=== PATIENT | female | born 2000 | race Caucasian/White ===

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

== ENCOUNTER → 2019-12-27 07:51 | Outpatient (CLI) | payer OTHER, SELFPAY ==
[2019-12-19 13:14] VITALS: BMI 19.9
[2019-12-27 09:07] LABS: Color, Urine Yellow (Yellow); Glucose, Dipstick Normal (Normal); Ketone-Dipstick Negative (Negative); Leukocyte Esterase-Dipstick 500 /ul (Negative); Nitrite-Dipstick Negative (Negative); Occult Blood-Urine 10 /ul (Negative); Protein-Dipstick Negative (Negative); Urine Bilirubin Dipstick Negative (Negative); Urine Clarity Sl. Cloudy (Clear); Urine Urobilinogen Normal (Normal)
== END ==
PROVIDERS: PCP Internal Medicine; Referring Provider Internal Medicine; Visit Provider Internal Medicine
DX: R30.0 Dysuria (principal)
CPT/HCPCS: 81002; 87086; 87088

== ENCOUNTER → 2021-06-23 | Outpatient (CLI) | payer OTHER, SELFPAY ==
[2021-03-27 10:58] VITALS: BMI 19.9
[2021-06-23 15:02] LABS: Bacteria 0 SEEN /hpf (None Seen); Mucous, Urine 0 SEEN /hpf (<or=2+)
[2021-06-23 15:07] LABS: Color, Urine Yellow (Yellow); Glucose, Dipstick Normal (Normal); Ketone-Dipstick Negative (Negative); Leukocyte Esterase-Dipstick 100 /ul (Negative); Nitrite-Dipstick Negative (Negative); Occult Blood-Urine 25 /ul (Negative); Protein-Dipstick Negative (Negative); Specific Gravity, Urine 1.025 (1.002-1.030); Urine Bilirubin Dipstick Negative (Negative); Urine Urobilinogen Normal (Normal)
[2021-06-23 15:20] LABS: Red Blood Cells-Urine 0-5 SEEN /hpf (0-5); Squamous Epithelial Cells - UA 10-25 SEEN /hpf (5-10); White Blood Cells 5-10 SEEN /hpf (0-5)
[2021-06-23 15:21] LABS: Amorphous Sediment 1+ URATE; Urine Clarity Sl Cldy (Clear)
== END | disposition home or self-care (01) ==
PROVIDERS: PCP Internal Medicine; Visit Provider Nurse Practitioner Family
DX: N39.0 Urinary tract infection, site not specified (principal)
CPT/HCPCS: 81001; 87086; 87088

== ENCOUNTER → 2022-08-14 | Outpatient (CLI) | payer OTHER, SELFPAY ==
[2022-08-14 15:31] LABS: Bacteria 0 SEEN /hpf (None Seen); Mucous, Urine 0 SEEN /hpf (<or=2+); Red Blood Cells-Urine 0 SEEN /hpf (0-5); White Blood Cells 0 SEEN /hpf (0-5)
[2022-08-14 15:42] LABS: Color, Urine Yellow (Yellow); Glucose, Dipstick Normal (Normal); Ketone-Dipstick Negative (Negative); Leukocyte Esterase-Dipstick Negative /ul (Negative); Nitrite-Dipstick Negative (Negative); Occult Blood-Urine Negative /ul (Negative); Protein-Dipstick Negative (Negative); Specific Gravity, Urine 1.015 (1.002-1.030); Urine Bilirubin Dipstick Negative (Negative); Urine Clarity Clear (Clear); Urine Urobilinogen Normal (Normal)
[2022-08-14 15:51] LABS: Squamous Epithelial Cells - UA 0-5 SEEN /hpf (5-10)
== END | disposition home or self-care (01) ==
LOC: LABSPEC 15:18
PROVIDERS: PCP Internal Medicine; Visit Provider Physician Assistant
DX: R10.9 Unspecified abdominal pain (principal)
CPT/HCPCS: 81001; 87077; 87086; 87088

== ENCOUNTER → 2023-02-13 | Outpatient (CLI) | payer OTHER, SELFPAY ==
--- NOTE | 2023-02-13 12:59 | CT_ITS ---
STUDY: CT MAXILLOFACIAL SINUSES REASON FOR EXAM: Female, 22 years old. SINUSITIS RADIATION DOSAGE (If Supplied By Facility): CTDIvol = ( 28.14 ) mGy, DLP = ( 816.54 ) mGycm TECHNIQUE: The patient was scanned in a multi detector CT scanner. High resolution axial imaging was performed without the administration of intravenous contrast material. Sagittal and coronal images were reconstructed. Individualized dose optimization techniques were used for this CT. COMPARISON: None. FINDINGS: FRONTAL SINUSES: Normal aeration, without mucosal inflammatory disease. ETHMOIDAL SINUSES: Mild mucosal thickening of the ethmoid sinuses. MAXILLARY SINUSES: There is a minimal degree of mucosal thickening along the medial wall of the maxillary sinus bilaterally. SPHENOIDAL SINUSES: Normal aeration, without mucosal inflammatory disease. There is patency of the bilateral maxillary infundibuli with normal uncinate processes, ethmoid bullae, and hiatus semilunaris. Normal bilateral middle turbinates. Normal bilateral inferior turbinates. Normal midline nasal septum. There is patency of the bilateral nasal airways. The visualized osseous structures are normal. The visualized bilateral orbital contents are normal. CT/Sinus/Facial Bone IMPRESSION: Mild degree of mucosal thickening of the ethmoid sinuses and the medial donohue of both maxillary sinuses. Electronically Signed: Fili Rodriguez MD at 13:30 EDT ,
== END | disposition home or self-care (01) ==
PROVIDERS: PCP Internal Medicine; Referring Provider Otolaryngology; Visit Provider Otolaryngology
DX: J32.8 Other chronic sinusitis (principal)
CPT/HCPCS: 70486

== ENCOUNTER 2023-05-15 17:02 | Emergency (ER) | payer OTHER, SELFPAY ==
[2023-05-15 17:03] VITALS: BP 146/93; PULSE 100; RESP 16; TEMP 36.6; O2SAT 98; BMI 22.3
[2023-05-15] MEDS: Lidocaine 1% (20 ml mdv) 20 ML Vial INFILT (17:29)
--- NOTE | 2023-05-15 17:38 | EDS_ITS ---
HPI <Dr. Maxwell Trinh MD - Last Filed: 05/15/23 17:39> History of Present Illness Chief Complaint: Laceration <LJ Roberto - Last Filed: 05/15/23 17:43> Narrative Narrative: Patient is a 22-year-old female with no significant medical history presents to the emergency department with a laceration to the right thumb. Patient states that she cut her thumb with a piece of equipment at the grocery store. Patient has full range of motion. Patient tetanus vaccination is up-to-date and last 5 years. She denies any other injury. [facility] <Dr. Maxwell Trinh MD - Last Filed: 05/15/23 17:39> [facility] Medical History (Updated 05/15/23 @ 17:42 by LJ Roberto) Acute otitis externa of left ear Constipation Impetigo Paronychia of toe of right foot Rhinitis, allergic Right lower quadrant abdominal pain URI (upper respiratory infection) Allergy/AdvReac Type Severity Reaction Status Date / Time No Known Allergies Allergy Verified 05/15/23 17:08 Social History Smoking Status: Never smoker alcohol intake: never ROS <LJ Roberto - Last Filed: 05/15/23 17:43> ROS ED ROS Narrative Constitutional: Negative for fever, chills, weight loss, weakness Eyes: Negative for vision loss, vision change, double vision ENT: Negative for any sore throat, ear pain, congestion Cardiovascular: Negative for any chest pain, tightness, palpitations Respiratory: Negative for any cough, sputum production, hemoptysis, dyspnea, dyspnea on exertion, orthopnea Gastrointestinal: Negative for any abdominal pain, nausea, vomiting, diarrhea, constipation, blood in stool, blood in vomit : Negative for any urinary frequency, dysuria, retention, blood in urine Muscle skeletal: Negative for any muscle joint pain, stiffness, myalgias, arthralgias, neck pain, back pain. Positive right thumb pain Neurological: Negative for any headache, syncope, numbness or tingling, dizziness. Positive laceration of the right thumb Skin: Negative for any rashes, lumps, itching, abrasions, lacerations Psychiatric: Negative for any depression, anxiety, stress, suicidal ideation, homicidal ideation Hematologic: Negative for any easy bruising, excessive bruising, easy bleeding Allergies: Negative for any eczema, hives, rash EXAM <Dr. Maxwell Trinh MD - Last Filed: 05/15/23 17:39> Physical Exam Const Vital Signs: 05/15/23 17:03 Temperature 97.9 F Temperature Source Temporal Pulse Rate 100 Respiratory Rate 16 Blood Pressure 146/93 H Blood Pressure Mean 110 Pulse Ox 98 Oxygen Delivery Method Room Air <LJ Roberto - Last Filed: 05/15/23 17:43> Physical Exam Narrative Exam Narrative: Vital signs reviewed. Extremities: No peripheral edema, no signs of gross trauma or deformity. Active full range of motion of all extremities. Patient has a small 1.5 cm laceration to the palmar aspect of the distal right thumb. No tendon involvement. Full range of motion, two-point sensation. +2 radial pulse. Equal lease administrator strength. Neuro: Cranial nerves II through XII intact, no focal neurological deficits. Skin: Clean dry and intact with no rash, purpura, petechiae, vesicles or pustules. Backs/flank: No CVA tenderness, no midline spinal tenderness, no deformity. Psych: Normal mood and affect. No SI, HI or acute psychosis. Const Vital Signs: 05/15/23 17:03 Temperature 97.9 F Temperature Source Temporal Pulse Rate 100 Respiratory Rate 16 Blood Pressure 146/93 H Blood Pressure Mean 110 Pulse Ox 98 Oxygen Delivery Method Room Air Positive well nourished and well developed General Appearance ED: well developed MDM <Dr. Maxwell Trinh MD - Last Filed: 05/15/23 17:39> MDM MDM Narrative Medical decision making narrative: I have personally performed a face to face assessment of the patient and have reviewed the MIGNON Note. I performed a substantive portion of the visit including all aspects of the following. My alberto findings include: History is [22-year-old healthy female. Laceration left thumb palmar side. About 2 cm.] Exam is [left hand neurovascular intact. Full range of motion. 2 cm laceration left thumb patient. Distal phalanx. Palmar side. Minimal oozing. No foreign body infection. Full flexion extension. Normal touch sensation. 4] Medical Decision Making [locally anesthetized and sutured repaired by our PURCHASING ADMINISTRATOR.] Other additions or changes: [None] History & Record Review Discussion w/independent historian: Patient <Enrique LJ Pena - Last Filed: 05/15/23 17:43> [facility] Treatment and Re-Evaluation Narrative: Patient appears generally well, patient appears nontoxic, vital signs are stable. Patient presents to the emergency department from work with a laceration to the palmar aspect of the right thumb. This is 1.5 cm. Patient no other injury. This would be a Workmen's Comp. All paperwork is filled out. The area was anesthetized, irrigated, did place 3 simple erupted sutures of 5-0 Ethilon. Patient tolerated well. She will have these removed in 7 to 10 days. Patient stable for discharge Discharge Plan Triage Chief Complaint: Laceration ED Midlevel Provider: Enrique Pena ED Provider: Maxwell Trinh Dx/Rx/DC Orders Clinical Impression: Laceration of thumb Instructions: ED Laceration Hand with ... Primary Care Provider: Hannah Gay Referrals: Hannah Gay MD [Primary Care Provider] - Activity Restrictions/Additional Instructions: Please have the sutures moved in 7 to 10 days. Disposition Disposition: Home, Self Care
== END 2023-05-15 17:57 | disposition home or self-care (01) ==
PROVIDERS: Emergency Provider Emergency Medicine; PCP Internal Medicine; Visit Provider Emergency Medicine
DX: S61.011A Laceration without foreign body of right thumb without damage to nail, initial encounter (principal); W26.8XXA Contact with other sharp object(s), not elsewhere classified, initial encounter; Y99.0 Civilian activity done for income or pay; Y92.69 Other specified industrial and construction area as the place of occurrence of the external cause
CPT/HCPCS: 12001; 99283

== ENCOUNTER → 2023-06-16 | Outpatient (CLI) | payer OTHER, SELFPAY ==
--- NOTE | 2023-06-15 12:50 | NASAL_PTH ---
PATIENT: LAWRENCE [place] LOC: [facility] U#:[id number] AGE/SX: 23/F ROOM: RE06/16/[address]: Dr. Isac Puentes MD : 2000 BED: DIS: 06/16/2023 SPEC #: [id number] RECD: 06/16/23 15:06 STATUS: NAOMIE BETSEY #: [id number] BO: 06/15/23 12:[address]: Isac Puentes DEPT: SURGICAL PATHOLOGY RECD BY: Laverne Buchanan ENTERED: 06/17/23 09:37 SP TYPE: NASAL SPEC OTHR DR: Dr. Hannah Gay MD [facility] Tissues: A - Ethmoid sinus, NOS B - Ethmoid sinus, NOS Procedures: Decalcification bone/plaque Surgery Specimen Level IV HEADER OPERATION: Functional endoscopic sinus surgery, submucous resection inferior turbinates PRE-OP DIAGNOSIS: Nasal congestion, hypertrophy of nasal turbinates, chronic sinusitis TISSUE SUBMITTED: A - Right sinus contents, B - Left sinus contents MICROSCOPIC DIAGNOSIS A. Right sinus contents: Fragments of respiratory mucosa with chronic inflammation and bone. B. Left sinus contents: Fragments of respiratory mucosa with chronic inflammation and bone. KEON:amanda 06/22/2023 MICROSCOPIC DESCRIPTION Slides are reviewed. GROSS DESCRIPTION A - Received in fixative is one container labeled with the patient's name and designated right sinus contents. The specimen consists of multiple irregular and gritty fragments of mcwilliams tissue that in aggregate measure 3.0 x 0.5 x 0.2 cm. The specimen is totally submitted in one cassette after decalcification. B - Received in fixative is one container labeled with the patient's name and designated left sinus contents. The specimen consists of multiple irregular and gritty fragments of mcwilliams tissue that in aggregate measure 3.0 x 0.5 x 0.2 cm. The specimen is totally submitted in one cassette after decalcification. / AM:amanda 06/17/2023 TC:3 CPT: 30674 x2, 85883 x2
== END | disposition home or self-care (01) ==
LOC: LABSPEC 15:26
PROVIDERS: PCP Internal Medicine; Referring Provider Otolaryngology; Visit Provider Otolaryngology
DX: R09.81 Nasal congestion (principal); J34.3 Hypertrophy of nasal turbinates; J32.9 Chronic sinusitis, unspecified
CPT/HCPCS: 88305; 88311

== ENCOUNTER → 2023-08-20 | Outpatient (CLI) | payer OTHER, SELFPAY | END | disposition home or self-care (01) | LOC: LABSPEC 12:10 | PROVIDERS: PCP Internal Medicine; Referring Provider Physician Assistant Surgical; Visit Provider Physician Assistant Surgical | DX: N39.0 Urinary tract infection, site not specified (principal) | CPT/HCPCS: 87086 ==

== ENCOUNTER → 2023-09-09 | Outpatient (CLI) | payer OTHER, SELFPAY ==
[2023-09-09 17:47] LABS: Mucous, Urine 0 SEEN /hpf (<or=2+); Red Blood Cells-Urine 0 SEEN /hpf (0-5); White Blood Cells 0 SEEN /hpf (0-5)
[2023-09-09 18:03] LABS: Color, Urine Yellow (Yellow); Glucose, Dipstick Normal (Normal); Ketone-Dipstick Negative (Negative); Leukocyte Esterase-Dipstick 25 /ul (Negative); Nitrite-Dipstick Negative (Negative); Occult Blood-Urine 10 /ul (Negative); Protein-Dipstick 15 mg/dl (Negative); Urine Bilirubin Dipstick Negative (Negative); Urine Clarity Sl. Cloudy (Clear); Urine Urobilinogen Normal (Normal)
[2023-09-09 18:27] LABS: Amorphous Sediment 1+; Bacteria RARE /hpf (None Seen); Squamous Epithelial Cells - UA 0-5 SEEN /hpf (5-10)
== END | disposition home or self-care (01) ==
PROVIDERS: PCP Internal Medicine; Referring Provider Physician Assistant Surgical; Visit Provider Physician Assistant Surgical
DX: R30.0 Dysuria (principal)
CPT/HCPCS: 81001; 87086

== ENCOUNTER → 2024-04-19 | Outpatient (CLI) | payer OTHER, SELFPAY ==
[2024-04-19 17:11] LABS: Bacteria 0 SEEN /hpf (None Seen); Red Blood Cells-Urine 0 SEEN /hpf (0-5); White Blood Cells 0 SEEN /hpf (0-5)
[2024-04-19 18:16] LABS: Color, Urine Yellow (Yellow); Glucose, Dipstick Normal (Normal); Ketone-Dipstick Negative (Negative); Leukocyte Esterase-Dipstick Negative /ul (Negative); Nitrite-Dipstick Negative (Negative); Occult Blood-Urine 10 /ul (Negative); Protein-Dipstick 15 mg/dl (Negative); Specific Gravity, Urine 1.025 (1.002-1.030); Urine Bilirubin Dipstick Negative (Negative); Urine Clarity Clear (Clear); Urine Urobilinogen Normal (Normal)
[2024-04-19 19:05] LABS: Mucous, Urine 1+ /hpf (<or=2+); Squamous Epithelial Cells - UA 5-10 SEEN /hpf (5-10)
== END | disposition home or self-care (01) ==
LOC: LABSPEC 16:39
PROVIDERS: PCP Internal Medicine; Referring Provider Physician Assistant; Visit Provider Physician Assistant
DX: R35.0 Frequency of micturition (principal)
CPT/HCPCS: 81001; 87086

== ENCOUNTER → 2024-05-03 | Outpatient (CLI) | payer OTHER, SELFPAY ==
--- NOTE | 2024-05-03 15:20 | RAD_ITS ---
STUDY: X-RAY - RIGHT HAND REASON FOR EXAM: Female, 23 years old. Injury. Pain. TECHNIQUE: 3 view(s) of the hand. COMPARISON: None. FINDINGS: Normal radiocarpal articulation. Normal distal radioulnar joint. Normal visualized carpal bones. Normal carpal articulations Normal carpometacarpal articulation of the thumb. Normal second through fifth carpometacarpal joints. Normal metacarpi. Normal metacarpophalangeal joint of the thumb. Normal interphalangeal joint of the thumb. Normal proximal and distal phalanges of the thumb. Normal metacarpophalangeal joints of the second through fifth fingers. Normal proximal and distal interphalangeal joints of the second through fifth fingers. Normal phalanges of the second through fifth fingers. The soft tissue structures are normal. RAD/Hand Min 3 Views IMPRESSION: Normal x-ray examination of the hand. Electronically Signed: Chcukie Roberts MD at 15:39 EDT ,
--- NOTE | 2024-05-03 15:24 | RAD_ITS ---
STUDY: X-RAY - RIGHT WRIST REASON FOR EXAM: Female, 23 years old. Injury. Pain. TECHNIQUE: 3 view(s) of the wrist were obtained. COMPARISON: None. FINDINGS: Normal visualized distal radius and ulna. Normal radiocarpal articulation. Normal distal radioulnar articulation. Normal carpal bones. Normal carpal articulations. Normal carpometacarpal articulation of the thumb. Normal second through fifth carpometacarpal articulations. Normal visualized metacarpal bones. The soft tissue structures are normal. RAD/Wrist min 3 Views IMPRESSION: Normal x-ray examination of the wrist. Electronically Signed: Chuckie Roberts MD at 15:39 EDT ,
== END | disposition home or self-care (01) ==
PROVIDERS: PCP Internal Medicine; Referring Provider Physician Assistant; Visit Provider Physician Assistant
DX: T14.90XA Injury, unspecified, initial encounter (principal)
CPT/HCPCS: 73110; 73130

== ENCOUNTER → 2025-04-15 | Outpatient (CLI) | payer OTHER, SELFPAY | END | disposition home or self-care (01) | PROVIDERS: PCP Internal Medicine; Referring Provider Physician Assistant Surgical; Visit Provider Physician Assistant Surgical | DX: R82.90 Unspecified abnormal findings in urine (principal) | CPT/HCPCS: 87086; 87088 ==

== ENCOUNTER → 2025-05-10 | Outpatient (CLI) | payer OTHER, SELFPAY ==
--- OUTSIDE RECORDS SUMMARY | 2025-05-10 07:31 | XMS RPT_ITS | CCD ---
Author Organization [facility] Care Team Providers Care Implementation Advisor Name Role Phone STRONG, CELESTE H Unavailable Unavailable STRONG, CELESTE H Unavailable Unavailable STRONG, CELESTE H Unavailable Unavailable STRONG, CELESTE H Unavailable Unavailable STRONG, CELESTE H Unavailable Unavailable Dulce Maria Lynch Unavailable Unavailable Unavailable Unavailable Unavailable Meena Chavez Unavailable [phone] SRIRAM Nichole Unavailable Unavailable Isac Puentes Unavailable SRIRAM Nichole Unavailable Unavailable Camille Hernandez Unavailable Unavailable Dulce Maria Lynch MD Unavailable Dominique Dean MD Unavailable Meena Chavez Unavailable SRIRAM Nichole LPN Unavailable Unavailable Unavailable Unavailable Lexi Perez Unavailable Carolina Frank Unavailable Dulce Maria Lynch MD Unavailable Aura Boo MA Unavailable Unavailable Lynndyl CANNERY WORKER, Kayela Unavailable Unavailable Gravius CANNERY WORKER, Eugenia Unavailable Unavailable REFERRED, SELF Referring Unavailable DOMINIQUE DEAN Attending Unavailable DULCE MARIA LYNCH Primary Care Unavailable Meena Dubon LPN Unavailable Unavailable Slarb TOBY, Lisy Unavailable Unavailable Isac Puentes MD Unavailable Dr. Dulce Maria Lynch Primary Care Provider Dr. Dulce Maria Lynch Referring Provider NATANAEL Marin Attending Provider NATANAEL Rushing Attending Provider Dulce Maria Lynch MD Attending Unavailable Bonebecki Dulce Maria VICTOR Consulting Unavailable Dr. Dulce Maria Lynch Primary Care Provider Dr. Dulce Maria Lynch Referring Provider NATANAEL Rushing Attending Provider Dr. Dulce Maria Lynch Primary Care Provider Dr. Dulce Maria Lynch Referring Provider NATANAEL Marin Attending Provider Bonezzi, Dulce Maria Primary Care Unavailable Jesús Rushing Attending Unavailable Bonezzi, Dulce Maria Referring Unavailable Bonezzi, Dulce Maria Primary Care Unavailable Celeste Mosley NP Attending Unavailable Bonezzi, Dulce Maria Referring Unavailable Bonezzi, Dulce Maria Primary Care Unavailable Jesús Rushing Attending Unavailable Bonezzi, Dulce Maria Referring Unavailable Bonezzi, Dulce Maria Primary Care Unavailable Jesús Rushing Attending Unavailable Bonezzi, Dulce Maria Referring Unavailable Bonezzi, Dulce Maria Primary Care Unavailable Tracy Gaona Attending Unavailable Bonezzi, Dulce Maria Referring Unavailable Bonezzi, Dulce Maria Primary Care Unavailable Jesús Rushing Attending Unavailable Bonezzi, Dulce Maria Referring Unavailable Bonezzi, Dulce Maria Primary Care Unavailable Jesús Combs Attending Unavailable Bonezzi, Dulce Maria Referring Unavailable Jesús Rushing Referring Unavailable Bonezzi, Dulce Maria Primary Care Unavailable Jesús Rushing Attending Unavailable Jaleel Marin Attending Unavailable Jaleel Marin Referring Unavailable Bonezzi, Dulce Maria Primary Care Unavailable Jesús Combs Attending Unavailable Bonezzi, Dulce Maria Primary Care Unavailable Bonezzi, Dulce Maria Referring Unavailable Jaleel Marin Attending Unavailable Bonezzi, Dulce Maria Primary Care Unavailable Jesús Combs Attending Unavailable Bonezzi, Dulce Maria Primary Care Unavailable Allergies Allergy Classification Reported Allergen(s) Allergy Type Date of Onset Reaction(s) Facility (20 sources) Animal Dander; Translations: [Animal Dander] allergy to substance 5 [facility] Work Phone: Comment on above: cats Medications Current Medications Medication Drug Class(es) Dates Sig (Normalized) Sig (Original) triamcinolone acetonide 0.055 mg/actuat metered dose nasal spray (1 source) Corticosteroid Start: 09-09-2023 take 1 spray(s) nasal route once daily Triamcinolone Acetonide (Nasacort) 55 mcg aerosol,spray Active 2 SPRAY INTRANASAL DAILY 16.9 September 09, 2023 12:00am administer into each nostril Completed/Discontinued Medications Medication Drug Class(es) Dates Sig (Normalized) Sig (Original) amoxicillin 500 mg oral capsule (6 sources) Penicillin-class Antibacterial Start: 12-25-2022 End: 01-04-2023 take 500 mg by mouth three times daily Amoxicillin Discontinued 500 MG PO THREE TIMES A DAY 30 December 25, 2022 1:00am January 04, 2023 1:05am Start: 09-08-2019 End: 11-22-2019 take 1000 mg by mouth twice daily Amoxicillin Discontinued 1000 MG PO TWICE A DAY 40 September 08, 2019 12:00am November 22, 2019 2:46pm amoxicillin 875 mg / clavulanate 125 mg oral tablet (20 sources) Penicillin-class Antibacterial Start: 04-15-2022 End: 05-29-2022 take 1 tablet by mouth twice daily Amoxicillin-Pot Clavulanate 875-125 MG Oral Tablet 1 (one) Tablet bid for 0 days Quantity: 28 {Tablet} Refills: 0 Ordered: 29-May-2022 Eugenia Marx CMA Start : 15-Apr-2022 End : 29-May-2022 Inactive Start: 03-15-2022 End: 03-25-2022 take 1 tablet by mouth twice daily at mealtime Amoxicillin-Pot Clavulanate Discontinued 1 TABLET PO TWICE A DAY 20 March 15, 2022 12:00am March 25, 2022 12:04am take with food Start: 11-14-2021 take 1 tablet by paulo th twice daily Amoxicillin-Pot Clavulanate 875-125 MG Oral Tablet 1 (one) Tablet bid for 0 days Quantity: 20 {Tablet} Refills: 0 Ordered: 14-Nov-2021 Victor Hugo VICTOR, Dulce Maria Lynch MD, Dulce Maria Jacobs Start : 14-Nov-2021 Active Start: 10-23-2021 End: 08-14-2022 take 1 tablet by mouth three times daily Amoxicillin-Pot Clavulanate Discontinued 1 TABLET PO THREE TIMES A DAY December 30, 2021 1:55pm August 14, 2022 11:36am Start: 02-14-2020 End: 02-24-2020 take 1 tablet by mouth every twelve hours Amoxicillin-Pot Clavulanate (Augmentin) 875-125 mg tablet Discontinued 1 TABLET PO Q12H 20 February 14, 2020 12:00am February 24, 2020 12:02am Start: 08-09-2019 End: 10-06-2019 take 1 tablet by mouth twice daily Augmentin 875-125 MG Oral Tablet 1 (one) Tablet bid for 0 days Quantity: 10 {Tablet} Refills: 0 Ordered: 06-Oct-2019 SRIRAM Nichole LPN Start : 09-Aug-2019 End : 06-Oct-2019 Inactive azithromycin 250 mg oral tablet (3 sources) Macrolide Antimicrobial Start: 12-04-2017 End: 12-09-2017 Azithromycin Discontinued 250 MG PO daily 6 December 04, 2017 1:00am December 09, 2017 1:08am Take 2 tabs once on day one. Take one tablet next 4 days busPIRone hydrochloride 15 mg oral tablet (20 sources) Start: 01-05-2020 End: 03-29-2021 take 1 tablet by mouth twice daily busPIRone HCl 15 MG Oral Tablet 1 (one) Tablet bid for 0 days Quantity: 180 {Tablet} Refills: 3 Ordered: 29-Mar-2021 SRIRAM Nichole LPN Start : 05-Jan-2020 End : 29-Mar-2021 Inactive Comments: Mail order. Start: 08-02-2019 busPIRone HCl 10 MG Oral Tablet 1 (one) Tablet 1/2 at night for 3 days then 1/2 bid for 3 days then 1/2 in am and 1 at pm for 3 days then 1 bid for 0 days Quantity: 60 {Tablet} Refills: 2 Ordered: 02-Aug-2019 Victor Hugo VICTOR, Dulce Maria Lynch MD, Dulce Maria Jacobs Start : 02-Aug-2019 Active Start: 08-03-2018 End: 12-17-2018 take 1 tablet by mouth twice daily BusPIRone HCl 5 MG Oral Tablet 1 (one) Tablet Tablet bid for 0 days Quantity: 60 {Tablet} Refills: 2 Ordered: 03-Aug-2018 Victor Hugo VICTOR, Dulce Maria Lynch MD, Dulce Maria Jacobs Start : 03-Aug-2018 End : 17-Dec-2018 Discontinued Comment on above: Mail order. chlorhexidine gluconate 40 mg/ml medicated liquid soap (20 sources) Start: 0 End: 0 Hibiclens 4 % External Liquid 1 (one) Milliliter wash body when shower for 0 days Quantity: 100 {Milliliter} Refills: 0 Ordered: 23-Mar-2020 SRIRAM Nichole LPN Start : 05-Jan-2020 End : 23-Mar-2020 Inactive ciprofloxacin 500 mg oral tablet (20 sources) Quinolone Antimicrobial Start: 0 End: 0 take 1 tablet by mouth twice daily Cipro 500 MG Oral Tablet 1 (one) Tablet bid for 3 days Quantity: 6 {Tablet} Refills: 0 Ordered: 27-Dec-2019 SRIRAM Nichole LPN Start : 27-Dec-2019 End : 30-Dec-2019 Inactive Start: 08-03-2018 End: 08-12-2018 take 1 tablet by mouth twice daily Cipro 500 MG Oral Tablet 1 (one) Tablet bid for 0 days Quantity: 14 {Tablet} Refills: 0 Ordered: 12-Aug-2018 SRIRAM Nichole Start : 03-Aug-2018 End : 12-Aug-2018 Inactive dexamethasone 6 mg oral tablet (3 sources) Corticosteroid Start: 11-13-2022 End: 12-25-2022 take 6 mg by mouth once daily Dexamethasone Discontinued 6 MG PO DAILY November 13, 2022 1:00am December 25, 2022 3:11pm diphenhydrAMINE hydrochloride 25 mg oral capsule (20 sources) Histamine-1 Receptor Antagonist Start: 01-05-2020 End: 01-08-2021 ZzzQuil 25 MG Oral Capsule 1 (one) Capsule at night for 0 days Quantity: 30 {Capsule} Refills: 0 Ordered: 08-Jan-2021 SRIRAM Nichole LPN Start : 05-Jan-2020 End : 08-Jan-2021 Inactive doxycycline hyclate 100 mg oral tablet (20 sources) Tetracycline-class Drug Start: 01-05-2020 End: 03-23-2020 take 1 tablet by mouth twice daily Doxycycline Hyclate 100 MG Oral Tablet 1 (one) Tablet bid for 0 days Quantity: 20 {Tablet} Refills: 0 Ordered: 23-Mar-2020 SRIRAM Nichole LPN Start : 05-Jan-2020 End : 23-Mar-2020 Inactive Start: 11-24-2018 End: 12-25-2018 take 100 mg by mouth twice daily Doxycycline Monohydrate Discontinued 100 MG PO TWICE A DAY November 24, 2018 1:00am December 25, 2018 12:15pm Start: 05-27-2018 End: 07-14-2018 take 1 capsule by mouth once daily Doxycycline Monohydrate 100 MG Oral Capsule 1 qd for 0 days Refills: 0 Ordered: 14-Jul-2018 SRIRAM Nichole LPN Start : 27-May-2018 End : 14-Jul-2018 Inactive ergocalciferol 1.25 mg oral capsule (2 sources) Provitamin D2 Compound Start: 03-24-2023 take 1 capsule by mouth three times weekly ergocalciferol (vitamin D2) 1,250 mcg (50,000 unit) oral capsule 1 (one) capsule three time a wk for 30 days Quantity: 12 {Capsule} Refills: 3 Ordered: 24-Mar-2023 Meena Dubon LPN Start : 24-Mar-2023 Active escitalopram 5 mg oral tablet (19 sources) Serotonin Reuptake Inhibitor Start: 10-31-2021 End: 04-15-2022 take 1 tablet by mouth in the morning Lexapro 5 MG Oral Tablet 1 (one) Tablet in am for 0 days Quantity: 30 {Tablet} Refills: 1 Ordered: 15-Apr-2022 Aura Boo MA Start : 31-Oct-2021 End : 15-Apr-2022 Inactive Loestrin 1/20 (21) 1-20 MG-MCG Oral Tablet (20 sources) Estrogen Start: 09-06-2018 End: 05-10-2019 take 1 tablet by mouth in the morning Loestrin 1/20 (21) 1-20 MG-MCG Oral Tablet 1 (one) Tablet Tablet uad in am for 0 days Quantity: 1 {Package} Refills: 6 Ordered: 10-May-2019 SRIRAM Nichole LPN Start : 06-Sep-2018 End : 10-May-2019 Inactive Start: 09-06-2018 End: 05-10-2019 take 1 tablet by mouth in the morning Loestrin 1/20 (21) 1-20 MG-MCG Oral Tablet 1 (one) Tablet Tablet uad in am for 0 days Quantity: 1 {Package} Refills: 6 Ordered: 10-May-2019 SRIRAM Nichole Start : 06-Sep-2018 End : 10-May-2019 Inactive Start: 09-06-2018 take 1 tablet by paulo th in the morning Loestrin 1/20 (21) 1-20 MG-MCG Oral Tablet 1 (one) Tablet Tablet uad in am for 0 days Quantity: 1 {Package} Refills: 6 Ordered: 06-Sep-2018 Victor Hugo VICTOR, Dulce Maria Lynch MD, Dulce Maria Jacobs Start : 06-Sep-2018 Active Start: 09-06-2018 take 1 tablet by paulo th in the morning Loestrin 1/20 (21) 1-20 MG-MCG Oral Tablet 1 (one) Tablet uad in am for 0 days Quantity: 1 {Package} Refills: 6 Ordered: 06-Sep-2018 Victor Hugo VICTOR, Dulce Maria Lynch MD, Dulce Maria Jacobs Start : 06-Sep-2018 Active fexofenadine hydrochloride 180 mg oral tablet (16 sources) Histamine-1 Receptor Antagonist Start: 04-15-2022 End: 11-20-2022 take 1 tablet by mouth twice daily Crista Allergy 180 mg oral tablet 1 (one) Tablet bid for 0 days Quantity: 60 {Tablet} Refills: 2 Ordered: 20-Nov-2022 Ling TOBYMeena Start : 15-Apr-2022 End : 20-Nov-2022 Inactive fluconazole 150 mg oral tablet (3 sources) Azole Antifungal Start: 06-23-2021 End: 12-25-2022 Fluconazole Discontinued 150 MG PO Q3D 2 June 23, 2021 12:00am December 25, 2022 3:11pm repeat second dose 72 hrs after first dose FLUoxetine 20 mg oral capsule (3 sources) Serotonin Reuptake Inhibitor Start: 12-31-2017 End: 11-24-2018 Fluoxetine Discontinued PO 30 December 31, 2017 1:00am November 24, 2018 5:38pm fluticasone propionate 0.05 mg/actuat metered dose nasal spray (20 sources) Corticosteroid Start: 05-27-2018 End: 08-03-2018 Flonase 50 MCG/ACT Nasal Suspension 1 (one) [place] 2 spray each nostirl daily. for 0 days Quantity: 1 {[place]} Refills: 0 Ordered: 03-Aug-2018 SRIRAM Nichole LPN Start : 27-May-2018 End : 03-Aug-2018 Inactive 12 hr guaiFENesin 600 mg extended release oral tablet (20 sources) Start: 08-09-2019 End: 01-08-2021 take 1 tablet by mouth twice daily Mucinex 600 MG Oral Tablet Extended Release 12 Hour 1 (one) Tablet bid for 0 days Quantity: 30 {Tablet} Refills: 0 Ordered: 08-Jan-2021 SRIRAM Nichole LPN Start : 09-Aug-2019 End : 08-Jan-2021 Inactive hydrocortisone 10 mg/ml / neomycin 3.5 mg/ml / polymyxin b 23889 unt/ml otic suspension (6 sources) Aminoglycoside Antibacterial, Polymyxin-class Antibacterial, Corticosteroid Start: 01-17-2023 End: 01-27-2023 Neomycin-Polymyxi n-Hc Discontinued 4 DRP OTIC THREE TIMES A DAY 08 25January 17, 2023 1:00am January 27, 2023 12:04am to affected ear(s) while awake Start: 11-15-2020 End: 11-25-2020 Fgahqebt-Yntddawhh-Qw Discon tinued 3 DRP OTIC Q4H 08 25November 15, 2020 1:00am November 25, 2020 1:03am apply to (cotton) wick; replace wick every 24 hours levoFLOXacin 500 mg oral tablet (4 sources) Quinolone Antimicrobial Start: 01-14-2023 End: 01-24-2023 take 1 tablet by mouth once daily levoFLOXacin 500 mg oral tablet 1 (one) tablet daily for 10 days Quantity: 10 {Tablet} Refills: 0 Ordered: 14-Jan-2023 Meena Dubon LPN Start : 14-Jan-2023 End : 24-Jan-2023 Inactive loratadine 10 mg oral tablet (20 sources) Start: 05-27-2018 End: 06-26-2018 take 1 tablet by mouth once daily Claritin 10 MG Oral Tablet 1 (one) Tablet daily for 30 days Quantity: 30 {Tablet} Refills: 0 Ordered: 14-Jul-2018 Victor Hugo VICTOR, Dulce Maria Lynch MD, Dulce Maria Jacobs Start : 27-May-2018 End : 26-Jun-2018 Inactive methylPREDNISolone 4 mg oral tablet (6 sources) Corticosteroid Start: 03-27-2021 End: 06-23-2021 take 1 tablet by mouth once Methylprednisolone (Medrol (James)) 4 mg tablets,dose pack Discontinued 0 PO per package directions March 27, 2021 12:00am June 23, 2021 8:53am PO PER PKG DIR Start: 01-23-2020 End: 02-14-2020 Methylprednisolone Discontin ued 0 PO per package directions January 23, 2020 12:00am February 14, 2020 4:34pm PO PER PKG DIR mupirocin 0.02 mg/mg topical ointment (20 sources) RNA Synthetase Inhibitor Antibacterial Start: 01-05-2020 End: 03-23-2020 Mupirocin 2 % External Ointment 1 (one) Application apply in nostril and belly button daily 1-2 weeks for 0 days Quantity: 1 {Tube} Refills: 0 Ordered: 23-Mar-2020 SRIRAM Nichole LPN Start : 05-Jan-2020 End : 23-Mar-2020 Inactive nitrofurantoin, macrocrystals 25 mg / nitrofurantoin, monohydrate 75 mg oral capsule (4 sources) Nitrofuran Antibacterial Start: 08-20-2023 End: 08-27-2023 take 1 capsule by mouth every twelve hours at mealtime Nitrofurantoin Monohyd/M-Cryst Discontinued 1 CAP PO Q12H 14 August 20, 2023 12:00am August 27, 2023 12:04am administer with a meal/food; swallow whole; do not open, crush, dissolve , or chew Start: 12-19-2019 End: 12-26-2019 take 1 capsule by mouth every twelve hours at mealtime Nitrofurantoin Monohyd/M-Cryst (Macrobid) 100 mg capsule Discontinued 100 MG PO Q12H 14 December 19, 2019 1:00am December 26, 2019 1:08am must administer with a meal/food ofloxacin 3 mg/ml otic solution (3 sources) Quinolone Antimicrobial Start: 03-15-2022 End: 03-22-2022 Ofloxacin Discontinued 5 DRP OTIC TWICE A DAY 10 March 15, 2022 12:00am March 22, 2022 12:06am oxymetazoline hydrochloride 0.5 mg/ml nasal spray (3 sources) Start: 11-15-2020 End: 11-18-2020 Oxymetazoline (Afrin (Oxymetazoline)) 0.05 % mist Discontinued 2 SPRAY INTRANASAL Q12H 15 3 November 15, 2020 1:00am November 18, 2020 1:02am PARoxetine hydrochloride 10 mg oral tablet (20 sources) Serotonin Reuptake Inhibitor Start: 05-10-2019 End: 08-02-2019 take 1 tablet by mouth once daily PARoxetine HCl 10 MG Oral Tablet 1 Tablet qd for 0 days Quantity: 30 {Tablet} Refills: 6 Ordered: 02-Aug-2019 Josuelatanyaakanksha FRIEDA Camille Start : 10-May-2019 End : 02-Aug-2019 Inactive Start: 05-27-2018 End: 08-03-2018 take 1 tablet by mouth once daily PARoxetine HCl 20 MG Oral Tablet 1 Tablet qd for 0 days Quantity: 30 {Tablet} Refills: 6 Ordered: 03-Aug-2018 SRIRAM Nichole Start : 27-May-2018 End : 03-Aug-2018 Inactive sulfacetamide sodium 100 mg/ml ophthalmic solution (20 sources) Sulfonamide Antibacterial Start: 03-25-2019 End: 05-10-2019 Bleph-10 10 % Ophthalmic Solution 1-2 Metric Drop every 4 hours x7 days to affected eye(s) for 0 days Quantity: 15 {Milliliter} Refills: 0 Ordered: 10-May-2019 SRIRAM Nichole LPN Start : 25-Mar-2019 End : 10-May-2019 Inactive sulfamethoxazole 800 mg / trimethoprim 160 mg oral tablet (19 sources) Dihydrofolate Reductase Inhibitor Antibacterial, Sulfonamide Antimicrobial Start: 10-29-2021 End: 04-15-2022 take 1 tablet by mouth twice daily Bactrim DS 800-160 MG Oral Tablet 1 (one) Tablet bid for 0 days Quantity: 14 {Tablet} Refills: 0 Ordered: 15-Apr-2022 Aura Boo MA Start : 29-Oct-2021 End : 15-Apr-2022 Inactive NEGATED: Highlighted row has not occurred!drug or medication (3 sources) No Known Historical Medications NEGATED: Highlighted row has not occurred!No Known Historical Medications (14 sources) No Known Historical Medications Problems Active Problems Problem Classification Problem Date Documented Da te Episodic/Chronic Abdominal pain (20 sources) Suprapubic pain; Translations: [Abdominal pain] Resolved: 08-03-2018 08-03-2018 Episodic Administrative/social admission (20 sources) Medical examinations/report s status; Translations: [Follow-up status] Resolved: 05-10-2019 12-17-2018 Episodic Comment on above: talk about how felt and if want relationship and proper control. aware that if use OCP adn use condom risk of low but not zero. canuse OCP told if take atb must use condom. Anxiety disorders (20 sources) Anxiety; Translations: [Mixed anxiety and depressive disorder] 12-17-2018 Chronic Comment on above: right now off meds a nd doing better saving working alot keeping busy and staying away from mother which helps. she not want somethi ng as strong as paxil she end up taqking buspar it help some but stilliritable. try using 1/2 paxil was on because worked but she thought too strong she not want somethi ng as strong as paxil she end up taqking buspar it help some but stilliritable. she is doing better less irritability anger and aggitate. dizzy and vivid dreams will try taking in am. 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 still need an appt with meena. buspar and paxil maricruz am alot. doing better in past aristeo perez. not having outburst at work. buspar and paxil maricruz am alot. doing better in past aristeo perez. she is so busy and that helps. she sstill dislike went over diet Attention-deficit conduct and disruptive behavior disorders (5 sources) Attention deficit hyperactivity disorder, predominantly inattentive type; Translations: [ADD (attention deficit disorder) without hyperactivity] 04-02-2019 Chronic Attention-deficit, conduct, and disruptive behavior disorders (1 source) Attention-deficit hyperactivity disorder, unspecified type; Translations: [Attention-deficit hyperactivity disorder, unspecified type] Onset: 04-25-2025 Chronic Chronic obstructive pulmonary disease and bronchiectasis (3 sources) Bronchitis; Translations: [Bronchitis, not specified as acute or chronic] 01-23-2020 Episodic Developmental disorders (7 sources) Borderline intellectual disability; Translations: [Borderline mental handicap] 04-02-2019 Chronic Comment on above: IQ 87 live with moth eer and pays for everything Developmental disorders (20 sources) Borderline intellectual functioning; 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 on energy drinks Genitourinary symptoms and ill-defined conditions (20 sources) Abnormal urine; Translations: [Dysuria] Onset: 04-14-2025 Resolved: 05-13-2021 03-23-2020 Episodic Immunizations and screening for infectious disease (17 sources) Requires diphtheria, tetanus and pertussis vaccination; Translations: [Need for Tdap vaccination] Resolved: 04-09-2023 11-26-2022 Episodic Inflammation; infection of eye (except that caused by tuberculosis or sexually transmitteddisease) (20 sources) Marianne eye disease; Translations: [Conjunctivitis] Resolved: 05-10-2019 04-02-2019 Episodic Malaise and fatigue (20 sources) Fatigue; Translations: [Fatigue] 04-15-2022 Episodic Mood disorders (1 source) Major depressive disorder, single episode, unspecified; Translations: [Major depressive disorder, single episode, unspecified] Onset: 04-25-2025 Chronic Mood disorders (20 sources) Mood disorders Mycoses (3 sources) Candidiasis of vagina; Translations: [Candidiasis of vagina] 06-23-2021 Episodic Neoplasms of unspecified nature or uncertain behavior (20 sources) Neoplasm of uncertain behavior of skin; Translations: [Neoplasm of uncertain behavior of skin] 05-29-2022 Episodic Nonspecific chest pain (20 sources) Chest pain; Translations: [Chest pain] Resolved: 05-13-2021 03-23-2020 Episodic Comment on above: think anxiety could be GI check EKG not think cardiac. breaths and calming help. refuse meds. Nutritional deficiencies (5 sources) Vitamin D deficiency; Translations: [Vitamin D deficiency] 03-24-2023 Chronic Comment on above: really low went over what causes and [place] [address] [place] to get up quicker. recheck in 6 weeks Open wounds of extremities (2 sources) Laceration of thumb; Translations: [Laceration without foreign body of unspecified thumb without damage to nail, initial encounter] 05-15-2023 Episodic Other ear and sense organ disorders (3 sources) Otitis externa; Translations: [Unspecified otitis externa, unspecified ear] 03-15-2022 Chronic Other ear and sense organ disorders (3 sources) Diffuse otitis externa, left ear; Translations: [Diffuse otitis externa of left ear] 11-15-2020 Episodic Other ear and sense organ disorders (3 sources) Acute otitis externa; Translations: [Unspecified acute noninfective otitis externa, left ear] 01-17-2023 Episodic Other ear and sense organ disorders (2 sources) Unspecified acute noninfective otitis externa, left ear; Translations: [Infective otitis externa, unspecified] 01-17-2023 Episodic Other gastrointestinal disorders (3 sources) Constipation; Translations: [Constipation, unspecified] 08-14-2022 Episodic Other inflammatory condition of skin (20 sources) Perioral dermatitis; Translations: [Perioral dermatitis] 03-23-2020 Chronic Comment on above: went to see now clin ic. given cream is helping told if owrsen then would use doxy. Other nutritional; endocrine; and metabolic disorders (20 sources) Body mass index less than 20; Translations: [BMI less than 19,adult] Resolved: 03-23-2020 03-23-2020 Episodic Other screening for suspected conditions (not mental disorders or infectious disease) (20 sources) Patient encounter status; Translations: [Encounter for screening for cervical cancer (Renamed from Encounter for screening for malignant neoplasm of cervix)] 10-29-2021 Episodic Other skin disorders (20 sources) Acne; Translations: [Acne] 12-17-2018 Episodic Comment on above: doxy help alot. off now and no ocp now better. Other skin disorders (7 sources) Ingrowing great toenail; Translations: [Ingrown left big toenail] 01-08-2021 Episodic Comment on above: went over risks and benefits and used lidocaine 1% without epi to block the area around the medial right toenail edge where inflamed. then used scissor to cut down the medial edge and remove the nail that was imbedded in the nail bed. used cautery to burn the nail matrix to prevent regrowth pt tolerate well and actually watched it all Other skin disorders (20 sources) Skin lesion; Translations: [Skin lesion, infected] 03-23-2020 Episodic Comment on above: ? MRSA because had i n past. will assure doxy does cover lymes and tick bite if happento be that but doubt and where has flu vaccine. she has picture and willshow [facility] nurse where got shot for documentation of reaction. Other skin disorders (20 sources) Ingrowing nail; Translations: [Ingrown nail] 11-14-2021 Episodic Comment on above: better Other upper respiratory disease (20 sources) Allergic rhinitis; Translations: [Allergic rhinitis] Resolved: 09-06-2018 12-17-2018 Chronic Comment on above: she has cats and all ergickeep cat out of bedroom. tell how to clean. claritin in am and flonase in pm. she has cats and all ergic keep cat out of bedroom. tell how to clean. crista in am and flonase in pm. she has cats and all ergic keep cat out of bedroom. tell how to clean. crista in am and flonase in pm. she saw Dr. dean and allergies good. Other upper respiratory disease (20 sources) Allergic rhinitis due to other allergen Chronic Other upper respiratory disease (9 sources) Bleeding from nose; Translations: [Epistaxis] Resolved: 04-09-2023 01-14-2023 Episodic Other upper respiratory infections (20 sources) Sinusitis; Translations: [Sinusitis] 03-29-2021 Chronic Comment on above: having surgery 06-07 for chornic sinus issues Otitis media and related conditions (6 sources) Acute suppurative otitis media; Translations: [Acute suppurative otitis media without spontaneous rupture of ear drum, unspecified ear] 03-15-2022 Episodic Residual codes; unclassified (20 sources) Body mass index (BMI) 20.0-20.9, adult; Translations: [Body mass index (BMI) 21.0-21.9, adult] Resolved: 05-29-2022 08-03-2018 Episodic Residual codes; unclassified (20 sources) Disturbance in sleep behavior; Translations: [Sleep disturbance] 03-23-2020 Episodic Comment on above: ? buspar and paxil b ecause not deream as much. Residual codes; unclassified (20 sources) Non-smoker; Translations: [Non-smoker] 03-29-2021 Episodic Sexually transmitted infections (not HIV or hepatitis) (20 sources) Cervical smear result; Translations: [Papanicolaou smear of cervix with positive high risk human papilloma virus (HPV) test] Resolved: 04-09-2023 10-29-2021 Episodic Comment on above: repeat negativ 12-08 Spondylosis; intervertebral disc disorders; other back problems (20 sources) Low back pain; Translations: [Low back pain] Resolved: 11-20-2022 04-02-2019 Episodic Comment on above: mid lower back lift alot at work. gave exercises for boack aleve 2 bid if flared ice after work or heat if feels tight. mid back lifting vincent t work changing job. handout back exercises. do not livt more 20 pounds wrote note for work. paxil for anxiety nay helpuse aleve as needed consider PT Superficial injury; contusion (20 sources) Abrasion of toe, infected; Translations: [Infected abrasion of toe of right foot] 11-14-2021 Episodic Unclassified (20 sources) ADD (attention deficit disorder) without hyperactivity Unclassified (20 sources) Urinary tract infections (20 sources) Urinary tract infectious disease; Translations: [UTI (urinary tract infection)] Resolved: 09-06-2018 09-06-2018 Episodic Comment on above: better from signs an d symptoms but stillsome there yesterfay stillsome leuk. Viral infection (4 sources) Disease caused by 2019-nCoV; Translations: [COVID-19] 11-13-2022 Episodic Viral infection (1 source) COVID-19; Translations: [COVID-19] Onset: 11-26-2024 Past or Other Problems Problem Classification Problem Date Documented Da te Episodic/Chronic E Codes: Natural/environment (1 source) Bitten or stung by nonvenomous insect and other nonvenomous arthropods, initial encounter; Translations: [Bitten or stung by nonvenomous insect and other nonvenomous arthropods, initial encounter] Onset: 10-05-2024 Episodic Other aftercare (8 sources) Follow-up status; Translations: [Sex counseling] Resolved: 05-10-2019 04-02-2019 Episodic Comment on above: talk about how felt and if want relationship and proper control. aware that if use OCP adn use condom risk of low but not zero. canuse OCP told if take atb must use condom. Other injuries and conditions due to external causes (1 source) Injury, unspecified, initial encounter; Translations: [Injury, unspecified, initial encounter] Onset: 05-09-2024 Episodic Other upper respiratory infections (20 sources) Acute pharyngitis; Translations: [Acute sinusitis, unspecified] Onset: 05-30-2024 Resolved: 05-13-2021 04-02-2019 Episodic Skin and subcutaneous tissue infections (20 sources) Impetigo; Translations: [Impetigo] Onset: 10-05-2024 Resolved: 04-09-2023 01-14-2023 Episodic Unclassified (20 sources) BMI 20.0-20.9, adult; Translations: [Body mass index 20-24 - normal] Resolved: 08-02-2019 05-10-2019 Unclassified (20 sources) Borderline mental handicap Unclassified (20 sources) Well woman exam (Renamed from Encounter for well woman exam); Translations: [Patient encounter status] 04-02-2019 Unclassified (20 sources) Non-smoker; Translations: [Non-smoker] 12-17-2018 Unclassified (20 sources) Patient encounter status; Translations: [Sex counseling] 12-17-2018 Comment on above: talk about how felt and if want relationship and proper control. aware that if use OCP adn use condom risk of low but not zero. canuse OCP told if take atb must use condom. Unclassified (20 sources) BMI 21.0-21.9, adult; Translations: [Body mass index 20-24 - normal] Resolved: 05-10-2019 05-10-2019 Unclassified (20 sources) Marianne eye Unclassified (16 sources) Ingrown left big toenail Unclassified (20 sources) BMI less than 19,adult Unclassified (20 sources) Sleep disturbance Unclassified (16 sources) Skin lesion, infected Unclassified (20 sources) Ingrown nail Unclassified (9 sources) Infected abrasion of toe of right foot Unclassified (9 sources) Papanicolaou smear of cervix with positive high risk human papilloma virus (HPV) test Unclassified (9 sources) Encounter for screening for cervical cancer (Renamed from Encounter for screening for malignant neoplasm of cervix) Unclassified (2 sources) BMI 22.0-22.9, adult Results Test Name Value Interpretation Reference Range Facility MR/on 04-25-2025 MR/ [facility] [address] [place] [address], [address] [place] [address] OFFICE VISIT Date of Service: 04/25/25 MR#: [id number] Acct: [id number] Name: LAWRENCE PATTON Rep #: [id number] : 2000 Provider: Dr. Jesús Villarreal se, DO Age/Sex: 24/F [place] [facility] Status: Signed Intake Vital Signs 02/02/25 11:19 04/25/25 08:01 Height 5 ft 1 in 5 ft 1 in Weight: 121 lb BMI 22.8 BP 108/68 Blood Pressure Location Lt brachial Position Sitting Respiration 16 Pulse 60 Pulse Source Monitor BP Intake Visit Reasons: 2 M FU Accompanied by: Self Allergies animal dander Allergy (Verified 04/25/25 08:03) NEEDS FOLLOW-UP Medications ???Medication ???Instructions ???Recorded ???Confirmed ???Type cholecalciferol (vitamin D3) 125 125 mcg PO QDAY 09/23/24 04/25/25 History mcg (5,000 unit) capsule bupropion HCl 150 mg 24 hr tablet, 150 mg PO QAM 90 days #90 tabs 0 04/25/25 04/25/25 Rx extended release PFSH Medical History (Updated 12/19/24 @ 13:[address] Jesús Combs DO) ADHD Major depression Insect bite Cellulitis of right middle finger Borderline learning disability Vitamin D deficiency Anxiety and depression ADD (attention deficit disorder) without hyperactivity IBS (irritable bowel syndrome) Ganglion cyst of dorsum of right wrist Acute otitis externa of both ears Acute otitis externa of left ear URI (upper respiratory infection) Impetigo Right lower quadrant abdominal pain Constipation Paronychia of toe of right foot Rhinitis, allergic Surgical History (Updated 09/23/24 @ 15:11 by Tabatha Cortez) History of tonsillectomy History of nasal surgery Family History (Updated 09/23/24 @ 15:15 by Tabatha Cortez) Mother Anxiety and depression Father Heart disease Grandfather Diabetes Aunt Diabetes Social History (Updated 09/23/24 @ 15:13 by Tabatha Cortez) household members: other details: Parents current occupational status: employed current occupation: Part-time [employer], Full-time [employer] Smoking Status: Never smoker alcohol intake: never substance use type: does not use caffeine: Yes (Occ) Type: carbonated beverages frequency: 3-4 times per week HPI History of Present Illness History provided by: patient HPI: Lawrence Patton is a 24 year old female who presents today for follow up evaluation. Patient reports that she is doing really good. Did try to increase to 300 mg of wellbutrin but felt that it was too much. Was feeling dizzy and confused with increased dose and then felt better when returning to 150 mg every day. Does feel like she is functioning fairly well. 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 Also works once a month at the [employer]. Has been trying to pay off debts as she has been helping her mom pay for food. Feels like her mom uses her to help buy things for the house using guilt. Since working nights has seen her less and feels like this is actually better for her. Is able to sleep largely well even with working nights. Appetite has been fair. Goes some days where she will eat good and others where she is not hungry. Doesn't spend much time doing things for fun, but is ok with this. Does get some occasional depressive type symptoms, but is manageable overall. Review of Systems Constitutional Denies: fever(s), chills, change in weight or fatigue Eyes Denies: change in vision or blurry vision Ears, Nose, Mouth, Throat Denies: throat pain, neck pain or change in hearing Cardiovascular Denies: chest pain, palpitations or dyspnea Respiratory Denies: dyspnea, cough or wheezing Gastrointestinal Denies: abdominal pain, nausea, vomiting, diarrhea or constipation Genitourinary Denies: dysuria or urinary frequency Musculoskeletal Denies: back pain, neck pain, joint pain or muscle weakness Integumentary/Breast Denies: rash or new lesions Neurological Denies: headache(s), dizziness or confusion Endocrine Denies: fatigue or excessive sweating Hematologic/Lymphatic Denies: easy bruising or easy bleeding Allergic/Immunologic Denies: wheezing Exam Mental Status Exam - Psych Appearance casually dressed and no apparent distress Attitude cooperative and friendly Activity/Motor Behavior MSE activity/motor behavior finding no adventitious movements Speech regular rate, regular volume and regular prosody Mood euythmic (pretty good) Affect constricted Thought Process linear, logical and coherent Thought Content no delusions and no hallucinations Suicidal Ideation none Homicidal Ideation none Attention intact Concentration intact Sensorium/Orientation awake, alert and oriented x3 Memory/Cognition other (appropriate for stated age) Insight fair Judgement fair (more content not included)... Normal [facility] Urine Cultureon 04-17-2025 URC Mixed Gram Positive Organisms [place] Count 80,000-100,000 MIXC Mixed contaminants. Submit a new specimen if indicated. Normal [facility] Comment on above: Performed By: #### M [id number] #### [facility] [address] [place], [place], [address] Urgent Care Visit Reporton 0 04-14-2025 Urgent Care Visit Report [facility] [address], [address] [place], [place] [address] OFFICE VISIT Date of Service: 04/14/25 MR#: [id number] Acct: [id number] Name: LAWRENCE PATTON Rep #: [id number] : 2000 Provider: NATANAEL Garcia Age/Sex: 24/F Location: [facility] Status: Signed Intake Vital Signs 02/02/25 11:19 04/14/25 16:41 Height 5 ft 1 in Weight: 118 lb BMI 22.3 BP 114/77 114/60 Blood Pressure Location Lt brachial Lt brachial Position Sitting Sitting Respiration 16 14 Pulse 73 73 Pulse Source Monitor NIBP Temp 98.3 F Temp Source Oral Pulse Oximetry (%) 98 Oxygen Delivery Method room air Intake Visit Reasons: concern for uti Chief Complaint: dysuria Classroom Assistant Required: No Is patient in pain?: No Allergies animal dander Allergy (Verified 04/14/25 16:47) NEEDS FOLLOW-UP Is last menstrual period known: No Post menopausal: No Patient : No Have you fallen in the past year?: No Nurse's Note: dysuria x days. denies abd pain, back pain, fever. concern for UTI PFSH Medical History (Updated 12/19/24 @ 13:[address] Jesús Combs, DO) ADHD Major depression Insect bite Cellulitis of right middle finger Borderline learning disability Vitamin D deficiency Anxiety and depression ADD (attention deficit disorder) without hyperactivity IBS (irritable bowel syndrome) Ganglion cyst of dorsum of right wrist Acute otitis externa of both ears Acute otitis externa of left ear URI (upper respiratory infection) Impetigo Right lower quadrant abdominal pain Constipation Paronychia of toe of right foot Rhinitis, allergic Surgical History (Updated 09/23/24 @ 15:11 by Tabatha Cortez) History of tonsillectomy History of nasal surgery Family History (Updated 09/23/24 @ 15:15 by Tabatha Cortez) Mother Anxiety and depression Father Heart disease Grandfather Diabetes Aunt Diabetes Social History (Updated 09/23/24 @ 15:13 by Tabatha Cortez) household members: other details: Parents current occupational status: employed current occupation: Part-time [employer], Full-time [employer] Smoking Status: Never smoker alcohol intake: never substance use type: does not use caffeine: Yes (Occ) Type: carbonated beverages frequency: 3-4 times per week HPI HPI Chief Complaint: dysuria Details: LAWRENCE PATTON, is a 24 F who presents to the office today for complaint of dysuria and increased urinary urgency/frequency. No nausea, vomiting or diarrhea. No pelvic or abdominal pain. No fever, chills or sweats. No other associated symptoms or alleviating/aggravating factors. ROS Const Constitutional: No other (As above) Exam Const General: cooperative and healthy appearing Resp Effort Inspection: normal respiratory effort Auscultation: Bilateral: Clear to Auscultation Cardio Rate: regular rate Rhythm: regular rhythm GI Auscultation: normal bowel sounds General: No CVA tenderness Psych Appearance: grossly normal Mental Status: mental status grossly normal Results POC Urine Office , Urine Negative Last Edit by Gemma Webster on 04/14/25 16:51 POC Urinalysis Dip (Clinic) Office Urine Color Yellow Last Edit by Gemma Webster on 04/14/25 16:52 Office Urine Clarity Clear Last Edit by Gemma Webster on 04/14/25 16:52 Office Urine Glucose Negative Last Edit by Gemma Webster on 04/14/25 16:52 Office Urine Ketones Negative Last Edit by Gemma Webster on 04/14/25 16:52 Off Ur Spec [place] 1.010 Last Edit by Gemma Webster on 04/14/25 16:52 Office Urine pH 6.0 Last Edit by Gemma Webster on 04/14/25 16:52 Office Urine Bilirubin Negative Last Edit by Gemma Webster on 04/14/25 16:52 Office Urine Urobilinogen Negative Last Edit by Gemma Webster on 04/14/25 16:52 Office Urine Blood Trace Last Edit by Gemma Webster on 04/14/25 16:52 Office Urine Blood Hemolyzed Negative Last Edit by Gemma Webster on 04/14/25 16:52 Office Urine Protein Trace Last Edit by Gemma Webster on 04/14/25 16:52 Office Urine Nitrate Negative Last Edit by Gemma Webster on 04/14/25 16:52 Off Ur Leukocytes Positive Last Edit by Gemma Webster on 04/14/25 16:52 Coding Level of Care Code Off vis,est,level 3 Diagnoses Dysuria R30.0 Assessment and Plan Assessment and Plan (1) Dysuria: Status: Acute Plan: Macrobid as prescribed today. Encouraged to get plenty of rest, drink lots of clear liquids, and use Tylenol or Ibuprofen (unless contraindicated) for fever and comfort. Patient also educated on other symptomatic management techniques. To be seen in 7-10 days if no improvement; sooner if worsening of symptoms. Patient advised of potential red flags and when appropriate to report to the ED. Patient verbalized understa (more content not included)... Normal [facility] MR/Reji 02-02-2025 MR/[facility]. [address], [address] [place] [id number] OFFICE VISIT Date of Service: 02/02/25 MR#: [id number] Acct: [id number] Name: LAWRENCE PATTON MADDY Rep #: [id number] : 2000 Provider: Dr. Jesús Villarreal se, DO Age/Sex: 24/F Location: [facility] Status: Signed Intake Vital Signs 12/19/24 12:51 02/02/25 11:19 Height 5 ft 1 in 5 ft 1 in Weight: 118 lb BMI 22.3 BP 114/77 Blood Pressure Location Lt brachial Position Sitting Respiration 16 Pulse 73 Pulse Source Monitor BP Intake Visit Reasons: 6 wk FU Accompanied by: Self Allergies animal dander Allergy (Verified 02/02/25 11:21) NEEDS FOLLOW-UP Medications ???Medication ???Instructions ???Recorded ???Confirmed ???Type cholecalciferol (vitamin D3) 125 125 mcg PO QDAY 09/23/24 02/02/25 History mcg (5,000 unit) capsule bupropion HCl 300 mg 24 hr tablet, 300 mg PO QAM 30 days #30 tabs 0 02/02/25 02/02/25 Rx extended release PFSH Medical History (Updated 12/19/24 @ 13:[address] Jesús Combs DO) ADHD Major depression Insect bite Cellulitis of right middle finger Borderline learning disability Vitamin D deficiency Anxiety and depression ADD (attention deficit disorder) without hyperactivity IBS (irritable bowel syndrome) Ganglion cyst of dorsum of right wrist Acute otitis externa of both ears Acute otitis externa of left ear URI (upper respiratory infection) Impetigo Right lower quadrant abdominal pain Constipation Paronychia of toe of right foot Rhinitis, allergic Surgical History (Updated 09/23/24 @ 15:11 by Tabatha Cortez) History of tonsillectomy History of nasal surgery Family History (Updated 09/23/24 @ 15:15 by Tabatha Cortez) Mother Anxiety and depression Father Heart disease Grandfather Diabetes Aunt Diabetes Social History (Updated 09/23/24 @ 15:13 by Tabatha Cortez) household members: other details: Parents current occupational status: employed current occupation: Part-time [employer], Full-time [employer] Smoking Status: Never smoker alcohol intake: never substance use type: does not use caffeine: Yes (Occ) Type: carbonated beverages frequency: 3-4 times per week HPI History of Present Illness History provided by: patient HPI: Lawrence Patton is a 24 year old female who presents today for follow up evaluation. Patient reports that she likes the Wellbutrin but doesn't feel like it is enough. Has continued to have some arguments with her sister and her mother. Does feel like Wellbutrin has helped with some of her stress eating and this is a positive. Does feel somewhat brighter on medication overall. Has been sleeping somewhat poorly, but this is not abnormal for her. Energy remains somewhat low. Denies dizziness, headaches or other adverse side effects. Is currently working at [employer], but will be giving up [employer] to work at [employer] in February. Will be making more money without having to work so much overtime. Will be working second shift and hopes that this means she has less interaction with her mom leading to less stressors. Review of Systems Constitutional Denies: fever(s), chills, change in weight or fatigue Eyes Denies: change in vision or blurry vision Ears, Nose, Mouth, Throat Denies: throat pain, neck pain or change in hearing Cardiovascular Denies: chest pain, palpitations or dyspnea Respiratory Denies: dyspnea, cough or wheezing Gastrointestinal Denies: abdominal pain, nausea, vomiting, diarrhea or constipation Genitourinary Denies: dysuria or urinary frequency Musculoskeletal Denies: back pain, neck pain, joint pain or muscle weakness Integumentary/Breast Denies: rash or new lesions Neurological Denies: headache(s), dizziness or confusion Endocrine Denies: fatigue or excessive sweating Hematologic/Lymphatic Denies: easy bruising or easy bleeding Allergic/Immunologic Denies: wheezing Exam Mental Status Exam - Psych Appearance casually dressed and no apparent distress Attitude cooperative and friendly Activity/Motor Behavior MSE activity/motor behavior finding no adventitious movements Speech regular rate, regular volume and regular prosody Mood anxious (somewhat better) Affect congruent Thought Process linear, logical and coherent Thought Content no delusions and no hallucinations Suicidal Ideation none Homicidal Ideation none Attention intact Concentration intact Sensorium/Orientation awake, alert and oriented x3 Memory/Cognition other (appropriate for stated age) Insight fair Judgement fair Exam Constitutional Documenting provider has reviewed patient's vital signs: yes Common normals: no acute distress, patient oriented x3 and alert General appearance: well developed Neuro (more content not included)... Normal [facility] MR/BPon 12-19-2024 MR/BMS.BP [facility] [address], [address] [place] [address] OFFICE VISIT Date of Service: 12/19/24 MR#: [id number] Acct: [id number] Name: LAWRENCE PATTON Rep #: [id number] : 2000 Provider: Dr. Jesús Villarreal se, DO Age/Sex: 24/F Location: [facility] Status: Signed Intake Vital Signs 07/26/24 16:55 12/12/24 15:34 12/19/24 12:51 Height 5 ft 1 in 5 ft 1 in 5 ft 1 in BP Intake Visit Reasons: Anxiety and Depression Allergies animal dander Allergy (Verified 11/26/24 08:30) NEEDS FOLLOW-UP Medications ???Medication ???Instructions ???Recorded ???Confirmed ???Type cholecalciferol (vitamin D3) 125 125 mcg PO QDAY 09/23/24 11/26/24 History mcg (5,000 unit) capsule fluconazole 200 mg tablet 200 mg PO DAILY #1 TAB 12/12/24 Rx bupropion HCl 150 mg 24 hr tablet, 150 mg PO QAM #30 tabs 12/19/24 12/19/24 Rx extended release (Wellbutrin XL) PFSH Medical History (Updated 12/19/24 @ 13:[address] Jesús Combs DO) ADHD Major depression Insect bite Cellulitis of right middle finger Borderline learning disability Vitamin D deficiency Anxiety and depression ADD (attention deficit disorder) without hyperactivity IBS (irritable bowel syndrome) Ganglion cyst of dorsum of right wrist Acute otitis externa of both ears Acute otitis externa of left ear URI (upper respiratory infection) Impetigo Right lower quadrant abdominal pain Constipation Paronychia of toe of right foot Rhinitis, allergic Surgical History (Updated 09/23/24 @ 15:11 by Tabatha Cortez) History of tonsillectomy History of nasal surgery Family History (Updated 09/23/24 @ 15:15 by Tabatha Cortez) Mother Anxiety and depression Father Heart disease Grandfather Diabetes Aunt Diabetes Social History (Updated 09/23/24 @ 15:13 by Tabatha Cortez) household members: other details: Parents current occupational status: employed current occupation: Part-time [employer], Full-time [employer] Smoking Status: Never smoker alcohol intake: never substance use type: does not use caffeine: Yes (Occ) Type: carbonated beverages frequency: 3-4 times per week HPI History of Present Illness History provided by: patient Chief complaint: depression/anxiety HPI: Lawrence Patton is a 24 year old female who presents today for new patient evaluation. Patient presents as a referral from Dr. Akbar. Patient reports to having symptoms of both depression and anxiety. Reports that her mother is also a narcissist. Admits to not liking crowds. Admits that her parents were from a young age which she feels plays a role in her mood. Does live at home with younger sister, age 21. Was diagnosed with ADHD in first grade and took medication through high school. Also was taking medication for depression/anxiety until about 2 years ago. As of two years ago felt that things started worsening after having stopping medications. Reports to feeling drained and tired nearly all the time. Describes significant problems with focus. Surprised with how far she made it in life. Works about 60 hours a week to stay busy. Reports that her mother is very controlling. Very frequently is threatened that she is going to be kicked out. Gives example that she went on vacation for two weeks in 2022 and mom threatened to move all her stuff out when she was gone. States that she made her essentially quit her job last year so she would go on vacation. Does eventually wish to move out. Did used to take Daytrana patch. Admits to having a panic attack about once per month where she will be extremely anxious, vomit, get diarrhea, shortness of breath, usually set off by people. [place] that fluoxetine made her tired and made her feel like a zombie. [place] that she has a short fuse, but again struggled to tolerate stimulants when she was taking. Endorses getting very poor grades in school. Was on an IEP from about first grade on. Did significantly better at the career center in [employer]. Sleep: admits to having trouble getting to sleep, feels nervous Interest: fair Guilt: admits to feeling both guilt and worthlessness Energy: very bad Concentration: poor per self report Appetite: poor diet; weighed 80 lbs in high school, now weights 120 lbs but stopped stimulants Psychomotor: WNL Suicide: admits to fleeting thoughts, denies any attempts or plan Memory: horrible; bad short term memory Anxiety: admits to being very high; admits to frequent panic symptoms as above Natalie: denies symptoms of natalie PTSD:admits to having been raised with narcissitc mother Psychosis: denies history of auditory or visual hallucinations, denies disorganized thoughts, denies disorganized speech Developmental History Developmental History: Siblings - 1 twin brother, 1 sister Born/Raised - [place] Ed (more content not included)... Normal [facility] Urgent Care Visit Reporton 0 12-12-2024 Urgent Care Visit Report [facility] [address], [address] [place] [address] OFFICE VISIT Date of Service: 12/12/24 MR#: [id number] Acct: [id number] Name: LAWRENCE PATTON Rep #: [id number] : 2000 Provider: NATANAEL Martinez Age/Sex: 24/F Location: [facility] Status: Signed Intake Vital Signs 07/26/24 16:55 12/12/24 15:34 Height 5 ft 1 in 5 ft 1 in Weight: 124 lb 2 oz BMI 23.4 BP 122/80 H Position Sitting Pulse 73 Temp 98.1 F Temp Source Oral Pulse Oximetry (%) 98 Oxygen Delivery Method room air Intake Visit Reasons: VAGINAL ITCHING Allergies animal dander Allergy (Verified 11/26/24 08:30) NEEDS FOLLOW-UP Nurse's Note: Patient has Vaginal itching that started yesterday. [facility] Medical History (Updated 11/26/24 @ 08:34 by Tracy Gaona NP-C) Insect bite Cellulitis of right middle finger Borderline learning disability Vitamin D deficiency Anxiety and depression ADD (attention deficit disorder) without hyperactivity IBS (irritable bowel syndrome) Ganglion cyst of dorsum of right wrist Acute otitis externa of both ears Acute otitis externa of left ear URI (upper respiratory infection) Impetigo Right lower quadrant abdominal pain Constipation Paronychia of toe of right foot Rhinitis, allergic Surgical History (Updated 09/23/24 @ 15:11 by Tabatha Cortez) History of tonsillectomy History of nasal surgery Family History (Updated 09/23/24 @ 15:15 by Tabatha Cortez) Mother Anxiety and depression Father Heart disease Grandfather Diabetes Aunt Diabetes Social History (Updated 09/23/24 @ 15:13 by Tabatha Cortez) household members: other details: Parents current occupational status: employed current occupation: Part-time [employer], Full-time [employer] Smoking Status: Never smoker alcohol intake: never substance use type: does not use caffeine: Yes (Occ) Type: carbonated beverages frequency: 3-4 times per week HPI HPI Details: LAWRENCE PATTON, is a 24 F who presents to the office today for initial evaluation approximately 24- hour history of prescriptions of vaginal Erin with scant amount of thick curdish white discharge as well as exterior labia erythematous and pruritic. No complaints of fever, chills, sweats. No new soaps, lotions, detergents, or recent antibiotic/corticosteroid use. No other associated symptoms and no other alleviating/aggravating factors. ROS Const Constitutional: No other (As above) Exam Const General: cooperative, healthy appearing and no acute distress Nutritional Appearance: average body habitus Orientation: alert and awake Resp Effort Inspection: normal respiratory effort and able to speak in complete sentences Cardio Rate: regular rate Pulses: radial pulses present GI Inspection: normal to inspection Skin General: no rashes or lesions noted (Patient declined visual inspection to area of concern) Neuro General: patient alert and patient awake Cognition: normal cognition Speech: speech normal Extrem General: normal to inspection Psych Appearance: grossly normal Mental Status: mental status grossly normal Mood: congruent mood Affect: normal affect Speech and Movement: speech and movement normal Attitude: cooperative Coding Level of Care Code Off vis,est,level 3 Diagnoses Vaginal yeast infection B37.3 Assessment and Plan Assessment and Plan (1) Vaginal yeast infection: Status: Acute Plan: - as described by patient Fluconazole 200 mg p.o. x 1 as prescribed today. Supportive measures as instructed today including [id number] topical clotrimazole cream. Follow-up with PCP or [facility] ATTENDANT in 5 to 7 days should symptoms not improve/resolve, sooner should symptoms only worsen or any other concerns develop. Patient states acknowledging understanding all the above. This note was generated with Anesivaation software. It may contain incorrect words, spelling, and punctuation that were not noted in checking the note before signing. Medications: New fluconazole 200 mg PO DAILY 1 TAB 0RF 12/12/24 1544 Date Jesús Antunez Signature: Date (if applicable) CC: Normal [facility] Urgent Care Visit Reporton 0 11-26-2024 Urgent Care Visit Report [facility] [address] , [address] [place] [address] OFFICE VISIT Date of Service: 11/26/24 MR#: [id number] Acct: [id number] Name: LAWRENCE PATTON Rep #: [id number] : 2000 Provider: LJ Gaona Age/Sex: 24/F Location: [facility] Status: Signed Intake Vital Signs 07/26/24 16:55 11/26/24 08:10 Height 5 ft 1 in Weight: 121 lb 6 oz BMI 22.9 BP 110/66 122/60 H Blood Pressure Location Lt brachial Position Sitting Respiration 14 Pulse 85 87 Pulse Source NIBP Temp 99.3 F H 98.7 F Temp Source Temporal Oral Pulse Oximetry (%) 98 96 Oxygen Delivery Method room air room air Intake Visit Reasons: BODY ACHES, CONGESTION Chief Complaint: PAGAN, BA, dizzy, congestion Classroom Assistant Required: No Is patient in pain?: Yes Allergies animal dander Allergy (Verified 11/26/24 08:30) NEEDS FOLLOW-UP Medications ???Medication ???Instructions ???Recorded ???Confirmed ???Type buspirone 15 mg tablet 7.5 mg PO BID 09/23/24 11/26/24 History cholecalciferol (vitamin D3) 125 125 mcg PO QDAY 09/23/24 11/26/24 History mcg (5,000 unit) capsule Is last menstrual period known: No Post menopausal: No Patient : No Have you fallen in the past year?: No Nurse's Note: PAGAN, BA, dizzy, congestion x [address], fever, cough. [facility] Medical History (Updated 11/26/24 @ 08:34 by LJ Henley) Insect bite Cellulitis of right middle finger Borderline learning disability Vitamin D deficiency Anxiety and depression ADD (attention deficit disorder) without hyperactivity IBS (irritable bowel syndrome) Ganglion cyst of dorsum of right wrist Acute otitis externa of both ears Acute otitis externa of left ear URI (upper respiratory infection) Impetigo Right lower quadrant abdominal pain Constipation Paronychia of toe of right foot Rhinitis, allergic Surgical History (Updated 09/23/24 @ 15:11 by Tabatha Cortez) History of tonsillectomy History of nasal surgery Family History (Updated 09/23/24 @ 15:15 by Tabatha Cortez) Mother Anxiety and depression Father Heart disease Grandfather Diabetes Aunt Diabetes Social History (Updated 09/23/24 @ 15:13 by Tabatha Cortez) household members: other details: Parents current occupational status: employed current occupation: Part-time [employer], Full-time [employer] Smoking Status: Never smoker alcohol intake: never substance use type: does not use caffeine: Yes (Occ) Type: carbonated beverages frequency: 3-4 times per week HPI HPI Chief Complaint: PAGAN, BA, dizzy, congestion Details: LAWRENCE PATTON, is a 24 F who presents to the office today for viral illness -sx for 3 days -sx myalgias, headache, dizzy, congestion, sore throat, runny nose, cough- yellow -no fever + chills -tried so far nothing ROS Const Constitutional: Positive for other (ROS negative x6 except what was placed in HPI) Exam Const General: cooperative, comfortable and no acute distress Orientation: alert, awake and oriented x3 HENMT Head: normal to inspection and normocephalic Ears: hearing grossly normal bilaterally, external ears normal and TM's normal bilaterally Nose: external nose normal and other (+ congestion and rhinorrhea) Face and sinus: normal facial exam, sinuses nontender and face symmetric Mouth: oral mucosae normal, lip normal, tongue normal, oropharynx normal and moist mucous membranes Throat: posterior oropharynx normal, tonsils normal, uvula midline and postnasal drainage Neck Neck: normal visual inspection, full ROM and no lymphadenopathy Resp Effort Inspection: normal respiratory effort, able to speak in complete sentences and symmetric chest movement Auscultation: Bilateral: Clear to Auscultation, Left: Clear to Auscultation and Right: Clear to Auscultation Cardio Rate: regular rate Rhythm: regular rhythm Heart Sounds: S1 normal and S2 normal GI Auscultation: normal bowel sounds Palpation: soft Skin General: no rashes or lesions noted and turgor normal Neuro General: patient alert, patient awake and patient oriented x3 Cognition: normal cognition Speech: speech normal Psych Appearance: grossly normal Mental Status: mental status grossly normal Attitude: cooperative Thought Process: normal Thought Content: normal Results POC JOSELO Covid FluAB PCR POC Joselo Covid PCR Detected Last Edit by Gemma Webster on 11/26/24 08:33 POC JOSELO FLU NOT DETECTED FLU A B Last Edit by Gemma Webster on 11/26/24 08:33 Coding Level of Care Code Off vis,est,level 3 Diagnoses COVID U07.1 Assessment and Plan Assessment and Plan (1) COVID: Status: Acute Plan: -Warm salt water gargles, warm tea with honey, increase fluids, saline nasal spray 2 squirts eac (more content not included)... Normal [facility] Urgent Care Visit Reporton 1 12-05-2023 Urgent Care Visit Report [facility] [address], [address] [place] [address] OFFICE VISIT Date of Service: 10/05/24 MR#: [id number] Acct: [id number] Name: LAWRENCE PATTON Rep #: [id number] : 2000 Provider: NATANAEL Martinez Age/Sex: 24/F Location: [facility] Status: Signed Intake Vital Signs 07/26/24 16:55 10/05/24 14:30 Height 5 ft 1 in Weight: 121 lb 6 oz BMI 22.9 BP 110/66 116/62 Blood Pressure Location Lt brachial Position Sitting Respiration 14 Pulse 85 65 Pulse Source NIBP Temp 99.3 F H 97.9 F Temp Source Temporal Oral Pulse Oximetry (%) 98 97 Oxygen Delivery Method room air room air Intake Visit Reasons: CONCERN FOR SPIDER BITE ON L KNEE Chief Complaint: left knee wound Classroom Assistant Required: No Is patient in pain?: Yes Allergies animal dander Allergy (Verified 10/05/24 14:31) NEEDS FOLLOW-UP Is last menstrual period known: No Post menopausal: No Patient : No Have you fallen in the past year?: No Nurse's Note: left knee wound x 24 hours, concern for spider bite. red raised spot in area of concern. pt c/o pain and itching. denies fever/BA/fatigue. [facility] Medical History (Updated 10/05/24 @ 14:42 by Jesús SANTOYO, PA) Insect bite Cellulitis of right middle finger Borderline learning disability Vitamin D deficiency Anxiety and depression ADD (attention deficit disorder) without hyperactivity IBS (irritable bowel syndrome) Ganglion cyst of dorsum of right wrist Acute otitis externa of both ears Acute otitis externa of left ear URI (upper respiratory infection) Impetigo Right lower quadrant abdominal pain Constipation Paronychia of toe of right foot Rhinitis, allergic Surgical History (Updated 09/23/24 @ 15:11 by Tabatha Cortez) History of tonsillectomy History of nasal surgery Family History (Updated 09/23/24 @ 15:15 by Tabatha Cortez) Mother Anxiety and depression Father Heart disease Grandfather Diabetes Aunt Diabetes Social History (Updated 09/23/24 @ 15:13 by Tabatha Cortez) household members: other details: Parents current occupational status: employed current occupation: Part-time [employer], Full-time [employer] Smoking Status: Never smoker alcohol intake: never substance use type: does not use caffeine: Yes (Occ) Type: carbonated beverages frequency: 3-4 times per week HPI HPI Chief Complaint: left knee wound Details: LAWRENCE PATTON, is a 24 F who presents to the office today for initial evaluation approximately 1 and half centimeter diameter erythema mild to left anterior knee with pinpoint opening to center noticed this morning upon awakening. History of trauma to the same, stating she is wonder if it might have been a spider bite. Additionally, patient noted having suffered an abrasion to the right middle finger DP just distal to the nail plate with increased erythema, swelling, trace discharge of the same. No complaints of fever, chills, sweats. Td up-to-date. No [id number] products taken to assist. No other associated symptoms and no other alleviating/aggravating factors. ROS Const Constitutional: No other (As above) Exam Const General: cooperative, healthy appearing and no acute distress Nutritional Appearance: average body habitus Orientation: alert and awake Chest Chest palpation inspection: normal inspection of the chest Resp Effort Inspection: normal respiratory effort and able to speak in complete sentences Cardio Rate: regular rate Pulses: radial pulses present Skin Other: Left knee: Approximate 1.5 cm erythematous close central lesion. Site was cleansed with Hibiclens and saline then 18-gauge needle lifting center pinpoint closed lesion without foreign body retention appreciated upon inspection site was recleansed and bacitracin ointment and Band-Aid applied thereafter which patient tolerated well. Right middle finger DP laceration of approximately 1 cm in length with circumferential erythema, swelling, tender to palpation site was cleansed with Hibiclens and saline then bacitracin ointment and Band-Aid applied thereafter which patient tolerated well. Neuro General: patient alert and patient awake Cognition: normal cognition Speech: speech normal Extrem General: normal to inspection, full ROM, capillary refill normal and normal exam except as noted (see skin exam) Psych Appearance: grossly normal Mental Status: mental status grossly normal Mood: congruent mood Affect: normal affect Speech and Movement: speech and movement normal Attitude: cooperative Coding Level of Care Code Off vis,est,level 3 Diagnoses Cellulitis of right middle finger L03.011 Insect bite W57.XXXA Assessment and Plan Assessment and Plan (1) Cellulitis of right middle finger: St (more content not included)... Normal [facility] Urgent Care Visit Reporton 0 07-26-2024 Urgent Care Visit Report [facility] [address], [address] [place] [address] OFFICE VISIT Date of Service: 07/26/24 MR#: [id number] Acct: [id number] Name: LAWRENCE PATTON Rep #: [id number] : 2000 Provider: NATANAEL Martinez Age/Sex: 24/F Location: [facility] Status: Signed Intake Vital Signs 05/30/24 09:25 07/26/24 16:55 Height 5 ft 11 in 5 ft 1 in Weight: 120 lb 121 lb 6 oz BMI 16.7 22.9 BP 110/74 110/66 Blood Pressure Location Lt brachial Position Sitting Respiration 16 Pulse 96 85 Pulse Source Monitor Temp 98.2 F 99.3 F H Temp Source Temporal Temporal Pulse Oximetry (%) 98 98 Oxygen Delivery Method room air room air Intake Visit Reasons: ST/COUGH/SINUS PRESSURE/CONGESTION/COUGH Chief Complaint: SINUS COMPLAINTS Accompanied by: Self Allergies No Known Allergies Allergy (Verified 07/26/24 16:56) Medications ???Medication ???Instructions ???Recorded ???Confirmed ???Type amoxicillin 500 mg tablet 500 mg PO TID #30 tabs 07/26/24 07/26/24 Rx PFSH Medical History Ganglion cyst of dorsum of right wrist Acute otitis externa of both ears Acute otitis externa of left ear URI (upper respiratory infection) Impetigo Right lower quadrant abdominal pain Constipation Paronychia of toe of right foot Rhinitis, allergic Social History Smoking Status: Never smoker alcohol intake: never HPI HPI Chief Complaint: SINUS COMPLAINTS Details: LAWRENCE PATTON, is a 24 F who presents to the office today for [facility] evaluation at [facility] for approximately 1-week history of progressively worsening forehead and facial pressure/congestion with purulent postnasal drip and sore/irritated throat and new chills over last 24-48 hours. No complaints of myalgias, fatigue, runny nose, or nausea/vomiting/diarrhea. No complaints of chest pain/shortness of breath/dyspnea on exertion. Unsure if close contacts with similar complaints. No other associated symptoms and no other alleviating/aggravating factors. ROS Const Constitutional: No other (as above) Exam Const General: cooperative, healthy appearing and no acute distress Nutritional Appearance: average body habitus Orientation: alert, awake and oriented x3 HENMT Head: normal to inspection Ears: hearing grossly normal bilaterally, external ears normal, TM's normal bilaterally and EAC's normal Nose: external nose normal, nares normal, septum normal and no nasal discharge Face and sinus: normal facial exam, bilateral frontal and maxillary sinuses tender to touch, and face symmetric Mouth: oral mucosae normal, lip normal, tongue normal and oropharynx normal Throat: posterior oropharynx normal, tonsils normal, uvula midline and postnasal drainage (Purulent) Eyes General: appearance normal, both eyes and all related structures Neck Neck: normal visual inspection, full ROM, no meningeal signs, supple and lymphadenopathy (Bilateral anterior cervical lymph node trace swelling/tender to palpation) Neck mass: No Thyroid: thyroid normal Chest Chest palpation inspection: normal inspection of the chest Resp Effort Inspection: normal respiratory effort and able to speak in complete sentences Auscultation: Bilateral: Clear to Auscultation Cardio Palpation: normal PMI Rate: regular rate Rhythm: regular rhythm Heart Sounds: S1 normal, S2 normal, no gallops, no murmurs and no rubs Pulses: radial pulses present GI Inspection: normal to inspection Skin General: no rashes or lesions noted Neuro General: patient alert, patient awake and patient oriented x3 Cognition: normal cognition Speech: speech normal Psych Appearance: grossly normal Mental Status: mental status grossly normal Mood: congruent mood Affect: normal affect Speech and Movement: speech and movement normal Attitude: cooperative Diagnoses Acute sinusitis, unspecified J01.90 Assessment and Plan Assessment and Plan (1) Acute sinusitis, unspecified: Status: Acute Plan: Amoxicillin as prescribed today. Supportive measures as instructed today, with work/school excuse offered. Follow-up with PCP in 3 to 5 days should symptoms not improve, sooner should symptoms worsen or any other concerns develop. Patient states acknowledging understanding all the above Coding Level of Care Code Off vis,est,level 3 Assessment and Plan Assessment and Plan Medications: New amoxicillin 500 mg PO TID 30 tabs 0RF 07/26/24 1722 Date Jesús Antunez Signature: Date (if applicable) CC: Normal [facility] Urgent Care Visit Reporton 0 05-30-2024 Urgent Care Visit Report [facility] [address], [address] [place] [address] OFFICE VISIT Date of Service: 05/30/24 MR#: [id number] Acct: [id number] Name: LAWRENCE PATTON Rep #: [id number] : 2000 Provider: LJ vance Age/Sex: 24/F Location: [facility] Status: Signed Intake Vital Signs 12/22/23 15:07 05/30/24 09:25 Height 5 ft 1 in 5 ft 11 in Weight: 120 lb BMI 16.7 BP 110/74 Blood Pressure Location Lt brachial Position Sitting Respiration 16 Pulse 96 Pulse Source Monitor Temp 98.2 F Temp Source Temporal Pulse Oximetry (%) 98 Oxygen Delivery Method room air Intake Visit Reasons: SINUS COMPLAINTS/BACK PAIN Chief Complaint: SINUS COMPLAINTS Classroom Assistant Required: No Accompanied by: Self Is patient in pain?: Yes Allergies No Known Allergies Allergy (Verified 05/30/24 09:26) Medications ???Medication ???Instructions ???Recorded ???Confirmed ???Type amoxicillin 875 mg-potassium 1 tab PO BID 7 days #14 tabs 05/30/24 05/30/24 Rx clavulanate 125 mg tablet Nurse's Note: pt states that she has sinus complaints for 3 days pt requested a cepheid test. I explained because of her insurance type that she may recieve a bill for this and patient said that was okay. [facility] Medical History Ganglion cyst of dorsum of right wrist Acute otitis externa of both ears Acute otitis externa of left ear URI (upper respiratory infection) Impetigo Right lower quadrant abdominal pain Constipation Paronychia of toe of right foot Rhinitis, allergic Social History Smoking Status: Never smoker alcohol intake: never HPI HPI Chief Complaint: SINUS COMPLAINTS Details: LAWRENCE PATTON, is a 24 F who presents to the office today for sinus complaints. She underwent COVID-19, RSV, and flu A and B. This has been ongoing for 3 days and worsening. She has tried OTC medications, with no improvement. ROS Const Constitutional: Positive for body ache, chills, fatigue and abnormal sleep pattern; No fever(s), headache(s) or change in appetite Eyes Eyes: No blurry vision, change in vision, double vision, irritation, discharge, vision loss, dry eyes, bulging eyes, floaters, visual disturbances, eye pain, Light sensitivity, spots in vision, tunnel vision or other ENT ENT: Positive for ear pressure, nasal congestion, sinus pressure, sinus pain and nasal discharge (Yellow, clear); No abnormal hearing, ear or mastoid pain, ear discharge, hearing loss, tinnitus, dizziness/vertigo, balance problems, nosebleed/epistaxis, nose pain, post nasal drip, headache(s), facial pain, dental pain, difficulty swallowing, bad breath, hoarseness, lip swelling, mouth lesions, mouth pain, neck pain, sore throat, tongue swelling or throat swelling Resp Respiratory: No cough, change in phlegm color, chest congestion, hemoptysis, pain on inspiration, shortness of breath, pain with cough, stridor or wheezing Cardio Cardiology: No chest pain at rest, chest pain with exertion, shortness of breath, dyspnea on exertion or lightheadedness Gastro GI: No abdominal pain, change in bowel habits, constipation, diarrhea or difficulty swallowing Genitourinary-Female: No difficulty urinating, burning urination or urinary urgency Musc Musculoskeletal: No joint pain or neck pain Skin Skin: No rash Neuro Neurology: No abnormal hearing, headache(s) or visual disturbances Psych Psychiatric: Positive for abnormal sleep pattern and No change in appetite Endo Endocrine: Positive for fatigue Aller/Imm Allergy/Immunologic: No lip swelling, throat swelling, tongue swelling or wheezing Exam Const General: cooperative, healthy appearing, comfortable and no acute distress Orientation: alert, awake and oriented x3 [facility] Head: normal to inspection and normocephalic Ears: hearing grossly normal bilaterally, external ears normal and TM's normal bilaterally Nose: external nose normal, nares normal and no nasal discharge Face and sinus: normal facial exam and sinus tenderness frontal, ethmoid and maxillary Mouth: oral mucosae normal, lip normal, tongue normal, oropharynx normal and moist mucous membranes Throat: posterior oropharynx normal, tonsils normal, uvula midline and no postnasal drainage Eyes General: appearance normal, both eyes and all related structures Neck Neck: normal visual inspection and no lymphadenopathy Carotids: normal carotid upstroke Lymphatic: no lymphadenopathy noted Chest Chest palpation inspection: normal inspection of the chest Resp Effort Inspection: normal respiratory effort, able to speak in complete sentences, symmetric chest movement, no cough and no stridor Auscultation: Bilateral: Clear to Auscultat (more content not included)... Normal [facility] Hand Min 3 Viewson 4 Hand Min 3 Views [facility] Imaging Services [address] [place], [place] [address] Hand Min 3 Views MR#: [id number] Acct: [id number] Name: LAWRENCE PATTON Rep #: [id number] : 2000 F 23 From: Chuckie Roberts MD PCP: Dr. Dulce Maria Lynch MD Status: REG CLI Study: Hand Min 3 Views Date of Exam: 05/03/24 Exam# [id number] Ordering Dr: Jesús Greenwood [id number] STUDY: X-RAY - RIGHT HAND REASON FOR EXAM: Female, 23 years old. Injury. Pain. TECHNIQUE: 3 view(s) of the hand. COMPARISON: None. FINDINGS: Normal radiocarpal articulation. Normal distal radioulnar joint. Normal visualized carpal bones. Normal carpal articulations Normal carpometacarpal articulation of the thumb. Normal second through fifth carpometacarpal joints. Normal metacarpi. Normal metacarpophalangeal joint of the thumb. Normal interphalangeal joint of the thumb. Normal proximal and distal phalanges of the thumb. Normal metacarpophalangeal joints of the second through fifth fingers. Normal proximal and distal interphalangeal joints of the second through fifth fingers. Normal phalanges of the second through fifth fingers. The soft tissue structures are normal. RAD/Hand Min 3 Views IMPRESSION: Normal x-ray examination of the hand. Electronically Signed: Chuckie Roberts MD at 15:39 EDT , CC: Dr. Dulce Maria Lynch MD; NATANAEL Martinez Underwear Cutter: Signed Normal [facility] Urgent Care Visit Reporton 0 05-03-2024 Urgent Care Visit Report [facility] [address] , [address] [place] [address] OFFICE VISIT Date of Service: 05/03/24 MR#: [id number] Acct: [id number] Name: LAWRENCE PATTON Rep #: [id number] : 2000 Provider: NATANAEL Martinez Age/Sex: 23/F Location: [facility] Status: Signed Intake Vital Signs 12/22/23 15:07 05/03/24 15:40 Height 5 ft 1 in BP 115/68 Blood Pressure Location Rt brachial Position Sitting Respiration 15 Pulse 67 Pulse Source Monitor Temp 98.2 F Temp Source Temporal Pulse Oximetry (%) 99 Oxygen Delivery Method room air Intake Visit Reasons: R HAND/WRIST/UNK INJURY Chief Complaint: Intermittent right hand wrist pain Classroom Assistant Required: No Accompanied by: Self Is patient in pain?: No Allergies No Known Allergies Allergy (Verified 05/03/24 15:40) Medications ???Medication ???Instructions ???Recorded ???Confirmed ???Type NK 05/03/24 05/03/24 History PFSH Medical History (Updated 05/03/24 @ 15:43 by Jesús SANTOYO, PA) Ganglion cyst of dorsum of right wrist Acute otitis externa of both ears Acute otitis externa of left ear URI (upper respiratory infection) Impetigo Right lower quadrant abdominal pain Constipation Paronychia of toe of right foot Rhinitis, allergic Social History Smoking Status: Never smoker alcohol intake: never HPI HPI Chief Complaint: Intermittent right hand wrist pain Details: LAWRENCE PATTON, is a 23 F who presents to the office today for initial evaluation chronic waxing and waning right dorsal wrist/hand pain for several months of unknown etiology without history of trauma to the same. Trlrl-beoi-eumlcgoj. No yihu-tog-mvozwfx products taken to assist. No right elbow or fingers discomfort. No other associated symptoms and no other alleviating/aggravating factors. ROS Const Constitutional: No other (As above) Exam Const General: cooperative, healthy appearing and no acute distress Orientation: alert and awake Resp Effort Inspection: normal respiratory effort and able to speak in complete sentences Cardio Rate: regular rate Pulses: radial pulses present Skin General: no rashes or lesions noted Neuro General: patient alert and patient awake Cognition: normal cognition Speech: speech normal Extrem General: full ROM, capillary refill normal and normal exam except as noted (Approximately 1 cm diameter fluctuant mass right dorsal wrist) Psych Appearance: grossly normal Mental Status: mental status grossly normal Mood: congruent mood Affect: normal affect Speech and Movement: speech and movement normal Attitude: cooperative Coding Level of Care Code Off vis,est,level 4 Diagnoses Ganglion cyst of dorsum of right wrist M67.431 Assessment and Plan Assessment and Plan (1) Ganglion cyst of dorsum of right wrist: Status: Acute Plan: Right wrist/hand radiographs taken today reveal no acute osseous pathology per my review, with radiologist interpretation concurring. Supportive measures as instructed today. Orthopedic referral placed at patient request. Work excuse provided at patient request. Follow-up with the [facility] on an as-needed basis only. Patient states acknowledging understanding all the above. This note was generated with [employer] dictation software. It may contain incorrect words, spelling, and punctuation that were not noted in checking the note before signing. Orders: Orders Wrist min 3 Views Today T14.90XA - Injury, unspecified, initial encounter Hand Min 3 Views Today T14.90XA - Injury, unspecified, initial encounter Referrals Orthopedics M67.431 - Ganglion, right wrist 05/03/24 1637 Date Jesús Antunez Signature: Date (if applicable) CC: Normal [facility] Wrist min 3 Viewson 05-03-20 Wrist min 3 Views [facility] Imaging Services [address] [place] [address] Wrist min 3 Views MR#: [id number] Acct: [id number] Name: LAWRENCE PATTON Rep #: [id number] : 2000 F 23 From: Chuckie Roberts MD PCP: Dr. Dulce Maria Lynch MD Status: REG CLI Study: Wrist min 3 Views Date of Exam: 05/03/24 Exam# [id number] Ordering Dr: Jesús Greenwood PA [id number] STUDY: X-RAY - RIGHT WRIST REASON FOR EXAM: Female, 23 years old. Injury. Pain. TECHNIQUE: 3 view(s) of the wrist were obtained. COMPARISON: None. FINDINGS: Normal visualized distal radius and ulna. Normal radiocarpal articulation. Normal distal radioulnar articulation. Normal carpal bones. Normal carpal articulations. Normal carpometacarpal articulation of the thumb. Normal second through fifth carpometacarpal articulations. Normal visualized metacarpal bones. The soft tissue structures are normal. RAD/Wrist min 3 Views IMPRESSION: Normal x-ray examination of the wrist. Electronically Signed: Chuckie Roberts MD at 15:39 EDT Reading Location ID and State: [facility] / [place] , Service support , CC: Dr. Dulce Maria Lynch MD; NATANAEL Martinez Underwear Cutter: Signed Normal [facility] Amorphous sediment detection in urine sediment by light microscopyOrdered By: Jaleel Tsai on 09-09-2023 Amorphous sediment LM Ql (Urine sed) 1+ [facility] Basophil percentageOrdered B y: Jaleel Tsai on 09-09-2023 Basophil percentage 0 SEEN /hpf 0-5 [facility] Bilirubin Test strip Ql (U)O rdered By: Jaleel Tsai on 09-09-2023 Bilirubin Ql (U) Negative Negative [facility] Culture, urineOrdered By: Denise Tsai on 09-09-2023 Bacteria identified Cx Nom (U) Culture exhibits no growth. [facility] Ketones Test strip Ql (U)Ord ered By: Jaleel Tsai on 09-09-2023 Ketones Ql (U) Negative Negative [facility] Laboratory - Chemistry and C hemistry - challengeon 09-09-2023 Bilirubin Ql (U) Negative [facility] Glucose Ql (U) Negative [facility] Ketones Ql (U) Negative [facility] pH (U) 6.0 [pH] [facility] Specific gravity (U) [Rel density] 1.[address] [facility] Urobilinogen (U) [Mass/Vol] 0.5476288 mg/dL [facility] Laboratory - Hematology and Cell countson 09-09-2023 Hemoglobin Ql (U) Negative [facility] Laboratory - Specimen inform ationon 09-09-2023 Clarity (U) Cloudy [facility] Color (U) BRUCE [facility] Laboratory - Urinalysison Nitrite Ql (U) Negative [facility] Protein Ql (U) Trace [facility] Mucus LM Ql (Urine sed)Order ed By: Jaleel Tsai on 09-09-2023 Mucus Ql (Urine sed) 0 SEEN /hpf [facility] Nitrite Test strip Ql (U)Ord ered By: Jaleel Tsai on 09-09-2023 Nitrite Ql (U) Negative Negative [facility] No Panel Informationon 09-09 Urine Leukocytes Positive [facility] Urine Non-Hemolyzed Blood Negative [facility] Protein Test strip Ql (U)Ord ered By: Jaleel Tsai on 09-09-2023 Protein Ql (U) 15 mg/dl Negative [facility] Squamous epithelial cells de tection in urine sediment by light microscopyOrdered By: Jaleel Tsai on 09-09-2023 Epithelial cells.squamous LM Ql (Urine sed) 0-5 SEEN /hpf 5-[address] [facility] Urine blood detectionOrdered By: Jaleel Tsai on 09-09-2023 RBC Ql (U) 10 /ul Negative [facility] RBC Ql (U) 0 SEEN /hpf 0-[address] [facility] Urine clarityOrdered By: Kye Tsai on 09-09-2023 Clarity (U) Sl. Cloudy Clear [facility] Urine color determinationOrd ered By: Jaleel Tsai on 09-09-2023 Color (U) Yellow Yellow [facility] Urine glucose detectionOrder ed By: Jaleel Tsai on 09-09-2023 Glucose Ql (U) Normal mg/dl Normal [facility] Urine leukocyte esterase det ection by dipstickOrdered By: Jaleel Tsai on 09-09-2023 Leukocyte esterase Test strip Ql (U) 25 /ul Negative [facility] Urine pHOrdered By: Jaleel elizabeth on 09-09-2023 pH (U) 7.0 [pH] 5.0 - 8.[address] [facility] Urine sediment bacteria coun t by microscopy (number/high power field)Ordered By: Jaleel Tsai on 09-09-2023 Bacteria LM.HPF (Urine sed) [#/Area] RARE /hpf None Seen [facility] Urine specific gravity measu rementOrdered By: Jaleel Tsai on 09-09-2023 Specific gravity (U) [Rel density] 1.010 1.002-1.[address] [facility] Urobilinogen Auto test strip Ql (U)Ordered By: Jaleel Tsai on 09-09-2023 Urobilinogen Ql (U) Normal mg/dl Normal [facility] Culture, urineOrdered By: Denise Tsai on 08-20-2023 Bacteria identified Cx Nom (U) Culture exhibits no growth. [facility] Laboratory - Chemistry and C hemistry - challengeon 08-20-2023 HCG ( test) Ql (U) Negative [facility] Bilirubin Ql (U) Negative [facility] Glucose Ql (U) Negative [facility] Ketones Ql (U) Negative [facility] pH (U) 6.5 [pH] [facility] Specific gravity (U) [Rel density] 1.[address] [facility] Urobilinogen (U) [Mass/Vol] Negative [facility] Laboratory - Hematology and Cell countson 08-20-2023 Hemoglobin Ql (U) Small [facility] Laboratory - Specimen inform ationon 08-20-2023 Clarity (U) Clear [facility] Color (U) Yellow [facility] Laboratory - Urinalysison Nitrite Ql (U) Positive [facility] Protein Ql (U) Trace [facility] No Panel Informationon 08-20 Urine Leukocytes Positive [facility] Urine Non-Hemolyzed Blood [facility] CALCIFEDIOL (08066)Ordered B y: Disk Recoater on 06-02-2023 25-hydroxyvitamin D [Mass/Vol] 50.2 ng/mL Normal 30.0-100.0 [facility]; [facility] Work Phone: Comment on above: Vitamin D deficiency has been defined by the [place] ofMedicine and an Endocrine Society practice guideline as alevel of serum 25-OH vitamin D less than 20 ng/mL (1,2).The Endocrine Society went on to further define vitamin Dinsufficiency as a level between 21 and 29 ng/mL (2).1. IOM ([place] of Medicine). 2010. Dietary reference intakes for calcium and D. [place]: The National Academies Press.2. Ryan Villaseñor, Alpa PAGAN, et al. Evaluation, treatment, and prevention of vitamin D deficiency: an Endocrine Society clinical practice guideline. JCEM. 2010; 96(7):1911-30. PATIENT NOT FASTINGP ERFORMED BY: [facility] [facility] [id number] CALCIFEDIOL ([id number])Ordered B y: Disk Recoater on 03-23-2023 25-hydroxyvitamin D [Mass/Vol] 12.0 ng/mL Abnormal 30.0-100.0 [facility]; [facility] Work Phone: Comment on above: Vitamin D deficiency has been defined by the [place] of[place]icine and an Endocrine Society practice guideline as alevel of serum 25-OH vitamin D less than 20 ng/mL (1,2).The Endocrine Society went on to further define vitamin Dinsufficiency as a level between 21 and 29 ng/mL (2).1. IOM ([place] of [place]). 2010. Dietary reference intakes for calcium and D. [place]: The National Academies Press.2. Ryan Villaseñor, Alpa PAGAN, et al. Evaluation, treatment, and prevention of vitamin D deficiency: an Endocrine Society clinical practice guideline. JCEM. 2010; 96(7):1911-30. PATIENT NOT FASTINGP ERFORMED BY: [facility] [id number] Demetrius [facility] [id number] HPV automatic ([id number])Ordered By: Disk Recoater on 11-20-2022 HPV automatic ([id number]) [facility] Normal [facility]; [facility] Work Phone: Comment on above: NEGATIVE FOR INTRAEP ITHELIAL LESION OR MALIGNANCY.CELLULAR CHANGES ASSOCIATED WITH INFLAMMATION ARE PRESENT.THIS SPECIMEN WAS RESCREENED PART OF OUR BINDERY WORKER PROGRAM.Satisfactory for evaluation. Endocervical and/or squamous metaplasticcells (endocervical component) are present.R87.810Vitaliy Charles, Plywood And Veneer Repairer (ASCP)Niecy Elizabeth, Supervisory Plywood And Veneer Repairer (ASCP) No. of containers..0 1 ThinPrep VialPERFORMED BY: WB [facility] Xhvpxszubr612 [facility] [place] [id number] BY: =G [facility] Qbpcbzpffw794 [place] Plaza[place] [id number] Information: [id number] HPV automatic (53514) . Normal [facility]; [facility] Work Phone: Comment on above: No. of containers..0 1 ThinPrep VialPERFORMED BY: WB [facility] Zyadqrosxu056 [place] MDSmartSearch.comrlescapital health system [facility] [place] [id number] BY: =G [facility] Vkzvxyqbbn963 [place] Plaza[place] [id number] Information: [id number] HPV automatic (87802) PAPSMR Normal [facility]; [facility] Work Phone: Comment on above: The Pap smear is a s creening test designed to aid in the detection ofpremalignant and malignant conditions of the uterine cervix. It is not adiagnostic procedure and should not be used as the sole means of detectingcervical cancer. Both false-positive and false-negative reports do occur. .This liquid based ThinPrep(R) pap test was screened with theuse of an image guided system. No. of containers..0 1 ThinPrep VialPERFORMED BY: [email or web address] [place] [employer] 2 [facility] [id number] BY: =G [employer]ton120 [facility] CenterSurviosrCupomNowAcadia Healthcare [id number] Information: [id number] HPV automatic (27031) Negative Normal [facility]; [facility] Work Phone: Comment on above: This nucleic acid am plification test detects fourteen high-riskHPV types (16,18,31,33,35,39,45,51,52,56,58,59,66,68) withoutdifferentiation. No. of containers..0 1 ThinPrep VialPERFORMED BY: [email or web address] [place] [employer] 2 [facility] [id number] BY: =G [place] [employer] [place] [employer] GroupProPublicaAcadia Healthcare [id number] Information: [id number] Laboratory - Microbiology an d Antimicrobial susceptibilityon 11-13-2022 SARS-CoV-2 (COVID-19) RNA FABIANO+probe Ql (Unsp spec) Detected [facility] No Panel Informationon 11-13 Influenza Types A,B Rapid (Clinic) Not detected [facility] Progress Noteon 10-24-2022 [employer] Authentication Interface Message Text Lawrence is a 22 y.o. female who presents to our office today for a follow up visit. She was last seen on 10/18/21 and before this on 08/16/21 and she was initially seen on 06/11/21 for evaluation secondary to a history of rhinitis type symptoms and these were increased in the spring/in March. She reports having symptoms since outsole skiver. She used to see Dr. Puentes in and she did allergy shots for a year and a half and these were equivocal and the shots seemed to not help at all. Also, she had a history of otitis and sinusitis She took Claritin and she used Flonase and these also seemed equivocal. She had increased symptoms in March of 2021 and 2019. Her history is unremarkable for asthma, wheezing or lower respiratory symptoms or for inhaler use. She tolerates a regular diet and no history of eczema. At her initial visit, her testing was only mildly + to cat and I had her try OTC Xyzal and Olopatadine nasal spray 0.6% and she was still having some itchy eyes and nasal congestion and she presented for a follow up visit and she was seen by Dr. Lynch as well. Also, with further questioning, she reported runny nose with changes in head position at work and some sneezing in the AM. I then had her tryAllegra-D and Atrovent Nasal spray and she said she was still stuffy but the nasal spray helps with the runny nose and she presented at her last visit and I added in Montelukast and she was to have returned in 3-4 months but did not return until today. Montelukast was attempted and she is still stuffy in the AM and at night. She stopped the Crista-D and she felt this was still equivocal. -Atrovent Nasal spray has been helpful with runny nose but still has nasal congestion and sneezing and she is on vacation this week and staying at home and she is going to [place] in the summer with her dad. Environmental Survey/Social History: Lives with mother and sister. Special Needs: None, a little delay. Preferred Language: Stateless Pets: Yes: 2 cats and a dog. School/Daycare: [employer] in [place] at this time. 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 She is still congested at work and she still has rhinorrhea at work with change in head position. Smoking/Alcohol/Drug Use or Exposure: No Recreational Activities/Sports: No Review of Systems/Past Medical History: Constitutional: denies fever, chills, weight loss. Eyes: denies vision changes, color blindness. Ears, nose throat and mouth: see narrative above. Some nasal or sinus type symptoms. Respiratory: denies wheezing, cough or chest tightness/ see above narrative. Gastrointestinal: denies diarrhea, constipation, emesis. Genitourinary: denies dysuria or urine odor. Skin/integumentary: denies nail changes or other rash. Neurologic: denies seizures, weakness or speech problems. Hematologic/lymphatic: denies pallor. Allergic/Immunologic: see narrative above. No overt food issues. *Regarding bee stings, no issues (she has been stung). . History reviewed. No pertinent past medical history. Past Surgical History: Procedure Laterality Date TONSILLECTOMY 2006 -Mom not sure about adenoids. Current Outpatient Medications Medication Sig Dispense Refill azelastine (ASTELIN) 0.1 % nasal spray 2 Sprays by Each Nare route 2 times daily 30 mL 11 montelukast (SINGULAIR) 10 MG tablet Take 1 Tablet (10 mg) by mouth every evening (Patient not taking: Reported on 10/24/2022) 30 Tablet 5 fexofenadine-pseudoephedr ine (CRISTA D) 180-240 MG tablet 24 hour Take 1 Tablet (240 mg) by mouth daily (Patient not taking: Reported on 10/24/2022) 30 Tablet 11 ipratropium (ATROVENT) 0.03 % nasal spray 2 Sprays by Each Nare route 2 times daily (Patient not taking: Reported on 10/24/2022) 30 mL 11 levocetirizine (XYZAL ALLERGY 24HR) 5 MG tablet Take 1 Tablet (5 mg) by mouth nightly at bedtime (Patient not taking: No sig reported) 30 Tablet 11 Olopatadine HCl 0.6 % SOLN 2 Sprays by Intranasal route 2 times daily (Patient not taking: No sig reported) 30.5 g 11 No current facility-administered medications for this visit. *She is off all medications other than the Atrovent nasal spray History reviewed. No pertinent family history. Allergies: NKDA. PE: Nursing note and Vital signs reviewed. Resp 16 Ht 159.1 cm Wt 54.4 kg BMI 21.50 kg/m Constitutional: She was awake, alert and in no apparent distress. Conjunctivae: clear. Nasal mucosa: mildly pale and without edema and clear drainage bilaterally Nasal turbinates: normal No polyps visualized. Tympanic membranes: clear. Throat: clear. She did not have cervical adenopathy. Lungs: clear to auscultation bilaterally. Cardio: regular rate and rhythm. Musculoskeletal: good upper extremity strength bilaterally. Neuro: oriented to time and place, good interaction. Skin: upper extremities clear at this visit. *She reports nasal congestion but I do not see much congestion on exam but I see more drain (more content not included)... Normal [facility] CBC, Platelets & Auto Diff ( [id number])Ordered By: Disk Recoater on 04-15-2022 Basophils (Bld) [#/Vol] 0.1 10*3/uL Normal 0.0-0.2 [facility]; [facility] Work Phone: Comment on above: PATIENT NOT FASTINGP ERFORMED BY: CB [facility] [id number] [facility] [id number] BY: Lab[address] [id number] Basophils/100 WBC (Bld) 1 % Normal [facility]; [facility] Work Phone: Comment on above: PATIENT NOT FASTINGP ERFORMED BY: CB [facility] Ylpihq3751 [facility] [id number] BY: [address] [id number] Eosinophils (Bld) [#/Vol] 0.2 10*3/uL Normal 0.0-0.4 [facility]; [facility] Work Phone: Comment on above: PATIENT NOT FASTINGP ERFORMED BY: CB [facility] Necwcx8919 [facility] [id number] BY: [address] [id number] Eosinophils/100 WBC (Bld) 2 % Normal [facility]; [facility] Work Phone: Comment on above: PATIENT NOT FASTINGP ERFORMED BY: CB [facility] [id number] [facility] [id number] BY: [address] [id number] Erythrocyte distribution width (RBC) [Ratio] 11.6 % Abnormal 11.7-15.4 [facility]; [facility] Work Phone: Comment on above: PATIENT NOT FASTINGP ERFORMED BY: CB [facility] Gewgqg2799 [facility] [id number] BY: BN [facility] [id number] Hematocrit (Bld) [Volume fraction] 41.7 % Normal 34.0-46.6 [facility]; [facility] Work Phone: Comment on above: PATIENT NOT FASTINGP ERFORMED BY: AKILA [facility] [id number] [facility] [id number] BY: [address] [id number] Hemoglobin (Bld) [Mass/Vol] 13.8 g/dL Normal 11.1-15.9 [facility]; [facility] Work Phone: Comment on above: PATIENT NOT FASTINGP ERFORMED BY: AKILA [facility] [id number] [facility] [id number] BY: [address] [id number] Immature granulocytes (Bld) [#/Vol] 0.0 10*3/uL Normal 0.0-0.1 [facility]; [facility] Work Phone: Comment on above: PATIENT NOT FASTINGP ERFORMED BY: AKILA [facility] Pomtga4288 [facility] [id number] BY: Lab[address] [id number] Immature granulocytes/100 WBC (Bld) 0 % Normal [facility]; [facility] Work Phone: Comment on above: PATIENT NOT FASTINGP ERFORMED BY: [facility] Oqxhrr9822 [facility] [id number] BY: Lab[address] [id number] Lymphocytes (Bld) [#/Vol] 1.4 10*3/uL Normal 0.7-3.1 [facility]; [facility] Work Phone: Comment on above: PATIENT NOT FASTINGP ERFORMED BY: [facility] Zzhule9223 [facility] [id number] BY: [address] [id number] Lymphocytes/100 WBC (Bld) 14 % Normal [facility]; [facility] Work Phone: Comment on above: PATIENT NOT FASTINGP ERFORMED BY: AKILA [facility] Chuvuf7549 [facility] [id number] BY: [address] [id number] MCH (RBC) [Entitic mass] 29.2 pg Normal 26.6-33.0 [facility]; [facility] Work Phone: Comment on above: PATIENT NOT FASTINGP ERFORMED BY: LabcoDouglas [place] 2460470 [facility] [id number] BY: [address] [id number] MCHC (RBC) [Mass/Vol] 33.1 g/dL Normal 31.5-35.7 [facility]; [facility] Work Phone: Comment on above: PATIENT NOT FASTINGP ERFORMED BY: LabcoSaint Clare's Hospital at DoverGaness6069 [facility] [id number] BY: [address] [id number] MCV (RBC) [Entitic vol] 88 fL Normal 79-97 [facility]; [facility] Work Phone: Comment on above: PATIENT NOT FASTINGP ERFORMED BY: LabcoDoug[place] 2460470 [facility] [id number] BY: [address] [id number] Monocytes (Bld) [#/Vol] 0.7 10*3/uL Normal 0.1-0.9 [facility]; [facility] Work Phone: Comment on above: PATIENT NOT FASTINGP ERFORMED BY: LabcoDoug[place] 2460470 [facility] [id number] BY: [address] CourtBur[place] [id number] Monocytes/100 WBC (Bld) 7 % Normal [facility]; [facility] Work Phone: Comment on above: PATIENT NOT FASTINGP ERFORMED BY: CB [facility] Nswkin5638 Romo RoadDublin [place] [id number] BY: BN [facility] [address] [id number] Neutrophils (Bld) [#/Vol] 7.5 10*3/uL Abnormal 1.4-7.0 [facility]; [facility] Work Phone: Comment on above: PATIENT NOT FASTINGP ERFORMED BY: CB [facility] Nkpfhh6373 Romo RoadDublin [place] [id number] BY: BN [facility] [address] [id number] Neutrophils/100 WBC (Bld) 76 % Normal [facility]; [facility] Work Phone: Comment on above: PATIENT NOT FASTINGP ERFORMED BY: CB [facility] Awbwko2499 Romo RoadDuin [place] [id number] BY: BN [facility] [address] [id number] Platelets (Bld) [#/Vol] 262 10*3/uL Normal 150-450 [facility]; [facility] Work Phone: Comment on above: PATIENT NOT FASTINGP ERFORMED BY: CB [facility] Nkzcjc0341 Romo RoadDuCentral Carolina Hospital [id number] BY: BN [facility] Vpkrqqudxx4[address] [id number] RBC (Bld) [#/Vol] 4.73 10*6/uL Normal 3.77-5.28 [facility] Internal Medicine; [facility] Work Phone: Comment on above: PATIENT NOT FASTINGP ERFORMED BY: CB [facility] Trjbfr0803 Romo RoadDublin [place] [id number] BY: BN [facility] [address] [id number] WBC (Bld) [#/Vol] 9.9 10*3/uL Normal 3.4-10.8 [facility]; [facility] Work Phone: Comment on above: PATIENT NOT FASTINGP ERFORMED BY: AKILA [facility] Mlmgse7517 Romo RoadDublin [place] [id number] BY: [address] [id number] IGA/IGD/IGG/IGM-EACH (21539) Ordered By: Disk Recoater on 04-15-2022 IgA [Mass/Vol] 121 mg/dL Normal 87-352 [facility]; [facility] Work Phone: Comment on above: PATIENT NOT FASTINGP ERFORMED BY: AKILA [facility] Qrxzzh6952 Romo RoadDublin [place] [id number] BY: [employer] Thief[address] [id number] IgE Qn 25 {IU/mL} Normal 6-495 [facility]; [facility] Work Phone: Comment on above: PATIENT NOT FASTINGP ERFORMED BY: AKILA [facility] Xzvznc0176 [address] Zero ProjectDublin [place] [id number] BY: [employer] Thief[address] [id number] IgG [Mass/Vol] 964 mg/dL Normal 586-1602 [facility]; [facility] Work Phone: Comment on above: PATIENT NOT FASTINGP ERFORMED BY: AKILA [facility] Ohucag1190 Romo RoadDublin [place] [id number] BY: [employer] Thief[address] [id number] IgM [Mass/Vol] 184 mg/dL Normal 26-217 [facility]; [facility] Work Phone: Comment on above: PATIENT NOT FASTINGP ERFORMED BY: AKILA [facility] Pvcuor8449 Romo RoadDublin [place] [id number] BY: [facility] [address] [id number] Metabolic Panel, Luisi shaquille (27080)Ordered By: Disk Recoater on 04-15-2022 Albumin [Mass/Vol] 4.9 g/dL Normal 3.9-5.0 [facility] Internal Medicine; [facility] Work Phone: Comment on above: PATIENT NOT FASTINGP ERFORMED BY: CB [facility] Juponp1727 Romo RoadDublin [place] [id number] BY: BN [facility] [address] [id number] Albumin/Globulin [Mass ratio] 2.3 {ratio} Abnormal 1.2-2.2 [facility]; [facility] Work Phone: Comment on above: PATIENT NOT FASTINGP ERFORMED BY: CB [facility] Uekzyp9641 Romo RoadDublin [place] [id number] BY: [facility] [address] [id number] ALP [Catalytic activity/Vol] 48 U/L Normal 44-121 [facility]; [facility] Work Phone: Comment on above: PATIENT NOT FASTINGP ERFORMED BY: CB [facility] Dyujqh4835 Rom[address] RoadDublin [place] [id number] BY: [facility] [address] [id number] ALT [Catalytic activity/Vol] 20 U/L Normal 0-32 [facility]; [facility] Work Phone: Comment on above: PATIENT NOT FASTINGP ERFORMED BY: CB [facility] Cnpclm3811 Rom[address] RoadDublin [place] [id number] BY: [facility] [address] [id number] AST [Catalytic activity/Vol] 16 U/L Normal 0-40 [facility]; [facility] Work Phone: Comment on above: PATIENT NOT FASTINGP ERFORMED BY: CB [facility] Hcwmao7656 Romo RoadDublCardinal Hill Rehabilitation Center [id number] BY: Labco[address] [id number] Bilirubin [Mass/Vol] 1.2 mg/dL Normal 0.0-1.2 Comp rehensive [facility]; [facility] Work Phone: Comment on above: PATIENT NOT FASTINGP ERFORMED BY: CB [facility] Hnvcsu9561 Rom[address] RoadDublin [place] [id number] BY: Labco[address] [id number] Calcium [Mass/Vol] 9.7 mg/dL Normal 8.7-10.2 [facility] Internal [facility]; [facility] Work Phone: Comment on above: PATIENT NOT FASTINGP ERFORMED BY: CB [facility] Ehdyge8709 Rom[address] RoadDublin [place] [id number] BY: Labco[address] [id number] Chloride [Moles/Vol] 105 mmol/L Normal 96-106 [facility] rehensive Internal Medicine; [facility] Work Phone: Comment on above: PATIENT NOT FASTINGP ERFORMED BY: CB [facility] Vyclid4807 Rom[address] RoadDublin [place] [id number] BY: Labco[address] [id number] CO2 [Moles/Vol] 22 mmol/L Normal 20-29 [facility] Internal Medicine; [facility] Work Phone: Comment on above: PATIENT NOT FASTINGP ERFORMED BY: CB [facility] Katkoz4140 Rom[address] RoadDublin [place] [id number] BY: Labco[address] [id number] Creatinine [Mass/Vol] 0.65 mg/dL Normal 0.57-1.00 [facility]; [facility] Work Phone: Comment on above: PATIENT NOT FASTINGP ERFORMED BY: CB [facility] Ibsggx2110 Rom[address] RoadDublin [place] [id number] BY: [employer] Thief[address] [id number] GFR/1.73 sq M.predicted among non-blacks MDRD (S/P/Bld) [Vol rate/Area] 128 mL/min/{1.73_m2} Normal Comprehensi ve [facility] Medicine; [facility] Work Phone: Comment on above: PATIENT NOT FASTINGP ERFORMED BY: LabBloomThat Gxwucd8049 [facility] [id number] BY: [employer] Thief[address] [id number] Globulin (S) [Mass/Vol] 2.1 g/dL Normal 1.5-4.5 [facility]; [facility] Work Phone: Comment on above: PATIENT NOT FASTINGP ERFORMED BY: [employer] Armsuy3945 [facility] [id number] BY: [employer] [id number] Glucose [Mass/Vol] 79 mg/dL Normal 65-99 [facility] Internal Medicine; [facility] Work Phone: Comment on above: PATIENT NOT FASTINGP ERFORMED BY: GeoPalz LabBloomThat Pcybwu9320 [facility] [id number] BY: [employer] Thief[address] [id number] Potassium [Moles/Vol] 4.7 mmol/L Normal 3.5-5.2 [facility]; [facility] Work Phone: Comment on above: PATIENT NOT FASTINGP ERFORMED BY: LabBloomThat Fmtuzt3320 [facility] [id number] BY: [address] [id number] Protein [Mass/Vol] 7.0 g/dL Normal 6.0-8.5 [facility]; [facility] Work Phone: Comment on above: PATIENT NOT FASTINGP ERFORMED BY: CB [facility] Okyvrb1864 [address] [facility] HospitalDublin [place] [id number] BY: [facility] [address] [id number] Sodium [Moles/Vol] 141 mmol/L Normal 134-144 [facility] Internal [facility]; [facility] Work Phone: Comment on above: PATIENT NOT FASTINGP ERFORMED BY: CB [facility] Zlvssh5974 [address] [facility] [id number] BY: BN [facility] [address] [id number] Urea nitrogen [Mass/Vol] 9 mg/dL Normal 6-20 [facility]; [facility] Work Phone: Comment on above: PATIENT NOT FASTINGP ERFORMED BY: CB [facility] Yxpecu4660 Romo RoadUNC Health Nash [id number] BY: Labco[address] [id number] Urea nitrogen/Creatinine [Mass ratio] 14 mg/mg Normal 9-23 [facility]; [facility] Work Phone: Comment on above: PATIENT NOT FASTINGP ERFORMED BY: CB [facility] Ubxbnv0937 [address] [facility] [id number] BY: [facility] [address] [id number] T3, FREE (TRIDOTHYRONINE) (5 7744)Ordered By: Disk Recoater on 04-15-2022 Free T3 [Mass/Vol] 3.2 pg/mL Normal 2.0-4.4 [facility] Internal Medicine; [facility] Work Phone: Comment on above: PATIENT NOT FASTINGP ERFORMED BY: CB [facility] Mdcids4732 [address] [facility] [id number] BY: [facility] [address] [id number] TSH (45177)Ordered By: Johana jacobs Machine Cementer And Folder on 04-15-2022 TSH Qn 1.270 {uIU/mL} Normal 0.450-4.50 0 [facility]; [facility] Work Phone: Comment on above: PATIENT NOT FASTINGP ERFORMED BY: [employer] Vupsbt0525 Demetrius Márquez [place] [id number] BY: [facility] Ocvekoknua0698 [facility] [id number] NuSwab Vaginitis Plus (STD W /O Herpes) (01144)Ordered By: Disk Recoater on 06-27-2021 A. vaginae DNA FABIANO+probe Ql (Vag fld) Low - 0 Normal [facility]; [facility] Work Phone: Comment on above: Test(s) 296500-Dthmb da albicans, FABIANO; 173348-Gjgyvot glabrata, NAAwas developed and its performance characteristics determinedby [employer]. It has not been cleared or approved by the Foodand Drug Administration.PATIENT NOT FASTINGPERFORMED BY: =Catmoji[address] [id number] Information: SRC:VA Bacterial vaginosis associated bacterium 2 DNA FABIANO+probe Ql (Vag fld) Low - 0 Normal [facility]; [facility] Work Phone: Comment on above: Test(s) 032585-Rwdgb da albicans, FABIANO; 546837-Ofyjkcl glabrata, NAAwas developed and its performance characteristics determinedby [employer]. It has not been cleared or approved by the Foodand Drug Administration.PATIENT NOT FASTINGPERFORMED BY: =Catmoji[address] [id number] Information: SRC:VA C. albicans DNA FABIANO+probe Ql (Vag fld) Negative Normal [facility]; [facility] Work Phone: Comment on above: Test(s) 351877-Tlvnn da albicans, FABIANO; 640338-Iprggos glabrata, NAAwas developed and its performance characteristics determinedby [employer]. It has not been cleared or approved by the Foodand Drug Administration.PATIENT NOT FASTINGPERFORMED BY: =Catmoji[address] [id number] Information: SRC:VA C. glabrata DNA FABIANO+probe Ql (Vag fld) Negative Normal [facility]; [facility] Work Phone: Comment on above: Test(s) 174495-Nmqnb da albicans, FABIANO; 319964-Kgbqvgi glabrata, NAAwas developed and its performance characteristics determinedby LabMichigan Home [facility]kers. It has not been cleared or approved by the Foodand Drug Administration.PATIENT NOT FASTINGPERFORMED BY: =G i-nexus[address] [id number] Information: SRC:VA C. trachomatis rRNA FABIANO+probe Ql (Unsp spec) Negative Normal [facility]; [facility] Work Phone: Comment on above: Test(s) 783170-Kpidw da albicans, FABIANO; 560193-Ufwnwpt glabrata, NAAwas developed and its performance characteristics determinedby LabMichigan Home Brokers. It has not been cleared or approved by the Foodand Drug Administration.PATIENT NOT FASTINGPERFORMED BY: =G i-nexus[address] [id number] Information: SRC:VA Megasphaera sp type 1 DNA FABIANO+probe Ql (Vag fld) Low - 0 Normal [facility]; [facility] Work Phone: Comment on above: Calculate total scor e by adding the 3 individual bacterialvaginosis (BV) marker scores together. Total score isinterpreted as follows:Total score 0-1: Indicates the absence of BV.Total score 2: Indeterminate for BV. Additional clinical data should be evaluated to establish a diagnosis.Total score 3-6: Indicates the presence of BV. .This test was developed and its performance characteristicsdetermined by [employer]. It has not been cleared or approvedby the Food and Drug Administration. Test(s) 134502-Gtljm da albicans, FABIANO; 637976-Suxozbb glabrata, NAAwas developed and its performance characteristics determinedby LabMichigan Home [facility]. It has not been cleared or approved by the Foodand Drug Administration.PATIENT NOT FASTINGPERFORMED BY: =G [employer] [address] [id number] Information: SRC:VA N. gonorrhoeae rRNA FABIANO+probe Ql (Unsp spec) Negative Normal [facility]; [facility] Work Phone: Comment on above: Test(s) 120824-Dcmlz da albicans, FABIANO; 762306-Otxgwsk glabrata, NAAwas developed and its performance characteristics determinedby [employer]. It has not been cleared or approved by the Foodand Drug Administration.PATIENT NOT FASTINGPERFORMED BY: =G LabSaaSAssurancerp Cxwdivqpoc069 [place] MDSmartSearch.comrCupomNowcapital health system ([facility]) W [id number] Information: SRC:ME T. vaginalis rRNA FABIANO+probe Ql (Unsp spec) Negative Normal [facility]; [facility] Work Phone: Comment on above: Test(s) 924268-Dxujm da albicans, FABIANO; 468807-Ewujkzf glabrata, NAAwas developed and its performance characteristics determinedby [employer]. It has not been cleared or approved by the Foodand Drug Administration.PATIENT NOT FASTINGPERFORMED BY: =G [employer] [place] MDSmartSearch.comSaint John Vianney Hospital [id number] Information: SRC:ME Thin Prep Pap (72848)Ordered By: Disk Recoater on 06-27-2021 Thin Prep Pap (46916) [facility] Normal Com prehensive Internal Medicine; [facility] Work Phone: Comment on above: R87.932The Pap smear is a screening test designed to aid in the detection ofpremalignant and malignant conditions of the uterine cervix. It is not adiagnostic procedure and should not be used as the sole means of detectingcervical cancer. Both false-positive and false-negative reports do occur. .This liquid based ThinPrep(R) pap test was screened with theuse of an image guided system.See below for HPV testing results. . Source.............C ervix;EndocervixNo. of containers..01 ThinPrep VialPATIENT NOT FASTINGPERFORMED BY: WB [employer]120 HipFlatcapital health system ([facility] W [id number] BY: =G i-nexusrp Ouymrtwgxi283 [employer] BIrCupomNowcapital health system ([facility]) W [id number] Information: [id number] EPITHELIAL CELL ABNO RMALITY.LOW GRADE SQUAMOUS INTRAEPITHELIAL LESION (LSIL).Suggest follow up as clinically appropriate.Satisfactory for evaluation. Endocervical and/or squamous metaplasticcells (endocervical component) are present.Z12.4Tabatha Charles, Plywood And Veneer Repairer (ASCP)Deb Cronin MD, Pathologist Thin Prep Pap (54774) . Normal Com prehensive [facility]; [facility] Work Phone: Comment on above: Source.............C ervix;EndocervixNo. of containers..01 ThinPrep VialPATIENT NOT FASTINGPERFORMED BY: WB [employer]120 [place] [employer] 2 Hostcapital health system ([facility]) W [id number] BY: =G [facility] Wolmiurunn440 [place] [address] 2 Hostcapital health system ([facility] W [id number] Information: [id number] URINE SYLVAIN CULTURE-IDENTIFICA TN (76374)Ordered By: Disk Recoater on 06-27-2021 Bacteria identified Cx Nom (U) Final report Normal [facility]; [facility] Work Phone: Comment on above: PATIENT NOT FASTINGP ERFORMED BY: LabSaaSAssurance Wyvojt6476 [address] Day Zero ProjectUNC Health Nash [id number] Information: SRC: Bacteria identified Cx Nom (U) MUG Normal [facility]; [facility] Work Phone: Comment on above: Mixed urogenital karlo ra2,000 Colonies/mL PATIENT NOT FASTINGP ERFORMED BY: [facility] Mcunua4479 [facility]oHaw[facility] [id number] Information: SRC: Urinalysis, Office (99105)Or dered By: SRIRAM Nichole on 06-27-2021 Bilirubin Ql (U) Negative Normal Comprehe nsive Internal Medicine; [facility] Work Phone: Glucose Test strip (U) [Mass/Vol] Negative Normal [facility]; [facility] Work Phone: Hemoglobin Ql (U) + Abnormal Compreh ensive Internal Medicine; [facility] Work Phone: Ketones Ql (U) Moderate Normal Comprehens tegan [facility]; [facility] Work Phone: Leukocyte esterase Test strip Ql (U) Large Normal [facility]; [facility] Work Phone: Nitrite Ql (U) Negative Normal Comprehens tegan [facility]; [facility] Work Phone: pH (U) 5.0 [pH] Normal [facility]; [facility] Work Phone: Protein Ql (U) Negative Normal Comprehens tegan [facility]; [facility] Work Phone: Specific gravity (U) [Rel density] 1.025 1 Normal [facility]; [facility] Work Phone: Urobilinogen (24H U) [Mass/Time] 2 mg/dL Normal [facility]; [facility] Work Phone: URINE SYLVAIN CULTURE-RENU COL C OUNT (93359)Ordered By: Disk Recoater on 11-24-2019 Bacteria identified Cx Nom (U) MUG Normal [facility]; [facility] Work Phone: Comment on above: Mixed urogenital karlo ra7,000 Colonies/mL PERFORMED BY: SAGE TherapeuticsUNC Health Nash [id number] Information: SRC:UR Bacteria identified Cx Nom (U) Final report Normal [facility]; [facility] Work Phone: Comment on above: PERFORMED BY: DataRPMCentral Carolina Hospital [id number] Information: SRC:UR Urinalysis, Office (02068)Or dered By: Eugenia Marx on 11-24-2019 Bilirubin Ql (U) Negative Normal Comprehe nsive Internal Medicine; [facility] Work Phone: Bilirubin Ql (U) Negative Normal Comprehe nsive Internal Medicine; [facility] Work Phone: Glucose Test strip (U) [Mass/Vol] Negative Normal [facility]; [facility] Work Phone: Glucose Test strip (U) [Mass/Vol] Negative Normal [facility]; [facility] Work Phone: Hemoglobin Ql (U) Negative Normal Compreh ensive Internal Medicine; [facility] Work Phone: Hemoglobin Ql (U) Negative Normal Compreh ensive Internal Medicine; [facility] Work Phone: Ketones Ql (U) Negative Normal Comprehens tegan [facility]; [facility] Work Phone: Ketones Ql (U) Negative Normal Comprehens tegan [facility]; [facility] Work Phone: Leukocyte esterase Test strip Ql (U) Negative Normal [facility]; [facility] Work Phone: Leukocyte esterase Test strip Ql (U) Negative Normal [facility]; [facility] Work Phone: Nitrite Ql (U) Negative Normal Comprehens tegan [facility]; [facility] Work Phone: Nitrite Ql (U) Negative Normal Comprehens tegan [facility]; [facility] Work Phone: pH (U) 7.5 [pH] Normal [facility]; [facility] Work Phone: Protein Ql (U) Negative Normal Comprehens tegan [facility]; [facility] Work Phone: Protein Ql (U) Negative Normal Comprehens tegan [facility]; [facility] Work Phone: Specific gravity (U) [Rel density] 1.020 1 Normal [facility]; [facility] Work Phone: Urobilinogen (24H U) [Mass/Time] 2 mg/dL Normal [facility]; [facility] Work Phone: Pap IG, rfx HPV all pthon Microscopic observation Other stain Nom (Unsp spec) . Normal Comprehens tegan [facility] Work Phone: Comment on above: Source.............C ervix;EndocervixNo. of containers..01 ThinPrep VialPATIENT NOT FASTINGPERFORMED BY: LabCo[address] AnjanaBristol-My[facility] Squ[facility] KRISTEN [id number] Information: [id number] Pathology report final diagnosis Narrative SPRCS Normal [facility] Work Phone: Comment on above: NEGATIVE FOR INTRAEP ITHELIAL LESION AND MALIGNANCY.Satisfactory for evaluation. Endocervical and/or squamous metaplasticcells (endocervical component) are present.Z01.Gaudencio Glass Plywood And Veneer Repairer (ASCP) Source.............C ervix;EndocervixNo. of containers..01 ThinPrep VialPATIENT NOT FASTINGPERFORMED BY: [employer] [address] [id number] Information: [id number] Pap IG, rfx HPV all pth PAPSMR Normal [facility] Work Phone: Comment on above: The Pap smear is a s creening test designed to aid in the detection ofpremalignant and malignant conditions of the uterine cervix. It is not adiagnostic procedure and should not be used as the sole means of detectingcervical cancer. Both false-positive and false-negative reports do occur. .This liquid based ThinPrep(R) pap test was screened with theuse of an image guided system.The HPV DNA reflex criteria were not met with this specimen resulttherefore, no HPV testing was performed. . Source.............C ervix;EndocervixNo. of containers..01 ThinPrep VialPATIENT NOT FASTINGPERFORMED BY: Reading Room[address] [id number] Information: [id number] URINE SYLVAIN CULTURE-IDENTIFICA [place] ([id number])on 08-03-2018 Bacteria identified Cx Nom (U) Final report Abnormal [facility] Work Phone: Comment on above: PATIENT NOT FASTINGP ERFORMED BY: [facility] Boykxr8244 [facility] [id number] Information: SRC:UC Bacteria identified Cx Nom (U) CNSNSS Abnormal [facility] Work Phone: Comment on above: Coagulase negative S taphylococcus species, not Staphylococcussaprophyticus.25,000-50,000 colony forming units per mLBased on resistance to oxacillin this isolate would be resistant toall currently available beta-lactam antimicrobial agents, with theexception of the newer cephalosporins with anti-MRSA activity, such asCeftaroline S = Susceptible; I = Intermediate; R = Resistant P = Positive; N = Negative MICS are expressed in micrograms per mL Antibiotic RSLT#1 RSLT#2 RSLT#3 RSLT#4Ciprofloxacin RGentamicin SLevofloxacin RLinezolid SNitrofurantoin SOxacillin RPenicillin RQuinupristin/Dalfopristin SRifampin STetracycline RTrimethoprim/Sulfa SVancomycin S PATIENT NOT FASTINGP ERFORMED BY: AKILA [facility] Ewotvh2899 Romo RoadDublin [place] [id number] Information: SRC:ADDISON Urinalysis, Office ([id number])Or dered By: SRIRAM Nichole on 08-03-2018 Bilirubin Ql (U) Negative Normal Comprehe nsive Internal Medicine Work Phone: Bilirubin Ql (U) Negative Normal Comprehe nsive Internal Medicine; [facility] Work Phone: Glucose Test strip (U) [Mass/Vol] Negative Normal [facility] Work Phone: Glucose Test strip (U) [Mass/Vol] Negative Normal [facility]; [facility] Work Phone: Hemoglobin Ql (U) Hemolyzed Trace Normal Co mprehensive [facility] Work Phone: Ketones Ql (U) Negative Normal Comprehens te[facility] Work Phone: Ketones Ql (U) Negative Normal Com[facility]; [facility] Work Phone: Leukocyte esterase Test strip Ql (U) Negative Normal [facility] Work Phone: Leukocyte esterase Test strip Ql (U) Negative Normal [facility]; [facility] Work Phone: Nitrite Ql (U) Negative Normal [facility] Work Phone: Nitrite Ql (U) Negative Normal [facility]; [facility] Work Phone: pH (U) 6.5 [pH] Normal [facility] Work Phone: Protein Ql (U) Negative Normal [facility] Work Phone: Protein Ql (U) Negative Normal Comprehens [facility]; [facility] Work Phone: Specific gravity (U) [Rel density] 1.015 1 Normal [facility] Work Phone: Urobilinogen (24H U) [Mass/Time] 2 mg/dL Normal [facility] Work Phone: CBC W/AUTO DIFF WBC ([id number])o n 07-14-2018 Basophils (Bld) [#/Vol] 0.0 {x10E3/uL} Normal 0.0-0.2 [facility] Work Phone: Comment on above: PATIENT NOT FASTINGP ERFORMED BY: AKILA i-nexusok ReddingVywfuj6811 [address] Zero ProjectUNC Health Nash [id number] Basophils/100 WBC (Bld) 1 % Normal [facility] Work Phone: Comment on above: PATIENT NOT FASTINGP ERFORMED BY: AKILA i-nexusok ReddingLjtwtq3090 [address] Zero ProjectUNC Health Nash [id number] Eosinophils (Bld) [#/Vol] 0.2 {x10E3/uL} Normal 0.0-0.4 [facility] Work Phone: Comment on above: PATIENT NOT FASTINGP ERFORMED BY: AKILA i-nexusrp Svsybs5350 [address] [employer] Frontline TechnologyCentral Carolina Hospital [id number] Eosinophils/100 WBC (Bld) 2 % Normal [facility] Work Phone: Comment on above: PATIENT NOT FASTINGP ERFORMED BY: AKILA i-nexusok ReddingNtqmid9823 [address] Zero ProjectUNC Health Nash [id number] Erythrocyte distribution width (RBC) [Ratio] 12.7 % Normal 12.3-15.4 [facility] Work Phone: Comment on above: PATIENT NOT FASTINGP ERFORMED BY: AKILA Merino Zxkdrq2413 Rom[address] Roadblin [place] [id number] Hematocrit (Bld) [Volume fraction] 37.4 % Normal 34.0-46.6 [facility] Work Phone: Comment on above: PATIENT NOT FASTINGP ERFORMED BY: AKILA Merino Huemoa2731 Rom[address] RoadDublin [place] [id number] Hemoglobin (Bld) [Mass/Vol] 12.6 g/dL Normal 11.1-15.9 [facility] Work Phone: Comment on above: PATIENT NOT FASTINGP ERFORMED BY: [facility]Cr[facility] Kottbn5504 Romo RoadDublin [place] [id number] Immature granulocytes (Bld) [#/Vol] 0.0 {x10E3/uL} Normal 0.0-0.1 [facility] Work Phone: Comment on above: PATIENT NOT FASTINGP ERFORMED BY: Wilber Yzmbjl6020 Romo RoadAnson Community Hospitalin [place] [id number] Immature granulocytes/100 WBC (Bld) 0 % Normal [facility] Work Phone: Comment on above: PATIENT NOT FASTINGP ERFORMED BY: Wilber Bhddak7126 [address] Roadblin [place] [id number] Lymphocytes (Bld) [#/Vol] 1.9 {x10E3/uL} Normal 0.7-3.1 [facility] Work Phone: Comment on above: PATIENT NOT FASTINGP ERFORMED BY: [facility] Mdhrag2544 Rom[address] RoadDublin [place] [id number] Lymphocytes/100 WBC (Bld) 25 % Normal [facility] Work Phone: Comment on above: PATIENT NOT FASTINGP ERFORMED BY: AKILA Merino Tugziz8125 [address] RoadDublin [place] [id number] MCH (RBC) [Entitic mass] 29.5 pg Normal 26.6-33.0 [facility] Work Phone: Comment on above: PATIENT NOT FASTINGP ERFORMED BY: [facility] Dyrets9466 Rom[address] RoadDublin [place] [id number] MCHC (RBC) [Mass/Vol] 33.7 g/dL Normal 31.5-35.7 [facility] Work Phone: Comment on above: PATIENT NOT FASTINGP ERFORMED BY: CB [facility] Wtflaw3382 Romo RoadDublin [place] [id number] MCV (RBC) [Entitic vol] 88 fL Normal 79-97 [facility] Work Phone: Comment on above: PATIENT NOT FASTINGP ERFORMED BY: CB [facility] Puxjwm9699 Rom[address] RoadDublin [place] [id number] Monocytes (Bld) [#/Vol] 0.7 {x10E3/uL} Normal 0.1-0.9 [facility] Work Phone: Comment on above: PATIENT NOT FASTINGP ERFORMED BY: CB [facility] Myqvgv5011 Rom[address] RoadDublin [place] [id number] Monocytes/100 WBC (Bld) 9 % Normal [facility] Work Phone: Comment on above: PATIENT NOT FASTINGP ERFORMED BY: CB [facility] Plhutj4387 Rom[address] RoadDublin [place] [id number] Neutrophils (Bld) [#/Vol] 4.9 {x10E3/uL} Normal 1.4-7.0 [facility] Work Phone: Comment on above: PATIENT NOT FASTINGP ERFORMED BY: CB [facility] Efaliv9735 Rom[address] RoadDublin [place] [id number] Neutrophils/100 WBC (Bld) 63 % Normal [facility] Work Phone: Comment on above: PATIENT NOT FASTINGP ERFORMED BY: CB [facility] Sntbhw6671 [address] RoadDublin [place] [id number] Platelets (Bld) [#/Vol] 207 {x10E3/uL} Normal 150-379 [facility] Work Phone: Comment on above: PATIENT NOT FASTINGP ERFORMED BY: CB [facility] Dkmqsu8709 [address] RoadDublin [place] [id number] RBC (Bld) [#/Vol] 4.27 {x10E6/uL} Normal 3.77-5.28 [facility] Medicine Work Phone: Comment on above: PATIENT NOT FASTINGP ERFORMED BY: AKILA Lab[facility] RedmanZlgxne2321 [address] [facility] [id number] WBC (Bld) [#/Vol] 7.7 {x10E3/uL} Normal 3.4-10.8 [facility] Work Phone: Comment on above: PATIENT NOT FASTINGP ERFORMED BY: CB [facility] Ngolga4876 [address] [facility] [id number] CBC W/AUTO DIFF WBC ([id number])O rdered By: Disk Recoater on 07-14-2018 Basophils (Bld) [#/Vol] 0.0 10*3/uL Normal 0.0-0.2 [facility]; [facility] Work Phone: Comment on above: PATIENT NOT FASTINGP ERFORMED BY: AKILA [facility] Euicsw1440 [facility] [id number] Eosinophils (Bld) [#/Vol] 0.2 10*3/uL Normal 0.0-0.4 [facility]; [facility] Work Phone: Comment on above: PATIENT NOT FASTINGP ERFORMED BY: AKILA [facility] Eqczng4390 [facility] [id number] Immature granulocytes (Bld) [#/Vol] 0.0 10*3/uL Normal 0.0-0.1 [facility]; [facility] Work Phone: Comment on above: PATIENT NOT FASTINGP ERFORMED BY: CB [facility] Dezyex3958 [address] [facility] [id number] Lymphocytes (Bld) [#/Vol] 1.9 10*3/uL Normal 0.7-3.1 [facility]; [facility] Work Phone: Comment on above: PATIENT NOT FASTINGP ERFORMED BY: CB [facility] Gjishd8649 [address] [facility] [id number] Monocytes (Bld) [#/Vol] 0.7 10*3/uL Normal 0.1-0.9 [facility]; [facility] Work Phone: Comment on above: PATIENT NOT FASTINGP ERFORMED BY: AKILA [facility] Npqepb5592 Rom[address] RoadDublin [place] [id number] Neutrophils (Bld) [#/Vol] 4.9 10*3/uL Normal 1.4-7.0 [facility]; [facility] Work Phone: Comment on above: PATIENT NOT FASTINGP ERFORMED BY: CB [facility] Dwpjkx1059 Rom[address] Roadblin [place] [id number] Platelets (Bld) [#/Vol] 207 10*3/uL Normal 150-379 [facility]; [facility] Work Phone: Comment on above: PATIENT NOT FASTINGP ERFORMED BY: AKILA [facility] Hqbklk6169 [address] [facility]in [place] [id number] RBC (Bld) [#/Vol] 4.27 10*6/uL Normal 3.77-5.28 Compr ehensive Internal Medicine; [facility] Work Phone: Comment on above: PATIENT NOT FASTINGP ERFORMED BY: AKILA [facility] Mtpfmr6702 [address] [facility]in [place] [id number] WBC (Bld) [#/Vol] 7.7 10*3/uL Normal 3.4-10.8 Compre [facility]; [facility] Work Phone: Comment on above: PATIENT NOT FASTINGP ERFORMED BY: CB [facility] Dqoqpd0178 [address] [facility]in [place] [id number] URINE SYLVAIN CULTURE-IDENTIFICA [place] ([id number])on 07-14-2018 Bacteria identified Cx Nom (U) Final report Normal [facility] Work Phone: Comment on above: PATIENT NOT FASTINGP ERFORMED BY: CB [facility] Qkeedy8318 [address] [facility] Hospitalbl[facility] [place] [id number] Information: SRC:UC Bacteria identified Cx Nom (U) MUG Normal [facility] Work Phone: Comment on above: Mixed urogenital karlo ra3,000 Colonies/mL PATIENT NOT FASTINGP ERFORMED BY: AKILA [facility] Rgfqpt0163 [facility] [id number] Information: SRC:ADDISON Urinalysis, Office ([id number])Or dered By: SRIRAM Nichole on 07-14-2018 Bilirubin Ql (U) Negative Normal Comprehe nsive Internal Medicine Work Phone: Bilirubin Ql (U) Negative Normal Comprehe nsive Internal Medicine; [facility] Work Phone: Glucose Test strip (U) [Mass/Vol] Negative Normal [facility] Work Phone: Glucose Test strip (U) [Mass/Vol] Negative Normal [facility]; [facility] Work Phone: Hemoglobin Ql (U) Hemolyzed Large Normal Co mprehensive [facility] Work Phone: Ketones Ql (U) Negative Normal Comprehens [facility] Work Phone: Ketones Ql (U) Negative Normal Comprehens [facility]; [facility] Work Phone: Leukocyte esterase Test strip Ql (U) Small Normal [facility] Work Phone: Nitrite Ql (U) Negative Normal Com[facility] Work Phone: Nitrite Ql (U) Negative Normal Comprehens [facility]; [facility] Work Phone: pH (U) 7.5 [pH] Normal [facility] Work Phone: Protein Ql (U) 100 mg/dL Normal Comprehens [facility] Work Phone: Specific gravity (U) [Rel density] 1.020 1 Normal [facility] Work Phone: Urobilinogen (24H U) [Mass/Time] 2 mg/dL Normal [facility] Work Phone: CNCOon 03-24-2018 CNCO Letter TextWoosterDepartment of PediatricsDr. Celeste Larose M.D.[address] [place] [phone]: [phone] WHOM IT MAY CONCERN:This is to confirm that Lawrence Nicole Patton had an [facility] Dr[facility] Santi Doherty on 03/24/2018 Please Excuse.Sincerely yours, Normal [facility] CNOVon 03-24-2018 CNOV Office Visit (PEDSWS) NANCY PATTON ([id number]) 2000 FDate Time Provider Department03/24/18 10:45 AM CELESTE LAROSE PEDSWS During your visit today, we recorded the following information about you: Temperature Pulse Respiration Blood pressure 97.8 degrees 72/minute 16/minute 112/68 Weight Last Period 47.2 kg 03/11/18Celeste forrest 03/25/2018 5:02 PM Efojhr69-hczd-sqk female was placed on the schedule to discuss acneAdditionally the patient reports that she has stopped her fluoxetine foranxiety several months ago. She states she is having panic attacks and feelingincreasingly anxious. Would like to discuss further treatment. Not currentlyseeing a therapist.ANDRIY-7: 17ACTIVE PROBLEM LISTAdhd (Attention Deficit Hyperactivity Disorder)Generalized Anxiety DisorderPAST MEDICAL HISTORYDiagnosis Date- PMH - PAST MEDICAL HISTORY OF 09/2009 menarche- PMH - PAST MEDICAL HISTORY OF 05/23/2010 normal color visionPAST SURGICAL HISTORYProcedure Laterality Date- PAST SURGICAL HISTORY OF 09/2011 mole removed from left side of faceALLERGIESNo Known Allergies 043BP: 112/68Pulse: 72Resp: 16Temp: 36.6 ?C (97.8 ?F)TempSrc: Temporal ArteryWeight: 47.2 kg (104 lb)GENERAL: alert and active in no apparent distressSKIN : Acne is present on the face and back. Lesions are mostly closedcomedones. There are occasional papular pustular inflammatory lesions but nonodules/cysts, scarring are presentImpression:(L70.0) Acne vulgaris (primary encounter diagnosis)(F41.1) Generalized anxiety disorderPlan:Office Visit on 03/24/18-doxycycline monohydrate (MONODOX) 100 mg syboilq-tetcyffoa-fqaebdx peroxide (EPIDUO FORTE) 0.3-2.5 % glwp-PARoxetine (PAXIL) 10 mg tabletEducation given.Course of illness/condition and rationale for treatment discussed.Return to clinic in one month to reevaluate anxiety Celeste Larose MD [facility] Department of Pediatrics,[place] FHCReferring Provider: SELF [[id number]]Allergies As of Date: 03/24/2018(No Known Allergies)Date Reviewed: 03/24/2018Reviewed by: Alejandro Anthony, Rik M - Fully AssessedReason for Visit: Acne [922] Cmt: gets worse, has not tried anythingPrimary Visit Diagnosis:Acne vulgaris [L70.0] Other Visit Diagnosis:Generalized anxiety disorder [F41.1]Order(s):doxycycli ne monohydrate (MONODOX) 100 mg capsuleTake 1 capsule by mouth twice daily.Disp: 60 capsuleRfl: 2 adapalene-benzoyl peroxide (EPIDUO FORTE) 0.3-2.5 % glwpApply sparingly to the face at bedtime.Disp: 1 PumpRfl: 3 PARoxetine (PAXIL) 10 mg tabletTake 1 tablet by mouth once daily.Disp: 30 tabletRfl: 5Prescriptions as of 03/24/2018 Sig: FLUTICASONE FUROATE 27.5 MCG/* Use 2 Sprays in each nostril * DOXYCYCLINE MONOHYDRATE 100 M* Take 1 capsule by mouth twice* ADAPALENE 0.3 %-BENZOYL PEROX* Apply sparingly to the face a* PAROXETINE 10 MG TABLET Take 1 tablet by mouth once d*Problem List As Of Date 03/24/2018 Noted Resolved ADHD (Attention Deficit Hyperactivity Disorder)*INVALID FOR* Generalized anxiety disorder [F41.1] INVALID FOR*Prescriptions ordered this encounter Disp Refills Start End DOXYCYCLINE MONOHYDRATE 100 MG CAPSU* 60 c* 2 03/24/2018 06/22/2018 Route: ORAL Sig: Take 1 capsule by mouth twice daily. ADAPALENE 0.3 %-BENZOYL PEROXIDE 2.5* 1 Pu* 3 03/24/2018 Sig: Apply sparingly to the face at bedtime. PAROXETINE 10 MG TABLET 30 t* 5 03/24/2018 Route: ORAL Sig: Take 1 tablet by mouth once daily.Medications Discontinued During This Encounter FLUoxetine (PROZAC) 20 mg capsule 30 c* 5 07/16/2017 03/24/2018 Route: ORAL Sig: Take 1 capsule by mouth once daily. Disc: Clinical DecisionEncounter Number: [id number] Status:Closed by CELESTE LAROSE MD on 03/25/18 Normal [facility] PROGRESSon 03-24-2018 PROGRESS HNO ID: [id number] thor: Celeste Laroseice: (none)Author Type: PhysicianType: Progress NotesFiled: 03/25/2018 5:02 PMNote Text:17-year-old female was placed on the schedule to discuss acneAdditionally the patient reports that she has stopped her fluoxetine foranxiety several months ago. She states she is having panic attacks andfeeling increasingly anxious. Would like to discuss further treatment.Not currently seeing a therapist.ANDRIY-7: 17ACTIVE PROBLEM LISTAdhd (Attention Deficit Hyperactivity Disorder)Generalized Anxiety DisorderPAST MEDICAL HISTORYDiagnosis Date- PMH - PAST MEDICAL HISTORY OF 09/2009 menarche- PMH - PAST MEDICAL HISTORY OF 05/23/2010 normal color visionPAST SURGICAL HISTORYProcedure Laterality Date- PAST SURGICAL HISTORY OF 09/2011 mole removed from left side of faceALLERGIESNo Known Allergies 043BP: 112/68Pulse: 72Resp: 16Temp: 36.6 ?C (97.8 ?F)TempSrc: Temporal ArteryWeight: 47.2 kg (104 lb)GENERAL: alert and active in no apparent distressSKIN : Acne is present on the face and back. Lesions are mostly closedcomedones. There are occasional papular pustular inflammatory lesions butno nodules/cysts, scarring are presentImpression:(L70.0) Acne vulgaris (primary encounter diagnosis)(F41.1) Generalized anxiety disorderPlan:Office Visit on 03/24/18-doxycycline monohydrate (MONODOX) 100 mg akjekkf-ldtlqtgnw-jbfimdc peroxide (EPIDUO FORTE) 0.3-2.5 % glwp-PARoxetine (PAXIL) 10 mg tabletEducation given.Course of illness/condition and rationale for treatment discussed.Return to clinic in one month to reevaluate anxiety Celeste Larose MD [facility] Department ofPediatrics, [place] [facility] Normal [facility] CNCOon 07-16-2017 CNCO Letter TextWoosterDepartment of PediatricsDr. Celeste Larose M.D.[address] [place] [phone]: [phone] WHOM IT MAY CONCERN:This is to confirm that Lawrenceneil Patton had an appointment and [facility] by Dr[facility] Santi Doherty on 07/16/2017 and may return to school on 07/16/2017.Sincerely yours,Chrissy Zamorano Psr [facility] CNOVon 07-16-2017 CNOV Office Visit (PEDSWS) NANCY PATTON ([id number]) 2000 FDate Time Provider Department07/16/17 9:30 AM CELESTE LAROSE During your visit today, we recorded the following information about you: Temperature Pulse Respiration Blood pressure 98.6 degrees 78/minute 18/minute 102/60 Weight Height Last Period 47.4 kg 1.575 m 07/06/17Celeste Larose MD 07/16/2017 2:45 PM Iwxqls26 year old female presents for a routine 12+ year check-up. [] GENERAL QUESTIONS color enhancedsectionDiet: milk: 2%; balanced diet; specific issues: NONEStools: NORMAL (soft and appropriately sized)Urine: NO PROBLEMSFluorideWater: uses significant amount of well waterPrescription: age 17+ years - no fluoride supplement indicatedOngoing subspecialty care: NONEOngoing ancillary care: NONESchool/etc: 12th, doing well, grades A-B.Interests ANDamp; Activities: NONESignificant stresses: No [] SPORTS QUESTIONS color enhancedsectionHistory of seizures: NoHistory of concussion: NoHistory of syncope: NoHistory of heart problems: NoHistory of hypertension: NoHistory of asthma: NoHistory of single kidney: NoHistory of skeletal problems: NoHistory of any significant injury: NoFamily history of either heart problems or sudden ANDlt;age 40 years: No MEDICAL HISTORYPast medical history:IMPORTEDPAST MEDICAL HISTORYDiagnosis Date- PMH - PAST MEDICAL HISTORY OF 09/2009 menarche- PMH - PAST MEDICAL HISTORY OF 05/23/2010 normal color visionIMPORTEDPAST SURGICAL HISTORYProcedure Laterality Date- PAST SURGICAL HISTORY OF 09/2011 mole removed from left side of faceFamily history:IMPORTEDFAMILY HISTORYProblem Relation Age of Onset- None Mother- None Father- Diabetes Paternal Grandfather- hodgkins [OTHER] Paternal Uncle GYNECOL OGICAL HISTORY Menarche: 12 Periods are: regular q 28-30 days [] SOCIAL HISTORY colorenhanced sectionSexual activity: NoSubstance abuse and smoking: NoHigh risk behaviors: NONEMental health: POSITIVE OUTLOOKSocial history obtained when patient was alone [] MISCELLANEOUS colorenhanced sectionDifficulties with learning for patient: No VISION ANDamp; HEARING ASSESSMENTEye doctor visit within the past year: YesHearing concerns: No [] ADDITIONAL NURSING COMMENTS color enhanced sectionNoneHgokul Cisse MAImmunization HistoryAdministered Date(s) Administered DTaP (AgeANDlt;7) 1999 1999 1999 08/28/2000 05/09/2004 HUMAN PAPILLOMAVIRUS QUADRIVALENT - Male and Females 05/23/2010 07/16/2010 01/24/2011 Hepatitis B Peds/Adol [birth year] 05/28/2000 Hib - 4 Dose Schedule 2000 1999 1999 08/28/2000 IPV 1999 1999 05/28/2000 05/09/2004 Influenza Vaccine NASAL Tri (reflects Quad for 2012-) 08/05/2011 Influenza Vaccine, Split-Non Spec 08/06/2012 MMR 05/28/2000 05/09/2004 Meningococcal Conj IM Unspec 07/16/2010 Meningococcal Conjugate MCV4P Vaccine, IM 06/26/2015 Pneumococcal Vac Conjugate(#7 thru FEBRUARY 2010 then #13 thereafter) 06/29/2000 08/28/2000 Tdap (Age 7+) 05/23/2010 Varicella Vaccine 11/24/2000 08/06/2012 PH YSICAL EXAM (to re-import BP% use.BPFA)Blood pressure: Blood pressure percentiles are 23.3 % systolic and 32.8 %diastolic based on NHBPEP's 4th Report.General: alert and active in no apparent distressHead: Normocephalic, atraumaticEyes: PERRLA, EOM's intactEars: External ears normal. Canals clear. Tympanic membranes are intactbilaterally without evidence of fluid in the middle ear spaceNose/Sinuses: Nares normal. Septum midline. Mucosa normal. No drainage orsinus tenderness.Oropharynx: Tonsils are 1+. Uvula is midline and the oropharynx is symmetricalNeck: No masses and the suprasternal notch, no supraclavicular adenopathy,supple, no adenopathyThyroid: no masses or nodules presentHeart: Regular Rate and Rhythm without murmurs or clicks, femoral and radialpulses are normal.PMI normalLungs: clear to auscultation. No wheezes or rales.Chest AP diameter normal.Abdomen: Abdomen is soft, nontender, without organomegaly or masses.Musculoskeletal: Extremities with FROM and no problems identified. NegativeAdams forward bend test. Bilateral shoulder, elbow and wrist exams are withinnormal limits. Bilateral hip, knee and ankle examinations are within normallimits.Neurological : Muscle tone normal, Awake, alert and oriented x 3, Cranialnerves II-XII grossly intact, Reflexes symmetrical, Normal age appropriategait, muscle tone normal, muscle strength normal, rapid alternating movementsnormalSkin: Normal skin exam without concerning lesionsASSESSMENT: 17 year old Well examWell adolescent visit (primary encounter diagnosis)ACTIVE PROBLEM LISTAdhd (Attention Deficit Hyperactivity Disorder): Currently not onmedication/pharmacologi c intervention.Generalized Anxiety Disorder: andriy-7 score 14. Fluoxetine 20 mg by mouth dailyat bedtime. Return to clinic in approximately 8 weeksPLAN:Plan per orders.Office Visit on 07/16/17-FLUoxetine (PROZAC) 20 mg capsuleCounseling: See patient instruction sectionFollow up yearly.Growth curves reviewed with the patient including BMI.I have reviewed the above nursing obtained HPI and I concur.Divina Colon MD 07/16/2017 2:43 PM SignedPHYSICAL GROWTH AND DEVELOPMENTYour Daily Life? Visit the dentist at least twice a year.? Protect your hearing at work, home, and concerts.? Eat a variety of healthy foods.? Eat breakfast every morning.? Drink plenty of water.? Make sure to get enough calcium.? Have 3 or more servings of low-fat (1%) or fat-free milk or other low-fatdairy products each day.? Aim for 1 hour of vigorous physical activity.? Be proud of yourself when you do something well.RISK REDUCTIONHealthy Behavior Choices? Support friends who choose not to use drugs, alcohol, tobacco, steroids, ordiet pills.? If you use drugs or alcohol, you can talk to us about it. We can help youwith quitting or cutting down on your use.? Make healthy decisions about your sexual behavior.? If you are sexually active, always practice safe sex. Always use a condom toprevent STIs.? All sexual activity should be something you want. No one should ever force ortry to convince you.? Find safe activities at school and in the community.VIOLENCE AND INJURY PREVENTIONViolence and Injuries? Do not drink and drive or ride in a vehicle with someone who has been usingdrugs or alcohol.? If you feel unsafe driving or riding with someone, call someone you trust todrive you.? Always wear a seat belt in a car.? Know the rules for safe driving.? Never allow physical harm of yourself or others at home or school.? Always deal with conflict using nonviolence.? Remember that healthy dating relationships are built on respect and thatsaying ?no? is OK.? Fighting and carrying weapons can be dangerous.EMOTIONAL WELL-BEINGYour Feelings? Figure out healthy ways to deal with stress.? Try your best to solve problems and make decisions on your own.? Most people have daily ups and downs. But if you are feeling sad, depressed,nervous, irritable, hopeless, or angry, talk with me or another healthprofessional.? We understand sexuality is an important part of your development. If you haveany questions or concerns, we are here for you.SOCIAL AND ACADEMIC COMPETENCESchool and Friends? Take responsibility for being organized enough to succeed in work or school.? Find new activities you enjoy.? Consider volunteering and helping others in the community on an issue thatinterests or concerns you.? Form healthy friendships and find fun, safe things to do with friends.? As you get older, making and keeping friends is important. You may find thatyou drift away from some of your old friends---that?s normal.? Evaluate your friendships and keep those that are healthy.? It is still important to stay connected with your family.14-18 yearsFueling Your Thoughts? Are you concerned with your child's eating habits or level of activity?? Do you and your child eat vegetables every day?? How many meals do you eat as a family each week? How many are from fastfood, take out, etc?? What beverages do you buy?? How much time does your child watch TV, play on the computer, play videogames, or text daily?? What do you and your child do to stay active?Nutrition TipsBy providing nutritious foods to your child, you help him or her improvestrength, energy, attention span and the ability to keep up with friends.? Breakfast - Eating a healthy breakfast every day is recommended.? Lunch - Review school menus with your child and plan ahead; or pack a lunchwith at least 4 out of the 5 food groups (calcium foods, fruits, vegetables,whole grains and lean protein).? Snacks - Eat only when hungry. Stock up on ersve-gz-whr vegetables, fruit,cheese, yogurt, milk, lean meats, whole grains, low sugar cereal or nuts.? Dinner - Eat as many meals as possible as a family at the dinner table. Besure to slow down, enjoy, and turn off screens.? Eating Out - Keep portion sizes small or share meals (don't ANDquot;supersizeANDquot; ).Choose fruit or salad instead of fries, milk instead of soft drinks, baked orbroiled instead of fried.? Beverages - Think Your Drink!? The best choices are water or milk.? Limit sweetened beverages such as soft drinks, iced teas, energy drinks andcaffeine-containing beverages.? Regular intake of too much caffeine can lead to trouble sleeping, rapid heartrate, anxiety, poor attention span, headaches or shakiness.Your main job is to offer a variety of healthy foods (fruits, vegetables, milk,yogurt, cheese, whole grains, mere, poultry, fish and eggs).Parents? Make sure you and your kids are active 60 minutes every day. Focus on FUN,including both organized and free play.? Count time spent doing chores: car washing, walking the dog, dusting,sweeping, pulling weeds, raking leaves or shoveling snow.? Involve the whole family in physical activity because you are role models!? Be a good role model for your kids - be active and eat healthy foods.? ANDquot;Screen timeANDquot; (computers, TV, phones, stefanie systems, texting,etc.) should be limited to 2 hours or less daily (pre-plan how ANDquot;screentimeANDquot ; will be used).? Screens may be monitored easily if moved to a common area; keep them out [facility]'s bedroom.? Make sure your child is sleeping at least 10-11 hours per night. Keepingregular bed time is critical to good health and weight management.? Caffeine can interfere with a healthy sleep routine.? If you have concerns about your child's weight, physical activity or eatingbehaviors, ask your healthcare provider.Tips Regarding Teens? Do not criticize your teenager about their size and shape. Focus onstrengths rather than appearance.? Remember that parents can still influence choices...as a parent you are stillthe role model! 5 to Go!TM Healthy Kids InsideANDamp; Out 5 Eat FIVE fruits and veggies a day4 Give and get FOUR compliments a day3 Consume THREE calcium products a day2 Limit media time to TWO hours a day1 Get at least ONE hour of exercise a day0 Consume ZERO sugar-sweetened drinksGo! Be healthy, inside and out!www.[facility].o rg/5toGo Get tips for raising a healthier family. Sign up for Parents Be Welle-newsletter at the [facility]. org/parentsbewell Explore our services, locations and more at the [facility]. org Find a wealth of family health ANDamp; wellness tips [facility] s.org/healthhub Like us on Facebook at UrGift.[employer]/bayfieldLookout nicchildrensReferring Provider: CELESTE LAROSE [[id number]]Allergies As of Date: 07/16/2017(No Known Allergies)Date Reviewed: 07/16/2017Reviewed by: Celeste Larose - Fully AssessedReason for Visit: Physical [83] Cmt: 17 YEAR OLDPrimary Visit Diagnosis:Encounter for general adult medical examination without abnormal findings [Z00.00] Other Visit Diagnosis:Generalized anxiety disorder [F41.1]Order(s):FLUoxetin e (PROZAC) 20 mg capsuleTake 1 capsule by mouth once daily.Disp: 30 capsuleRfl: 5Prescriptions as of 07/16/2017 Sig: FLUTICASONE FUROATE 27.5 MCG/* Use 2 Sprays in each nostril * FLUOXETINE 20 MG CAPSULE Take 1 capsule by mouth once *Medication notes this encounter FLUOXETINE 10 MG CAPSULE >> Juwan Cisse MA 07/16/2017 9:20 AM >> JUWAN CISSE MA Jul 16, 2017 9:20 AM CURRENTLY TAKINGProblem List As Of Date 07/16/2017 Noted Resolved ADHD (Attention Deficit Hyperactivity Disorder)*INVALID FOR* Generalized anxiety disorder [F41.1] INVALID FOR* Other instructions from your clinician: PHYSICAL GROWTH AND DEVELOPMENT Your Daily Life ? Visit the dentist at least twice a year. ? Protect your hearing at work, home, and concerts. ? Eat a variety of healthy foods. ? Eat breakfast every morning. ? Drink plenty of water. ? Make sure to get enough calcium. ? Have 3 or more servings of low-fat (1%) or fat-free milk or other low-fat dairy products each day. ? Aim for 1 hour of vigorous physical activity. ? Be proud of yourself when you do something well. RISK REDUCTION Healthy Behavior Choices ? Support friends who choose not to use drugs, alcohol, tobacco, steroids, or diet pills. ? If you use drugs or alcohol, you can talk to us about it. We can help you with quitting or cutting down on your use. ? Make healthy decisions about your sexual behavior. ? If you are sexually active, always practice safe sex. Always use a condom to prevent STIs. ? All sexual activity should be something you want. No one should ever force or try to convince you. ? Find safe activities at school and in the community. VIOLENCE AND INJURY PREVENTION Violence and Injuries ? Do not drink and drive or ride in a vehicle with someone who has been using drugs or alcohol. ? If you feel unsafe driving or riding with someone, call someone you trust to drive you. ? Always wear a seat belt in a car. ? Know the rules for safe driving. ? Never allow physical harm of yourself or others at home or school. ? Always deal with conflict using nonviolence. ? Remember that healthy dating relationships are built on respect and that saying ?no? is OK. ? Fighting and carrying weapons can be dangerous. EMOTIONAL WELL-BEING Your Feelings ? Figure out healthy ways to deal with stress. ? Try your best to solve problems and make decisions on your own. ? Most people have daily ups and downs. But if you are feeling sad, depressed, nervous, irritable, hopeless, or angry, talk with me or another health professional. ? We understand sexuality is an important part of your development. If you have any questions or concerns, we are here for you. SOCIAL AND ACADEMIC COMPETENCE School and Friends ? Take responsibility for being organized enough to succeed in work or school. ? Find new activities you enjoy. ? Consider volunteering and helping others in the community on an issue that interests or concerns you. ? Form healthy friendships and find fun, safe things to do with friends. ? As you get older, making and keeping friends is important. You may find that you drift away from some of your old friends---that?s normal. ? Evaluate your friendships and keep those that are healthy. ? It is still important to stay connected with your family. 14-18 years Fueling Your Thoughts ? Are you concerned with your child's eating habits or level of activity? ? Do you and your child eat vegetables every day? ? How many meals do you eat as a family each week? How many are from fast food, take out, etc? ? What beverages do you buy? ? How much time does your child watch TV, play on the computer, play video games, or text daily? ? What do you and your child do to stay active? Nutrition Tips By providing nutritious foods to your child, you help him or her improve strength, energy, attention span and the ability to keep up with friends. ? Breakfast - Eating a healthy breakfast every day is recommended. ? Lunch - Review school menus with your child and plan ahead; or pack a lunch with at least 4 out of the 5 food groups (calcium foods, fruits, vegetables, whole grains and lean protein). ? Snacks - Eat only when hungry. Stock up on ulaei-qy-tym vegetables, fruit, cheese, yogurt, milk, lean meats, whole grains, low sugar cereal or nuts. ? Dinner - Eat as many meals as possible as a family at the dinner table. Be sure to slow down, enjoy, and turn off screens. ? Eating Out - Keep portion sizes small or share meals (don't super size). Choose fruit or salad instead of fries, milk instead of soft drinks, baked or broiled instead of fried. ? Beverages - Think Your Drink! ? The best choices are water or milk. ? Limit sweetened beverages such as soft drinks, iced teas, energy drinks and caffeine-containing beverages. ? Regular intake of too much caffeine can lead to trouble sleeping, rapid heart rate, anxiety, poor attention span, headaches or shakiness. Your main job is to offer a variety of healthy foods (fruits, vegetables, milk, yogurt, cheese, whole grains, mere, poultry, fish and eggs). Parents ? Make sure you and your kids are active 60 minutes every day. Focus on FUN, including both organized and free play. ? Count time spent doing chores: car washing, walking the dog, dusting, sweeping, pulling weeds, raking leaves or shoveling snow. ? Involve the whole family in physical activity because you are role models! ? Be a good role model for your kids - be active and eat healthy foods. ? Screen time (computers, TV, phones, stefanie systems, texting, etc.) should be limited to 2 hours or less daily (pre-plan how screen time will be used). ? Screens may be monitored easily if moved to a common area; keep them out of child's bedroom. ? Make sure your child is sleeping at least 10-11 hours per night. Keeping regular bed time is critical to good health and weight management. ? Caffeine can interfere with a healthy sleep routine. ? If you have concerns about your child's weight, physical activity or eating behaviors, ask your healthcare provider. Tips Regarding Teens ? Do not criticize your teenager about their size and shape. Focus on strengths rather than appearance. ? Remember that parents can still influence choices...as a parent you are still the role model! 5 to Go!TM Healthy Kids Inside AND Out 5 Eat FIVE fruits and veggies a day 4 Give and get FOUR compliments a day 3 Consume THREE calcium products a day 2 Limit media time to TWO hours a day 1 Get at least ONE hour of exercise a day 0 Consume ZERO sugar-sweetened drinks Go! Be healthy, inside and out! www.[facility].org/5 [place] Get tips for raising a healthier family. Sign up for Parents Be Well e-newsletter at [facility]. org/parentsbewell Explore our services, locations and more at [facility]. org Find a wealth of family health AND wellness tips at [facility]. org/healthhub Like us on Facebook at facebook.com/[email or web address] nicchildrensPrescriptions ordered this encounter Disp Refills Start End FLUOXETINE 20 MG CAPSULE 30 c* 5 07/16/2017 Route: ORAL Sig: Take 1 capsule by mouth once daily.Medications Discontinued During This Encounter mupirocin (BACTROBAN) 2 % ointment 22 g 0 07/08/2016 07/16/2017 Route: TOPICAL Sig: Apply 1 application to affected area three times daily. Disc: Course of therapy completed FLUoxetine (PROZAC) 10 mg capsule 30 c* 3 07/04/2016 07/16/2017 Route: ORAL Sig: Take 1 capsule by mouth once daily. Disc: Dosage adjustmentDisposition: Return for Follow-up in one year for routine physical.Follow-up and Disposition History Recorded Questionnair e: PED PHQ 91. Feeling down, depressed, irritable or hopeless? -> 0 - Not at All2. Little interest or pleasure in doing things? -> 0 - Not At All3. Trouble falling asleep, staying asleep, or sleeping too much? -> 0 - Not At All4. Poor appetite, weight loss, or overeating? -> 0 - Not At All5. Feeling tired or little energy? -> 0 - Not At All6. Feeling bad about yourself-or feeling that you are a failure or that youhave let yourself or your family down? -> 0 - Not At All7. Trouble concentrating on things like school work, reading or watching TV? -> 0 - No- t At All8. Moving or speaking so slowly that other people could have notices? Or theopposite-being so fidgety or restless that you were moving around a lot morethan usual? -> 0 - Not At All9. Thoughts that you would be better off or of hurting yourself in someway? -> 0 - Not At All10. In the past year have you felt depressed or sad most days, even if you feltokay sometimes? -> No11. If you are experiencing any of the problems listed on this questionnaire,how difficult have these problems made it for you to do your work, take care ofthings at home or get along with other people? -> Somewhat emhizbsij22. Has there been a time in the past month when you have had serious thoughtsabout ending your life? -> No13. Have you ever tried to kill yourself or made a suicide attempt? -> NoSCORE -> 0Encounter Number: [id number] Status:Closed by CELESTE LAROSE MD on 07/16/17 [facility] PROGRESSon 07-16-2017 PROGRESS HNO ID: [id number] thor: Celeste Almodovar: (none)Author Type: PhysicianType: Progress NotesFiled: 07/16/2017 2:45 PMNote Text:17 year old female presents for a routine 12+ year check-up. [] GENERAL QUESTIONS colorenhanced sectionDiet: milk: 2%; balanced diet; specific issues: NONEStools: NORMAL (soft and appropriately sized)Urine: NO PROBLEMSFluorideWater: uses significant amount of well waterPrescription: age 17+ years - no fluoride supplement indicatedOngoing subspecialty care: NONEOngoing ancillary care: NONESchool/etc: 12th, doing well, grades A-B.Interests AND Activities: NONESignificant stresses: No [] SPORTS QUESTIONS colorenhanced sectionHistory of seizures: NoHistory of concussion: NoHistory of syncope: NoHistory of heart problems: NoHistory of hypertension: NoHistory of asthma: NoHistory of single kidney: NoHistory of skeletal problems: NoHistory of any significant injury: NoFamily history of either heart problems or sudden [facility] CNOVon 05-21-2017 CNOV Office Visit (PEDSWS) NANCY PATTON ([id number]) 2000 FDate Time Provider Department05/21/17 5:30 PM CELESTE LAROSE PEDSWS During your visit today, we recorded the following information about you: Temperature Pulse Respiration Blood pressure 99.2 degrees 68/minute 16/minute 108/74 Weight 48.1 kgJohn H Strong, MD 2017 1:18 PM [id number] female comes to the office with complaints of left nasaldiscomfort. Patient complains of ANDquot;painANDquot; and describes it as feelingas if there is a foreign body in the nose. She denies placing any foreignbodies in the nose. She denies epistaxis but does complain of sneezing andnasal congestion. No eye symptomatologyACTIVE PROBLEM LISTAdhd (Attention Deficit Hyperactivity Disorder)PAST MEDICAL HISTORYDiagnosis Date- PMH - PAST MEDICAL HISTORY OF 09/2009 menarche- PMH - PAST MEDICAL HISTORY OF 05/23/2010 normal color visionPAST SURGICAL NAUWAFP00/2011: PAST SURGICAL HISTORY OF Comment: mole removed from left side of faceALLERGIESNo Known Allergies 727BP: 108/74Pulse: 68Resp: 16Temp: 37.3 ?C (99.2 ?F)TempSrc: Temporal ArteryWeight: 48.1 kg (106 lb)Physical examination of the head, neck, external ears, mouth and face fail todemonstrate any significant abnormality or assymetry to critical face to faceobservation. The salivary glands were normal. Facial motion was intact.NOSE: Examination of the nasal chamber revealed no significant abnormalities ofthe nasal septum, turbinates or meati. The mucosa was healthy and the airwaywas satisfactory. The left inferior jose rafael is slightly edematous and boggy.The right inferior jose rafael is blue but neither boggy or edematous. I see noevidence of nasal polyps or foreign bodyMOUTH: Examination of the mouth included the lips, teeth, gums, hard and softpalate, tongue, floor of the mouth, and buccal mucosa were healthy toinspection and the mucosa was moist.OROPHARYNX: Examination of the oropharynx, including the soft palate, tonsillarfossa and posterior pharyngeal donohue were unremarkable and symmetrical.NECK: Inspection and palpation of the neck revealed no scars, massescrepitation or asymmetries. The thyroid was not palpable and was free ofmasses.EARS: Otoscoptic examination of the external canal, tympanic membrane andmiddle ear was unremarkable. Tympanic membrane was intact.Impression:(J30.2) Acute seasonal allergic rhinitis, unspecified trigger (primaryencounter diagnosis)Plan:Office Visit on 05/21/17-Fluticasone Furoate (FLONASE SENSIMIST) 27.5 mcg/actuation nasal sprayEducation given.Course of illness/condition and rationale for treatment discussed.If no improvement in 4 weeks refer to ENT ( question nasopharyngoscopy ) Celeste Larose MD [facility] Provider: CELESTE LAROSE [[id number]]Allergies As of Date: 05/21/2017(No Known Allergies)Date Reviewed: 05/21/2017Reviewed by: Juwan Cisse MA - Fully AssessedReason for Visit: left nostril pain [Other] Cmt: off and on for several weeks, swellingPrimary Visit Diagnosis:Acute seasonal allergic rhinitis, unspecified trigger [J30.2]Order(s):Fluticaso ne Furoate (FLONASE SENSIMIST) 27.5 mcg/actuation nasal sprayUse 2 Sprays in each nostril once daily.Disp: Rfl: 0Prescriptions as of 05/21/2017 Sig: FLUTICASONE FUROATE 27.5 MCG/* Use 2 Sprays in each nostril * MUPIROCIN 2 % TOPICAL OINTMENT Apply 1 application to affect* FLUOXETINE 10 MG CAPSULE Take 1 capsule by mouth once * Patient not taking: Reported on 05/21/2017Problem List As Of Date 05/21/2017 Noted Resolved ADHD (Attention Deficit Hyperactivity Disorder)*INVALID FOR*Prescriptions ordered this encounter Disp Refills Start End FLUTICASONE FUROATE 27.5 MCG/ACTUATI* 0 05/21/2017 Class: OTC Route: EACH NOSTRIL Sig: Use 2 Sprays in each nostril once daily.Medications Discontinued During This Encounter fluticasone (FLONASE) 50 mcg/actuati* 1 Anthony* 11 12/11/2015 05/21/2017 Route: EACH NOSTRIL Sig: Use 1 [place] in each nostril daily at bedtime. Disc: Clinical Decision codeine-guaiFENesin (ROBITUSSIN AC) * 120 * 0 09/25/2015 05/21/2017 Class: Print RX Route: ORAL Sig: Take 5 mL by mouth four times daily as needed for Cough. May cause drowsiness. Disc: Discontinued by PatientEncounter Number: [id number] Status:Closed by CELESTE LAROSE MD on 05/24/17 [facility] PROGRESSon 05-21-2017 PROGRESS HNO ID: [id number] thor: Celeste Almodovar: (none)Author Type: PhysicianType: Progress NotesFiled: 2017 1:18 PMNote Text:17-year-old female comes to the office with complaints of left nasaldiscomfort. Patient complains of pain and describes it as feeling as ifthere is a foreign body in the nose. She denies placing any foreignbodies in the nose. She denies epistaxis but does complain of sneezingand nasal congestion. No eye symptomatologyACTIVE PROBLEM LISTAdhd (Attention Deficit Hyperactivity Disorder)PAST MEDICAL HISTORYDiagnosis Date- PMH - PAST MEDICAL HISTORY OF 09/2009 menarche- PMH - PAST MEDICAL HISTORY OF 05/23/2010 normal color visionPAST SURGICAL CMKVJHY36/2011: PAST SURGICAL HISTORY OF Comment: mole removed from left side of faceALLERGIESNo Known Allergies [id number]: 108/74Pulse: 68Resp: 16Temp: 37.3 ?C (99.2 ?F)TempSrc: Temporal ArteryWeight: 48.1 kg (106 lb)Physical examination of the head, neck, external ears, mouth and face failto demonstrate any significant abnormality or assymetry to critical faceto face observation. The salivary glands were normal. Facial motion wasintact.NOSE: Examination of the nasal chamber revealed no significantabnormalities of the nasal septum, turbinates or meati. The mucosa washealthy and the airway was satisfactory. The left inferior jose rafael isslightly edematous and boggy. The right inferior jose rafael is blue butneither boggy or edematous. I see no evidence of nasal polyps or foreignbodyMOUTH: Examination of the mouth included the lips, teeth, gums, hard andsoft palate, tongue, floor of the mouth, and buccal mucosa were healthy toinspection and the mucosa was moist.OROPHARYNX: Examination of the oropharynx, including the soft palate,tonsillar fossa and posterior pharyngeal donohue were unremarkable andsymmetrical.NECK: Inspection and palpation of the neck revealed no scars, massescrepitation or asymmetries. The thyroid was not palpable and was free ofmasses.EARS: Otoscoptic examination of the external canal, tympanic membrane andmiddle ear was unremarkable. Tympanic membrane was intact.Impression:(J30.2) Acute seasonal allergic rhinitis, unspecified trigger (primaryencounter diagnosis)Plan:Office Visit on 05/21/17-Fluticasone Furoate (FLONASE SENSIMIST) 27.5 mcg/actuation nasal sprayEducation given.Course of illness/condition and rationale for treatment discussed.If no improvement in 4 weeks refer to ENT ( question nasopharyngoscopy ) Celeste Larose MD [facility] Department ofPediatrics, [facility] Vital Signs Date Time Vital Sign Value Performing Clinician Facility 09-09-2023 14:24-0400 Body height 154.94 cm Dr. Dulce Maria Lynch Work Phone: [facility] 09-09-2023 14:24-0400 Body mass index (BMI) [Ratio] 21.7 kg/m2 Dr. Dulce Maria Lynch Work Phone: [facility] 09-09-2023 14:24-0400 Body weight 52.[address] Dulce Maria Lynch Work Phone: [facility] 09-09-2023 14:24-0400 Diastolic blood pressure 79 mm[Hg] Dr. Dulce Maria Lynch Work Phone: [facility] 09-09-2023 14:24-0400 Heart rate 80 /min Dr. Dulce Maria Lynch Work Phone: [facility] 09-09-2023 14:24-0400 Respiratory rate 16 /min Dr. Dulce Maria Lynch Work Phone: [facility] 09-09-2023 14:24-0400 SaO2% (BldA) [Mass fraction] 98 % Dr. Dulce Maria Lynch Work Phone: [facility] 09-09-2023 14:24-0400 Systolic blood pressure 133 mm[Hg] Dr. Dulce Maria Lynch Work Phone: [facility] 08-20-2023 10:45-0400 Body mass index (BMI) [Ratio] 558.3 kg/m2 Dr. Dulce Maria Lynch Work Phone: [facility] 08-20-2023 10:45-0400 Body temperature 98.7 [degF] Dr. Dulce Maria Lynch Work Phone: [facility] 08-20-2023 10:45-0400 Body weight 51.[address] Dulce Maria Lynch Work Phone: [facility] 08-20-2023 10:45-0400 Diastolic blood pressure 71 mm[Hg] Dr. Dulce Maria Lynch Work Phone: [facility] 08-20-2023 10:45-0400 Heart rate 97 /min Dr. Dulce Maria Lynch Work Phone: [facility] 08-20-2023 10:45-0400 Respiratory rate 15 /min Dr. Dulce Maria Lynch Work Phone: [facility] 08-20-2023 10:45-0400 SaO2% (BldA) [Mass fraction] 98 % Dr. Dulce Maria Lynch Work Phone: [facility] 08-20-2023 10:45-0400 Systolic blood pressure 145 mm[Hg] Dr. Dulce Maria Lynch Work Phone: [facility] 05-22-2023 12:04-0400 Body mass index (BMI) [Ratio] 22.6 kg/m2 Dr. Dulce Maria Lynch Work Phone: [facility] 05-22-2023 12:04-0400 Body temperature 97.6 [degF] Dr. Dulce Maria Lynch Work Phone: [facility] 05-22-2023 12:04-0400 Body weight 54.[address] Dulce Maria Lynch Work Phone: [facility] 05-22-2023 12:04-0400 Heart rate 70 /min Dr. Dulce Maria Lynch Work Phone: [facility] 05-22-2023 12:04-0400 Respiratory rate 16 /min Dr. Dulce Maria Lynch Work Phone: [facility] 05-22-2023 12:04-0400 SaO2% (BldA) [Mass fraction] 99 % Dr. Dulce Maria Lynch Work Phone: [facility] 05-15-2023 17:03-0400 Body height 154.[address] Dulce Maria Lynch Work Phone: [facility] 05-15-2023 17:03-0400 Body mass index (BMI) [Ratio] 22.3 kg/m2 Dr. Dulce Maria Lynch Work Phone: [facility] 05-15-2023 17:03-0400 Body temperature 97.9 [degF] Dr. Dulce Maria Lynch Work Phone: [facility] 05-15-2023 17:03-0400 Body weight 53.[address] Dulce Maria Lynch Work Phone: [facility] 05-15-2023 17:03-0400 Diastolic blood pressure 93 mm[Hg] Dr. Dulce Maria Lynhc Work Phone: [facility] 05-15-2023 17:03-0400 Heart rate 100 /min Dr. Dulce Maria Lynch Work Phone: [facility] 05-15-2023 17:03-0400 Respiratory rate 16 /min Dr. Dulce Maria Lynch Work Phone: [facility] 05-15-2023 17:03-0400 SaO2% (BldA) [Mass fraction] 98 % Dr. Dulce Maria Lynch Work Phone: [facility] 05-15-2023 17:03-0400 Systolic blood pressure 146 mm[Hg] Dr. Dulce Maria Lynch Work Phone: [facility] 04-09-2023 07:27-0400 Body height 155.57 cm Meena Dubon LPN [facility]; [facility] Work Phone: 04-09-2023 07:27-0400 Body mass index (BMI) [Ratio] 22.14 kg/m2 Meena Dubon TOBY [facility]; [facility] Work Phone: 04-09-2023 07:27-0400 Body surface area Derived from formula 1.51 m2 Meena Rosejosue LUIS [facility]; [facility] Work Phone: 04-09-2023 07:27-0400 Body temperature 98.1 [degF] Meena Ling 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 [facility]; [facility] Work Phone: 04-09-2023 07:27-0400 Body weight 53.58 kg Meena Dubon TOBY [facility]; [facility] Work Phone: 04-09-2023 07:27-0400 Diastolic blood pressure 68 mm[Hg] Meena Dubon LPN [facility]; [facility] Work Phone: Comment on above: Patient Position: Sitting; Cuff Location : Left Arm; Cuff Size: Standard 04-09-2023 07:27-0400 Heart rate 76 /min Meena Dubon TOBY [facility]; [facility] Work Phone: Comment on above: Pattern: Regular 04-09-2023 07:27-0400 Respiratory rate 16 /min Meena Dubon 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 [facility]; [facility] Work Phone: Comment on above: Pattern: Unlabored 04-09-2023 07:27-0400 SaO2% (BldA) [Mass fraction] 99 % Meenasmith Dubon 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 [facility]; [facility] Work Phone: Comment on above: Room air 04-09-2023 07:27-0400 Systolic blood pressure 114 mm[Hg] Meena Ling LPN [facility]; [facility] Work Phone: Comment on above: Patient Position: Sitting; Cuff Location : Left Arm; Cuff Size: Standard 01-17-2023 12:11-0500 Body temperature 98.2 [degF] Dr. Dulce Maria Lynch Work Phone: [facility] 01-17-2023 12:11-0500 Diastolic blood pressure 60 mm[Hg] Dr. Dulce Maria Lynch Work Phone: [facility] 01-17-2023 12:11-0500 Heart rate 69 /min Dr. Dulce Maria Lynch Work Phone: [facility] 01-17-2023 12:11-0500 Respiratory rate 14 /min Dr. Dulce Maria Lynch Work Phone: [facility] 01-17-2023 12:11-0500 SaO2% (BldA) [Mass fraction] 99 % Dr. Dulce Maria Lynch Work Phone: [facility] 01-17-2023 12:11-0500 Systolic blood pressure 108 mm[Hg] Dr. Dulce Maria Lynch Work Phone: [facility] 12-25-2022 14:10-0500 Body temperature 98.7 [degF] Dr. Dulce Maria Lynch Work Phone: [facility] 12-25-2022 14:10-0500 Diastolic blood pressure 70 mm[Hg] Dr. Dulce Maria Lynch Work Phone: [facility] 12-25-2022 14:10-0500 Heart rate 69 /min Dr. Dulce Maria Lynch Work Phone: [facility] 12-25-2022 14:10-0500 Respiratory rate 16 /min Dr. Dulce Maria Lynch Work Phone: [facility] 12-25-2022 14:10-0500 SaO2% (BldA) [Mass fraction] 99 % Dr. Dulce Maria Lynch Work Phone: [facility] 12-25-2022 14:10-0500 Systolic blood pressure 116 mm[Hg] Dr. Dulce Maria Lynch Work Phone: [facility] 11-20-2022 09:12-0500 Body height 155.57 cm Meena Dubon LPN [facility]; [facility] Work Phone: 11-20-2022 09:12-0500 Body mass index (BMI) [Ratio] 22.14 kg/m2 Meena Dubon TOBY [facility]; [facility] Work Phone: 11-20-2022 09:12-0500 Body surface area Derived from formula 1.51 m2 Meena Dubon LPN [facility]; [facility] Work Phone: 11-20-2022 09:12-0500 Body temperature 98.1 [degF] Meenasmith Dubon LPN [facility]; [facility] Work Phone: 11-20-2022 09:12-0500 Body weight 53.58 kg Meena Ling TOBY [facility]; [facility] Work Phone: 11-20-2022 09:12-0500 Diastolic blood pressure 62 mm[Hg] Meena Dubon LPN [facility]; [facility] Work Phone: Comment on above: Patient Position: Sitting; Cuff Location : Left Arm; Cuff Size: Standard 11-20-2022 09:12-0500 Heart rate 78 /min Meena Ling LPN [facility]; [facility] Work Phone: Comment on above: Pattern: Regular 11-20-2022 09:12-0500 Respiratory rate 16 /min Meena Ling TOBY [facility]; [facility] Work Phone: Comment on above: Pattern: Unlabored 11-20-2022 09:12-0500 SaO2% (BldA) [Mass fraction] 98 % Meena Ling LPN [facility]; [facility] Work Phone: Comment on above: Room air 11-20-2022 09:12-0500 Systolic blood pressure 122 mm[Hg] Meena Dubon LPN [facility]; [facility] Work Phone: Comment on above: Patient Position: Sitting; Cuff Location : Left Arm; Cuff Size: Standard 11-13-2022 08:34-0500 Body temperature 99.9 [degF] Dr. Dulce Maria Lynch Work Phone: [facility] 11-13-2022 08:34-0500 Diastolic blood pressure 66 mm[Hg] Dr. Dulce Maria Lynch Work Phone: [facility] 11-13-2022 08:34-0500 Heart rate 77 /min Dr. Dulce Maria Lynch Work Phone: [facility] 11-13-2022 08:34-0500 Respiratory rate 14 /min Dr. Dulce Maria Lynch Work Phone: [facility] 11-13-2022 08:34-0500 SaO2% (BldA) [Mass fraction] 98 % Dr. Dulce Maria Lynch Work Phone: [facility] 11-13-2022 08:34-0500 Systolic blood pressure 114 mm[Hg] Dr. Dulce Maria Lynch Work Phone: [facility] 05-29-2022 08:45-0400 Body height 155.[address] [facility] Work Phone: 05-29-2022 08:45-0400 Body mass index (BMI) [Ratio] 22.86 kg/m2 Eugenia Marx [facility]; [facility] Work Phone: 05-29-2022 08:45-0400 Body surface area Derived from formula 1.[address] [facility]; [facility] Work Phone: 05-29-2022 08:45-0400 Body temperature 97.3 [degF] Eugenia Marx [facility]; [facility] Work Phone: Comment on above: Method: Infrared 05-29-2022 08:45-0400 Body weight 55.[address] [facility]; [facility] Work Phone: 05-29-2022 08:45-0400 Diastolic blood pressure 60 mm[Hg] Eugenia Marx [facility]; [facility] Work Phone: Comment on above: Patient Position: Sitting; Cuff Location : Left Arm; Cuff Size: Standard 05-29-2022 08:45-0400 Heart rate 72 /min Eugenia Marx [facility]; [facility] Work Phone: Comment on above: Pattern: Regular 05-29-2022 08:45-0400 Respiratory rate 18 /min Eugenia Marx [employer] [facility]; [facility] Work Phone: Comment on above: Pattern: Unlabored 05-29-2022 08:45-0400 SaO2% (BldA) [Mass fraction] 98 % Eugenia Marx [facility]; [facility] Work Phone: Comment on above: Room air 05-29-2022 08:45-0400 Systolic blood pressure 106 mm[Hg] Eugenia Marx [facility]; [facility] Work Phone: Comment on above: Patient Position: Sitting; Cuff Location : Left Arm; Cuff Size: Standard 04-15-2022 09:32-0400 Body height 155.57 cm Aura Boo MA [facility]; [facility] Work Phone: 04-15-2022 09:32-0400 Body mass index (BMI) [Ratio] 20.24 kg/m2 Aura Boo MA [facility]; [facility] Work Phone: 04-15-2022 09:32-0400 Body surface area Derived from formula 1.46 m2 Aura Boo MA [facility]; [facility] Work Phone: 04-15-2022 09:32-0400 Body temperature 97.1 [degF] Aura Boo MA [facility]; [facility] Work Phone: Comment on above: Method: Temporal 04-15-2022 09:32-0400 Body weight 48.99 kg Aura Boo MA [facility]; [facility] Work Phone: 04-15-2022 09:32-0400 Diastolic blood pressure 62 mm[Hg] Aura Boo MA [facility]; [facility] Work Phone: Comment on above: Patient Position: Sitting; Cuff Location : Left Arm; Cuff Size: Standard 04-15-2022 09:32-0400 Heart rate 76 /min Aura Boo MA [facility]; [facility] Work Phone: Comment on above: Pattern: Regular 04-15-2022 09:32-0400 Respiratory rate 16 /min Aura Boo MA [facility]; [facility] Work Phone: Comment on above: Pattern: Unlabored 04-15-2022 09:32-0400 SaO2% (BldA) [Mass fraction] 99 % Aura Boo MA [facility]; [facility] Work Phone: Comment on above: Room air 04-15-2022 09:32-0400 Systolic blood pressure 106 mm[Hg] Aura Boo MA [facility]; [facility] Work Phone: Comment on above: Patient Position: Sitting; Cuff Location : Left Arm; Cuff Size: Standard 10-29-2021 07:28-0500 Body height 155.57 cm SRIRAM Nichole LPN [facility]; [facility] Work Phone: 10-29-2021 07:28-0500 Body mass index (BMI) [Ratio] 20.24 kg/m2 SRIRAM Nichole LPN [facility]; [facility] Work Phone: 10-29-2021 07:28-0500 Body surface area Derived from formula 1.46 m2 SRIRAM Nichole LPN [facility]; [facility] Work Phone: 10-29-2021 07:28-0500 Body temperature 97.9 [degF] SRIRAM Nichole LPN [facility]; [facility] Work Phone: Comment on above: Method: Temporal 10-29-2021 07:28-050 Body weight 48.99 kg SRIRAM Nichole LPN [facility]; [facility] Work Phone: 10-29-2021 07:28-0500 Diastolic blood pressure 70 mm[Hg] SRIRAM Nichole LPN [facility]; [facility] Work Phone: Comment on above: Patient Position: Sitting; Cuff Location : Left Arm; Cuff Size: Standard 10-29-2021 07:28-0500 Heart rate 108 /min SRIRAM Nichole TOBY [facility]; [facility] Work Phone: Comment on above: Pattern: Regular 10-29-2021 07:28-0500 Respiratory rate 20 /min SRIRAM Nichole TOBY [facility]; [facility] Work Phone: Comment on above: Pattern: Unlabored 10-29-2021 07:28-0500 SaO2% (BldA) [Mass fraction] 98 % SRIRAM Nichole TOBY [facility]; [facility] Work Phone: Comment on above: Room air 10-29-2021 07:28-0500 Systolic blood pressure 100 mm[Hg] SRIRAM Nichole TOBY [facility]; [facility] Work Phone: Comment on above: Patient Position: Sitting; Cuff Location : Left Arm; Cuff Size: Standard 06-27-2021 13:06-0400 Body height 155.57 cm SRIRAM Nichole TOBY [facility]; [facility] Work Phone: 06-27-2021 13:06-0400 Body mass index (BMI) [Ratio] 20.24 kg/m2 SRIRAM Nichole TOBY [facility]; [facility] Work Phone: 06-27-2021 13:06-0400 Body surface area Derived from formula 1.46 m2 SRIRAM Nichole LPN [facility]; [facility] Work Phone: 06-27-2021 13:06-0400 Body temperature 97.9 [degF] SRIRAM Nichole TOBY [facility]; [facility] Work Phone: Comment on above: Method: Temporal 06-27-2021 13:06-0400 Body weight 48.99 kg SRIRAM Nichole TOBY [facility]; [facility] Work Phone: 06-27-2021 13:06-0400 Diastolic blood pressure 74 mm[Hg] SRIRAM Nichole LPN [facility]; [facility] Work Phone: Comment on above: Patient Position: Sitting; Cuff Location : Left Arm; Cuff Size: Standard 06-27-2021 13:06-0400 Heart rate 86 /min SRIRAM Dionisio LUIS [facility]; [facility] Work Phone: Comment on above: Pattern: Regular 06-27-2021 13:06-0400 Respiratory rate 18 /min SRIRMA Nichole TOBY [facility]; [facility] Work Phone: Comment on above: Pattern: Unlabored 06-27-2021 13:06-0400 SaO2% (BldA) [Mass fraction] 98 % SRIRAM Nichole LPN [facility]; [facility] Work Phone: Comment on above: Room air 06-27-2021 13:06-0400 Systolic blood pressure 108 mm[Hg] SRIRAM Dionisio LUIS [facility]; [facility] Work Phone: Comment on above: Patient Position: Sitting; Cuff Location : Left Arm; Cuff Size: Standard 03-29-2021 14:39-0400 Body height 155.57 cm SRIRAM Dionisio LUIS [facility]; [facility] Work Phone: 03-29-2021 14:39-0400 Body mass index (BMI) [Ratio] 20.24 kg/m2 SRIRAMHILDA Nichole LPN [facility]; [facility] Work Phone: 03-29-2021 14:39-0400 Body surface area Derived from formula 1.46 m2 SRIRAM Nichole LPN [facility]; [facility] Work Phone: 03-29-2021 14:39-0400 Body temperature 97.8 [degF] SRIRAM Dionisio LUIS [facility]; [facility] Work Phone: Comment on above: Method: Temporal 03-29-2021 14:39-0400 Body weight 48.99 kg SRIRAM Dionisio LUIS [facility]; [facility] Work Phone: 03-29-2021 14:39-0400 Diastolic blood pressure 70 mm[Hg] SRIRAM Nichole LPN [facility]; [facility] Work Phone: Comment on above: Patient Position: Sitting; Cuff Location : Left Arm; Cuff Size: Standard 03-29-2021 14:39-0400 Heart rate 74 /min SRIRAM Dionisio LUIS [facility]; [facility] Work Phone: Comment on above: Pattern: Regular 03-29-2021 14:39-0400 Respiratory rate 20 /min SRIRAMHILDA Nichole TOBY [facility]; [facility] Work Phone: Comment on above: Pattern: Unlabored 03-29-2021 14:39-0400 SaO2% (BldA) [Mass fraction] 98 % SRIRAM Nichole LPN [facility]; [facility] Work Phone: Comment on above: Room air 03-29-2021 14:39-0400 Systolic blood pressure 110 mm[Hg] SRIRAM Nichole LPN [facility]; [facility] Work Phone: Comment on above: Patient Position: Sitting; Cuff Location : Left Arm; Cuff Size: Standard 01-08-2021 10:06-0500 BMI (Body Mass Index) 20.24 kg/m2 SRIRAM Nichole LPN [facility]; [facility] Work Phone: 01-08-2021 10:06-0500 Body Temperature 97.9 [degF] SRIRAM Nichole TOBY [facility]; [facility] Work Phone: Comment on above: Method: Temporal 01-08-2021 10:06-0500 Body weight 48.99 kg SRIRAM Nichole LPN [facility]; [facility] Work Phone: 01-08-2021 10:06-0500 BP Diastolic 70 mm[Hg] SRIRAM Nichole LPN [facility]; [facility] Work Phone: Comment on above: Patient Position: Sitting; Cuff Location : Left Arm; Cuff Size: Standard 01-08-2021 10:06-0500 BP Systolic 100 mm[Hg] SRIRAM Nichole LPN [facility]; [facility] Work Phone: Comment on above: Patient Position: Sitting; Cuff Location : Left Arm; Cuff Size: Standard 01-08-2021 10:06-0500 BSA (Body Surface Area) 1.46 m2 SRIRAM Nichole TOBY [facility]; [facility] Work Phone: 01-08-2021 10:06-0500 Height 155.57 cm SRIRAM Dionisio LUIS [facility]; [facility] Work Phone: 01-08-2021 10:06-0500 Pulse (Heart Rate) 90 /min SRIRAM Nichole TOBY [facility]; [facility] Work Phone: Comment on above: Pattern: Regular 01-08-2021 10:06-0500 Pulse Oximetry 98 % Dulce Maria Lynch [facility]; [facility] Work Phone: Comment on above: Room air 01-08-2021 10:06-0500 Respiratory Rate 20 /min SRIRAM Nichole TOBY [facility]; [facility] Work Phone: Comment on above: Pattern: Unlabored 01-08-2021 10:06-0500 SaO2% (BldA) [Mass fraction] 98 % SRIRAM Dionisio LUIS [facility]; [facility] Work Phone: Comment on above: Room air 03-23-2020 11:03-0400 BMI (Body Mass Index) 20.61 kg/m2 SRIRAMHILDA Nichole LPN [facility]; [facility] Work Phone: 03-23-2020 11:03-0400 Body Temperature 97.8 [degF] SRIRAMHILDA Nichole TOBY [facility]; [facility] Work Phone: Comment on above: Method: Temporal 03-23-2020 11:03-0400 Body weight 49.9 kg SRIRAMHILDA Nichole LPN [facility]; [facility] Work Phone: 03-23-2020 11:03-0400 BP Diastolic 68 mm[Hg] SRIRMA Nichole LPN [facility]; [facility] Work Phone: Comment on above: Patient Position: Sitting; Cuff Location : Left Arm; Cuff Size: Standard 03-23-2020 11:03-0400 BP Systolic 110 mm[Hg] SRIRAM Nichole LPN [facility]; [facility] Work Phone: Comment on above: Patient Position: Sitting; Cuff Location : Left Arm; Cuff Size: Standard 03-23-2020 11:03-0400 BSA (Body Surface Area) 1.47 m2 SRIRAM Nichole LPN [facility]; [facility] Work Phone: 03-23-2020 11:03-0400 Height 155.57 cm SRIRAM Ncihole LPN [facility]; [facility] Work Phone: 03-23-2020 11:03-0400 Pulse (Heart Rate) 64 /min SRIRAM Dionisio LUIS [facility]; [facility] Work Phone: Comment on above: Pattern: Regular 03-23-2020 11:03-0400 Pulse Oximetry 98 % Dulce Maria Lynch [facility]; [facility] Work Phone: Comment on above: Room air 03-23-2020 11:03-0400 Respiratory Rate 20 /min SRIRAM Dionisio LUIS [facility]; [facility] Work Phone: Comment on above: Pattern: Unlabored 03-23-2020 11:03-0400 SaO2% (BldA) [Mass fraction] 98 % SRIRAM Nichole LPN [facility]; [facility] Work Phone: Comment on above: Room air 01-05-2020 07:36-0500 BMI (Body Mass Index) 20.64 kg/m2 Lisa Mcgarry RN [facility]; [facility] Work Phone: 01-05-2020 07:36-0500 Body weight 49.95 kg Lisa Mcgarry RN [facility]; [facility] Work Phone: 01-05-2020 07:36-0500 BP Diastolic 68 mm[Hg] Lisa Mcgarry RN [facility]; [facility] Work Phone: Comment on above: Patient Position: Sitting; Cuff Location : Left Arm; Cuff Size: Standard 01-05-2020 07:36-0500 BP Systolic 118 mm[Hg] Lisa Mcgarry RN [facility]; [facility] Work Phone: Comment on above: Patient Position: Sitting; Cuff Location : Left Arm; Cuff Size: Standard 01-05-2020 07:36-0500 BSA (Body Surface Area) 1.47 m2 Lisa Mcgarry RN [facility]; [facility] Work Phone: 01-05-2020 07:36-0500 Height 155.57 cm Lisa Mcgarry RN [facility]; [facility] Work Phone: 01-05-2020 07:36-0500 Pulse (Heart Rate) 70 /min Lisa Mcgarry RN [facility]; [facility] Work Phone: Comment on above: Pattern: Regular 01-05-2020 07:36-0500 Pulse Oximetry 98 % Dulce Maria Lynch [facility]; [facility] Work Phone: Comment on above: Room air 01-05-2020 07:36-0500 Respiratory Rate 18 /min Lisa Mcgarry RN [facility] Medicine; [facility] Work Phone: Comment on above: Pattern: Unlabored 01-05-2020 07:36-0500 SaO2% (BldA) [Mass fraction] 98 % Lisa Mcgarry RN [facility]; [facility] Work Phone: Comment on above: Room air 11-24-2019 14:50-0500 BMI (Body Mass Index) 20.61 kg/m2 Eugenia Marx [facility]; [facility] Work Phone: 11-24-2019 14:50-0500 Body Temperature 97.4 [degF] Eugenia Marx [facility] Com[facility]; [facility] Work Phone: Comment on above: Method: Temporal 11-24-2019 14:50-0500 Body weight 49.[address] [facility]; [facility] Work Phone: 11-24-2019 14:50-0500 BP Diastolic 78 mm[Hg] Eugenia Marx [employer] WORK[employer] [facility]; [facility] Work Phone: Comment on above: Patient Position: Sitting; Cuff Location : Left Arm; Cuff Size: Standard 11-24-2019 14:50-0500 BP Systolic 115 mm[Hg] Eugenia Marx CMA [facility]; [facility] Work Phone: Comment on above: Patient Position: Sitting; Cuff Location : Left Arm; Cuff Size: Standard 11-24-2019 14:50-0500 BSA (Body Surface Area) 1.47 m2 Eugenia Marx CMA [facility]; [facility] Work Phone: 11-24-2019 14:50-0500 Height 155.57 cm Eugenia Marx CMA [facility]; [facility] Work Phone: 11-24-2019 14:50-0500 Pulse (Heart Rate) 75 /min Eugenia Marx CMA [facility]; [facility] Work Phone: Comment on above: Pattern: Regular 11-24-2019 14:50-0500 Pulse Oximetry 98 % Dulce Maria Lynch [facility]; [facility] Work Phone: Comment on above: Room air 11-24-2019 14:50-0500 Respiratory Rate 20 /min Eugenia Marx CMA [facility]; [facility] Work Phone: Comment on above: Pattern: Unlabored 11-24-2019 14:50-0500 SaO2% (BldA) [Mass fraction] 98 % Eugenia Marx [facility]; [facility] Work Phone: Comment on above: Room air 08-09-2019 08:17-0400 BMI (Body Mass Index) 19.87 kg/m2 Camille Hernandez [facility]; [facility] Work Phone: 08-09-2019 08:17-0400 Body Temperature 97.5 [degF] Camille Hernandez [facility]; [facility] Work Phone: Comment on above: Method: Temporal 08-09-2019 08:17-0400 Body weight 48.[address] [facility]; [facility] Work Phone: 08-09-2019 08:17-0400 BP Diastolic 64 mm[Hg] Camille Hernandez [facility]; [facility] Work Phone: Comment on above: Patient Position: Sitting; Cuff Location : Left Arm; Cuff Size: Standard 08-09-2019 08:17-0400 BP Systolic 115 mm[Hg] Caimlle Hernandez [facility]; [facility] Work Phone: Comment on above: Patient Position: Sitting; Cuff Location : Left Arm; Cuff Size: Standard 08-09-2019 08:17-0400 BSA (Body Surface Area) 1.[address] [facility]; [facility] Work Phone: 08-09-2019 08:17-0400 Height 155.[address] [facility]; [facility] Work Phone: 08-09-2019 08:17-0400 Pulse (Heart Rate) 72 /min Camille Hernandez [facility]; [facility] Work Phone: Comment on above: Pattern: Regular 08-09-2019 08:17-0400 Pulse Oximetry 97 % Dulce Maria Lynch [facility]; [facility] Work Phone: Comment on above: Room air 08-09-2019 08:17-0400 Respiratory Rate 16 /min Camille Hernandez [facility]; [facility] Work Phone: Comment on above: Pattern: Unlabored 08-09-2019 08:17-0400 SaO2% (BldA) [Mass fraction] 97 % Camille Hernandez [facility]; [facility] Work Phone: Comment on above: Room air 08-02-2019 09:46-0400 BMI (Body Mass Index) 19.87 kg/m2 Camille Hernandez [facility] Work Phone: 08-02-2019 09:46-0400 Body Temperature 97.1 [degF] Camille Hernandez [facility] Work Phone: Comment on above: Method: Temporal 08-02-2019 09:46-0400 Body weight 48.08 kg Camille [facility] Work Phone: 08-02-2019 09:46-0400 BP Diastolic 80 mm[Hg] Camille Hernandez [facility] Work Phone: Comment on above: Patient Position: Sitting; Cuff Location : Left Arm; Cuff Size: Standard 08-02-2019 09:46-0400 BP Systolic 122 mm[Hg] Camille Hernandez [facility] Work Phone: Comment on above: Patient Position: Sitting; Cuff Location : Left Arm; Cuff Size: Standard 08-02-2019 09:46-0400 BSA (Body Surface Area) 1.45 m2 Camille Hernandez [facility] Work Phone: 08-02-2019 09:46-0400 Height 155.57 cm Camille Hernandez [facility] Work Phone: 08-02-2019 09:46-0400 Pulse (Heart Rate) 91 /min Camille Hernandez [facility] Work Phone: Comment on above: Pattern: Regular 08-02-2019 09:46-0400 Pulse Oximetry 98 % Dulce Maria Lynch [facility] Internal Medicine Work Phone: Comment on above: Room air 08-02-2019 09:46-0400 Respiratory Rate 16 /min Camille Hernandez [facility] Work Phone: Comment on above: Pattern: Unlabored 08-02-2019 09:46-0400 SaO2% (BldA) [Mass fraction] 98 % Camille Hernandez [facility]; [facility] Work Phone: Comment on above: Room air 06-07-2019 07:38-0400 BMI (Body Mass Index) 19.87 kg/m2 SRIRAM Nichole LPN [facility] Work Phone: 06-07-2019 07:38-0400 Body Temperature 97.6 [degF] SRIRAM Nichole LPN [facility] Work Phone: Comment on above: Method: Temporal 06-07-2019 07:38-0400 Body weight 48.08 kg SRIRAM Nichole LPN [facility] Work Phone: 06-07-2019 07:38-0400 BP Diastolic 68 mm[Hg] SRIRAM Nichole LPN [facility] Work Phone: Comment on above: Patient Position: Sitting; Cuff Location : Left Arm; Cuff Size: Standard 06-07-2019 07:38-0400 BP Systolic 100 mm[Hg] SRIRAM Nichole TOBY [facility] Work Phone: Comment on above: Patient Position: Sitting; Cuff Location : Left Arm; Cuff Size: Standard 06-07-2019 07:38-0400 BSA (Body Surface Area) 1.45 m2 SRIRAM Nichole TOBY [facility] Work Phone: 06-07-2019 07:38-0400 Height 155.57 cm SRIRAM Nichole TOBY [facility] Work Phone: 06-07-2019 07:38-0400 Pulse (Heart Rate) 104 /min SRIRAM Nichole TOBY [facility] Work Phone: Comment on above: Pattern: Regular 06-07-2019 07:38-0400 Pulse Oximetry 97 % Dulce Maria Lynch [facility] Work Phone: Comment on above: Room air 06-07-2019 07:38-0400 Respiratory Rate 18 /min SRIRAM Nichole TOBY [facility] Work Phone: Comment on above: Pattern: Unlabored 06-07-2019 07:38-0400 SaO2% (BldA) [Mass fraction] 97 % SRIRAM Nichole TOBY [facility]; [facility] Work Phone: Comment on above: Room air 05-10-2019 07:37-0400 BMI (Body Mass Index) 20.24 kg/m2 SRIRAM Nichole TOBY [facility] Work Phone: 05-10-2019 07:37-0400 Body Temperature 97.8 [degF] SRIRAM Nichole TOBY [facility] Work Phone: Comment on above: Method: Temporal 05-10-2019 07:37-0400 Body weight 48.99 kg SRIRAM Nichole 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 [facility] Work Phone: 05-10-2019 07:37-0400 BP Diastolic 78 mm[Hg] SRIRAM Nichole LPN [facility] Work Phone: Comment on above: Patient Position: Sitting; Cuff Location : Left Arm; Cuff Size: Standard 05-10-2019 07:37-0400 BP Systolic 108 mm[Hg] SRIRAM Nichole LPN [facility] Work Phone: Comment on above: Patient Position: Sitting; Cuff Location : Left Arm; Cuff Size: Standard 05-10-2019 07:37-0400 BSA (Body Surface Area) 1.46 m2 SRIRAM Nichole 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 [facility] Work Phone: 05-10-2019 07:37-0400 Height 155.57 cm SRIRAM Nichole TOBY [facility] Work Phone: 05-10-2019 07:37-0400 Pulse (Heart Rate) 70 /min SRIRAM Nichole LPN [facility] Work Phone: Comment on above: Pattern: Regular 05-10-2019 07:37-0400 Pulse Oximetry 98 % Dulce Maria Lynch [facility] Internal Medicine Work Phone: Comment on above: Room air 05-10-2019 07:37-0400 Respiratory Rate 18 /min SRIRAM Nichole TOBY [facility] Work Phone: Comment on above: Pattern: Unlabored 05-10-2019 07:37-0400 SaO2% (BldA) [Mass fraction] 98 % SRIRAM Nichole TOBY [facility]; [facility] Work Phone: Comment on above: Room air 05-10-2019 07:37-0400 Weight 48.99 kg Dulce Maria Lynch [facility] Work Phone: 04-02-2019 11:51-0400 Body Temperature 98.9 [degF] Dulce Maria Lynch MD Work Phone: [facility] Work Phone: Comment on above: Method: Oral 04-02-2019 11:51-0400 BP Diastolic 72 mm[Hg] Dulce Maria Lynch MD Work Phone: [facility] Work Phone: Comment on above: Patient Position: Sitting 04-02-2019 11:51-0400 BP Systolic 122 mm[Hg] Dulce Maria Lynch MD Work Phone: [facility] Work Phone: Comment on above: Patient Position: Sitting 04-02-2019 11:51-0400 Pulse (Heart Rate) 88 /min Dulce Maria Lynch MD Work Phone: [facility] Work Phone: Comment on above: Pattern: Regular 04-02-2019 11:51-0400 Pulse Oximetry 100 % Dulce Maria Lynch [facility] Work Phone: Comment on above: Room air 04-02-2019 11:51-0400 SaO2% (BldA) [Mass fraction] 100 % Dulce Maria Lynch MD Work Phone: [facility]; [facility] Work Phone: Comment on above: Room air 12-17-2018 15:03-0500 BMI (Body Mass Index) 20.24 kg/m2 Eugenia Marx [facility] Work Phone: 12-17-2018 15:03-0500 Body Temperature 98.2 [degF] uEgenia Marx [facility] Com[facility] Work Phone: Comment on above: Method: Temporal 12-17-2018 15:03-0500 Body weight 48.[address] [facility] Work Phone: 12-17-2018 15:03-0500 BP Diastolic 78 mm[Hg] Eugenia Araseli [facility] Work Phone: Comment on above: Patient Position: Sitting; Cuff Location : Left Arm; Cuff Size: Standard 12-17-2018 15:03-0500 BP Systolic 122 mm[Hg] Eugenia Marx CMA [facility] Work Phone: Comment on above: Patient Position: Sitting; Cuff Location : Left Arm; Cuff Size: Standard 12-17-2018 15:03-0500 BSA (Body Surface Area) 1.46 m2 Eugenia Marx CMA [facility] Work Phone: 12-17-2018 15:03-0500 Height 155.57 cm Eugenia Marx CMA [facility] Work Phone: 12-17-2018 15:03-0500 Pulse (Heart Rate) 108 /min Eugenia Marx CMA [facility] Work Phone: Comment on above: Pattern: Regular 12-17-2018 15:03-0500 Pulse Oximetry 98 % Dulce Maria Lynch [facility] Internal Medicine Work Phone: Comment on above: Room air 12-17-2018 15:03-0500 Respiratory Rate 16 /min Eugenia Marx CMA [facility] Work Phone: Comment on above: Pattern: Unlabored 12-17-2018 15:03-0500 SaO2% (BldA) [Mass fraction] 98 % Eugenia Marx [facility]; [facility] Work Phone: Comment on above: Room air 12-17-2018 15:03-0500 Weight 48.99 kg Dulce Maria Lynch [facility] Internal Medicine Work Phone: 09-06-2018 15:01-0400 BMI (Body Mass Index) 21.18 kg/m2 SRIRAM Nichole LPN [facility] Work Phone: 09-06-2018 15:01-0400 Body Temperature 97.9 [degF] SRIRAM Nichole LPN [facility] Work Phone: Comment on above: Method: Temporal 09-06-2018 15:01-0400 Body weight 51.26 kg SRIRAMHILDA Nichole LPN [facility] Work Phone: 09-06-2018 15:01-0400 BP Diastolic 70 mm[Hg] SRIRAM Nichole LPN [facility] Work Phone: Comment on above: Patient Position: Sitting; Cuff Location : Left Arm; Cuff Size: Standard 09-06-2018 15:01-0400 BP Systolic 110 mm[Hg] SRIRAM Nichole LPN [facility] Work Phone: Comment on above: Patient Position: Sitting; Cuff Location : Left Arm; Cuff Size: Standard 09-06-2018 15:01-0400 BSA (Body Surface Area) 1.49 m2 SRIRAM Nichole LPN [facility] Work Phone: 09-06-2018 15:01-0400 Height 155.57 cm SRIRAM Nichole LPN [facility] Work Phone: 09-06-2018 15:01-0400 Pulse (Heart Rate) 100 /min SRIRAM Nichole LPN [facility] Work Phone: Comment on above: Pattern: Regular 09-06-2018 15:01-0400 Pulse Oximetry 99 % Dulce Maria Lynch [facility] Internal Medicine Work Phone: Comment on above: Room air 09-06-2018 15:01-0400 Respiratory Rate 20 /min SRIRAM Nichole LPN [facility] Work Phone: Comment on above: Pattern: Unlabored 09-06-2018 15:01-0400 SaO2% (BldA) [Mass fraction] 99 % SRIRAM Nichole LPN [facility]; [facility] Work Phone: Comment on above: Room air 09-06-2018 15:01-0400 Weight 51.26 kg Dulce Maria Lynch [facility] Medicine Work Phone: 08-03-2018 13:00-0400 BMI (Body Mass Index) 21.36 kg/m2 SRIRAM Nichole LPN [facility] Work Phone: 08-03-2018 13:00-0400 Body Temperature 97.8 [degF] SRIRAM Nihcole LPN [facility] Work Phone: Comment on above: Method: Temporal 08-03-2018 13:00-0400 Body weight 51.71 kg SRIRAM Nichole LPN [facility] Work Phone: 08-03-2018 13:00-0400 BP Diastolic 74 mm[Hg] SRIRAM Nichole LPN [facility] Work Phone: Comment on above: Patient Position: Sitting; Cuff Location : Left Arm; Cuff Size: Standard 08-03-2018 13:00-0400 BP Systolic 112 mm[Hg] SRIRAM Nichole LPN [facility] Work Phone: Comment on above: Patient Position: Sitting; Cuff Location : Left Arm; Cuff Size: Standard 08-03-2018 13:00-0400 BSA (Body Surface Area) 1.49 m2 SRIRAM Nichole TOBY [facility] Work Phone: 08-03-2018 13:00-0400 Height 155.57 cm SRIRAM Nichole TOBY [facility] Work Phone: 08-03-2018 13:00-0400 Pulse (Heart Rate) 76 /min SRIRAM Nichole TOBY [facility] Work Phone: Comment on above: Pattern: Regular 08-03-2018 13:00-0400 Pulse Oximetry 98 % Dulce Maria Victor Hugo [facility] Work Phone: Comment on above: Room air 08-03-2018 13:00-0400 Respiratory Rate 20 /min SRIRAM Nichole LPN [facility] Work Phone: Comment on above: Pattern: Unlabored 08-03-2018 13:00-0400 SaO2% (BldA) [Mass fraction] 98 % SRIRAM Nichole TOBY [facility]; [facility] Work Phone: Comment on above: Room air 08-03-2018 13:00-0400 Weight 51.71 kg Dulce Maria Lynch [facility] Work Phone: 07-14-2018 14:58-0400 BMI (Body Mass Index) 21.36 kg/m2 SRIRAM Nichole TOBY [facility] Work Phone: 07-14-2018 14:58-0400 Body Temperature 98.8 [degF] SRIRAM Nichole TOBY [facility] Work Phone: Comment on above: Method: Temporal 07-14-2018 14:58-0400 Body weight 51.71 kg SRIRAM Nichole LPN [facility] Work Phone: 07-14-2018 14:58-0400 BP Diastolic 70 mm[Hg] SRIRAM Nichole LPN [facility] Work Phone: Comment on above: Patient Position: Sitting; Cuff Location : Left Arm; Cuff Size: Standard 07-14-2018 14:58-0400 BP Systolic 100 mm[Hg] SRIRAM Nichole LPN [facility] Work Phone: Comment on above: Patient Position: Sitting; Cuff Location : Left Arm; Cuff Size: Standard 07-14-2018 14:58-0400 BSA (Body Surface Area) 1.49 m2 SRIRAM Nichole LPN [facility] Work Phone: 07-14-2018 14:58-0400 Height 155.57 cm SRIRAM Nichole LPN [facility] Work Phone: 07-14-2018 14:58-0400 Pulse (Heart Rate) 74 /min SRIRAM Nichole LPN [facility] Work Phone: Comment on above: Pattern: Regular 07-14-2018 14:58-0400 Pulse Oximetry 98 % Dulce Maria Lynch [facility] Internal Medicine Work Phone: Comment on above: Room air 07-14-2018 14:58-0400 Respiratory Rate 20 /min SRIRAM Nichole LPN [facility] Work Phone: Comment on above: Pattern: Unlabored 07-14-2018 14:58-0400 SaO2% (BldA) [Mass fraction] 98 % SRIRAM Nichole LPN [facility]; [facility] Work Phone: Comment on above: Room air 07-14-2018 14:58-0400 Weight 51.71 kg Dulce Maria Lynch [facility] Internal Medicine Work Phone: 05-27-2018 13:35-0400 BMI (Body Mass Index) 20.43 kg/m2 SRIRAM Nichole LPN [facility] Work Phone: 05-27-2018 13:35-0400 Body Temperature 97.6 [degF] SRIRAM Nichole LPN [facility] Work Phone: Comment on above: Method: Temporal 05-27-2018 13:35-0400 Body weight 49.44 kg SRIRAM Nichoel LPN [facility] Work Phone: 05-27-2018 13:35-0400 BP Diastolic 70 mm[Hg] SRIRAM Nichole LPN [facility] Work Phone: Comment on above: Patient Position: Sitting; Cuff Location : Left Arm; Cuff Size: Standard 05-27-2018 13:35-0400 BP Systolic 104 mm[Hg] SRIRAM Nichole LPN [facility] Work Phone: Comment on above: Patient Position: Sitting; Cuff Location : Left Arm; Cuff Size: Standard 05-27-2018 13:35-0400 BSA (Body Surface Area) 1.46 m2 SRIRAM Nichole LPN [facility] Work Phone: 05-27-2018 13:35-0400 Height 155.57 cm SRIRAM Nichole LPN [facility] Work Phone: 05-27-2018 13:35-0400 Pulse (Heart Rate) 74 /min SRIRAM Nichole LPN [facility] Work Phone: Comment on above: Pattern: Regular 05-27-2018 13:35-0400 Pulse Oximetry 98 % Dulce Mariaandria Richerasmo [facility] Work Phone: Comment on above: Room air 05-27-2018 13:35-0400 Respiratory Rate 20 /min SRIRAM Nichole LPN [facility] Work Phone: Comment on above: Pattern: Unlabored 05-27-2018 13:35-0400 SaO2% (BldA) [Mass fraction] 98 % SRIRAM Nichole LPN [facility]; [facility] Work Phone: Comment on above: Room air 05-27-2018 13:35-0400 Weight 49.44 kg Dulce Maria Lynch [facility] Work Phone: Encounters Encounter Date Encounter Type Care Provider Facility Start: 04-25-2025 End: 04-25-2025 ambulatory Jesús Combs Facility:[facility] Start: 04-14-2025 End: 04-15-2025 ambulatory aJleel SANTOYO Facility:[facility] Start: 02-02-2025 End: 02-02-2025 ambulatory Jesús Combs Facility:[facility] Start: 12-19-2024 End: 12-19-2024 ambulatory Dulce Maria Bonezzi Facility:[facility] Start: 12-12-2024 End: 12-12-2024 ambulatory Dulce Maria Bonezzi Facility:[facility] Start: 11-26-2024 End: 11-26-2024 ambulatory Dulce Maria Bonezzi Facility:[facility] Start: 10-05-2024 End: 10-05-2024 ambulatory Dulce Maria Bonezzi Facility:[facility] Start: 07-26-2024 End: 07-26-2024 ambulatory Dulce Maria Bonezzi Facility:[facility] Start: 05-30-2024 End: 05-30-2024 ambulatory Dulce Maria Bonezzi Facility:[facility] Start: 05-03-2024 End: 05-03-2024 ambulatory Dulce Maria Bonezzi Facility:[facility] Start: 05-03-2024 End: 05-03-2024 ambulatory Jesús SANTOYO Facility:[facility] Start: 09-09-2023 End: 09-09-[address] Dulce Maria Lynch Work Phone: [facility] Work Phone: Start: 09-09-2023 End: 09-09-[address] Dulce Maria Lynch Work Phone: [facility] Work Phone: Start: 09-09-2023 End: 09-09-[address] Dulce Maria Lynch Work Phone: [facility] Work Phone: Start: 08-20-2023 End: 08-20-[address] Dulce Maria Lynch Work Phone: [facility] Work Phone: Start: 08-20-2023 End: 08-20-[address] Dulce Maria Lynch Work Phone: [facility] Work Phone: Start: 06-16-2023 End: 06-16-[address] Dulce Maria Lynch Work Phone: [facility] Work Phone: Start: 05-22-2023 End: 05-22-[address] Dulce Maria Lynch Work Phone: [facility] Work Phone: Start: 05-15-2023 End: 05-15-2023 Emergency department patient visit Dr. Dulc eMaria Lynch Work Phone: [facility] Work Phone: Start: 04-09-2023 End: 04-09-2023 Office outpatient visit 25 minutes Dulce Maria Lynch MD Work Phone: [facility] Start: 04-09-2023 End: 04-09-2023 Patient encounter procedure Dulce Maria Lynch MD Work Phone: [facility]; [facility] Work Phone: Comment on above: had pap 1-23 cholest lisette and labs done 1-23 good but vit D Start: 04-09-2023 End: 04-09-2023 Patient encounter status Dulce Maria Lynch MD Work Phone: [facility]; [facility] Work Phone: Start: 03-24-2023 End: 03-24-2023 Prescription Refill Dulce Maria Lynch MD Work Phone: [facility] Start: 03-23-2023 ambulatory Dulce Maria Lynch MD [facility] Start: 02-13-2023 End: 02-13-[address] Dulce Maria Lynch Work Phone: [facility] Work Phone: Start: 02-13-2023 End: 02-13-[address] Dulce Maria Lynch Work Phone: [facility] Start: 01-17-2023 End: 01-17-[address] Dulce Maria Lynch Work Phone: [facility] Start: 01-13-2023 End: 01-14-2023 Office outpatient visit 10 minutes Dulce Maria Lynch MD Work Phone: [facility] Start: 12-25-2022 End: 12-25-[address] Dulce Maria Lynch Work Phone: [facility] Start: 12-12-2022 End: 12-12-2022 Lab Order Dulce Maria Lynch MD Work Phone: [facility] Start: 11-26-2022 End: 12-07-2022 Patient encounter procedure Dulce Maria Lynch MD Work Phone: [facility] Start: 11-20-2022 End: 11-20-2022 Periodic preventive med est patient 18-39 yrs Dulce Maria Lynch MD Work Phone: [facility] Start: 11-20-2022 End: 11-20-2022 Patient encounter procedure Dulce Maria Lynch MD Work Phone: [facility]; [facility] Work Phone: Start: 11-20-2022 End: 11-20-2022 Patient encounter status Dulce Maria Lynch MD Work Phone: [facility]; [facility] Work Phone: Start: 11-20-2022 Review Dulce Maria Hooks Work Phone: [facility] Start: 11-13-2022 End: 11-13-[address] Dulce Maria Lynch Work Phone: [facility] Start: 10-24-2022 End: 10-24-2022 ambulatory SELF REFERRED [facility] Start: 05-29-2022 End: 06-01-2022 Office outpatient visit 25 minutes Dulce Maria Lynch MD Work Phone: [facility] Start: 04-15-2022 End: 04-15-2022 Periodic preventive med est patient 18-39 yrs Dulce Maria Lynch MD Work Phone: [facility] Start: 11-14-2021 End: 11-25-2021 Office outpatient visit 25 minutes Dulce Maria Lynch MD Work Phone: [facility] Start: 11-14-2021 Review Dulce Maria Hooks Work Phone: [facility] Start: 10-31-2021 End: 10-31-2021 Office outpatient visit 25 minutes Dulce Maria Lynch MD Work Phone: [facility] Start: 10-29-2021 End: 10-29-2021 Office outpatient visit 40 minutes Dulce Maria Lynch MD Work Phone: [facility] Start: 07-08-2021 End: 07-08-2021 Phone Encounter Dulce Maria Lynch MD Work Phone: [facility] Start: 06-27-2021 End: 07-02-2021 Office outpatient visit 15 minutes Dulce Maria Lynch MD Work Phone: [facility] Start: 03-29-2021 End: 03-29-2021 Office outpatient visit 10 minutes Dulce Maria Lynch MD Work Phone: [facility] Start: 01-08-2021 End: 01-11-2021 Office outpatient visit 15 minutes Dulce Maria Lynch [facility] Start: 01-08-2021 Review Dulce Maria [facility] Start: 03-23-2020 End: 03-23-2020 Office outpatient visit 10 minutes Dulce Maria Lynch [facility] Start: 01-05-2020 End: 01-05-2020 Office outpatient visit 25 minutes Dulce Maria Lynch [facility] Start: 12-27-2019 End: 12-27-2019 Lab Order Dulce Maria Lynch [facility] Start: 11-24-2019 End: 11-24-2019 Periodic preventive med est patient 18-39 yrs Dulce Maria [facility] Start: 08-09-2019 End: 08-11-2019 Office outpatient visit 40 minutes Dulce Maria [facility] Start: 08-02-2019 End: 08-02-2019 Office outpatient visit 5 minutes Dulce Maria Lynch [facility] Start: 06-07-2019 End: 06-07-2019 Office outpatient visit 25 minutes Dulce Maria [facility] Start: 05-10-2019 End: 05-10-2019 Office outpatient visit 10 minutes Dulce Maria Lynch [facility] Start: 04-02-2019 End: 04-03-2019 Office outpatient visit 10 minutes Dulce Maria Lynch [facility] Start: 03-25-2019 End: 03-25-2019 Phone Encounter Dulce Maria Lynch [facility] Start: 12-17-2018 End: 12-17-2018 Phone Encounter Dulce Maria Lynch [facility] Start: 12-17-2018 End: 12-17-2018 Office outpatient visit 15 minutes Dulce Maria Lynch [facility] Start: 12-17-2018 Review Dulce Maria Lynch [facility] Start: 09-06-2018 End: 09-06-2018 Periodic preventive med est patient 40-64yrs Dulce Maria Lynch [facility] Start: 08-03-2018 End: 08-03-2018 Office outpatient visit 25 minutes Dulce Maria Lynch [facility] Start: 08-03-2018 End: 08-03-2018 Patient encounter procedure Dulce Maria Lynch MD Work Phone: [facility] Start: 07-14-2018 End: 07-14-2018 Office outpatient visit 15 minutes Dulce Maria Lynch [facility] Start: 05-27-2018 End: 05-27-2018 Office outpatient visit 10 minutes Dulce Maria Lynch [facility] Start: 03-24-2018 End: 03-26-2018 Ambulatory [facility] Start: 07-16-2017 End: 07-17-2017 Ambulatory [facility] Start: 05-21-2017 End: 05-25-2017 Ambulatory [facility] Patient encounter procedure SRIRAM Nichole LPN [facility]; [facility] Work Phone: Patient encounter procedure SRIRAM Dionisio FLOATING LAB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 [facility]; [facility] Work Phone: Patient encounter procedure Aura Boo MA [facility]; [facility] Work Phone: Patient encounter procedure Janet Zavaletachantelle ANTHONY [facility]; [facility] Work Phone: Procedures Date Procedure Procedure Detail Performing Clinician Start: 09-09-[address] Dulce Maria Lynch Work Phone: Start: 08-20-[address] Dulce Maria Lynch Work Phone: Start: 08-20-2023 End: 08-20-2023 Urgent Care Visit Report Procedure Note: See Note; NOTES: [facility] [address] , [address] [place] [address] OFFICE VISIT Date of Service: 08/20/23 MR#: [id number] Acct: [id number] Name: LAWRENCE PATTON MADDY Rep #: [id number] : 2000 Provider: NATANAEL Garcia Age/Sex: 23/F Location: [facility] Status: Signed Intake Vital Signs 05/22/23 12:04 08/20/23 10:45 Height 5 ft 1 in 12 in Weight: 120 lb 114 lb 6 oz BMI 22.6 558.3 BP 145/71 H Blood Pressure Location Rt brachial Position Sitting Respiration 16 15 Pulse 70 97 Pulse Source Monitor NIBP Temp 97.6 F L 98.7 F Temp Source Temporal Temporal Pulse Oximetry (%) 99 98 Oxygen Delivery Method room air room air Intake Visit Reasons: Urinary tract infection Chief Complaint: UTI Classroom Assistant Required: No Is patient in pain?: No Allergies No Known Allergies Allergy (Verified 08/20/23 10:50) Medications nitrofurantoin monohydrate/macrocrystals 100 mg capsule 1 cap PO Q12H 7 days #14 caps 08/20/23 [Rx Confirmed 08/20/23] Is last menstrual period known: No Post menopausal: No Patient : No Nurse's Note: burning with urination x 2 days. denies abd pain/fevers PFSH Medical History Acute otitis externa of left ear Constipation Impetigo Paronychia of toe of right foot Rhinitis, allergic Right lower quadrant abdominal pain URI (upper respiratory infection) Social History Smoking Status: Never smoker alcohol intake: never HPI HPI Chief Complaint: UTI Details: LAWRENCE PATTON, is a 23 F who presents to the office today for complaint of dysuria for the past 2 days. Patient denies hematuria, loss of bowel or bladder control or abdominal/pelvic pain. No fever, chills, sweats. No nausea, vomiting, diarrhea. No other associated symptoms or alleviating/aggravating factors. ROS Const Constitutional: No other (As above) Exam Const General: cooperative and healthy appearing Resp Effort Inspection: normal respiratory effort Auscultation: Bilateral: Clear to Auscultation Cardio Rate: regular rate Rhythm: regular rhythm GI Auscultation: normal bowel sounds General: No CVA tenderness Psych Appearance: grossly normal Mental Status: mental status grossly normal Results POC Urine Office , Urine Negative Last Edit by Gemma Webster on 08/20/23 10:54 POC Urinalysis Dip (Clinic) Office Urine Color Yellow Last Edit by Gemma Webster on 08/20/23 10:55 Office Urine Clarity Clear Last Edit by Gemma Webster on 08/20/23 10:55 Office Urine Glucose Negative Last Edit by Gemma Webster on 08/20/23 10:55 Office Urine Ketones Negative Last Edit by Gemma Webster on 08/20/23 10:55 Off Ur Spec [place] 1.020 Last Edit by Gemma Webster on 08/20/23 10:55 Office Urine pH 6.5 Last Edit by Gemma Webster on 08/20/23 10:55 Office Urine Bilirubin Negative Last Edit by Gemma Webster on 08/20/23 10:55 Office Urine Urobilinogen Negative Last Edit by Gemma Webster on 08/20/23 10:55 Office Urine Blood Small Last Edit by Gemma Webster on 08/20/23 10:55 Office Urine Blood Hemolyzed NA Last Edit by Gemma Webster on 08/20/23 10:55 Office Urine Protein Trace Last Edit by Gemma Webster on 08/20/23 10:55 Office Urine Nitrate Positive Last Edit by Gemma Webster on 08/20/23 10:55 Off Ur Leukocytes Positive Last Edit by Gemma Webster on 08/20/23 10:55 Coding Level of Care Code Off vis,est,level 3 Diagnoses Urinary tract infection N39.0 Assessment and Plan Assessment and Plan (1) Urinary tract infection: Status: Acute Orders: Orders POC Urinalysis Dip (Clinic) Today R30.0 - Dysuria POC Urine Today R30.0 - Dysuria Culture, Urine Today N39.0 - Urinary tract infection, site not specified Medications: New nitrofurantoin monohyd/m-cryst 100 mg administer with a meal/food; swallow whole; do not open, crush, dissolve , or chew 1 cap PO Q12H 14 caps 0RF 7 days Plan Macrobid as prescribed today. Encouraged to get plenty of rest, drink lots of clear liquids, and use Tylenol or Ibuprofen (unless contraindicated) for fever and comfort. Patient also educated on other symptomatic management techniques. To be seen in 7-10 days if no improvement; sooner if worsening of symptoms. Patient advised of potential red flags and when appropriate to report to the ED. Patient verbalized understanding and agreement with all the above. 08/20/23 1059 <Electronically signed by Jaleel SANTOYO> Date Jaleel SANTOYO Cosigner Signature: Date (if applicable) CC: Dulce Maria Lynch MD Work Phone: Start: 05-22-2023 End: 05-22-2023 Urgent Care Visit Report Procedure Note: See Note; NOTES: [facility] [place] [id number] OFFICE VISIT Date of Service: 05/22/23 MR#: [id number] Acct: [id number] Name: LAWRENCE PATTON Rep #: [id number] : 2000 Provider: NATANAEL Garcia Age/Sex: 22/F Location: [facility] Status: Signed Intake Vital Signs 05/15/23 17:03 05/22/23 12:04 Height 5 ft 1 in 5 ft 1 in Weight: 120 lb BMI 22.6 Respiration 16 Pulse 70 Pulse Source Monitor Temp 97.6 F L Temp Source Temporal Pulse Oximetry (%) 99 Oxygen Delivery Method room air Intake Visit Reasons: 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/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 Chief Complaint: suture removal Classroom Assistant Required: No Accompanied by: Self Is patient in pain?: No Allergies No Known Allergies Allergy (Verified 05/22/23 12:06) Medications NK 05/22/23 [History] [facility] Medical History Acute otitis externa of left ear Constipation Impetigo Paronychia of toe of right foot Rhinitis, allergic Right lower quadrant abdominal pain URI (upper respiratory infection) Social History Smoking Status: Never smoker alcohol intake: never HPI HPI Chief Complaint: suture removal Details: LAWRENCE PATTON, is a 22 F who presents to the office today for follow-up of a work-related injury which occurred on 05/15/2023. On that date the patient sustained a laceration to her thumb. Patient states she has had no complications and denies numbness, tingling or loss range of motion of the finger. She has had no fever, chills, sweats. No nausea, vomiting, diarrhea. No other associated symptoms or alleviating/aggravating factors. ROS Const Constitutional: No other (As above) Exam Const General: cooperative and healthy appearing Resp Effort Inspection: normal respiratory effort Skin Other: Well-healing laceration right thumb. All sutures removed without complication. No surrounding erythema, warmth or drainage. No dehiscence of the wound. Neuro General: patient alert Psych Appearance: grossly normal Mental Status: mental status grossly normal Coding Level of Care Code Off vis,est,level 3 Diagnoses Laceration of thumb S61.019A Assessment and Plan Assessment and Plan (1) Laceration of thumb: Status: Acute Plan All sutures were removed without complication. [employer] 14 filled out releasing patient back to work today without restrictions. Patient advised he will need to follow-up here in this office and advised of ongoing wound management as well as symptomatic management techniques. Patient verbalized understanding and agreement with all the above. 05/22/23 1254 <Electronically signed by Jaleel SANTOYO> Date Jaleel SANTOYO Cosigner Signature: Date (if applicable) CC: Dulce Maria Lynch MD Work Phone: Start: 05-15-2023 End: 05-15-2023 Emergency Department Summary Procedure Note: See Note; NOTES: [facility] Records Department [address] [place] [address] Emergency Department Summary 05/15/23 MR#: [id number] Acct: [id number] Name: LAWRENCE PATTON Rep #: [id number] : 2000 22 From: Maxwell Trinh MD PCP: Dr. Dulce Maria Lynch MD Status:[facility] ER Location: ED HPI <Dr. Maxwell Trinh MD - Last Filed: 05/15/23 17:39> History of Present Illness Chief Complaint: Laceration <LJ Roberto - Last Filed: 05/15/23 17:43> Narrative Narrative: Patient is a 22-year-old female with no significant medical history presents to the emergency department with a laceration to the right thumb. Patient states that she cut her thumb with a piece of equipment at the grocery store. Patient has full range of motion. Patient tetanus vaccination is up-to-date and last 5 years. She denies any other injury. [facility] <Dr. Maxewll Trinh MD - Last Filed: 05/15/23 17:39> [facility] Medical History (Updated 05/15/23 @ 17:42 by LJ Roberto) Acute otitis externa of left ear Constipation Impetigo Paronychia of toe of right foot Rhinitis, allergic Right lower quadrant abdominal pain URI (upper respiratory infection) Allergy/AdvReac Type Severity Reaction Status Date / Time No Known Allergies Allergy Verified 05/15/23 17:08 Social History Smoking Status: Never smoker alcohol intake: never ROS <LJ Roberto - Last Filed: 05/15/23 17:43> ROS ED ROS Narrative Constitutional: Negative for fever, chills, weight loss, weakness Eyes: Negative for vision loss, vision change, double vision ENT: Negative for any sore throat, ear pain, congestion Cardiovascular: Negative for any chest pain, tightness, palpitations Respiratory: Negative for any cough, sputum production, hemoptysis, dyspnea, dyspnea on exertion, orthopnea Gastrointestinal: Negative for any abdominal pain, nausea, vomiting, diarrhea, constipation, blood in stool, blood in vomit : Negative for any urinary frequency, dysuria, retention, blood in urine Muscle skeletal: Negative for any muscle joint pain, stiffness, myalgias, arthralgias, neck pain, back pain. Positive right thumb pain Neurological: Negative for any headache, syncope, numbness or tingling, dizziness. Positive laceration of the right thumb Skin: Negative for any rashes, lumps, itching, abrasions, lacerations Psychiatric: Negative for any depression, anxiety, stress, suicidal ideation, homicidal ideation Hematologic: Negative for any easy bruising, excessive bruising, easy bleeding Allergies: Negative for any eczema, hives, rash EXAM <Dr. Maxwell Trinh MD - Last Filed: 05/15/23 17:39> Physical Exam Const Vital Signs: 05/15/23 17:03 Temperature 97.9 F Temperature Source Temporal Pulse Rate 100 Respiratory Rate 16 Blood Pressure 146/93 H Blood Pressure Mean 110 Pulse Ox 98 Oxygen Delivery Method Room Air <LJ Roberto - Last Filed: 05/15/23 17:43> Physical Exam Narrative Exam Narrative: Vital signs reviewed. Extremities: No peripheral edema, no signs of gross trauma or deformity. Active full range of motion of all extremities. Patient has a small 1.5 cm laceration to the palmar aspect of the distal right thumb. No tendon involvement. Full range of motion, two-point sensation. +2 radial pulse. Equal c java developer strength. Neuro: Cranial nerves II through XII intact, no focal neurological deficits. Skin: Clean dry and intact with no rash, purpura, petechiae, vesicles or pustules. Backs/flank: No CVA tenderness, no midline spinal tenderness, no deformity. Psych: Normal mood and affect. No SI, HI or acute psychosis. Const Vital Signs: 05/15/23 17:03 Temperature 97.9 F Temperature Source Temporal Pulse Rate 100 Respiratory Rate 16 Blood Pressure 146/93 H Blood Pressure Mean 110 Pulse Ox 98 Oxygen Delivery Method Room Air Positive well nourished and well developed General Appearance ED: well developed MDM <Dr. Maxwell Trinh MD - Last Filed: 05/15/23 17:39> [facility] Narrative Medical decision making narrative: I have personally performed a face to face assessment of the patient and have reviewed the MIGNON Note. I performed a substantive portion of the visit including all aspects of the following. My alberto findings include: History is [22-year-old healthy female. Laceration left thumb palmar side. About 2 cm.] Exam is [left hand neurovascular intact. Full range of motion. 2 cm laceration left thumb patient. Distal phalanx. Palmar side. Minimal oozing. No foreign body infection. Full flexion extension. Normal touch sensation. 4] Medical Decision Making [locally anesthetized and sutured repaired by our GREEN BUILDING ENERGY ENGINEER.] Other additions or changes: [None] History Record Review Discussion w/independent historian: Patient <LJ Roberto - Last Filed: 05/15/23 17:43> [facility] Treatment and Re-Evaluation Narrative: Patient appears generally well, patient appears nontoxic, vital signs are stable. Patient presents to the emergency department from work with a laceration to the palmar aspect of the right thumb. This is 1.5 cm. Patient no other injury. This would be a Workmen's Comp. All paperwork is filled out. The area was anesthetized, irrigated, did place 3 simple erupted sutures of 5-0 Ethilon. Patient tolerated well. She will have these removed in 7 to 10 days. Patient stable for discharge Discharge Plan Triage Chief Complaint: Laceration ED Midlevel Provider: Enrique Pena ED Provider: Maxwell Trinh Dx/Rx/DC Orders Clinical Impression: Laceration of thumb Instructions: ED Laceration Hand with ... Primary Care Provider: Dulce Maria Lynch Referrals: Dulce Maria Lynch MD [Primary Care Provider] - Activity Restrictions/Additional Instructions: Please have the sutures moved in 7 to 10 days. Disposition Disposition: Home, Self Care What to do if you have Problems For any increased pain, shortness of breath, bleeding, nausea or vomiting, chest pain, or any unexpected problems, contact your Primary Care Provider. Call [facility] ([phone]) or report to the closest Emergency Room. Call 911 if necessary. 05/15/232122 <Electronically signed by Maxwell Trinh MD> Cosigner Signature (if applicable): 05/15/231742 <Electronically signed by Enrique CALHOUN> CC: Dr. Dulce Maria Lynch MD Signed Dulce Maria Lynch MD Work Phone: Start: 02-13-[address] Dulce Maria Lynch Work Phone: Start: 02-13-2023 End: 02-13-2023 Sinus/Facial Bone Procedure Note: See Note; NOTES: [facility] Imaging Services [address] [place] [address] Sinus/Facial Bone MR#: [id number] Acct: [id number] Name: LAWRENCE PATTON Rep #: [id number] : 2000 F 22 From: Fili escobedo MD PCP: Dr. Dulce Maria Lynch MD Status: REG CLI Study: Sinus/Facial Bone Date of Exam: 02/13/23 Exam# [id number] Ordering Dr: Isac Puentes MD STUDY: CT MAXILLOFACIAL SINUSES REASON FOR EXAM: Female, 22 years old. SINUSITIS RADIATION DOSAGE (If Supplied By Facility): CTDIvol = ( 28.14 ) mGy, DLP = ( 816.54 ) mGycm TECHNIQUE: The patient was scanned in a multi detector CT scanner. High resolution axial imaging was performed without the administration of intravenous contrast material. Sagittal and coronal images were reconstructed. Individualized dose optimization techniques were used for this CT. COMPARISON: None. FINDINGS: FRONTAL SINUSES: Normal aeration, without mucosal inflammatory disease. ETHMOIDAL SINUSES: Mild mucosal thickening of the ethmoid sinuses. MAXILLARY SINUSES: There is a minimal degree of mucosal thickening along the medial wall of the maxillary sinus bilaterally. SPHENOIDAL SINUSES: Normal aeration, without mucosal inflammatory disease. There is patency of the bilateral maxillary infundibuli with normal uncinate processes, ethmoid bullae, and hiatus semilunaris. Normal bilateral middle turbinates. Normal bilateral inferior turbinates. Normal midline nasal septum. There is patency of the bilateral nasal airways. The visualized osseous structures are normal. The visualized bilateral orbital contents are normal. CT/Sinus/Facial Bone IMPRESSION: Mild degree of mucosal thickening of the ethmoid sinuses and the medial donohue of both maxillary sinuses. Electronically Signed: Fili Rodriguez MD at 13:30 EDT Reading Location ID and State: [address] [place] [address] , Service support , CC: Dr. Dulce Maria Lynch MD; Dr. Isac Puentes MD Underwear Cutter: Signed Isac Puentes MD Work Phone: Start: 01-17-2023 End: 01-17-2023 Urgent Care Visit Report Procedure Note: See Note; NOTES: [facility] [address] [place] [address] OFFICE VISIT Date of Service: 01/17/23 MR#: [id number] Acct: [id number] Name: LAWRENCE PATTON Rep #: [id number] : 2000 Provider: NATANAEL ricks Age/Sex: 22/F Location: [facility] Status: Signed Intake Vital Signs 11/15/20 08:52 01/17/23 12:11 Height 5 ft 2 in BP 108/60 Blood Pressure Location Lt brachial Position Sitting Respiration 14 Pulse 69 Pulse Source Monitor Temp 98.2 F Temp Source Temporal Pulse Oximetry (%) 99 Oxygen Delivery Method room air Intake Visit Reasons: BILATERAL EAR CONCERN Chief Complaint: nasal congestion Allergies No Known Allergies Allergy (Verified 12/25/22 14:11) [facility] Medical History (Updated 01/17/23 @ 12:30 by Jesús Greenwood PA, PA) Acute otitis externa of left ear Constipation Impetigo Paronychia of toe of right foot Rhinitis, allergic Right lower quadrant abdominal pain URI (upper respiratory infection) Social History Smoking Status: Never smoker alcohol intake: never HPI HPI Chief Complaint: nasal congestion Details: LAWRENCE PATTON, is a 22 F who presents to the office today for initial evaluation approximately 24- hour history of bilateral (L>R) ear discomfort and nasal congestion. Left external ear tender to touch she also notes. No complaints of fever, chills, sweats, lightheadedness/dizziness, nausea/vomiting. No uaca-gxu-cuknuhh products taken to assist. No other associated symptoms and no alleviating/aggravating factors.. ROS Const Constitutional: No other (As above) Exam Const General: cooperative, healthy appearing and no acute distress Nutritional Appearance: average body habitus Orientation: alert, awake and oriented x3 HENMT Head: normal to inspection Ears: hearing grossly normal bilaterally, external ears normal, TM's normal bilaterally, EAC's normal (Right only) and EAC abnormal erythema on the left and EAC tenderness on the left Nose: external nose normal, nares normal, septum normal and nasal discharge clear bilaterally (Treat similar) Face and sinus: normal facial exam, sinuses nontender and face symmetric Mouth: oral mucosae normal, lip normal, tongue normal and oropharynx normal Throat: posterior oropharynx normal, tonsils normal, uvula midline and no postnasal drainage Eyes General: appearance normal, both eyes and all related structures Neck Neck: normal visual inspection, full ROM, no lymphadenopathy, no meningeal signs and supple Neck mass: No Thyroid: thyroid normal Lymphatic: no lymphadenopathy noted Chest Chest palpation inspection: normal inspection of the chest Resp Effort Inspection: normal respiratory effort and able to speak in complete sentences Auscultation: Bilateral: Clear to Auscultation Cardio Palpation: normal PMI Rate: regular rate Rhythm: regular rhythm Heart Sounds: S1 normal, S2 normal, no gallops, no murmurs and no rubs Pulses: radial pulses present GI Inspection: normal to inspection Skin General: no rashes or lesions noted Neuro General: patient alert, patient awake and patient oriented x3 Cognition: normal cognition Speech: speech normal Psych Appearance: grossly normal Mental Status: mental status grossly normal Mood: congruent mood Affect: normal affect Speech and Movement: speech and movement normal Attitude: cooperative Thought Process: normal Thought Content: normal Judgment: judgment good Coding Level of Care Code Off vis,est,level 3 Diagnoses URI (upper respiratory infection) J06.9 Acute otitis externa of left ear H60.502 Assessment and Plan Assessment and Plan (1) URI (upper respiratory infection): Status: Acute (2) Acute otitis externa of left ear: Status: Acute Plan: Cortisporin otic drops as prescribed today. Supportive measures as instructed today. Follow-up with PCP in 3 to 5 days should symptoms not improve, sooner should symptoms worsen or any other concerns develop. Patient states acknowledging understanding all the above. This note was generated with [employer] dictation software. It may contain incorrect words, spelling, and punctuation that were not noted in checking the note before signing. Medications: New vbfyxohz-unbhkwftd-TC 3.5-10,000-1 mg/mL-unit/mL-% to affected ear(s) while awake 4 drps otic (ear) TID 10 days 10 mL 0RF 01/17/23 1231 <Electronically signed by Jesús SANTOYO> Date Jesús SANTOYO Cosigner Signature: Date (if applicable) CC: Dulce Maria Lynch MD Work Phone: Start: 12-25-2022 End: 12-25-2022 Urgent Care Visit Report Procedure Note: See Note; NOTES: [address] [place] [address] OFFICE VISIT Date of Service: 12/25/22 MR#: [id number] Acct: [id number] Name: LAWRENCE PATTON Rep #: [id number] : 2000 Provider: NATANAEL ricks Age/Sex: 22/F Location: [facility] Status: Signed Intake Vital Signs 11/15/20 08:52 12/25/22 14:10 Height 5 ft 2 in BP 116/70 Blood Pressure Location Lt brachial Position Sitting Respiration 16 Pulse 69 Pulse Source Monitor Temp 98.7 F Temp Source Temporal Pulse Oximetry (%) 99 Oxygen Delivery Method room air Intake Visit Reasons: scabs in nose and sore throat Allergies No Known Allergies Allergy (Verified 12/25/22 14:11) Medications amoxicillin 500 mg capsule 500 mg PO TID 10 days #30 caps 12/25/22 [Rx Confirmed 12/25/22] [facility] Medical History (Updated 12/25/22 @ 15:23 by Jesús SANTOYO, [place]) Constipation Impetigo Paronychia of toe of right foot Rhinitis, allergic Right lower quadrant abdominal pain Social History Smoking Status: Never smoker alcohol intake: never HPI HPI Details: LAWRENCE PATTON, is a 22 F who presents to the office today for initial evaluation approximately 1 week history of honey-colored crusting lesions to bilateral nares. Patient first noticed them approximately week ago when tension external nose and felt soreness inside and upon self inspection appreciated the lesions as previously described. She notes his symptoms have only progressively worsened/become more sore over the last several days. No complaints of fever, chills, sweats. No gxkj-hox-hkbbtnu products tried to assist with symptoms. No other associated symptoms and no alleviating/aggravating factors. ROS Const Constitutional: No other (As above) Exam Const General: cooperative, healthy appearing and no acute distress Nutritional Appearance: average body habitus Orientation: alert, awake and oriented x3 HENMT Head: normal to inspection Ears: hearing grossly normal bilaterally and external ears normal Nose: external nose normal, nares abnormal (Several pinpoint honey colored crusting lesions to both nares), septum normal and no nasal discharge Face and sinus: normal facial exam, sinuses nontender and face symmetric Mouth: lip normal Eyes General: appearance normal, both eyes and all related structures Neck Neck: normal visual inspection, full ROM, no lymphadenopathy, no meningeal signs and supple Chest Chest palpation inspection: normal inspection of the chest Resp Effort Inspection: normal respiratory effort and able to speak in complete sentences Cardio Rate: regular rate Pulses: radial pulses present Skin General: no rashes or lesions noted Neuro General: patient alert, patient awake and patient oriented x3 Cognition: normal cognition Speech: speech normal Psych Appearance: grossly normal Mental Status: mental status grossly normal Mood: congruent mood Affect: normal affect Speech and Movement: speech and movement normal Attitude: cooperative Thought Process: normal Thought Content: normal Judgment: judgment good Coding Level of Care Code Off vis,est,level 3 Diagnoses Impetigo L01.00 Assessment and Plan Assessment and Plan (1) Impetigo: Status: Acute Plan: Amoxicillin as prescribed today. Skin care measures as instructed today. Supportive measures as instructed today. Follow-up with PCP in 3 to 5 days should symptoms not improve, sooner should symptoms worsen or any other concerns develop. Patient states acknowledging understanding all the above. This note was generated with [employer] dictation software. It may contain incorrect words, spelling, and punctuation that were not noted in checking the note before signing. Medications: New amoxicillin 500 mg PO TID 10 days 30 caps 0RF 12/25/22 1524 <Electronically signed by Jesús SANTOYO> Date Jesús SANTOYO Cosigner Signature: Date (if applicable) CC: Dulce Maria Lynch MD Work Phone: Start: 11-13-2022 End: 11-13-2022 Urgent Care Visit Report Procedure Note: See Note; NOTES: [place] [address] OFFICE VISIT Date of Service: 11/13/22 MR#: [id number] Acct: [id number] Name: LAWRENCE PATTON Rep #: [id number] : 2000 Provider: NATANAEL Tsai Age/Sex: 22/F Location: [facility] Status: Signed Intake Vital Signs 11/15/20 08:52 11/13/22 08:34 Height 5 ft 2 in BP 114/66 Blood Pressure Location Lt brachial Position Sitting Respiration 14 Pulse 77 Pulse Source Monitor Temp 99.9 F H Temp Source Temporal Pulse Oximetry (%) 98 Oxygen Delivery Method room air Intake Visit Reasons: SINUS INFECTION/EAR PAIN Chief Complaint: nasal congestion Allergies No Known Allergies Allergy (Verified 08/14/22 11:36) [facility] Medical History (Updated 11/13/22 @ 09:22 by Jaleel SANTOYO, NATANAEL) Constipation Paronychia of toe of right foot Rhinitis, allergic Right lower quadrant abdominal pain Social History Smoking Status: Never smoker alcohol intake: never HPI HPI Chief Complaint: nasal congestion Details: LAWRENCE PATTON, is a 22 F who presents to the office today for complaint of sinus congestion and nasal drainage starting yesterday. Patient denies fever, chills, sweats. No hemoptysis, shortness of breath or difficulty breathing. No nausea, vomiting, diarrhea. No other associated symptoms or alleviating/aggravating factors. ROS Const Constitutional: No other (As above) Exam Const General: cooperative and healthy appearing HENNV Head: normal to inspection Ears: hearing grossly normal bilaterally, TM's normal bilaterally and EAC's normal Nose: nasal discharge purulent Face and sinus: sinus tenderness frontal and maxillary Mouth: oral mucosae normal Throat: abnormal tonsil bilaterally erythema and hypertrophy 1+ and postnasal drainage Resp Effort Inspection: normal respiratory effort Auscultation: Bilateral: Clear to Auscultation Cardio Palpation: normal PMI Rate: regular rate Rhythm: regular rhythm Neuro General: patient alert and CN's II-XI intact bilaterally Psych Appearance: grossly normal Mental Status: mental status grossly normal Results POC JOSELO Covid FluAB PCR POC Joselo Covid PCR Detected Last Edit by Jo Coto on 11/13/22 08:54 POC JOSELO FLU NOT DETECTED FLU A B Last Edit by Jo Coto on 11/13/22 08:54 Coding Level of Care Code Off vis,est,level 3 Diagnoses COVID-19 U07.1 Assessment and Plan Assessment and Plan (1) COVID-19: Status: Acute Plan: Patient tested positive for COVID in the office today. Encouraged to get plenty of rest, drink lots of clear liquids, and use Tylenol or Ibuprofen (unless contraindicated) for fever and comfort. Patient also educated on other symptomatic management techniques. To be seen in 7-10 days if no improvement; sooner if worsening of symptoms. Patient advised of potential red flags and when appropriate to report to the ED. Advised of appropriate quarantine protocols. Patient verbalized understanding and agreement with all the above. Orders: Orders POC Joselo Covid FLUAB PCR Today R52 - Pain, unspecified Medications: New dexamethasone 6 mg PO DAILY 5 tabs 0RF 11/13/22922 <Electronically signed by Jaleel SANTOYO> Date Jaleel SANTOYO Cosigner Signature: Date (if applicable) CC: Dulce Maria Lynch MD Work Phone: Start: 08-14-2022 End: 08-14-2022 Urgent Care Visit Report Procedure Note: See Note; NOTES: [facility] [address] [place], [place] [id number] OFFICE VISIT Date of Service: 08/14/22 MR#: [id number] Acct: [id number] Name: LAWRENCE PATTON Rep #: [id number] : 2000 Provider: NATANAEL ricks Age/Sex: 22/F Location: [facility] Status: Signed Intake Vital Signs 08/14/22 11:35 BP 128/70 H Blood Pressure Location Lt brachial Position Sitting Respiration 18 Pulse 93 Pulse Source Monitor Temp 98.6 F Temp Source Temporal Pulse Oximetry (%) 99 Oxygen Delivery Method room air Intake Visit Reasons: UTI? Chief Complaint: nasal congestion Allergies No Known Allergies Allergy (Verified 08/14/22 11:36) Medications fluconazole 150 mg tablet 150 mg PO Q3D 2 doses #2 tabs 06/23/21 [Rx Confirmed 06/23/21] [facility] Medical History (Updated 08/14/22 @ 13:58 by Jesús SANTOYO, PA) Constipation Paronychia of toe of right foot Rhinitis, allergic Right lower quadrant abdominal pain Social History Smoking Status: Never smoker alcohol intake: never HPI HPI Chief Complaint: nasal congestion Details: LAWRENCE PATTON, is a 22 F who presents to the office today for proximately 1 month history of persistent left lower quadrant abdominal discomfort, with pain aggravated to palpation of the same, alleviated minimally with rest. Patient has no complaints of dysuria or urinary frequency, and notes having recently ending her menstrual cycle 2 to 3 days ago. No complaints of fever, chills, sweats. Patient admits to insufficient p.o. fluids as well as admitting large diameter hard stools with discomfort every time she passes a bowel movement about every other day; no melena/hematochezia. No complaints of chest pain/shortness of breath, back pain, or nausea/vomiting. No gsdh-xsw-epthcyc products taken to assist. No other associated symptoms and no other alleviating/aggravating factors. ROS Const Constitutional: No other (As above) Exam Const General: cooperative, healthy appearing and no acute distress Nutritional Appearance: average body habitus Orientation: alert, awake and oriented x3 [facility] Head: normal to inspection Neck Neck: normal visual inspection, full ROM, no lymphadenopathy, no meningeal signs and supple Neck mass: No Thyroid: thyroid normal Lymphatic: no lymphadenopathy noted Chest Chest palpation inspection: normal inspection of the chest Resp Effort Inspection: normal respiratory effort and able to speak in complete sentences Auscultation: Bilateral: Clear to Auscultation Cardio Palpation: normal PMI Rate: regular rate Rhythm: regular rhythm Heart Sounds: S1 normal, S2 normal, no gallops, no murmurs and no rubs Pulses: radial pulses present GI Inspection: normal to inspection Palpation: soft, no hepatosplenomegaly, not firm, no guarding and tender in the LLQ (Minimal to palpation); not in the epigastrum, not in the RLQ, not in the LUQ, not in the RUQ, not at McBurney's point, not suprapubicly, Boo's sign negative and with no rebound tenderness General: No CVA tenderness Skin General: no rashes or lesions noted Neuro General: patient alert, patient awake, patient oriented x3 and gait normal Cognition: normal cognition Speech: speech normal Gait: normal gait Motor: muscle tone normal throughout Sensory Exam: no sensory deficits noted Extrem General: normal to inspection Psych Appearance: grossly normal Mental Status: mental status grossly normal Mood: congruent mood Affect: normal affect Speech and Movement: speech and movement normal Attitude: cooperative Thought Process: normal Thought Content: normal Judgment: judgment good Results POC Urinalysis Dip (Clinic) Office Urine Color Yellow Last Edit by Pina Cardenas on 08/14/22 11:42 Office Urine Clarity Clear Last Edit by Pina Cardenas on 08/14/22 11:42 Office Urine Glucose Negative Last Edit by Pina Cardenas on 08/14/22 11:42 Office Urine Ketones Negative Last Edit by Pina Cardenas on 08/14/22 11:42 Off Ur Spec [place] 1.005 Last Edit by Pina Cardenas on 08/14/22 11:42 Office Urine pH 5.0 Last Edit by Pina Cardenas on 08/14/22 11:42 Office Urine Bilirubin Negative Last Edit by Pina Cardenas on 08/14/22 11:42 Office Urine Urobilinogen 0.2 mg/dL Last Edit by Pina Cardenas on 08/14/22 11:42 Office Urine Blood Trace Last Edit by Pina Cardenas on 08/14/22 11:42 Office Urine Blood Hemolyzed Non-Hemolyzed Last Edit by Pina Cardenas on 08/14/22 11:42 Office Urine Protein Negative Last Edit by Pina Cardenas on 08/14/22 11:42 Office Urine Nitrate Negative Last Edit by Pina Cardenas on 08/14/22 11:42 Off Ur Leukocytes Negatve Last Edit by Pina Cardenas on 08/14/22 11:42 POC Urine Office , Urine Negative Last Edit by Pinaandria Cardenas on 08/14/22 11:43 Coding Level of Care Code Off vis,est,level 2 Diagnoses Constipation K59.00 Right lower quadrant abdominal pain R10.31 Assessment and Plan Assessment and Plan (1) Constipation: Status: Acute (2) Right lower quadrant abdominal pain: Status: Acute Plan: Urine dip and urine hCG results unremarkable; urine sample sent off for urinalysis and culture and sensitivity. Reinforce appropriate hydration/nutrition intake. Zecz-cav-hfgmpwv Colace as needed as instructed today. Follow-up with PCP in 5 to 7 days should symptoms not improve, ED sooner should symptoms worsen or any other concerns develop. Patient states acknowledging understanding all the above. This note was generated with [employer] software. It may contain incorrect words, spelling, and punctuation that were not noted in checking the note before signing. Orders: Orders POC Urine Today R10.9 - Unspecified abdominal pain POC Urinalysis Dip (Clinic) Today R10.9 - Unspecified abdominal pain Urinalysis, Complete Today R10.9 - Unspecified abdominal pain Culture, Urine Today R10.9 - Unspecified abdominal pain 08/14/22 1359 <Electronically signed by Jesús SANTOYO> Date Jesús SANTOYO Cosigner Signature: Date (if applicable) CC: Dulce Maria Lynch MD Work Phone: Start: 03-15-2022 End: 03-15-2022 Urgent Care Visit Report Comments: See Note; NOTES: [address] [address] OFFICE VISIT Date of Service: 03/15/22 MR#: [id number] Acct: [id number] Name: LAWRENCE PATTON Rep #: [id number] : 2000 Provider: LJ vinson Age/Sex: 21/F Location: [facility] Status: Signed Intake Vital Signs 03/15/22 08:40 BP 116/68 Blood Pressure Location Lt brachial Position Sitting Respiration 14 Pulse 63 Pulse Source Monitor Temp 98.6 F Temp Source Temporal Pulse Oximetry (%) 98 Oxygen Delivery Method room air Intake Visit Reasons: HEAD COLD Chief Complaint: nasal congestion Allergies No Known Allergies Allergy (Verified 06/23/21 09:21) [facility] Medical History (Updated 03/15/22 @ 08:51 by LJ Michel) Paronychia of toe of right foot Rhinitis, allergic Social History Smoking Status: Never smoker alcohol intake: never HPI HPI Chief Complaint: nasal congestion Details: LAWRENCE PATTON, is a 21 F who presents to the office today for sick symptoms for 2 weeks. Patient reports that she is now having ear pain, headaches, and increased congestion. Patient states that she is followed by an barrel brander, has taken allergy medicine in the past but states that it does not help. ROS Const Constitutional: Positive for fatigue, headache(s) and decreased energy; No fever(s) Eyes Eyes: No eye pain ENT ENT: Positive for ear or mastoid pain (bilateral), ear pressure, nasal congestion, sinus pressure, nasal discharge and headache(s); No ear discharge, nosebleed/epistaxis or sore throat Resp Respiratory: No cough, chest congestion, shortness of breath, pain with cough or wheezing Cardio Cardiology: No chest pain at rest or shortness of breath Gastro GI: No abdominal pain, diarrhea or vomiting Musc Musculoskeletal: No other (aches) Neuro Neurology: Positive for headache(s) Endo Endocrine: Positive for fatigue Aller/Imm Allergy/Immunologic: No wheezing Exam Const General: cooperative, comfortable, no acute distress and other (tired appearing ) Nutritional Appearance: average body habitus and well nourished Orientation: alert, awake and oriented x3 HENMT Head: normal to inspection Ears: hearing grossly normal bilaterally, EAC abnormal erythema on the right and TM abnormal (right ear drum bulging and yellow, left ear drum red with fluid) wth effusion (bilateral), erythematous, with fluid behind the TM and with loss of landmarks Nose: external nose normal and mucous membranes and turbinates abnormal erythematous Face and sinus: sinus tenderness Mouth: oral mucosae normal Throat: posterior oropharynx normal and posterior oropharynx abnormal erythema; no exudates Eyes General: appearance normal, both eyes and all related structures Visual Meneses: normal visual meneses by confrontation Alignment and Position: alignment normal Periorbital: periorbital findings normal Eyelids: eyelids normal Conjunctivae: conjunctivae normal Sclera: sclerae normal Cornea: corneas normal Neck Neck: lymphadenopathy (bilateral shotty anterior cervical slightly tender nodes, mobile, <1cm) Lymphatic: no lymphedema noted Resp Effort Inspection: normal respiratory effort and able to speak in complete sentences Auscultation: Bilateral: Clear to Auscultation Cardio Rate: regular rate Rhythm: regular rhythm Heart Sounds: S1 normal and S2 normal Skin Rashes: no rashes Neuro General: patient alert, patient awake and patient oriented x3 Cognition: normal cognition Speech: speech normal Gait: normal gait Psych Appearance: grossly normal Mental Status: mental status grossly normal Affect: normal affect Speech and Movement: speech and movement normal Coding Level of Care Code Off vis,est,level 4 Diagnoses Acute suppurative otitis media H66.009 Frontal sinusitis J32.1 Otitis externa H60.90 Assessment and Plan Assessment and Plan (1) Acute suppurative otitis media: Status: Acute (2) Frontal sinusitis: Status: Acute (3) Otitis externa: Status: Acute Patient Instructions: Start Augmentin for sinus infection and ear infection. Recommend taking medication with food, and taking a daily probiotic supplement. Recommend follow-up with primary care provider in 3 to 4 days if no improvement in symptoms. Recommend rest, increase fluids, Tylenol or Motrin as needed and indicated. Will also treat for otitis externa, antibiotic eardrops prescribed today. Plan Details Other Medications: New: amoxicillin-pot clavulanate 875-125 mg take with food 1 TAB PO BID 10 days 20 tabs 0RF ofloxacin 0.3% 5 drps otic (ear) BID 7 days 10 mL 0RF 03/15/22 0858 <Electronically signed by Yadira CALHOUN> Date Yadira Merlos [employer] Cosigner Signature: Date (if applicable) CC: MD Dulce Maria Mcfarlane MD Work Phone: Start: 12-30-2021 End: 12-30-2021 Urgent Care Visit Report Comments: See Note; NOTES: [facility] [address] [place] [address] [address] [place] [address] OFFICE VISIT Date of Service: 12/30/21 MR#: [id number] Acct: [id number] Name: LAWRENCE PATTON Rep #: [id number] : 2000 Provider: NATANAEL ricks Age/Sex: 21/F Location: [facility] Status: Signed Intake Vital Signs 12/30/21 12:49 BP 118/60 Blood Pressure Location Lt brachial Position Sitting Respiration 16 Pulse 80 Pulse Source Monitor Temp 97.8 F Temp Source Temporal Pulse Oximetry (%) 99 Oxygen Delivery Method room air Intake Visit Reasons: EAR PAIN Chief Complaint: nasal congestion Allergies No Known Allergies Allergy (Verified 06/23/21 09:21) [facility] Medical History (Updated 10/23/21 @ 16:51 by Jesús SANTOYO, NATANAEL) Paronychia of toe of right foot Rhinitis, allergic Social History Smoking Status: Never smoker alcohol intake: never HPI HPI Chief Complaint: nasal congestion Details: LAWRENCE PATTON, is a 21 F who presents to the office today for evaluation approximately 7 to 10-day history of progressively worsening facial pressure, purulent postnasal drip and bilateral ear pressure. Patient states she is seeing an barrel brander for chronic sinus congestion, stating she has been instructed to take Crista-D on a daily basis but feels this is not improving. No complaints fever, chills, sweats, lightheadedness/dizziness. No complaints of cough, chest pressure/shortness of breath. Non-smoker. No other close contacts with similar complaints. No other associated symptoms and no other alleviating/aggravating factors. ROS Const Constitutional: No other (As above) Exam Const General: cooperative, healthy appearing, comfortable and no acute distress Nutritional Appearance: average body habitus and well nourished Orientation: alert, awake and oriented x3 HENMT Head: normal to inspection Ears: hearing grossly normal bilaterally, external ears normal, TM's normal bilaterally and EAC's normal Nose: external nose normal, nares normal, septum normal and no nasal discharge Face and sinus: normal facial exam, face symmetric and sinus tenderness frontal and maxillary; not ethmoid Mouth: oral mucosae normal, lip normal, tongue normal and moist mucous membranes Throat: posterior oropharynx normal, tonsils normal, uvula midline and no postnasal drainage Eyes General: appearance normal, both eyes and all related structures Neck Neck: normal visual inspection, full ROM, no meningeal signs, supple and lymphadenopathy (Bilateral anterior cervical node swelling, nontender to palpation) Neck mass: No Thyroid: thyroid normal Chest Chest palpation inspection: normal inspection of the chest Resp Effort Inspection: normal respiratory effort, able to speak in complete sentences, symmetric chest movement and no cough Auscultation: Bilateral: Clear to Auscultation Cardio Palpation: normal PMI Rate: regular rate Rhythm: regular rhythm Heart Sounds: S1 normal, S2 normal, no gallops, no murmurs and no rubs Pulses: radial pulses present GI Inspection: normal to inspection Skin General: no rashes or lesions noted Neuro General: patient alert, patient awake, patient oriented x3 and gait normal Cognition: normal cognition Speech: speech normal Gait: normal gait Motor: muscle tone normal throughout Sensory Exam: no sensory deficits noted Psych Appearance: grossly normal Mental Status: mental status grossly normal Mood: congruent mood Affect: normal affect Speech and Movement: speech and movement normal Attitude: cooperative Thought Process: normal Thought Content: normal Judgment: judgment good Coding Level of Care Code Off vis,est,level 3 Diagnoses Acute sinusitis, unspecified J01.40 Sinusitis location: pansinusitis Recurrence: non-recurrent Assessment and Plan Assessment and Plan (1) Acute sinusitis, unspecified: Status: Acute Qualifiers: Sinusitis location: pansinusitis Recurrence: non-recurrent Qualified Code(s): J01.40 - Acute pansinusitis, unspecified Plan - NATANAEL Castillo: Augmentin as prescribed today. Continue Crista-D as previously instructed. Supportive measures as instructed today. Follow-up with PCP or barrel brander, Dr. Dean, in 5 to 7 days should symptoms not improve, sooner should symptoms worsen or any other concerns develop. Patient states acknowledging understanding all the above. This note was generated with [employer] software. It may contain incorrect words, spelling, and punctuation that were not noted in checking the note before signing. Plan Details Other Medications: Refilled: amoxicillin-pot clavulanate 500-125 mg 1 TAB PO TID 30 tabs 0RF 12/30/21 1314 <Electronically signed by Jesús SANTOYO> Date Jesús SANTOYO Cosigner Signature: Date (if applicable) CC: Dulce Maria Lynch MD Work Phone: Start: 10-23-2021 End: 10-23-2021 Urgent Care Visit Report Comments: See Note; NOTES: [facility] [address] [place], [place] [id number] OFFICE VISIT Date of Service: 10/23/21 MR#: [id number] Acct: [id number] Name: LAWRENCE PATTON Rep #: [id number] : 2000 Provider: NATANAEL ricks Age/Sex: 21/F Location: [facility] Status: Signed Intake Vital Signs 10/23/21 16:35 BP 118/64 Blood Pressure Location Lt brachial Position Sitting Respiration 16 Pulse 77 Pulse Source Monitor Temp 97.9 F Temp Source Temporal Pulse Oximetry (%) 98 Oxygen Delivery Method room air Intake Visit Reasons: INFECTED BIG TOE RIGHT FOOT Chief Complaint: nasal congestion Allergies No Known Allergies Allergy (Verified 06/23/21 09:21) [facility] Medical History (Updated 10/23/21 @ 16:51 by Jesús SANTOYO PA) Paronychia of toe of right foot Rhinitis, allergic Social History Smoking Status: Never smoker alcohol intake: never HPI HPI Chief Complaint: nasal congestion Details: LAWRENCE PATTON, is a 21 F who presents to the office today for initial evaluation approximately 1 week history of progressive worsening right great toe paronychia. Localized tenderness and swelling appreciated which is only worsened particularly over the last 24 hours. Pain is aggravated to touch, alleviated with rest. No epqm-lnb-wtkctcj products taken to assist. Td less than 6 years. No other associated symptoms and no alleviating/aggravating factors. ROS Const Constitutional: No other (As above) Exam Const General: cooperative, healthy appearing, comfortable and no acute distress Nutritional Appearance: average body habitus and well nourished Orientation: alert, awake and oriented x3 HENMT Ears: hearing grossly normal bilaterally, external ears normal, TM's normal bilaterally, EAC's normal and other ((Patient requested ear exam before discharging to ensure no excess cerumen)) Skin General: no rashes or lesions noted (See extremity exam) Neuro General: patient alert, patient awake, patient oriented x3 and gait normal Cognition: normal cognition Speech: speech normal Gait: normal gait Motor: muscle tone normal throughout Sensory Exam: no sensory deficits noted Extrem General: full ROM, capillary refill normal and normal exam except as noted (Right great toe proximal lateral paronychia) Psych Appearance: grossly normal Mental Status: mental status grossly normal Mood: congruent mood Affect: normal affect Speech and Movement: speech and movement normal Attitude: cooperative Thought Process: normal Thought Content: normal Judgment: judgment good Coding Level of Care Code Off vis,est,level 3 Diagnoses Paronychia of toe of right foot L03.031 Assessment and Plan Assessment and Plan (1) Paronychia of toe of right foot: Status: Acute Plan - Jesús SANTOYO, PA: Augmentin as prescribed today. Twice daily wound care as instructed today. Supportive measures as instructed today. Follow-up with PCP in 3 to 5 days should symptoms not improve, sooner should symptoms worsen or any other concerns develop. Patient states acknowledging understanding all the above. This note was generated with Dragon dictation software. It may contain incorrect words, spelling, and punctuation that were not noted in checking the note before signing. Plan Details Other Medications: New: amoxicillin-pot clavulanate 500-125 mg 1 TAB PO TID 30 tabs 0RF 10/23/21 1652 <Electronically signed by Jesús SANTOYO> Date Jesús SANTOYO Cosigner Signature: Date (if applicable) CC: Dulce Maria Lynch MD Work Phone: Start: 06-23-2021 End: 06-23-2021 Urgent Care Visit Report Comments: See Note; NOTES: [facility] [address] [place] [address] OFFICE VISIT Date of Service: 06/23/21 MR#: [id number] Acct: [id number] Name: LAWRENCE PATTON Rep #: [id number] : 2000 Provider: LJ vinson Age/Sex: 21/F Location: [facility] Status: Signed Intake Vital Signs 06/23/21 08:53 BP 100/58 L Blood Pressure Location Lt brachial Position Sitting Respiration 15 Pulse 99 Pulse Source Monitor Temp 98.4 F Temp Source Temporal Pulse Oximetry (%) 99 Oxygen Delivery Method room air Intake Visit Reasons: Urinary tract infection Allergies No Known Allergies Allergy (Verified 06/23/21 09:21) Medications fluconazole 150 mg tablet 150 mg PO Q3D #2 tab 06/23/21 [Rx Confirmed 06/23/21] PFSH Medical History Rhinitis, allergic Social History Smoking Status: Never smoker alcohol intake: never HPI HPI Details: LAWRENCE PATTON, is a 21 F who presents to the office today for vaginal irritation and itching. Patient denies the following: Dysuria, urinary frequency or urgency, fever, abdominal pain, vomiting, diarrhea. Patient reports that symptoms started about 3 days ago patient reports she is not on her period, ended a few weeks ago. Patient reports she does use fragrance free soaps ROS Const Constitutional: Positive for other (see HPI, otherwise normal ROS) Exam Const General: cooperative, healthy appearing, comfortable and no acute distress Nutritional Appearance: average body habitus Orientation: alert and awake Resp Effort Inspection: normal respiratory effort Auscultation: Bilateral: Clear to Auscultation Cardio Rate: regular rate Rhythm: regular rhythm Heart Sounds: S1 normal and S2 normal GI Palpation: soft and nontender External Female Exam: normal external appearance Speculum Exam - Vagina: abnormal vaginal discharge (erythema) white Results POC Urine Office , Urine Negative Last Edit by Loreta Reynolds RN on 06/23/21 09:16 POC Urinalysis Dip (Clinic) Office Urine Color Yellow Last Edit by Loreta Reynolds RN on 06/23/21 09:18 Office Urine Clarity Clear Last Edit by Loreta Reynolds RN on 06/23/21 09:18 Office Urine Glucose Negative Last Edit by Loreta Reynolds RN on 06/23/21 09:18 Office Urine Ketones Negative Last Edit by Loreta Reynolds RN on 06/23/21 09:18 Off Ur Spec [place] 1.030 Last Edit by Loreta Reynolds RN on 06/23/21 09:18 Office Urine pH 5.0 Last Edit by Loreta Reynolds RN on 06/23/21 09:18 Office Urine Bilirubin Negative Last Edit by Loreta Reynolds RN on 06/23/21 09:18 Office Urine Urobilinogen 0.2 mg/dL Last Edit by Loreta Reynolds RN on 06/23/21 09:18 Office Urine Blood Hemolyzed Last Edit by Loreta Reynolds RN on 06/23/21 09:18 Office Urine Blood Hemolyzed Small Last Edit by Loreta Reynolds RN on 06/23/21 09:18 Office Urine Protein Negative Last Edit by Loreta Reynolds RN on 06/23/21 09:18 Office Urine Nitrate Negative Last Edit by Loreta Reynolds RN on 06/23/21 09:18 Off Ur Leukocytes Positive Last Edit by Loreta Reynolds RN on 06/23/21 09:18 Trace leukocytes Coding Level of Care Code Off vis,est,level 3 Diagnoses Urinary tract infection N39.0 Vaginal yeast infection B37.3 Assessment and Plan Assessment and Plan (1) Urinary tract infection: (2) Vaginal yeast infection: Status: Acute Orders: Orders: POC Urine Today N39.0 POC Urinalysis Dip (Clinic) Today N39.0 Culture, Urine Today N39.0 Urinalysis, Complete Today N39.0 Plan - SHEREE MichelC: We will treat with oral Diflucan, take 1 tablet today, and repeat in 3 days. Discussed proper hygiene with patient, increase fluids, wiping front to back, no scented lotions or soap to area. Follow-up if no improvement within 3 to 4 days, or as needed. Plan Details Other Medications: New: fluconazole repeat second dose 72 hrs after first dose 150 mg PO Q3D 2 doses 2 tabs 0RF 06/23/21 0929 <Electronically signed by Yadira CALHOUN> Date Yadira CALHOUN Cosigner Signature: Date (if applicable) CC: Dulce Maria Lynch MD Work Phone: Start: 03-27-2021 End: 03-27-2021 Urgent Care Visit Report Comments: See Note; NOTES: [facility] [address] [place] [address] [address] [place] [address] OFFICE VISIT Date of Service: 03/27/21 MR#: [id number] Acct: [id number] Name: LAWRENCE PATTON Rep #: [id number] : 2000 Provider: NATANAEL ricks Age/Sex: 20/F Location: [facility] Status: Signed Intake Vital Signs 03/27/21 10:58 03/27/21 10:58 BMI 19.9 BP 118/74 Blood Pressure Location Lt brachial Position Sitting Respiration 16 Pulse 81 Pulse Source Monitor Temp 97.5 F L Temp Source Temporal Pulse Oximetry (%) 99 Oxygen Delivery Method room air Intake Visit Reasons: CONGESTION Chief Complaint: nasal congestion Allergies No Known Allergies Allergy (Verified 11/15/20 09:15) [facility] Medical History (Updated 03/27/21 @ 11:03 by Jesús Greenwood PA, PA) Rhinitis, allergic Social History (Updated 11/15/20 @ 09:27 by Jaleel SANTOYO, PA) Smoking Status: Never smoker alcohol intake: never HPI HPI Chief Complaint: nasal congestion Details: LAWRENCE PATTON, is a 20 F who presents to the office today for initial evaluation 5 to 6-day history of progressively worsening nasal congestion, noting she has been getting allergy shots from her barrel brander but feels this not helping her symptoms. She was unable to get in with her PCP and therefore is here for initial evaluation. She notes having a lot of difficulty breathing through her nose due to congestion as she describes. No complaints of fever, chills, sweats, postnasal drip, nausea upon questioning. She has taken no bsaw-hfn-czznyys products to assist with symptoms, though he does take Claritin as instructed by her PCP with no help. She notes no other associated symptoms no other alleviating or aggravating factors. ROS Const Constitutional: No other (As above) Exam Const General: cooperative, healthy appearing, uncomfortable and no acute distress Nutritional Appearance: average body habitus and well nourished Orientation: alert, awake and oriented x3 HENMT Head: normal to inspection Ears: hearing grossly normal bilaterally, external ears normal, TM's normal bilaterally and EAC's normal Nose: external nose normal, nares abnormal (R>L turbinate swelling/edema), septum normal and no nasal discharge Face and sinus: normal facial exam, sinuses nontender and face symmetric Mouth: oral mucosae normal, lip normal, tongue normal and moist mucous membranes Teeth and gingiva: dentition normal and gingiva normal Throat: posterior oropharynx normal, tonsils normal, uvula midline and no postnasal drainage Eyes General: appearance normal, both eyes and all related structures Neck Neck: normal visual inspection, full ROM, no lymphadenopathy, no meningeal signs and supple Neck mass: No Thyroid: thyroid normal Lymphatic: no lymphadenopathy noted Chest Chest palpation inspection: normal inspection of the chest Resp Effort Inspection: normal respiratory effort, able to speak in complete sentences, symmetric chest movement and no cough Auscultation: Bilateral: Clear to Auscultation Cardio Palpation: normal PMI Rate: regular rate Rhythm: regular rhythm Heart Sounds: S1 normal, S2 normal, no gallops, no murmurs and no rubs Pulses: radial pulses present GI Inspection: normal to inspection Palpation: soft and no hepatosplenomegaly Skin General: no rashes or lesions noted Neuro General: patient alert, patient awake, patient oriented x3 and gait normal Cognition: normal cognition Speech: speech normal Gait: normal gait Motor: muscle tone normal throughout Sensory Exam: no sensory deficits noted Psych Appearance: grossly normal Mental Status: mental status grossly normal Mood: congruent mood Affect: normal affect Speech and Movement: speech and movement normal Attitude: cooperative Thought Process: normal Thought Content: normal Judgment: judgment good Coding Level of Care Code Off vis,est,level 3 Diagnoses Rhinitis, allergic J30.9 Assessment and Plan Assessment and Plan (1) Rhinitis, allergic: Status: Acute Plan - Jesús SANTOYO PA: Medrol as prescribed today. Continue Claritin as previously instructed by PCP. Follow-up with PCP first available appointment for reassessment and continuation of care. Patient states acknowledging understanding all the above. This note was generated with [employer] dictation software. It may contain incorrect words, spelling, and punctuation that were not noted in checking the note before signing. Plan Details Other Medications: New: methylprednisolone (Medrol (James)) PO PER PKG DIR 21 tabs 0RF 03/27/21 1231 <Electronically signed by Jesús SANTOYO> Date Jesús SANTOYO Cosigner Signature: Date (if applicable) CC: Dulce Maria Lynch MD Work Phone: Start: 11-15-2020 End: 11-15-2020 Urgent Care Visit Report Comments: See Note; NOTES: [facility] [address] [place] [address] [address] [place] [address] OFFICE VISIT Date of Service: 11/15/20 MR#: [id number] Acct: [id number] Name: LAWRENCE PATTON Rep #: [id number] : 2000 Provider: NATANAEL Tsai Age/Sex: 20/F Location: [facility] Status: Signed Intake Vital Signs 11/15/20 Height 5 ft 2 in 11/15/20 Weight: 107 lb 11/15/20 BP 110/65 11/15/20 Blood Pressure Location Lt brachial 11/15/20 Position Sitting 11/15/20 Respiration 14 11/15/20 Pulse 80 11/15/20 Pulse Source Monitor 11/15/20 Temp 98.1 F 11/15/20 Temp Source Temporal 11/15/20 Pulse Oximetry (%) 99 11/15/20 Oxygen Delivery Method room air Intake Visit Reasons: LT EAR PAIN Chief Complaint: nasal congestion and left ear pain Allergies No Known Allergies Allergy (Verified 11/15/20 09:15) Medications ulkopzlt-enjraroee-fuedwooup 3.5 mg-10,000 unit/mL-1 % ear drops,susp 3 drp OTIC Q4H 10 Days #10 ml 11/15/20 [Rx Confirmed 11/15/20] oxymetazoline 0.05 % nasal mist 2 spray INTRANASAL Q12H PRN 3 Days #15 ml 11/15/20 [Rx Confirmed 11/15/20] PFSH Social History (Updated 11/15/20 @ 09:27 by Jaleel SANTOYO, NATANAEL) Smoking Status: Never smoker alcohol intake: never HPI HPI Chief Complaint: nasal congestion and left ear pain Details: LAWRENCE PATTON, is a 20 F who presents to the office today for complaint of nasal congestion and left ear pain. Patient states that both of these symptoms started several days ago. She does state having severe allergies for which she has shots for and did have her allergy shot 2 weeks ago however does not seem to have had great improvement. She denies any otorrhea or hearing change/loss. She has tried nasal irrigation with no relief. She denies fever, chills, sweats. No nausea, vomiting, diarrhea. No cough, shortness of breath or difficulty breathing. No other associated symptoms or alleviating/aggravating factors. ROS Const Constitutional: Positive for other (6 system ROS completed with pertinent findings in the HPI otherwise normal.) Exam Const General: cooperative, well developed [facility] Head: normal to inspection, atraumatic Ears: hearing grossly normal bilaterally, TM's normal bilaterally, EAC abnormal erythema on the left and edema on the left Nose: nasal discharge clear Face and sinus: normal facial exam Mouth: oral mucosae normal Throat: abnormal tonsil bilaterally Resp Effort Inspection: normal respiratory effort, no audible wheezes Auscultation: Bilateral: Clear to Auscultation Cardio Palpation: normal PMI Rate: regular rate Rhythm: regular rhythm Neuro General: alert, CN's II-XI intact bilaterally Psych Appearance: grossly normal Mental Status: mental status grossly normal Assessment Plan Problems 1. Acute diffuse otitis externa of left ear H60.312 Status Acute 2. Viral upper respiratory tract infection J06.9 Status Acute Plan Eardrops and Afrin as prescribed today. Patient advised to only use the Afrin for 3 days and then to follow-up with her ENT or PCP for further evaluation and treatment should she have ongoing symp toms. Patient advised to discontinue use of Q-tips. Encouraged to get plenty of rest, drink lots of clear liquids, and use Tylenol or Ibuprofen (unless contraindicated) for fever and comfort. Patient also educated on other symptomatic management techniques. To be seen in 7-10 days if no improvement; sooner if worsening of symptoms. Patient advised of potential red flags and when appropriate to report to the ED. Patient verbalized understanding and agreement with all the above. Medications New: oxymetazoline 0.05% (Afrin (oxymetazoline)) 2 sprays intranasal Q12H 3 days PRN 15 mL 0RF nasal congestion bxezxoro-uslctylog-GW 3.5-10,000-1 mg/mL-unit/mL-% apply to (cotton) wick; replace wick every 24 hours 3 drps otic (ear) Q4H 10 days 10 mL 0RF Coding Level of Care Code Off vis,est,level 3 Diagnoses Acute diffuse otitis externa of left ear H60.312 ?Chronicity: acute Viral upper respiratory tract infection J06.9 ?URI type: unspecified viral URI 11/15/20 0928 <Electronically signed by Jaleel SANTOYO> Date Jaleel SANTOYO Cosigner Signature: Date (if applicable) CC: Dulce Maria Lynch Start: 06-25-2020 End: 06-26-2020 Urgent Care Visit Report Comments: See Note; NOTES: [facility] [address] [place] [address] OFFICE VISIT Date of Service: 06/25/20 MR#: [id number] Acct: [id number] Name: LAWRENCE PATTON Rep #: [id number] : 2000 Provider: NATANAEL Tsai Age/Sex: 20/F Location: [facility] Status: Signed Intake Vital Signs 06/25/20 BP 118/78 06/25/20 Blood Pressure Location Lt brachial 06/25/20 Position Sitting 06/25/20 Respiration 14 06/25/20 Pulse 84 06/25/20 Pulse Source Monitor 06/25/20 Temp 98.5 F 06/25/20 Temp Source Temporal 06/25/20 Pulse Oximetry (%) 98 06/25/20 Oxygen Delivery Method room air Intake Visit Reasons: WHITE SPOTS ON LIPS?? Chief Complaint: White spots on lips Allergies No Known Allergies Allergy (Verified 06/25/20 17:25) Medications NK 06/25/20 [History Confirmed 06/25/20] PFSH Social History (Updated 06/26/20 @ 08:00 by NATANAEL Garcia) Smoking Status: Never smoker alcohol intake: never HPI HPI Chief Complaint: White spots on lips Details: LAWRENCE PATTNO, is a 20 F who presents to the office today for concern for white spots on her lips. Patient states that she is awoke several mornings recently with white of the corners of her mouth/lips. She states that she has no pain associated with this and denies any other ulcerations or pain in her mouth. She has had no fever, chills, sweats. No known ill contacts. No other associated symptoms or alleviating/aggravating factors. ROS Const Constitutional: Positive for other (6 system ROS completed with pertinent findings in the HPI otherwise normal.) Exam Const General: cooperative, healthy appearing [facility] Head: normocephalic, atraumatic Ears: hearing grossly normal bilaterally Nose: external nose normal Face and sinus: normal facial exam, face symmetric Mouth: oral mucosae normal, lip normal, tongue normal, salivary ducts normal, oropharynx normal, moist mucous membranes Throat: posterior oropharynx normal Eyes General: appearance normal, both eyes and all related structures Pupils: PERRL Resp Effort Inspection: normal respiratory effort Auscultation: Bilateral: Clear to Auscultation Cardio Palpation: normal PMI Rate: regular rate Rhythm: regular rhythm Skin General: no rashes or lesions noted Neuro General: alert, CN's II-XI intact bilaterally Psych Appearance: grossly normal Mood: anxious mood Affect: anxious affect Assessment Plan Problems 1. Chapped lips K13.0 Status Acute Plan With no current obvious issue patient has been advised to keep her lips moisturized and to not lick her lips. Advised of other symptomatic management techniques and to follow-up with her PCP in 10 to 14 days if no better sooner if worse. Patient verbalized understanding and agreement with all the above. Coding Level of Care Code Off vis,est,level 3 Diagnoses Chapped lips K13.0 06/26/20 0800 <Electronically signed by Jaleel SANTOYO> Date Jaleel SANTOYO Cosigner Signature: Date (if applicable) CC: Dulce Maria Lynch Start: 02-14-2020 End: 02-14-2020 Urgent Care Visit Report Comments: See Note; NOTES: [facility] [address] [facility] [address] [place] [id number] OFFICE VISIT Date of Service: 02/14/20 MR#: [id number] Acct: [id number] Name: LAWRENCE PATTON Rep #: [id number] : 2000 Provider: Jaleel SANTOYO Age/Sex: 19/F Location: [facility] Status: Signed Intake Vital Signs02/14/20 Height 5 ft 4 in 02/14/20 Weight: 108 lb 02/14/20 BMI 18.5 02/14/20 BP 122/74 H 02/14/20 Respiration 12 02/14/20 Pulse 76 02/14/20 Temp 99.4 F H 02/14/20 Temp Source Temporal 02/14/20 Pulse Oximetry (%) 99 02/14/20 Oxygen Delivery Method room air Intake Visit Reasons: Sinus infection Chief Complaint: sinus congestion Classroom Assistant Required: No Accompanied by: self Is patient in pain?: No Allergies No Known Allergies Allergy (Verified 02/14/20 16:34) [facility] Social History (Updated 02/14/20 @ 16:55 by NATANAEL Garcia) Smoking Status: Never smoker alcohol intake: never HPI HPI Chief Complaint: sinus congestion Details: LAWERNCE PATTON, is a 19 F who presents to the office today for complaint of sinus congestion/pressure as well as bilateral ear pain for the past 4 days. Patient states that her seasonal allergies are flaring up despite the use of Claritin twice daily. She denies any otorrhea or hearing change/loss. She has had no cough, shortness of breath or difficulty breathing. No fever, chills, sweats. No nausea, vomiting, diarrhea. No other associated symptoms or alleviating/aggravating factors. ROS Const Constitutional: Positive for other (6 system ROS completed with pertinent findings in the HPI otherwise normal.) Exam Const General: cooperative, healthy appearing HENMT Head: normal to inspection Ears: hearing grossly normal bilaterally, EAC's normal, TM abnormal bulging on the left, erythematous on the left and with fluid behind the TM bilaterally Nose: external nose normal, nasal discharge clear Mouth: oral mucosae normal Throat: abnormal tonsil bilaterally Resp Effort AND Inspection: normal respiratory effort Auscultation: Bilateral: Clear to Auscultation Cardio Palpation: normal PMI Rate: regular rate Rhythm: regular rhythm Neuro General: alert, CN's II-XI intact bilaterally Psych Appearance: grossly normal Mental Status: mental status grossly normal Assessment AND Plan 1. Acute non-recurrent pansinusitis J01.40 2. Other non-recurrent acute nonsuppurative otitis media of left ear H65.192 Status Acute Plan Amoxicillin as prescribed today. Encouraged to get plenty of rest, drink lots of clear liquids, and use Tylenol or Ibuprofen (unless contraindicated) for fever and comfort. Patient also educated on other symptomatic management techniques. To be seen in 7-10 days if no improvement; sooner if worsening of symptoms. Patient advised of potential red flags and when appropriate to report to the ED. Patient verbalized understanding and agreement with all the above. Coding Level of Care Code Off vis,est,level 3 Diagnoses Acute non-recurrent pansinusitis J01.40 Sinusitis location: pansinusitis Recurrence: non-recurrent Other non-recurrent acute nonsuppurative otitis media of left ear H65.192 Otitis media type: other nonsuppurative Chronicity: acute Recurrence: non-recurrent 02/14/20 1655 <Electronically signed by Jaleel SANTOYO> Date Jaleel SANTOYO Cosigner Signature: Date (if applicable) CC: Dulce Maria Lynch Start: 01-23-2020 End: 01-23-2020 Urgent Care Visit Report Comments: See Note; NOTES: [address] [place] [address] OFFICE VISIT Date of Service: 01/23/20 MR#: [id number] Acct: [id number] Name: LAWRENCE PATTON Rep #: [id number] : 2000 Provider: Jesús SANTOYO Age/Sex: 19/F Location: [facility] Status: Signed Intake Vital Signs01/23/20 BMI 19.9 01/23/20 BP 110/64 01/23/20 Blood Pressure Location Lt brachial 01/23/20 Position Sitting Intake Visit Reasons: RASH ON HANDS X 3 WKS Chief Complaint: Rash Allergies No Known Allergies Allergy (Verified 01/23/20 15:02) Medications methylprednisolone 4 mg tablets in a dose pack See Rx Instructions PO PER PKG DIR #21 tab 01/23/20 [Rx Confirmed 01/23/20] PFSH Social History (Updated 01/23/20 @ 15:09 by NATANAEL Martinez) Smoking Status: Never smoker alcohol intake: never HPI HPI Chief Complaint: Rash Details: LAWRENCE PATTON, is a 19 F who presents to the office today for initial evaluation 3-week history of erythematous pruritic scaly rash bilateral hands and distal forearms. She notes no new exposures to new soaps or lotions or detergents or other cleansing products. She notes no complaints of fever, chills, sweats, lightheadedness/dizziness, constricted or pruritic airway or difficulty breathing/shortness of breath. She is used topical hydrocortisone cream and oral Benadryl to assist with symptoms with minimal relief. She notes no other complaints at this time. ROS Const Constitutional: No other (ROS negative x14 other than as noted above) Exam Const General: cooperative, healthy appearing, comfortable, no acute distress Nutritional Appearance: average body habitus Orientation: alert, awake, oriented x3 HENMT Head: normal to inspection Ears: hearing grossly normal bilaterally, external ears normal, TM's normal bilaterally, EAC's normal Nose: external nose normal, nares normal, septum normal, no nasal discharge Face and sinus: normal facial exam, face symmetric Mouth: oral mucosae normal, lip normal, tongue normal, oropharynx normal Teeth and gingiva: dentition normal, gingiva normal Throat: posterior oropharynx normal, uvula midline Eyes General: appearance normal, both eyes and all related structures Neck Neck: normal visual inspection, full ROM, no lymphadenopathy, no meningeal signs, supple Neck mass: No Thyroid: thyroid normal Lymphatic: no lymphadenopathy noted Chest Chest palpation AND inspection: normal inspection of the chest Resp Effort AND Inspection: normal respiratory effort, able to speak in complete sentences, symmetric chest movement Auscultation: Bilateral: Clear to Auscultation Cardio Palpation: normal PMI Rate: regular rate Rhythm: regular rhythm Heart Sounds: S1 normal, S2 normal, no gallops, no murmurs, no rubs Pulses: radial pulses present GI Inspection: normal to inspection Palpation: soft, no hepatosplenomegaly Skin Lesions: no lesions Rashes: rashes noted (Bilateral dorsal hands and distal forearms erythematous scaly pruritic rash without excoriations or fissuring appreciated) Neuro General: alert, awake, oriented x3, gait normal Cognition: normal cognition Speech: speech normal Gait: normal gait Motor: muscle tone normal throughout Sensory Exam: no sensory deficits noted Extrem General: normal to inspection Psych Appearance: grossly normal Mental Status: mental status grossly normal Mood: congruent mood Affect: normal affect Speech and Movement: speech and movement normal Attitude: cooperative Thought Process: normal Thought Content: normal Judgment: judgment good Assessment AND Plan Problems 1. Allergic dermatitis L23.9 Plan Medrol Dosepak as prescribed today. Topical calamine lotion and oral Benadryl as needed for symptomatic relief. Follow-up with PCP in 5 to 7 days for reassessment/continuation of care, ED sooner should symptoms only worsen or any other concerns develop. Patient states acknowledging understanding all the above. This note was generated with [employer] dictation software. It may contain incorrect words, spelling, and punctuation that were not noted in checking the note before signing. Medications New: Coding Level of Care Code Off vis,est,level 3 Diagnoses Allergic dermatitis L23.9 01/23/20 1509 <Electronically signed by Jesús SANTOYO> Date Jesús SANTOYO Cosigner Signature: Date (if applicable) CC: Dulce Maria Lynch Tonsillectomy Dulce Maria Lynch Work Phone: Tonsillectomy Dulce Maria Lynch Work Phone: Tonsillectomy SRIRAM Dionisio Tonsillectomy Camille vale Tonsillectomy SRIRAM Nichole 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 Tonsillectomy SRIRAM Nichole [employer]LOATING 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 Tonsillectomy Aura Rajeev ALBARRAN Tonsillectomy Janet Zavaletaford CANNERY WORKER Tonsillectomy Meenasmith Dubon [employer]LOATING 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 Tonsillectomy Meenasmith Dubon [employer]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 [employer]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 Plan of Treatment Date Care Activity Detail Author Start: 04-09-2023 Procedure Education Eprescribed prescriptions (G8553) [facility] Work Phone: Start: 03-24-2023 25 hydroxy includes fractions if performed CALCIFEDIOL (39861) [facility]; [facility] Work Phone: Start: 12-12-2022 25 hydroxy includes fractions if performed CALCIFEDIOL (60090) [facility]; [facility] Work Phone: Start: 11-20-2022 Procedure Education Eprescribed prescriptions (G8553) [facility]; [facility] Work Phone: Start: 11-20-2022 Hpv, dna, amp probe HPV automatic (73750) [facility]; [facility] Work Phone: Start: 11-20-2022 Cytp c/v auto thin lyr prepj scr mnl rescr phys Thin Prep Pap (85784) [facility]; [facility] Work Phone: Start: 05-29-2022 Procedure Education Eprescribed prescriptions (G8553) [facility]; [facility] Work Phone: Start: 05-29-2022 Provider Instructions for Treatment Shave Biopsy with Epi [facility] Work Phone: Start: 04-15-2022 Procedure Education Eprescribed prescriptions (G8553) [facility]; [facility] Work Phone: Start: 04-15-2022 Comprehensive metabolic panel Metabolic Panel, Comprehensive (20836) [facility]; [facility] Work Phone: Start: 04-15-2022 Blood count complete auto&auto difrntl wbc CBC, Platelets & Auto Diff (91640) [facility]; [facility] Work Phone: Start: 04-15-2022 Assay of triiodothyronine t3 free T3, FREE (TRIDOTHYRONINE) (43849) [facility]; [facility] Work Phone: Start: 04-15-2022 Assay of thyroid stimulating hormone tsh TSH (05343) [facility]; [facility] Work Phone: Start: 04-15-2022 Assay of gammaglobulin iga igd igg igm each IGA/IGD/IGG/IGM-EACH (85111) [facility]; [facility] Work Phone: Start: 12-27-2019 Culture bct isol&prsmptv id isolate ea urine URINE SYLVAIN CULTURE-IDENTIFICATN (00939) [facility]; [facility] Work Phone: Start: 12-27-2019 Urinalysis qual/semiquant except immunoassays URINALYSIS (25780) [facility]; [facility] Work Phone: Start: 11-24-2019 Procedure Education Eprescribed prescriptions (G8553) [facility]; [facility] Work Phone: Start: 08-09-2019 Procedure Education Eprescribed prescriptions (G8553) [facility]; [facility] Work Phone: Start: 08-02-2019 Procedure Education Eprescribed prescriptions (G8553) [facility] Work Phone: Start: 08-03-2018 Cytp cerv/vag auto thin layer prep mnl screen Thin prep Pap (16697) (no STD testing) [facility] Work Phone: Start: 05-27-2018 Provider Instructions for Treatment [facility] Work Phone: Patient Education ED Laceration Hand with ... [facility] Work Phone: Patient referral [facility] Work Phone: [facility] Work Phone: [facility] Work Phone: [facility] Work Phone: [facility] Work Phone: [facility]; [facility] Work Phone: Immunizations Immunization Date Immunization Notes Care Provider [facility] 03-21-2021 COVID-19 (Moderna) Dulce Maria sanchez MD Work Phone: [facility]; [facility] Work Phone: 02-14-2021 COVID-19 (Moderna) Dulce Maria sanchez MD Work Phone: [facility]; [facility] Work Phone: 12-15-2019 influenza, injectabl e, quadrivalent, preservative free Dr. Dulce Maria Lynch Work Phone: [facility] 12-15-2019 influenza, seasonal, injectable Dr. Dulce Maria Lynch Work Phone: [facility] 03-24-2018 diphtheria, tetanus toxoids and acellular pertussis vaccine, 5 pertussis antigens Dulce Maria Lynch MD Work Phone: [facility]; [facility] Work Phone: 06-26-2015 meningococcal polysaccharide (groups A, C, Y and W-135) diphtheria toxoid conjugate vaccine (MCV4P) Dulce Maria Lynch MD Work Phone: [facility]; [facility] Work Phone: 08-06-2012 varicella virus vaccine Dulce Maria Lynch MD Work Phone: [facility]; [facility] Work Phone: 06-10-2011 influenza, live, intranasal, quadrivalent Dulce Maria Lynch MD Work Phone: [facility]; [facility] Work Phone: 01-24-2011 human papilloma viru s vaccine, quadrivalent Dulce Maria Lynch MD Work Phone: [facility]; [facility] Work Phone: 05-23-2010 human papilloma viru s vaccine, quadrivalent Dulce Maria Lynch MD Work Phone: [facility]; [facility] Work Phone: 05-23-2010 tetanus toxoid, redu desi diphtheria toxoid, and acellular pertussis vaccine, adsorbed Dulce Maria Lynch MD Work Phone: [facility]; [facility] Work Phone: 05-09-2004 diphtheria, tetanus toxoids and acellular pertussis vaccine Dulce Maria Lynch MD Work Phone: [facility]; [facility] Work Phone: 05-09-2004 measles, mumps and rubella virus vaccine Dulce Maria Lynch MD Work Phone: [facility]; [facility] Work Phone: 08-28-2000 diphtheria, tetanus toxoids and acellular pertussis vaccine, 5 pertussis antigens Dulce Maria Lynch MD Work Phone: [facility]; [facility] Work Phone: 08-28-2000 pneumococcal polysaccharide vaccine, 23 valent Dulce Maria Lynch MD Work Phone: [facility]; [facility] Work Phone: 06-29-2000 pneumococcal polysaccharide vaccine, 23 valent Dulce Maria Lynch MD Work Phone: [facility]; [facility] Work Phone: 05-28-2000 poliovirus vaccine, inactivated Dulce Maria Lynch MD Work Phone: [facility]; [facility] Work Phone: 1999 diphtheria, tetanus toxoids and acellular pertussis vaccine Dulce Maria Lynch MD Work Phone: [facility]; [facility] Work Phone: 1999 haemophilus influenz ae type b vaccine, conjugate unspecified formulation Dulce Maria Lynch MD Work Phone: [facility]; [facility] Work Phone: 1999 diphtheria, tetanus toxoids and acellular pertussis vaccine, 5 pertussis antigens Dulce Maria Lynch MD Work Phone: [facility]; [facility] Work Phone: 1999 haemophilus influenz ae type b vaccine, conjugate unspecified formulation Dulce Maria Lynch MD Work Phone: [facility]; [facility] Work Phone: 1999 poliovirus vaccine, inactivated Dulce Maria Lynch MD Work Phone: [facility]; [facility] Work Phone: 1999 haemophilus influenz ae type b vaccine, conjugate unspecified formulation Dulce Maria Lynch MD Work Phone: [facility]; [facility] Work Phone: 1999 poliovirus vaccine, inactivated Dulce Maria Lynch MD Work Phone: [facility]; [facility] Work Phone: Payers Date Payer Category Payer Self-pay [id number] 2010 Unknown [facility] [id number] 2007 Unknown [id number] 1999 Unknown [id number] 1999 Unknown [id number] Unknown Medical [facility] Unknown [facility] [id number] Unknown [facility] [id number] Unknown [id number] Unknown [id number] Unknown [id number] Unknown [id number] Unknown [id number] Unknown [id number] Unknown [id number] Unknown [id number] Unknown [id number] Unknown [id number] Unknown [id number] Unknown [id number] Social History Date Type Detail Facility Caffeine Use [facility] Work Phone: Comment on above: pop on occasion Current Work/Study Status: Part-time. 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uation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 Start: 2000 Sex Assigned At Female [facility] NEGATED: Highlighted row [facility] Clinical Notes 05-15-2023 Note Date & Type Note Facility 05-15-2023 Hospital Discharg e instructions Additional Instructions Please have the sutures moved in 7 to [address] [facility] Work Phone: Evaluation note Diagnosis Onset Date COVID-19 acute Impetigo acute Acute otitis externa of left ear acute URI (upper respiratory infection) [facility] Work Phone: Evaluation note* Diagnosis Onset Date Resolution Status Acute otitis externa of left ear acute URI (upper respiratory infection) [facility] Work Phone: Evaluation note* Diagnosis Onset Date Resolution Status Urinary tract infection acut e URI (upper respiratory infection) [facility] Work Phone: Instructions* Name Dates Details Patient Instructions Indication:Sinusitis Start:29-Mar-2021 Instruction Type:Provider Instructions for Treatment How to Access Health Informa tion Online using Patient Portal and [email or web address] Apps Indication:Sinusitis Start:29-Mar-2021 Instruction Type:Patient Education Patient Instructions Indication:Ingrown left big toenail Start:08-Jan-2021 Instruction Type:Provider Instructions for Treatment How to Access Health Informa tion Online using Patient Portal and [email or web address] Apps Indication:Ingrown left big toenail Start:08-Jan-2021 Instruction Type:Patient Education How to access health informa tion online Indication:Allergic rhinitis Start:23-Mar-2020 Instruction Type:Patient Education How to access health informa tion online - Detail Indication:Allergic rhinitis Start:23-Mar-2020 Instruction Type:Patient Education Patient Instructions Indication:Allergic rhinitis Start:23-Mar-2020 Instruction Type:Provider Instructions for Treatment How to access health informa tion online Indication:Non-smoker Start:05-Jan-2020 Instruction Type:Patient Education How to access health informa tion online - Detail Indication:Non-smoker Start:05-Jan-2020 Instruction Type:Patient Education Patient Instructions Indication:Non-smoker Start:05-Jan-2020 Instruction Type:Provider Instructions for Treatment How to access health informa tion online Indication:BMI 20.0-20.9, adult Start:24-Nov-2019 Instruction Type:Patient Education How to access health informa tion online - Detail Indication:BMI 20.0-20.9, adult Start:24-Nov-2019 Instruction Type:Patient Education Patient Instructions Indication:BMI 20.0-20.9, adult Start:24-Nov-2019 Instruction Type:Provider Instructions for Treatment How to access health informa tion online Indication:Acute sinusitis, unspecified (Renamed from Sinusitis, acute) Start:09-Aug-2019 Instruction Type:Patient Education How to access health informa tion online - Detail Indication:Acute sinusitis, unspecified (Renamed from Sinusitis, acute) Start:09-Aug-2019 Instruction Type:Patient Education Patient Instructions Indication:Acute sinusitis, unspecified (Renamed from Sinusitis, acute) Start:09-Aug-2019 Instruction Type:Provider Instructions for Treatment How to access health informa tion online Indication:Anxiety and depression Start:02-Aug-2019 Instruction Type:Patient Education How to access health informa tion online - Detail Indication:Anxiety and depression Start:02-Aug-2019 Instruction Type:Patient Education Patient Instructions Indication:Anxiety and depression Start:02-Aug-2019 Instruction Type:Provider Instructions for Treatment How to access health informa tion online Indication:Anxiety and depression Start:10-May-2019 Instruction Type:Patient Education How to access health informa tion online - Detail Indication:Anxiety and depression Start:10-May-2019 Instruction Type:Patient Education Patient Instructions Indication:Anxiety and depression Start:10-May-2019 Instruction Type:Provider Instructions for Treatment How to access health informa tion online Indication:Anxiety and depression Start:06-Sep-2018 Instruction Type:Patient Education How to access health informa tion online - Detail Indication:Anxiety and depression Start:06-Sep-2018 Instruction Type:Patient Education Patient Instructions Indication:Anxiety and depression Start:06-Sep-2018 Instruction Type:Provider Instructions for Treatment How to access health informa tion online Indication:BMI 21.0-21.9, adult Start:03-Aug-2018 Instruction Type:Patient Education How to access health informa tion online - Detail Indication:BMI 21.0-21.9, adult Start:03-Aug-2018 Instruction Type:Patient Education Patient Instructions Indication:BMI 21.0-21.9, adult Start:03-Aug-2018 Instruction Type:Provider Instructions for Treatment How to access health informa tion online Indication:BMI 20.0-20.9, adult Start:14-Jul-2018 Instruction Type:Patient Education How to access health informa tion online - Detail Indication:BMI 20.0-20.9, adult Start:14-Jul-2018 Instruction Type:Patient Education Patient Instructions Indication:BMI 20.0-20.9, adult Start:14-Jul-2018 Instruction Type:Provider Instructions for Treatment How to access health informa tion online Indication:Acne Start:27-May-2018 Instruction Type:Patient Education How to access health informa tion online - Detail Indication:Acne Start:27-May-2018 Instruction Type:Patient Education Patient Instructions Indication:Acne Start:27-May-2018 Instruction Type:Provider Instructions for Treatment [facility]; [facility] Work Phone: Instructions* Name Dates Details Patient Instructions Indication:Sinusitis Start:29-Mar-2021 Instruction Type:Provider Instructions for Treatment How to Access Health Informa tion Online using Patient Portal and [email or web address] Apps Indication:Sinusitis Start:29-Mar-2021 Instruction Type:Patient Education Patient Instructions Indication:Ingrown left big toenail Start:08-Jan-2021 Instruction Type:Provider Instructions for Treatment How to Access Health Informa tion Online using Patient Portal and [email or web address] Apps Indication:Ingrown left big toenail Start:08-Jan-2021 Instruction Type:Patient Education How to access health informa tion online Indication:Allergic rhinitis Start:23-Mar-2020 Instruction Type:Patient Education How to access health informa tion online - Detail Indication:Allergic rhinitis Start:23-Mar-2020 Instruction Type:Patient Education Patient Instructions Indication:Allergic rhinitis Start:23-Mar-2020 Instruction Type:Provider Instructions for Treatment How to access health informa tion online Indication:Non-smoker Start:05-Jan-2020 Instruction Type:Patient Education How to access health informa tion online - Detail Indication:Non-smoker Start:05-Jan-2020 Instruction Type:Patient Education Patient Instructions Indication:Non-smoker Start:05-Jan-2020 Instruction Type:Provider Instructions for Treatment How to access health informa tion online Indication:BMI 20.0-20.9, adult Start:24-Nov-2019 Instruction Type:Patient Education How to access health informa tion online - Detail Indication:BMI 20.0-20.9, adult Start:24-Nov-2019 Instruction Type:Patient Education Patient Instructions Indication:BMI 20.0-20.9, adult Start:24-Nov-2019 Instruction Type:Provider Instructions for Treatment How to access health informa tion online Indication:Acute sinusitis, unspecified (Renamed from Sinusitis, acute) Start:09-Aug-2019 Instruction Type:Patient Education How to access health informa tion online - Detail Indication:Acute sinusitis, unspecified (Renamed from Sinusitis, acute) Start:09-Aug-2019 Instruction Type:Patient Education Patient Instructions Indication:Acute sinusitis, unspecified (Renamed from Sinusitis, acute) Start:09-Aug-2019 Instruction Type:Provider Instructions for Treatment How to access health informa tion online Indication:Anxiety and depression Start:02-Aug-2019 Instruction Type:Patient Education How to access health informa tion online - Detail Indication:Anxiety and depression Start:02-Aug-2019 Instruction Type:Patient Education Patient Instructions Indication:Anxiety and depression Start:02-Aug-2019 Instruction Type:Provider Instructions for Treatment How to access health informa tion online Indication:Anxiety and depression Start:10-May-2019 Instruction Type:Patient Education How to access health informa tion online - Detail Indication:Anxiety and depression Start:10-May-2019 Instruction Type:Patient Education Patient Instructions Indication:Anxiety and depression Start:10-May-2019 Instruction Type:Provider Instructions for Treatment How to access health informa tion online Indication:Anxiety and depression Start:06-Sep-2018 Instruction Type:Patient Education How to access health informa tion online - Detail Indication:Anxiety and depression Start:06-Sep-2018 Instruction Type:Patient Education Patient Instructions Indication:Anxiety and depression Start:06-Sep-2018 Instruction Type:Provider Instructions for Treatment How to access health informa tion online Indication:BMI 21.0-21.9, adult Start:03-Aug-2018 Instruction Type:Patient Education How to access health informa tion online - Detail Indication:BMI 21.0-21.9, adult Start:03-Aug-2018 Instruction Type:Patient Education Patient Instructions Indication:BMI 21.0-21.9, adult Start:03-Aug-2018 Instruction Type:Provider Instructions for Treatment How to access health informa tion online Indication:BMI 20.0-20.9, adult Start:14-Jul-2018 Instruction Type:Patient Education How to access health informa tion online - Detail Indication:BMI 20.0-20.9, adult Start:14-Jul-2018 Instruction Type:Patient Education Patient Instructions Indication:BMI 20.0-20.9, adult Start:14-Jul-2018 Instruction Type:Provider Instructions for Treatment How to access health informa tion online Indication:Acne Start:27-May-2018 Instruction Type:Patient Education How to access health informa tion online - Detail Indication:Acne Start:27-May-2018 Instruction Type:Patient Education Patient Instructions Indication:Acne Start:27-May-2018 Instruction Type:Provider Instructions for Treatment [facility]; [facility] Work Phone: Instructions* Name Dates Details Patient Instructions Indication:Sinusitis Start:29-Mar-2021 Instruction Type:Provider Instructions for Treatment How to Access Health Informa tion Online using Patient Portal and [email or web address] Apps Indication:Sinusitis Start:29-Mar-2021 Instruction Type:Patient Education Patient Instructions Indication:Ingrown left big toenail Start:08-Jan-2021 Instruction Type:Provider Instructions for Treatment How to Access Health Informa tion Online using Patient Portal and [email or web address] Apps Indication:Ingrown left big toenail Start:08-Jan-2021 Instruction Type:Patient Education How to access health informa tion online Indication:Allergic rhinitis Start:23-Mar-2020 Instruction Type:Patient Education How to access health informa tion online - Detail Indication:Allergic rhinitis Start:23-Mar-2020 Instruction Type:Patient Education Patient Instructions Indication:Allergic rhinitis Start:23-Mar-2020 Instruction Type:Provider Instructions for Treatment How to access health informa tion online Indication:Non-smoker Start:05-Jan-2020 Instruction Type:Patient Education How to access health informa tion online - Detail Indication:Non-smoker Start:05-Jan-2020 Instruction Type:Patient Education Patient Instructions Indication:Non-smoker Start:05-Jan-2020 Instruction Type:Provider Instructions for Treatment How to access health informa tion online Indication:BMI 20.0-20.9, adult Start:24-Nov-2019 Instruction Type:Patient Education How to access health informa tion online - Detail Indication:BMI 20.0-20.9, adult Start:24-Nov-2019 Instruction Type:Patient Education Patient Instructions Indication:BMI 20.0-20.9, adult Start:24-Nov-2019 Instruction Type:Provider Instructions for Treatment How to access health informa tion online Indication:Acute sinusitis, unspecified (Renamed from Sinusitis, acute) Start:09-Aug-2019 Instruction Type:Patient Education How to access health informa tion online - Detail Indication:Acute sinusitis, unspecified (Renamed from Sinusitis, acute) Start:09-Aug-2019 Instruction Type:Patient Education Patient Instructions Indication:Acute sinusitis, unspecified (Renamed from Sinusitis, acute) Start:09-Aug-2019 Instruction Type:Provider Instructions for Treatment How to access health informa tion online Indication:Anxiety and depression Start:02-Aug-2019 Instruction Type:Patient Education How to access health informa tion online - Detail Indication:Anxiety and depression Start:02-Aug-2019 Instruction Type:Patient Education Patient Instructions Indication:Anxiety and depression Start:02-Aug-2019 Instruction Type:Provider Instructions for Treatment How to access health informa tion online Indication:Anxiety and depression Start:10-May-2019 Instruction Type:Patient Education How to access health informa tion online - Detail Indication:Anxiety and depression Start:10-May-2019 Instruction Type:Patient Education Patient Instructions Indication:Anxiety and depression Start:10-May-2019 Instruction Type:Provider Instructions for Treatment How to access health informa tion online Indication:Anxiety and depression Start:06-Sep-2018 Instruction Type:Patient Education How to access health informa tion online - Detail Indication:Anxiety and depression Start:06-Sep-2018 Instruction Type:Patient Education Patient Instructions Indication:Anxiety and depression Start:06-Sep-2018 Instruction Type:Provider Instructions for Treatment How to access health informa tion online Indication:BMI 21.0-21.9, adult Start:03-Aug-2018 Instruction Type:Patient Education How to access health informa tion online - Detail Indication:BMI 21.0-21.9, adult Start:03-Aug-2018 Instruction Type:Patient Education Patient Instructions Indication:BMI 21.0-21.9, adult Start:03-Aug-2018 Instruction Type:Provider Instructions for Treatment How to access health informa tion online Indication:BMI 20.0-20.9, adult Start:14-Jul-2018 Instruction Type:Patient Education How to access health informa tion online - Detail Indication:BMI 20.0-20.9, adult Start:14-Jul-2018 Instruction Type:Patient Education Patient Instructions Indication:BMI 20.0-20.9, adult Start:14-Jul-2018 Instruction Type:Provider Instructions for Treatment How to access health informa tion online Indication:Acne Start:27-May-2018 Instruction Type:Patient Education How to access health informa tion online - Detail Indication:Acne Start:27-May-2018 Instruction Type:Patient Education Patient Instructions Indication:Acne Start:27-May-2018 Instruction Type:Provider Instructions for Treatment [facility]; [facility] Work Phone: Instructions* Name Dates Details Patient Instructions Indication:Sinusitis Start:29-Mar-2021 Instruction Type:Provider Instructions for Treatment How to Access Health Informa tion Online using Patient Portal and [employer] Apps Indication:Sinusitis Start:29-Mar-2021 Instruction Type:Patient Education Patient Instructions Indication:Ingrown nail Start:08-Jan-2021 Instruction Type:Provider Instructions for Treatment How to Access Health Informa tion Online using Patient Portal and [employer] Apps Indication:Ingrown nail Start:08-Jan-2021 Instruction Type:Patient Education How to access health informa tion online Indication:Allergic rhinitis Start:23-Mar-2020 Instruction Type:Patient Education How to access health informa tion online - Detail Indication:Allergic rhinitis Start:23-Mar-2020 Instruction Type:Patient Education Patient Instructions Indication:Allergic rhinitis Start:23-Mar-2020 Instruction Type:Provider Instructions for Treatment How to access health informa tion online Indication:Non-smoker Start:05-Jan-2020 Instruction Type:Patient Education How to access health informa tion online - Detail Indication:Non-smoker Start:05-Jan-2020 Instruction Type:Patient Education Patient Instructions Indication:Non-smoker Start:05-Jan-2020 Instruction Type:Provider Instructions for Treatment How to access health informa tion online Indication:BMI 20.0-20.9, adult Start:24-Nov-2019 Instruction Type:Patient Education How to access health informa tion online - Detail Indication:BMI 20.0-20.9, adult Start:24-Nov-2019 Instruction Type:Patient Education Patient Instructions Indication:BMI 20.0-20.9, adult Start:24-Nov-2019 Instruction Type:Provider Instructions for Treatment How to access health informa tion online Indication:Acute sinusitis, unspecified (Renamed from Sinusitis, acute) Start:09-Aug-2019 Instruction Type:Patient Education How to access health informa tion online - Detail Indication:Acute sinusitis, unspecified (Renamed from Sinusitis, acute) Start:09-Aug-2019 Instruction Type:Patient Education Patient Instructions Indication:Acute sinusitis, unspecified (Renamed from Sinusitis, acute) Start:09-Aug-2019 Instruction Type:Provider Instructions for Treatment How to access health informa tion online Indication:Anxiety and depression Start:02-Aug-2019 Instruction Type:Patient Education How to access health informa tion online - Detail Indication:Anxiety and depression Start:02-Aug-2019 Instruction Type:Patient Education Patient Instructions Indication:Anxiety and depression Start:02-Aug-2019 Instruction Type:Provider Instructions for Treatment How to access health informa tion online Indication:Anxiety and depression Start:10-May-2019 Instruction Type:Patient Education How to access health informa tion online - Detail Indication:Anxiety and depression Start:10-May-2019 Instruction Type:Patient Education Patient Instructions Indication:Anxiety and depression Start:10-May-2019 Instruction Type:Provider Instructions for Treatment How to access health informa tion online Indication:Anxiety and depression Start:06-Sep-2018 Instruction Type:Patient Education How to access health informa tion online - Detail Indication:Anxiety and depression Start:06-Sep-2018 Instruction Type:Patient Education Patient Instructions Indication:Anxiety and depression Start:06-Sep-2018 Instruction Type:Provider Instructions for Treatment How to access health informa tion online Indication:BMI 21.0-21.9, adult Start:03-Aug-2018 Instruction Type:Patient Education How to access health informa tion online - Detail Indication:BMI 21.0-21.9, adult Start:03-Aug-2018 Instruction Type:Patient Education Patient Instructions Indication:BMI 21.0-21.9, adult Start:03-Aug-2018 Instruction Type:Provider Instructions for Treatment How to access health informa tion online Indication:BMI 20.0-20.9, adult Start:14-Jul-2018 Instruction Type:Patient Education How to access health informa tion online - Detail Indication:BMI 20.0-20.9, adult Start:14-Jul-2018 Instruction Type:Patient Education Patient Instructions Indication:BMI 20.0-20.9, adult Start:14-Jul-2018 Instruction Type:Provider Instructions for Treatment How to access health informa tion online Indication:Acne Start:27-May-2018 Instruction Type:Patient Education How to access health informa tion online - Detail Indication:Acne Start:27-May-2018 Instruction Type:Patient Education Patient Instructions Indication:Acne Start:27-May-2018 Instruction Type:Provider Instructions for Treatment [facility]; [facility] Work Phone: Instructions* Name Dates Details Patient Instructions Indication:Sinusitis Start:29-Mar-2021 Instruction Type:Provider Instructions for Treatment How to Access Health Informa tion Online using Patient Portal and [employer] Apps Indication:Sinusitis Start:29-Mar-2021 Instruction Type:Patient Education Patient Instructions Indication:Ingrown nail Start:08-Jan-2021 Instruction Type:Provider Instructions for Treatment How to Access Health Informa tion Online using Patient Portal and [employer] Apps Indication:Ingrown nail Start:08-Jan-2021 Instruction Type:Patient Education How to access health informa tion online Indication:Allergic rhinitis Start:23-Mar-2020 Instruction Type:Patient Education How to access health informa tion online - Detail Indication:Allergic rhinitis Start:23-Mar-2020 Instruction Type:Patient Education Patient Instructions Indication:Allergic rhinitis Start:23-Mar-2020 Instruction Type:Provider Instructions for Treatment How to access health informa tion online Indication:Non-smoker Start:05-Jan-2020 Instruction Type:Patient Education How to access health informa tion online - Detail Indication:Non-smoker Start:05-Jan-2020 Instruction Type:Patient Education Patient Instructions Indication:Non-smoker Start:05-Jan-2020 Instruction Type:Provider Instructions for Treatment How to access health informa tion online Indication:BMI 20.0-20.9, adult Start:24-Nov-2019 Instruction Type:Patient Education How to access health informa tion online - Detail Indication:BMI 20.0-20.9, adult Start:24-Nov-2019 Instruction Type:Patient Education Patient Instructions Indication:BMI 20.0-20.9, adult Start:24-Nov-2019 Instruction Type:Provider Instructions for Treatment How to access health informa tion online Indication:Acute sinusitis, unspecified (Renamed from Sinusitis, acute) Start:09-Aug-2019 Instruction Type:Patient Education How to access health informa tion online - Detail Indication:Acute sinusitis, unspecified (Renamed from Sinusitis, acute) Start:09-Aug-2019 Instruction Type:Patient Education Patient Instructions Indication:Acute sinusitis, unspecified (Renamed from Sinusitis, acute) Start:09-Aug-2019 Instruction Type:Provider Instructions for Treatment How to access health informa tion online Indication:Anxiety and depression Start:02-Aug-2019 Instruction Type:Patient Education How to access health informa tion online - Detail Indication:Anxiety and depression Start:02-Aug-2019 Instruction Type:Patient Education Patient Instructions Indication:Anxiety and depression Start:02-Aug-2019 Instruction Type:Provider Instructions for Treatment How to access health informa tion online Indication:Anxiety and depression Start:10-May-2019 Instruction Type:Patient Education How to access health informa tion online - Detail Indication:Anxiety and depression Start:10-May-2019 Instruction Type:Patient Education Patient Instructions Indication:Anxiety and depression Start:10-May-2019 Instruction Type:Provider Instructions for Treatment How to access health informa tion online Indication:Anxiety and depression Start:06-Sep-2018 Instruction Type:Patient Education How to access health informa tion online - Detail Indication:Anxiety and depression Start:06-Sep-2018 Instruction Type:Patient Education Patient Instructions Indication:Anxiety and depression Start:06-Sep-2018 Instruction Type:Provider Instructions for Treatment How to access health informa tion online Indication:BMI 21.0-21.9, adult Start:03-Aug-2018 Instruction Type:Patient Education How to access health informa tion online - Detail Indication:BMI 21.0-21.9, adult Start:03-Aug-2018 Instruction Type:Patient Education Patient Instructions Indication:BMI 21.0-21.9, adult Start:03-Aug-2018 Instruction Type:Provider Instructions for Treatment How to access health informa tion online Indication:BMI 20.0-20.9, adult Start:14-Jul-2018 Instruction Type:Patient Education How to access health informa tion online - Detail Indication:BMI 20.0-20.9, adult Start:14-Jul-2018 Instruction Type:Patient Education Patient Instructions Indication:BMI 20.0-20.9, adult Start:14-Jul-2018 Instruction Type:Provider Instructions for Treatment How to access health informa tion online Indication:Acne Start:27-May-2018 Instruction Type:Patient Education How to access health informa tion online - Detail Indication:Acne Start:27-May-2018 Instruction Type:Patient Education Patient Instructions Indication:Acne Start:27-May-2018 Instruction Type:Provider Instructions for Treatment [facility]; [facility] Work Phone: Instructions* Name Dates Details Patient Instructions Indication:Non-smoker Start:15-Apr-2022 Instruction Type:Provider Instructions for Treatment How to Access Health Informa tion Online using Patient Portal and [employer] Apps Indication:Non-smoker Start:15-Apr-2022 Instruction Type:Patient Education Patient Instructions Indication:Sinusitis Start:29-Mar-2021 Instruction Type:Provider Instructions for Treatment How to Access Health Informa tion Online using Patient Portal and [employer] Apps Indication:Sinusitis Start:29-Mar-2021 Instruction Type:Patient Education Patient Instructions Indication:Ingrown nail Start:08-Jan-2021 Instruction Type:Provider Instructions for Treatment How to Access Health Informa tion Online using Patient Portal and [employer] Apps Indication:Ingrown nail Start:08-Jan-2021 Instruction Type:Patient Education How to access health informa tion online Indication:Allergic rhinitis Start:23-Mar-2020 Instruction Type:Patient Education How to access health informa tion online - Detail Indication:Allergic rhinitis Start:23-Mar-2020 Instruction Type:Patient Education Patient Instructions Indication:Allergic rhinitis Start:23-Mar-2020 Instruction Type:Provider Instructions for Treatment How to access health informa tion online Indication:Non-smoker Start:05-Jan-2020 Instruction Type:Patient Education How to access health informa tion online - Detail Indication:Non-smoker Start:05-Jan-2020 Instruction Type:Patient Education Patient Instructions Indication:Non-smoker Start:05-Jan-2020 Instruction Type:Provider Instructions for Treatment How to access health informa tion online Indication:BMI 20.0-20.9, adult Start:24-Nov-2019 Instruction Type:Patient Education How to access health informa tion online - Detail Indication:BMI 20.0-20.9, adult Start:24-Nov-2019 Instruction Type:Patient Education Patient Instructions Indication:BMI 20.0-20.9, adult Start:24-Nov-2019 Instruction Type:Provider Instructions for Treatment How to access health informa tion online Indication:Acute sinusitis, unspecified (Renamed from Sinusitis, acute) Start:09-Aug-2019 Instruction Type:Patient Education How to access health informa tion online - Detail Indication:Acute sinusitis, unspecified (Renamed from Sinusitis, acute) Start:09-Aug-2019 Instruction Type:Patient Education Patient Instructions Indication:Acute sinusitis, unspecified (Renamed from Sinusitis, acute) Start:09-Aug-2019 Instruction Type:Provider Instructions for Treatment How to access health informa tion online Indication:Anxiety and depression Start:02-Aug-2019 Instruction Type:Patient Education How to access health informa tion online - Detail Indication:Anxiety and depression Start:02-Aug-2019 Instruction Type:Patient Education Patient Instructions Indication:Anxiety and depression Start:02-Aug-2019 Instruction Type:Provider Instructions for Treatment How to access health informa tion online Indication:Anxiety and depression Start:10-May-2019 Instruction Type:Patient Education How to access health informa tion online - Detail Indication:Anxiety and depression Start:10-May-2019 Instruction Type:Patient Education Patient Instructions Indication:Anxiety and depression Start:10-May-2019 Instruction Type:Provider Instructions for Treatment How to access health informa tion online Indication:Anxiety and depression Start:06-Sep-2018 Instruction Type:Patient Education How to access health informa tion online - Detail Indication:Anxiety and depression Start:06-Sep-2018 Instruction Type:Patient Education Patient Instructions Indication:Anxiety and depression Start:06-Sep-2018 Instruction Type:Provider Instructions for Treatment How to access health informa tion online Indication:BMI 21.0-21.9, adult Start:03-Aug-2018 Instruction Type:Patient Education How to access health informa tion online - Detail Indication:BMI 21.0-21.9, adult Start:03-Aug-2018 Instruction Type:Patient Education Patient Instructions Indication:BMI 21.0-21.9, adult Start:03-Aug-2018 Instruction Type:Provider Instructions for Treatment How to access health informa tion online Indication:BMI 20.0-20.9, adult Start:14-Jul-2018 Instruction Type:Patient Education How to access health informa tion online - Detail Indication:BMI 20.0-20.9, adult Start:14-Jul-2018 Instruction Type:Patient Education Patient Instructions Indication:BMI 20.0-20.9, adult Start:14-Jul-2018 Instruction Type:Provider Instructions for Treatment How to access health informa tion online Indication:Acne Start:27-May-2018 Instruction Type:Patient Education How to access health informa tion online - Detail Indication:Acne Start:27-May-2018 Instruction Type:Patient Education Patient Instructions Indication:Acne Start:27-May-2018 Instruction Type:Provider Instructions for Treatment [facility]; [facility] Work Phone: Instructions* Name Dates Details Patient Instructions Indication:Non-smoker Start:15-Apr-2022 Instruction Type:Provider Instructions for Treatment How to Access Health Informa tion Online using Patient Portal and [employer] Apps Indication:Non-smoker Start:15-Apr-2022 Instruction Type:Patient Education Patient Instructions Indication:Sinusitis Start:29-Mar-2021 Instruction Type:Provider Instructions for Treatment How to Access Health Informa tion Online using Patient Portal and [employer] Apps Indication:Sinusitis Start:29-Mar-2021 Instruction Type:Patient Education Patient Instructions Indication:Ingrown nail Start:08-Jan-2021 Instruction Type:Provider Instructions for Treatment How to Access Health Informa tion Online using Patient Portal and [employer] Apps Indication:Ingrown nail Start:08-Jan-2021 Instruction Type:Patient Education How to access health informa tion online Indication:Allergic rhinitis Start:23-Mar-2020 Instruction Type:Patient Education How to access health informa tion online - Detail Indication:Allergic rhinitis Start:23-Mar-2020 Instruction Type:Patient Education Patient Instructions Indication:Allergic rhinitis Start:23-Mar-2020 Instruction Type:Provider Instructions for Treatment How to access health informa tion online Indication:Non-smoker Start:05-Jan-2020 Instruction Type:Patient Education How to access health informa tion online - Detail Indication:Non-smoker Start:05-Jan-2020 Instruction Type:Patient Education Patient Instructions Indication:Non-smoker Start:05-Jan-2020 Instruction Type:Provider Instructions for Treatment How to access health informa tion online Indication:BMI 20.0-20.9, adult Start:24-Nov-2019 Instruction Type:Patient Education How to access health informa tion online - Detail Indication:BMI 20.0-20.9, adult Start:24-Nov-2019 Instruction Type:Patient Education Patient Instructions Indication:BMI 20.0-20.9, adult Start:24-Nov-2019 Instruction Type:Provider Instructions for Treatment How to access health informa tion online Indication:Acute sinusitis, unspecified (Renamed from Sinusitis, acute) Start:09-Aug-2019 Instruction Type:Patient Education How to access health informa tion online - Detail Indication:Acute sinusitis, unspecified (Renamed from Sinusitis, acute) Start:09-Aug-2019 Instruction Type:Patient Education Patient Instructions Indication:Acute sinusitis, unspecified (Renamed from Sinusitis, acute) Start:09-Aug-2019 Instruction Type:Provider Instructions for Treatment How to access health informa tion online Indication:Anxiety and depression Start:02-Aug-2019 Instruction Type:Patient Education How to access health informa tion online - Detail Indication:Anxiety and depression Start:02-Aug-2019 Instruction Type:Patient Education Patient Instructions Indication:Anxiety and depression Start:02-Aug-2019 Instruction Type:Provider Instructions for Treatment How to access health informa tion online Indication:Anxiety and depression Start:10-May-2019 Instruction Type:Patient Education How to access health informa tion online - Detail Indication:Anxiety and depression Start:10-May-2019 Instruction Type:Patient Education Patient Instructions Indication:Anxiety and depression Start:10-May-2019 Instruction Type:Provider Instructions for Treatment How to access health informa tion online Indication:Anxiety and depression Start:06-Sep-2018 Instruction Type:Patient Education How to access health informa tion online - Detail Indication:Anxiety and depression Start:06-Sep-2018 Instruction Type:Patient Education Patient Instructions Indication:Anxiety and depression Start:06-Sep-2018 Instruction Type:Provider Instructions for Treatment How to access health informa tion online Indication:BMI 21.0-21.9, adult Start:03-Aug-2018 Instruction Type:Patient Education How to access health informa tion online - Detail Indication:BMI 21.0-21.9, adult Start:03-Aug-2018 Instruction Type:Patient Education Patient Instructions Indication:BMI 21.0-21.9, adult Start:03-Aug-2018 Instruction Type:Provider Instructions for Treatment How to access health informa tion online Indication:BMI 20.0-20.9, adult Start:14-Jul-2018 Instruction Type:Patient Education How to access health informa tion online - Detail Indication:BMI 20.0-20.9, adult Start:14-Jul-2018 Instruction Type:Patient Education Patient Instructions Indication:BMI 20.0-20.9, adult Start:14-Jul-2018 Instruction Type:Provider Instructions for Treatment How to access health informa tion online Indication:Acne Start:27-May-2018 Instruction Type:Patient Education How to access health informa tion online - Detail Indication:Acne Start:27-May-2018 Instruction Type:Patient Education Patient Instructions Indication:Acne Start:27-May-2018 Instruction Type:Provider Instructions for Treatment [facility]; [facility] Work Phone: Instructions* Name Dates Details Patient Instructions Indication:BMI 22.0-22.9, adult Start:29-May-2022 Instruction Type:Provider Instructions for Treatment How to Access Health Informa tion Online using Patient Portal and [employer] Apps Indication:BMI 22.0-22.9, adult Start:29-May-2022 Instruction Type:Patient Education Patient Instructions Indication:Non-smoker Start:15-Apr-2022 Instruction Type:Provider Instructions for Treatment How to Access Health Informa tion Online using Patient Portal and [employer] Apps Indication:Non-smoker Start:15-Apr-2022 Instruction Type:Patient Education Patient Instructions Indication:Sinusitis Start:29-Mar-2021 Instruction Type:Provider Instructions for Treatment How to Access Health Informa tion Online using Patient Portal and [employer] Apps Indication:Sinusitis Start:29-Mar-2021 Instruction Type:Patient Education Patient Instructions Indication:Ingrown nail Start:08-Jan-2021 Instruction Type:Provider Instructions for Treatment How to Access Health Informa tion Online using Patient Portal and [employer]rd [employer] Apps Indication:Ingrown nail Start:08-Jan-2021 Instruction Type:Patient Education How to access health informa tion online Indication:Allergic rhinitis Start:23-Mar-2020 Instruction Type:Patient Education How to access health informa tion online - Detail Indication:Allergic rhinitis Start:23-Mar-2020 Instruction Type:Patient Education Patient Instructions Indication:Allergic rhinitis Start:23-Mar-2020 Instruction Type:Provider Instructions for Treatment How to access health informa tion online Indication:Non-smoker Start:05-Jan-2020 Instruction Type:Patient Education How to access health informa tion online - Detail Indication:Non-smoker Start:05-Jan-2020 Instruction Type:Patient Education Patient Instructions Indication:Non-smoker Start:05-Jan-2020 Instruction Type:Provider Instructions for Treatment How to access health informa tion online Indication:BMI 20.0-20.9, adult Start:24-Nov-2019 Instruction Type:Patient Education How to access health informa tion online - Detail Indication:BMI 20.0-20.9, adult Start:24-Nov-2019 Instruction Type:Patient Education Patient Instructions Indication:BMI 20.0-20.9, adult Start:24-Nov-2019 Instruction Type:Provider Instructions for Treatment How to access health informa tion online Indication:Acute sinusitis, unspecified (Renamed from Sinusitis, acute) Start:09-Aug-2019 Instruction Type:Patient Education How to access health informa tion online - Detail Indication:Acute sinusitis, unspecified (Renamed from Sinusitis, acute) Start:09-Aug-2019 Instruction Type:Patient Education Patient Instructions Indication:Acute sinusitis, unspecified (Renamed from Sinusitis, acute) Start:09-Aug-2019 Instruction Type:Provider Instructions for Treatment How to access health informa tion online Indication:Anxiety and depression Start:02-Aug-2019 Instruction Type:Patient Education How to access health informa tion online - Detail Indication:Anxiety and depression Start:02-Aug-2019 Instruction Type:Patient Education Patient Instructions Indication:Anxiety and depression Start:02-Aug-2019 Instruction Type:Provider Instructions for Treatment How to access health informa tion online Indication:Anxiety and depression Start:10-May-2019 Instruction Type:Patient Education How to access health informa tion online - Detail Indication:Anxiety and depression Start:10-May-2019 Instruction Type:Patient Education Patient Instructions Indication:Anxiety and depression Start:10-May-2019 Instruction Type:Provider Instructions for Treatment How to access health informa tion online Indication:Anxiety and depression Start:06-Sep-2018 Instruction Type:Patient Education How to access health informa tion online - Detail Indication:Anxiety and depression Start:06-Sep-2018 Instruction Type:Patient Education Patient Instructions Indication:Anxiety and depression Start:06-Sep-2018 Instruction Type:Provider Instructions for Treatment How to access health informa tion online Indication:BMI 21.0-21.9, adult Start:03-Aug-2018 Instruction Type:Patient Education How to access health informa tion online - Detail Indication:BMI 21.0-21.9, adult Start:03-Aug-2018 Instruction Type:Patient Education Patient Instructions Indication:BMI 21.0-21.9, adult Start:03-Aug-2018 Instruction Type:Provider Instructions for Treatment How to access health informa tion online Indication:BMI 20.0-20.9, adult Start:14-Jul-2018 Instruction Type:Patient Education How to access health informa tion online - Detail Indication:BMI 20.0-20.9, adult Start:14-Jul-2018 Instruction Type:Patient Education Patient Instructions Indication:BMI 20.0-20.9, adult Start:14-Jul-2018 Instruction Type:Provider Instructions for Treatment How to access health informa tion online Indication:Acne Start:27-May-2018 Instruction Type:Patient Education How to access health informa tion online - Detail Indication:Acne Start:27-May-2018 Instruction Type:Patient Education Patient Instructions Indication:Acne Start:27-May-2018 Instruction Type:Provider Instructions for Treatment [facility]; [facility] Work Phone: Instructions* Name Dates Details Patient Instructions Indication:BMI 22.0-22.9, adult Start:20-Nov-2022 Instruction Type:Provider Instructions for Treatment How to Access Health Informa tion Online using Patient Portal and [employer]rd [employer] Apps Indication:BMI 22.0-22.9, adult Start:20-Nov-2022 Instruction Type:Patient Education Patient Instructions Indication:BMI 22.0-22.9, adult Start:29-May-2022 Instruction Type:Provider Instructions for Treatment How to Access Health Informa tion Online using Patient Portal and [employer]rd [employer] Apps Indication:BMI 22.0-22.9, adult Start:29-May-2022 Instruction Type:Patient Education Patient Instructions Indication:Non-smoker Start:15-Apr-2022 Instruction Type:Provider Instructions for Treatment How to Access Health Informa tion Online using Patient Portal and [email or web address] Apps Indication:Non-smoker Start:15-Apr-2022 Instruction Type:Patient Education Patient Instructions Indication:Sinusitis Start:29-Mar-2021 Instruction Type:Provider Instructions for Treatment How to Access Health Informa tion Online using Patient Portal and [email or web address] Apps Indication:Sinusitis Start:29-Mar-2021 Instruction Type:Patient Education Patient Instructions Indication:Ingrown nail Start:08-Jan-2021 Instruction Type:Provider Instructions for Treatment How to Access Health Informa tion Online using Patient Portal and [email or web address] Apps Indication:Ingrown nail Start:08-Jan-2021 Instruction Type:Patient Education How to access health informa tion online Indication:Allergic rhinitis Start:23-Mar-2020 Instruction Type:Patient Education How to access health informa tion online - Detail Indication:Allergic rhinitis Start:23-Mar-2020 Instruction Type:Patient Education Patient Instructions Indication:Allergic rhinitis Start:23-Mar-2020 Instruction Type:Provider Instructions for Treatment How to access health informa tion online Indication:Non-smoker Start:05-Jan-2020 Instruction Type:Patient Education How to access health informa tion online - Detail Indication:Non-smoker Start:05-Jan-2020 Instruction Type:Patient Education Patient Instructions Indication:Non-smoker Start:05-Jan-2020 Instruction Type:Provider Instructions for Treatment How to access health informa tion online Indication:BMI 20.0-20.9, adult Start:24-Nov-2019 Instruction Type:Patient Education How to access health informa tion online - Detail Indication:BMI 20.0-20.9, adult Start:24-Nov-2019 Instruction Type:Patient Education Patient Instructions Indication:BMI 20.0-20.9, adult Start:24-Nov-2019 Instruction Type:Provider Instructions for Treatment How to access health informa tion online Indication:Acute sinusitis, unspecified (Renamed from Sinusitis, acute) Start:09-Aug-2019 Instruction Type:Patient Education How to access health informa tion online - Detail Indication:Acute sinusitis, unspecified (Renamed from Sinusitis, acute) Start:09-Aug-2019 Instruction Type:Patient Education Patient Instructions Indication:Acute sinusitis, unspecified (Renamed from Sinusitis, acute) Start:09-Aug-2019 Instruction Type:Provider Instructions for Treatment How to access health informa tion online Indication:Anxiety and depression Start:02-Aug-2019 Instruction Type:Patient Education How to access health informa tion online - Detail Indication:Anxiety and depression Start:02-Aug-2019 Instruction Type:Patient Education Patient Instructions Indication:Anxiety and depression Start:02-Aug-2019 Instruction Type:Provider Instructions for Treatment How to access health informa tion online Indication:Anxiety and depression Start:10-May-2019 Instruction Type:Patient Education How to access health informa tion online - Detail Indication:Anxiety and depression Start:10-May-2019 Instruction Type:Patient Education Patient Instructions Indication:Anxiety and depression Start:10-May-2019 Instruction Type:Provider Instructions for Treatment How to access health informa tion online Indication:Anxiety and depression Start:06-Sep-2018 Instruction Type:Patient Education How to access health informa tion online - Detail Indication:Anxiety and depression Start:06-Sep-2018 Instruction Type:Patient Education Patient Instructions Indication:Anxiety and depression Start:06-Sep-2018 Instruction Type:Provider Instructions for Treatment How to access health informa tion online Indication:BMI 21.0-21.9, adult Start:03-Aug-2018 Instruction Type:Patient Education How to access health informa tion online - Detail Indication:BMI 21.0-21.9, adult Start:03-Aug-2018 Instruction Type:Patient Education Patient Instructions Indication:BMI 21.0-21.9, adult Start:03-Aug-2018 Instruction Type:Provider Instructions for Treatment How to access health informa tion online Indication:BMI 20.0-20.9, adult Start:14-Jul-2018 Instruction Type:Patient Education How to access health informa tion online - Detail Indication:BMI 20.0-20.9, adult Start:14-Jul-2018 Instruction Type:Patient Education Patient Instructions Indication:BMI 20.0-20.9, adult Start:14-Jul-2018 Instruction Type:Provider Instructions for Treatment How to access health informa tion online Indication:Acne Start:27-May-2018 Instruction Type:Patient Education How to access health informa tion online - Detail Indication:Acne Start:27-May-2018 Instruction Type:Patient Education Patient Instructions Indication:Acne Start:27-May-2018 Instruction Type:Provider Instructions for Treatment [facility]; [facility] Work Phone: Instructions* Name Dates Details Patient Instructions Indication:BMI 22.0-22.9, adult Start:20-Nov-2022 Instruction Type:Provider Instructions for Treatment How to Access Health Informa tion Online using Patient Portal and [employer]rd [employer] Apps Indication:BMI 22.0-22.9, adult Start:20-Nov-2022 Instruction Type:Patient Education Patient Instructions Indication:BMI 22.0-22.9, adult Start:29-May-2022 Instruction Type:Provider Instructions for Treatment How to Access Health Informa tion Online using Patient Portal and [email or web address] Apps Indication:BMI 22.0-22.9, adult Start:29-May-2022 Instruction Type:Patient Education Patient Instructions Indication:Non-smoker Start:15-Apr-2022 Instruction Type:Provider Instructions for Treatment How to Access Health Informa tion Online using Patient Portal and [employer] Apps Indication:Non-smoker Start:15-Apr-2022 Instruction Type:Patient Education Patient Instructions Indication:Sinusitis Start:29-Mar-2021 Instruction Type:Provider Instructions for Treatment How to Access Health Informa tion Online using Patient Portal and [email or web address] Apps Indication:Sinusitis Start:29-Mar-2021 Instruction Type:Patient Education Patient Instructions Indication:Ingrown nail Start:08-Jan-2021 Instruction Type:Provider Instructions for Treatment How to Access Health Informa tion Online using Patient Portal and [email or web address] Apps Indication:Ingrown nail Start:08-Jan-2021 Instruction Type:Patient Education How to access health informa tion online Indication:Allergic rhinitis Start:23-Mar-2020 Instruction Type:Patient Education How to access health informa tion online - Detail Indication:Allergic rhinitis Start:23-Mar-2020 Instruction Type:Patient Education Patient Instructions Indication:Allergic rhinitis Start:23-Mar-2020 Instruction Type:Provider Instructions for Treatment How to access health informa tion online Indication:Non-smoker Start:05-Jan-2020 Instruction Type:Patient Education How to access health informa tion online - Detail Indication:Non-smoker Start:05-Jan-2020 Instruction Type:Patient Education Patient Instructions Indication:Non-smoker Start:05-Jan-2020 Instruction Type:Provider Instructions for Treatment How to access health informa tion online Indication:BMI 20.0-20.9, adult Start:24-Nov-2019 Instruction Type:Patient Education How to access health informa tion online - Detail Indication:BMI 20.0-20.9, adult Start:24-Nov-2019 Instruction Type:Patient Education Patient Instructions Indication:BMI 20.0-20.9, adult Start:24-Nov-2019 Instruction Type:Provider Instructions for Treatment How to access health informa tion online Indication:Acute sinusitis, unspecified (Renamed from Sinusitis, acute) Start:09-Aug-2019 Instruction Type:Patient Education How to access health informa tion online - Detail Indication:Acute sinusitis, unspecified (Renamed from Sinusitis, acute) Start:09-Aug-2019 Instruction Type:Patient Education Patient Instructions Indication:Acute sinusitis, unspecified (Renamed from Sinusitis, acute) Start:09-Aug-2019 Instruction Type:Provider Instructions for Treatment How to access health informa tion online Indication:Anxiety and depression Start:02-Aug-2019 Instruction Type:Patient Education How to access health informa tion online - Detail Indication:Anxiety and depression Start:02-Aug-2019 Instruction Type:Patient Education Patient Instructions Indication:Anxiety and depression Start:02-Aug-2019 Instruction Type:Provider Instructions for Treatment How to access health informa tion online Indication:Anxiety and depression Start:10-May-2019 Instruction Type:Patient Education How to access health informa tion online - Detail Indication:Anxiety and depression Start:10-May-2019 Instruction Type:Patient Education Patient Instructions Indication:Anxiety and depression Start:10-May-2019 Instruction Type:Provider Instructions for Treatment How to access health informa tion online Indication:Anxiety and depression Start:06-Sep-2018 Instruction Type:Patient Education How to access health informa tion online - Detail Indication:Anxiety and depression Start:06-Sep-2018 Instruction Type:Patient Education Patient Instructions Indication:Anxiety and depression Start:06-Sep-2018 Instruction Type:Provider Instructions for Treatment How to access health informa tion online Indication:BMI 21.0-21.9, adult Start:03-Aug-2018 Instruction Type:Patient Education How to access health informa tion online - Detail Indication:BMI 21.0-21.9, adult Start:03-Aug-2018 Instruction Type:Patient Education Patient Instructions Indication:BMI 21.0-21.9, adult Start:03-Aug-2018 Instruction Type:Provider Instructions for Treatment How to access health informa tion online Indication:BMI 20.0-20.9, adult Start:14-Jul-2018 Instruction Type:Patient Education How to access health informa tion online - Detail Indication:BMI 20.0-20.9, adult Start:14-Jul-2018 Instruction Type:Patient Education Patient Instructions Indication:BMI 20.0-20.9, adult Start:14-Jul-2018 Instruction Type:Provider Instructions for Treatment How to access health informa tion online Indication:Acne Start:27-May-2018 Instruction Type:Patient Education How to access health informa tion online - Detail Indication:Acne Start:27-May-2018 Instruction Type:Patient Education Patient Instructions Indication:Acne Start:27-May-2018 Instruction Type:Provider Instructions for Treatment [facility]; [facility] Work Phone: Instructions* Name Dates Details Patient Instructions Indication:BMI 22.0-22.9, adult Start:20-Nov-2022 Instruction Type:Provider Instructions for Treatment How to Access Health Informa tion Online using Patient Portal and [employer]rd [employer] Apps Indication:BMI 22.0-22.9, adult Start:20-Nov-2022 Instruction Type:Patient Education Patient Instructions Indication:BMI 22.0-22.9, adult Start:29-May-2022 Instruction Type:Provider Instructions for Treatment How to Access Health Informa tion Online using Patient Portal and [employer]rd [employer] Apps Indication:BMI 22.0-22.9, adult Start:29-May-2022 Instruction Type:Patient Education Patient Instructions Indication:Non-smoker Start:15-Apr-2022 Instruction Type:Provider Instructions for Treatment How to Access Health Informa tion Online using Patient Portal and [employer] Apps Indication:Non-smoker Start:15-Apr-2022 Instruction Type:Patient Education Patient Instructions Indication:Sinusitis Start:29-Mar-2021 Instruction Type:Provider Instructions for Treatment How to Access Health Informa tion Online using Patient Portal and [employer] Apps Indication:Sinusitis Start:29-Mar-2021 Instruction Type:Patient Education Patient Instructions Indication:Ingrown nail Start:08-Jan-2021 Instruction Type:Provider Instructions for Treatment How to Access Health Informa tion Online using Patient Portal and [employer] Apps Indication:Ingrown nail Start:08-Jan-2021 Instruction Type:Patient Education How to access health informa tion online Indication:Allergic rhinitis Start:23-Mar-2020 Instruction Type:Patient Education How to access health informa tion online - Detail Indication:Allergic rhinitis Start:23-Mar-2020 Instruction Type:Patient Education Patient Instructions Indication:Allergic rhinitis Start:23-Mar-2020 Instruction Type:Provider Instructions for Treatment How to access health informa tion online Indication:Non-smoker Start:05-Jan-2020 Instruction Type:Patient Education How to access health informa tion online - Detail Indication:Non-smoker Start:05-Jan-2020 Instruction Type:Patient Education Patient Instructions Indication:Non-smoker Start:05-Jan-2020 Instruction Type:Provider Instructions for Treatment How to access health informa tion online Indication:BMI 20.0-20.9, adult Start:24-Nov-2019 Instruction Type:Patient Education How to access health informa tion online - Detail Indication:BMI 20.0-20.9, adult Start:24-Nov-2019 Instruction Type:Patient Education Patient Instructions Indication:BMI 20.0-20.9, adult Start:24-Nov-2019 Instruction Type:Provider Instructions for Treatment How to access health informa tion online Indication:Acute sinusitis, unspecified (Renamed from Sinusitis, acute) Start:09-Aug-2019 Instruction Type:Patient Education How to access health informa tion online - Detail Indication:Acute sinusitis, unspecified (Renamed from Sinusitis, acute) Start:09-Aug-2019 Instruction Type:Patient Education Patient Instructions Indication:Acute sinusitis, unspecified (Renamed from Sinusitis, acute) Start:09-Aug-2019 Instruction Type:Provider Instructions for Treatment How to access health informa tion online Indication:Anxiety and depression Start:02-Aug-2019 Instruction Type:Patient Education How to access health informa tion online - Detail Indication:Anxiety and depression Start:02-Aug-2019 Instruction Type:Patient Education Patient Instructions Indication:Anxiety and depression Start:02-Aug-2019 Instruction Type:Provider Instructions for Treatment How to access health informa tion online Indication:Anxiety and depression Start:10-May-2019 Instruction Type:Patient Education How to access health informa tion online - Detail Indication:Anxiety and depression Start:10-May-2019 Instruction Type:Patient Education Patient Instructions Indication:Anxiety and depression Start:10-May-2019 Instruction Type:Provider Instructions for Treatment How to access health informa tion online Indication:Anxiety and depression Start:06-Sep-2018 Instruction Type:Patient Education How to access health informa tion online - Detail Indication:Anxiety and depression Start:06-Sep-2018 Instruction Type:Patient Education Patient Instructions Indication:Anxiety and depression Start:06-Sep-2018 Instruction Type:Provider Instructions for Treatment How to access health informa tion online Indication:BMI 21.0-21.9, adult Start:03-Aug-2018 Instruction Type:Patient Education How to access health informa tion online - Detail Indication:BMI 21.0-21.9, adult Start:03-Aug-2018 Instruction Type:Patient Education Patient Instructions Indication:BMI 21.0-21.9, adult Start:03-Aug-2018 Instruction Type:Provider Instructions for Treatment How to access health informa tion online Indication:BMI 20.0-20.9, adult Start:14-Jul-2018 Instruction Type:Patient Education How to access health informa tion online - Detail Indication:BMI 20.0-20.9, adult Start:14-Jul-2018 Instruction Type:Patient Education Patient Instructions Indication:BMI 20.0-20.9, adult Start:14-Jul-2018 Instruction Type:Provider Instructions for Treatment How to access health informa tion online Indication:Acne Start:27-May-2018 Instruction Type:Patient Education How to access health informa tion online - Detail Indication:Acne Start:27-May-2018 Instruction Type:Patient Education Patient Instructions Indication:Acne Start:27-May-2018 Instruction Type:Provider Instructions for Treatment [facility]; [facility] Work Phone: Instructions* Name Dates Details Patient Instructions Indication:BMI 22.0-22.9, adult Start:20-Nov-2022 Instruction Type:Provider Instructions for Treatment How to Access Health Informa tion Online using Patient Portal and [employer] Apps Indication:BMI 22.0-22.9, adult Start:20-Nov-2022 Instruction Type:Patient Education Patient Instructions Indication:BMI 22.0-22.9, adult Start:29-May-2022 Instruction Type:Provider Instructions for Treatment How to Access Health Informa tion Online using Patient Portal and [employer] Apps Indication:BMI 22.0-22.9, adult Start:29-May-2022 Instruction Type:Patient Education Patient Instructions Indication:Non-smoker Start:15-Apr-2022 Instruction Type:Provider Instructions for Treatment How to Access Health Informa tion Online using Patient Portal and [employer] Apps Indication:Non-smoker Start:15-Apr-2022 Instruction Type:Patient Education Patient Instructions Indication:Sinusitis Start:29-Mar-2021 Instruction Type:Provider Instructions for Treatment How to Access Health Informa tion Online using Patient Portal and [employer] Apps Indication:Sinusitis Start:29-Mar-2021 Instruction Type:Patient Education Patient Instructions Indication:Ingrown nail Start:08-Jan-2021 Instruction Type:Provider Instructions for Treatment How to Access Health Informa tion Online using Patient Portal and [employer] Apps Indication:Ingrown nail Start:08-Jan-2021 Instruction Type:Patient Education How to access health informa tion online Indication:Allergic rhinitis Start:23-Mar-2020 Instruction Type:Patient Education How to access health informa tion online - Detail Indication:Allergic rhinitis Start:23-Mar-2020 Instruction Type:Patient Education Patient Instructions Indication:Allergic rhinitis Start:23-Mar-2020 Instruction Type:Provider Instructions for Treatment How to access health informa tion online Indication:Non-smoker Start:05-Jan-2020 Instruction Type:Patient Education How to access health informa tion online - Detail Indication:Non-smoker Start:05-Jan-2020 Instruction Type:Patient Education Patient Instructions Indication:Non-smoker Start:05-Jan-2020 Instruction Type:Provider Instructions for Treatment How to access health informa tion online Indication:BMI 20.0-20.9, adult Start:24-Nov-2019 Instruction Type:Patient Education How to access health informa tion online - Detail Indication:BMI 20.0-20.9, adult Start:24-Nov-2019 Instruction Type:Patient Education Patient Instructions Indication:BMI 20.0-20.9, adult Start:24-Nov-2019 Instruction Type:Provider Instructions for Treatment How to access health informa tion online Indication:Acute sinusitis, unspecified (Renamed from Sinusitis, acute) Start:09-Aug-2019 Instruction Type:Patient Education How to access health informa tion online - Detail Indication:Acute sinusitis, unspecified (Renamed from Sinusitis, acute) Start:09-Aug-2019 Instruction Type:Patient Education Patient Instructions Indication:Acute sinusitis, unspecified (Renamed from Sinusitis, acute) Start:09-Aug-2019 Instruction Type:Provider Instructions for Treatment How to access health informa tion online Indication:Anxiety and depression Start:02-Aug-2019 Instruction Type:Patient Education How to access health informa tion online - Detail Indication:Anxiety and depression Start:02-Aug-2019 Instruction Type:Patient Education Patient Instructions Indication:Anxiety and depression Start:02-Aug-2019 Instruction Type:Provider Instructions for Treatment How to access health informa tion online Indication:Anxiety and depression Start:10-May-2019 Instruction Type:Patient Education How to access health informa tion online - Detail Indication:Anxiety and depression Start:10-May-2019 Instruction Type:Patient Education Patient Instructions Indication:Anxiety and depression Start:10-May-2019 Instruction Type:Provider Instructions for Treatment How to access health informa tion online Indication:Anxiety and depression Start:06-Sep-2018 Instruction Type:Patient Education How to access health informa tion online - Detail Indication:Anxiety and depression Start:06-Sep-2018 Instruction Type:Patient Education Patient Instructions Indication:Anxiety and depression Start:06-Sep-2018 Instruction Type:Provider Instructions for Treatment How to access health informa tion online Indication:BMI 21.0-21.9, adult Start:03-Aug-2018 Instruction Type:Patient Education How to access health informa tion online - Detail Indication:BMI 21.0-21.9, adult Start:03-Aug-2018 Instruction Type:Patient Education Patient Instructions Indication:BMI 21.0-21.9, adult Start:03-Aug-2018 Instruction Type:Provider Instructions for Treatment How to access health informa tion online Indication:BMI 20.0-20.9, adult Start:14-Jul-2018 Instruction Type:Patient Education How to access health informa tion online - Detail Indication:BMI 20.0-20.9, adult Start:14-Jul-2018 Instruction Type:Patient Education Patient Instructions Indication:BMI 20.0-20.9, adult Start:14-Jul-2018 Instruction Type:Provider Instructions for Treatment How to access health informa tion online Indication:Acne Start:27-May-2018 Instruction Type:Patient Education How to access health informa tion online - Detail Indication:Acne Start:27-May-2018 Instruction Type:Patient Education Patient Instructions Indication:Acne Start:27-May-2018 Instruction Type:Provider Instructions for Treatment [facility]; [facility] Work Phone: Instructions* Name Dates Details Patient Instructions Indication:BMI 22.0-22.9, adult Start:20-Nov-2022 Instruction Type:Provider Instructions for Treatment How to Access Health Informa tion Online using Patient Portal and [employer]rd [employer] Apps Indication:BMI 22.0-22.9, adult Start:20-Nov-2022 Instruction Type:Patient Education Patient Instructions Indication:BMI 22.0-22.9, adult Start:29-May-2022 Instruction Type:Provider Instructions for Treatment How to Access Health Informa tion Online using Patient Portal and [employer]rd [employer] Apps Indication:BMI 22.0-22.9, adult Start:29-May-2022 Instruction Type:Patient Education Patient Instructions Indication:Non-smoker Start:15-Apr-2022 Instruction Type:Provider Instructions for Treatment How to Access Health Informa tion Online using Patient Portal and [employer]rd [employer] Apps Indication:Non-smoker Start:15-Apr-2022 Instruction Type:Patient Education Patient Instructions Indication:Sinusitis Start:29-Mar-2021 Instruction Type:Provider Instructions for Treatment How to Access Health Informa tion Online using Patient Portal and [employer]rd [employer] Apps Indication:Sinusitis Start:29-Mar-2021 Instruction Type:Patient Education Patient Instructions Indication:Ingrown nail Start:08-Jan-2021 Instruction Type:Provider Instructions for Treatment How to Access Health Informa tion Online using Patient Portal and [employer]rd [employer] Apps Indication:Ingrown nail Start:08-Jan-2021 Instruction Type:Patient Education How to access health informa tion online Indication:Allergic rhinitis Start:23-Mar-2020 Instruction Type:Patient Education How to access health informa tion online - Detail Indication:Allergic rhinitis Start:23-Mar-2020 Instruction Type:Patient Education Patient Instructions Indication:Allergic rhinitis Start:23-Mar-2020 Instruction Type:Provider Instructions for Treatment How to access health informa tion online Indication:Non-smoker Start:05-Jan-2020 Instruction Type:Patient Education How to access health informa tion online - Detail Indication:Non-smoker Start:05-Jan-2020 Instruction Type:Patient Education Patient Instructions Indication:Non-smoker Start:05-Jan-2020 Instruction Type:Provider Instructions for Treatment How to access health informa tion online Indication:BMI 20.0-20.9, adult Start:24-Nov-2019 Instruction Type:Patient Education How to access health informa tion online - Detail Indication:BMI 20.0-20.9, adult Start:24-Nov-2019 Instruction Type:Patient Education Patient Instructions Indication:BMI 20.0-20.9, adult Start:24-Nov-2019 Instruction Type:Provider Instructions for Treatment How to access health informa tion online Indication:Acute sinusitis, unspecified (Renamed from Sinusitis, acute) Start:09-Aug-2019 Instruction Type:Patient Education How to access health informa tion online - Detail Indication:Acute sinusitis, unspecified (Renamed from Sinusitis, acute) Start:09-Aug-2019 Instruction Type:Patient Education Patient Instructions Indication:Acute sinusitis, unspecified (Renamed from Sinusitis, acute) Start:09-Aug-2019 Instruction Type:Provider Instructions for Treatment How to access health informa tion online Indication:Anxiety and depression Start:02-Aug-2019 Instruction Type:Patient Education How to access health informa tion online - Detail Indication:Anxiety and depression Start:02-Aug-2019 Instruction Type:Patient Education Patient Instructions Indication:Anxiety and depression Start:02-Aug-2019 Instruction Type:Provider Instructions for Treatment How to access health informa tion online Indication:Anxiety and depression Start:10-May-2019 Instruction Type:Patient Education How to access health informa tion online - Detail Indication:Anxiety and depression Start:10-May-2019 Instruction Type:Patient Education Patient Instructions Indication:Anxiety and depression Start:10-May-2019 Instruction Type:Provider Instructions for Treatment How to access health informa tion online Indication:Anxiety and depression Start:06-Sep-2018 Instruction Type:Patient Education How to access health informa tion online - Detail Indication:Anxiety and depression Start:06-Sep-2018 Instruction Type:Patient Education Patient Instructions Indication:Anxiety and depression Start:06-Sep-2018 Instruction Type:Provider Instructions for Treatment How to access health informa tion online Indication:BMI 21.0-21.9, adult Start:03-Aug-2018 Instruction Type:Patient Education How to access health informa tion online - Detail Indication:BMI 21.0-21.9, adult Start:03-Aug-2018 Instruction Type:Patient Education Patient Instructions Indication:BMI 21.0-21.9, adult Start:03-Aug-2018 Instruction Type:Provider Instructions for Treatment How to access health informa tion online Indication:BMI 20.0-20.9, adult Start:14-Jul-2018 Instruction Type:Patient Education How to access health informa tion online - Detail Indication:BMI 20.0-20.9, adult Start:14-Jul-2018 Instruction Type:Patient Education Patient Instructions Indication:BMI 20.0-20.9, adult Start:14-Jul-2018 Instruction Type:Provider Instructions for Treatment How to access health informa tion online Indication:Acne Start:27-May-2018 Instruction Type:Patient Education How to access health informa tion online - Detail Indication:Acne Start:27-May-2018 Instruction Type:Patient Education Patient Instructions Indication:Acne Start:27-May-2018 Instruction Type:Provider Instructions for Treatment [facility]; [facility] Work Phone: Instructions* Name Dates Details Patient Instructions Indication:BMI 22.0-22.9, adult Start:20-Nov-2022 Instruction Type:Provider Instructions for Treatment How to Access Health Informa tion Online using Patient Portal and [employer]rd [employer] Apps Indication:BMI 22.0-22.9, adult Start:20-Nov-2022 Instruction Type:Patient Education Patient Instructions Indication:BMI 22.0-22.9, adult Start:29-May-2022 Instruction Type:Provider Instructions for Treatment How to Access Health Informa tion Online using Patient Portal and [employer]rd [employer] Apps Indication:BMI 22.0-22.9, adult Start:29-May-2022 Instruction Type:Patient Education Patient Instructions Indication:Non-smoker Start:15-Apr-2022 Instruction Type:Provider Instructions for Treatment How to Access Health Informa tion Online using Patient Portal and [employer]rd [employer] Apps Indication:Non-smoker Start:15-Apr-2022 Instruction Type:Patient Education Patient Instructions Indication:Sinusitis Start:29-Mar-2021 Instruction Type:Provider Instructions for Treatment How to Access Health Informa tion Online using Patient Portal and [employer]rd [employer] Apps Indication:Sinusitis Start:29-Mar-2021 Instruction Type:Patient Education Patient Instructions Indication:Ingrown nail Start:08-Jan-2021 Instruction Type:Provider Instructions for Treatment How to Access Health Informa tion Online using Patient Portal and [employer]rd [employer] Apps Indication:Ingrown nail Start:08-Jan-2021 Instruction Type:Patient Education How to access health informa tion online Indication:Allergic rhinitis Start:23-Mar-2020 Instruction Type:Patient Education How to access health informa tion online - Detail Indication:Allergic rhinitis Start:23-Mar-2020 Instruction Type:Patient Education Patient Instructions Indication:Allergic rhinitis Start:23-Mar-2020 Instruction Type:Provider Instructions for Treatment How to access health informa tion online Indication:Non-smoker Start:05-Jan-2020 Instruction Type:Patient Education How to access health informa tion online - Detail Indication:Non-smoker Start:05-Jan-2020 Instruction Type:Patient Education Patient Instructions Indication:Non-smoker Start:05-Jan-2020 Instruction Type:Provider Instructions for Treatment How to access health informa tion online Indication:BMI 20.0-20.9, adult Start:24-Nov-2019 Instruction Type:Patient Education How to access health informa tion online - Detail Indication:BMI 20.0-20.9, adult Start:24-Nov-2019 Instruction Type:Patient Education Patient Instructions Indication:BMI 20.0-20.9, adult Start:24-Nov-2019 Instruction Type:Provider Instructions for Treatment How to access health informa tion online Indication:Acute sinusitis, unspecified (Renamed from Sinusitis, acute) Start:09-Aug-2019 Instruction Type:Patient Education How to access health informa tion online - Detail Indication:Acute sinusitis, unspecified (Renamed from Sinusitis, acute) Start:09-Aug-2019 Instruction Type:Patient Education Patient Instructions Indication:Acute sinusitis, unspecified (Renamed from Sinusitis, acute) Start:09-Aug-2019 Instruction Type:Provider Instructions for Treatment How to access health informa tion online Indication:Anxiety and depression Start:02-Aug-2019 Instruction Type:Patient Education How to access health informa tion online - Detail Indication:Anxiety and depression Start:02-Aug-2019 Instruction Type:Patient Education Patient Instructions Indication:Anxiety and depression Start:02-Aug-2019 Instruction Type:Provider Instructions for Treatment How to access health informa tion online Indication:Anxiety and depression Start:10-May-2019 Instruction Type:Patient Education How to access health informa tion online - Detail Indication:Anxiety and depression Start:10-May-2019 Instruction Type:Patient Education Patient Instructions Indication:Anxiety and depression Start:10-May-2019 Instruction Type:Provider Instructions for Treatment How to access health informa tion online Indication:Anxiety and depression Start:06-Sep-2018 Instruction Type:Patient Education How to access health informa tion online - Detail Indication:Anxiety and depression Start:06-Sep-2018 Instruction Type:Patient Education Patient Instructions Indication:Anxiety and depression Start:06-Sep-2018 Instruction Type:Provider Instructions for Treatment How to access health informa tion online Indication:BMI 21.0-21.9, adult Start:03-Aug-2018 Instruction Type:Patient Education How to access health informa tion online - Detail Indication:BMI 21.0-21.9, adult Start:03-Aug-2018 Instruction Type:Patient Education Patient Instructions Indication:BMI 21.0-21.9, adult Start:03-Aug-2018 Instruction Type:Provider Instructions for Treatment How to access health informa tion online Indication:BMI 20.0-20.9, adult Start:14-Jul-2018 Instruction Type:Patient Education How to access health informa tion online - Detail Indication:BMI 20.0-20.9, adult Start:14-Jul-2018 Instruction Type:Patient Education Patient Instructions Indication:BMI 20.0-20.9, adult Start:14-Jul-2018 Instruction Type:Provider Instructions for Treatment How to access health informa tion online Indication:Acne Start:27-May-2018 Instruction Type:Patient Education How to access health informa tion online - Detail Indication:Acne Start:27-May-2018 Instruction Type:Patient Education Patient Instructions Indication:Acne Start:27-May-2018 Instruction Type:Provider Instructions for Treatment [facility]; [facility] Work Phone: Instructions* Name Dates Details Patient Instructions Indication:BMI 22.0-22.9, adult Start:20-Nov-2022 Instruction Type:Provider Instructions for Treatment How to Access Health Informa tion Online using Patient Portal and [employer]rd [employer] Apps Indication:BMI 22.0-22.9, adult Start:20-Nov-2022 Instruction Type:Patient Education Patient Instructions Indication:BMI 22.0-22.9, adult Start:29-May-2022 Instruction Type:Provider Instructions for Treatment How to Access Health Informa tion Online using Patient Portal and [employer]rd [employer] Apps Indication:BMI 22.0-22.9, adult Start:29-May-2022 Instruction Type:Patient Education Patient Instructions Indication:Non-smoker Start:15-Apr-2022 Instruction Type:Provider Instructions for Treatment How to Access Health Informa tion Online using Patient Portal and [employer]rd [employer] Apps Indication:Non-smoker Start:15-Apr-2022 Instruction Type:Patient Education Patient Instructions Indication:Sinusitis Start:29-Mar-2021 Instruction Type:Provider Instructions for Treatment How to Access Health Informa tion Online using Patient Portal and [email or web address] Apps Indication:Sinusitis Start:29-Mar-2021 Instruction Type:Patient Education Patient Instructions Indication:Ingrown nail Start:08-Jan-2021 Instruction Type:Provider Instructions for Treatment How to Access Health Informa tion Online using Patient Portal and [email or web address] Apps Indication:Ingrown nail Start:08-Jan-2021 Instruction Type:Patient Education How to access health informa tion online Indication:Allergic rhinitis Start:23-Mar-2020 Instruction Type:Patient Education How to access health informa tion online - Detail Indication:Allergic rhinitis Start:23-Mar-2020 Instruction Type:Patient Education Patient Instructions Indication:Allergic rhinitis Start:23-Mar-2020 Instruction Type:Provider Instructions for Treatment How to access health informa tion online Indication:Non-smoker Start:05-Jan-2020 Instruction Type:Patient Education How to access health informa tion online - Detail Indication:Non-smoker Start:05-Jan-2020 Instruction Type:Patient Education Patient Instructions Indication:Non-smoker Start:05-Jan-2020 Instruction Type:Provider Instructions for Treatment How to access health informa tion online Indication:BMI 20.0-20.9, adult Start:24-Nov-2019 Instruction Type:Patient Education How to access health informa tion online - Detail Indication:BMI 20.0-20.9, adult Start:24-Nov-2019 Instruction Type:Patient Education Patient Instructions Indication:BMI 20.0-20.9, adult Start:24-Nov-2019 Instruction Type:Provider Instructions for Treatment How to access health informa tion online Indication:Acute sinusitis, unspecified (Renamed from Sinusitis, acute) Start:09-Aug-2019 Instruction Type:Patient Education How to access health informa tion online - Detail Indication:Acute sinusitis, unspecified (Renamed from Sinusitis, acute) Start:09-Aug-2019 Instruction Type:Patient Education Patient Instructions Indication:Acute sinusitis, unspecified (Renamed from Sinusitis, acute) Start:09-Aug-2019 Instruction Type:Provider Instructions for Treatment How to access health informa tion online Indication:Anxiety and depression Start:02-Aug-2019 Instruction Type:Patient Education How to access health informa tion online - Detail Indication:Anxiety and depression Start:02-Aug-2019 Instruction Type:Patient Education Patient Instructions Indication:Anxiety and depression Start:02-Aug-2019 Instruction Type:Provider Instructions for Treatment How to access health informa tion online Indication:Anxiety and depression Start:10-May-2019 Instruction Type:Patient Education How to access health informa tion online - Detail Indication:Anxiety and depression Start:10-May-2019 Instruction Type:Patient Education Patient Instructions Indication:Anxiety and depression Start:10-May-2019 Instruction Type:Provider Instructions for Treatment How to access health informa tion online Indication:Anxiety and depression Start:06-Sep-2018 Instruction Type:Patient Education How to access health informa tion online - Detail Indication:Anxiety and depression Start:06-Sep-2018 Instruction Type:Patient Education Patient Instructions Indication:Anxiety and depression Start:06-Sep-2018 Instruction Type:Provider Instructions for Treatment How to access health informa tion online Indication:BMI 21.0-21.9, adult Start:03-Aug-2018 Instruction Type:Patient Education How to access health informa tion online - Detail Indication:BMI 21.0-21.9, adult Start:03-Aug-2018 Instruction Type:Patient Education Patient Instructions Indication:BMI 21.0-21.9, adult Start:03-Aug-2018 Instruction Type:Provider Instructions for Treatment How to access health informa tion online Indication:BMI 20.0-20.9, adult Start:14-Jul-2018 Instruction Type:Patient Education How to access health informa tion online - Detail Indication:BMI 20.0-20.9, adult Start:14-Jul-2018 Instruction Type:Patient Education Patient Instructions Indication:BMI 20.0-20.9, adult Start:14-Jul-2018 Instruction Type:Provider Instructions for Treatment How to access health informa tion online Indication:Acne Start:27-May-2018 Instruction Type:Patient Education How to access health informa tion online - Detail Indication:Acne Start:27-May-2018 Instruction Type:Patient Education Patient Instructions Indication:Acne Start:27-May-2018 Instruction Type:Provider Instructions for Treatment [facility]; [facility] Work Phone: Instructions* Name Dates Details Patient Instructions Indication:BMI 22.0-22.9, adult Start:09-Apr-2023 Instruction Type:Provider Instructions for Treatment How to Access Health Informa tion Online using Patient Portal and [employer]rd [employer] Apps Indication:BMI 22.0-22.9, adult Start:09-Apr-2023 Instruction Type:Patient Education Patient Instructions Indication:BMI 22.0-22.9, adult Start:20-Nov-2022 Instruction Type:Provider Instructions for Treatment How to Access Health Informa tion Online using Patient Portal and [employer]rd [employer] Apps Indication:BMI 22.0-22.9, adult Start:20-Nov-2022 Instruction Type:Patient Education Patient Instructions Indication:BMI 22.0-22.9, adult Start:29-May-2022 Instruction Type:Provider Instructions for Treatment How to Access Health Informa tion Online using Patient Portal and [employer]rd [employer] Apps Indication:BMI 22.0-22.9, adult Start:29-May-2022 Instruction Type:Patient Education Patient Instructions Indication:Non-smoker Start:15-Apr-2022 Instruction Type:Provider Instructions for Treatment How to Access Health Informa tion Online using Patient Portal and [employer]rd [employer] Apps Indication:Non-smoker Start:15-Apr-2022 Instruction Type:Patient Education Patient Instructions Indication:Sinusitis Start:29-Mar-2021 Instruction Type:Provider Instructions for Treatment How to Access Health Informa tion Online using Patient Portal and [employer]rd [employer] Apps Indication:Sinusitis Start:29-Mar-2021 Instruction Type:Patient Education Patient Instructions Indication:Ingrown nail Start:08-Jan-2021 Instruction Type:Provider Instructions for Treatment How to Access Health Informa tion Online using Patient Portal and [employer]rd [employer] Apps Indication:Ingrown nail Start:08-Jan-2021 Instruction Type:Patient Education How to access health informa tion online Indication:Allergic rhinitis Start:23-Mar-2020 Instruction Type:Patient Education How to access health informa tion online - Detail Indication:Allergic rhinitis Start:23-Mar-2020 Instruction Type:Patient Education Patient Instructions Indication:Allergic rhinitis Start:23-Mar-2020 Instruction Type:Provider Instructions for Treatment How to access health informa tion online Indication:Non-smoker Start:05-Jan-2020 Instruction Type:Patient Education How to access health informa tion online - Detail Indication:Non-smoker Start:05-Jan-2020 Instruction Type:Patient Education Patient Instructions Indication:Non-smoker Start:05-Jan-2020 Instruction Type:Provider Instructions for Treatment How to access health informa tion online Indication:BMI 20.0-20.9, adult Start:24-Nov-2019 Instruction Type:Patient Education How to access health informa tion online - Detail Indication:BMI 20.0-20.9, adult Start:24-Nov-2019 Instruction Type:Patient Education Patient Instructions Indication:BMI 20.0-20.9, adult Start:24-Nov-2019 Instruction Type:Provider Instructions for Treatment How to access health informa tion online Indication:Acute sinusitis, unspecified (Renamed from Sinusitis, acute) Start:09-Aug-2019 Instruction Type:Patient Education How to access health informa tion online - Detail Indication:Acute sinusitis, unspecified (Renamed from Sinusitis, acute) Start:09-Aug-2019 Instruction Type:Patient Education Patient Instructions Indication:Acute sinusitis, unspecified (Renamed from Sinusitis, acute) Start:09-Aug-2019 Instruction Type:Provider Instructions for Treatment How to access health informa tion online Indication:Anxiety and depression Start:02-Aug-2019 Instruction Type:Patient Education How to access health informa tion online - Detail Indication:Anxiety and depression Start:02-Aug-2019 Instruction Type:Patient Education Patient Instructions Indication:Anxiety and depression Start:02-Aug-2019 Instruction Type:Provider Instructions for Treatment How to access health informa tion online Indication:Anxiety and depression Start:10-May-2019 Instruction Type:Patient Education How to access health informa tion online - Detail Indication:Anxiety and depression Start:10-May-2019 Instruction Type:Patient Education Patient Instructions Indication:Anxiety and depression Start:10-May-2019 Instruction Type:Provider Instructions for Treatment How to access health informa tion online Indication:Anxiety and depression Start:06-Sep-2018 Instruction Type:Patient Education How to access health informa tion online - Detail Indication:Anxiety and depression Start:06-Sep-2018 Instruction Type:Patient Education Patient Instructions Indication:Anxiety and depression Start:06-Sep-2018 Instruction Type:Provider Instructions for Treatment How to access health informa tion online Indication:BMI 21.0-21.9, adult Start:03-Aug-2018 Instruction Type:Patient Education How to access health informa tion online - Detail Indication:BMI 21.0-21.9, adult Start:03-Aug-2018 Instruction Type:Patient Education Patient Instructions Indication:BMI 21.0-21.9, adult Start:03-Aug-2018 Instruction Type:Provider Instructions for Treatment How to access health informa tion online Indication:BMI 20.0-20.9, adult Start:14-Jul-2018 Instruction Type:Patient Education How to access health informa tion online - Detail Indication:BMI 20.0-20.9, adult Start:14-Jul-2018 Instruction Type:Patient Education Patient Instructions Indication:BMI 20.0-20.9, adult Start:14-Jul-2018 Instruction Type:Provider Instructions for Treatment How to access health informa tion online Indication:Acne Start:27-May-2018 Instruction Type:Patient Education How to access health informa tion online - Detail Indication:Acne Start:27-May-2018 Instruction Type:Patient Education Patient Instructions Indication:Acne Start:27-May-2018 Instruction Type:Provider Instructions for Treatment [facility] Work Phone: Summary Purpose Family History No Family History Records FoundUnknown Family Member Name Dates Details Father Comments:heart disease (Rich Patton) Status:Active First Degree Relatives Comments:mothers sister Type II diabetes Status:Active Maternal Grandfather Comments: Status:Active Maternal Grandmother Comments:does not know any h x Status:Active Mother Comments:depression/anxiety Status:Active Paternal Grandfather Comments:Type II diabetes Status:Active Unknown Family Member Name Dates Details Father Comments:heart disease (Rich Sugg) Status:Active First Degree Relatives Comments:mothers sister Type II diabetes Status:Active Maternal Grandfather Comments: Status:Active Maternal Grandmother Comments:does not know any h x Status:Active Mother Comments:depression/anxiety Status:Active Paternal Grandfather Comments:Type II diabetes Status:Active Unknown Family Member Name Dates Details Father Comments:heart disease (Rich Sellersg) Status:Active First Degree Relatives Comments:mothers sister Type II diabetes Status:Active Maternal Grandfather Comments: Status:Active Maternal Grandmother Comments:does not know any h x Status:Active Mother Comments:depression/anxiety Status:Active Paternal Grandfather Comments:Type II diabetes Status:Active Unknown Family Member Name Dates Details Father Comments:heart disease (Rich Sellersg) Status:Active First Degree Relatives Comments:mothers sister Type II diabetes Status:Active Maternal Grandfather Comments: Status:Active Maternal Grandmother Comments:does not know any h x Status:Active Mother Comments:depression/anxiety Status:Active Paternal Grandfather Comments:Type II diabetes Status:Active Unknown Family Member Name Dates Details Father Comments:heart disease (Rich Sellersg) Status:Active First Degree Relatives Comments:mothers sister Type II diabetes Status:Active Maternal Grandfather Comments: Status:Active Maternal Grandmother Comments:does not know any h x Status:Active Mother Comments:depression/anxiety Status:Active Paternal Grandfather Comments:Type II diabetes Status:Active Unknown Family Member Name Dates Details Father Comments:heart disease (Rich Sellersg) Status:Active First Degree Relatives Comments:mothers sister Type II diabetes Status:Active Maternal Grandfather Comments: Status:Active Maternal Grandmother Comments:does not know any h x Status:Active Mother Comments:depression/anxiety Status:Active Paternal Grandfather Comments:Type II diabetes Status:Active Unknown Family Member Name Dates Details Father Comments:heart disease (Rich Sellersg) Status:Active First Degree Relatives Comments:mothers sister Type II diabetes Status:Active Maternal Grandfather Comments: Status:Active Maternal Grandmother Comments:does not know any h x Status:Active Mother Comments:depression/anxiety Status:Active Paternal Grandfather Comments:Type II diabetes Status:Active Unknown Family Member Name Dates Details Father Comments:heart disease (Rich Sellersg) Status:Active First Degree Relatives Comments:mothers sister Type II diabetes Status:Active Maternal Grandfather Comments: Status:Active Maternal Grandmother Comments:does not know any h x Status:Active Mother Comments:depression/anxiety Status:Active Paternal Grandfather Comments:Type II diabetes Status:Active Unknown Family Member Name Dates Details Father Comments:heart disease (Rich Sellersg) Status:Active First Degree Relatives Comments:mothers sister Type II diabetes Status:Active Maternal Grandfather Comments: Status:Active Maternal Grandmother Comments:does not know any h x Status:Active Mother Comments:depression/anxiety Status:Active Paternal Grandfather Comments:Type II diabetes Status:Active Unknown Family Member Name Dates Details Father Comments:heart disease (Rich Sellersg) Status:Active First Degree Relatives Comments:mothers sister Type II diabetes Status:Active Maternal Grandfather Comments: Status:Active Maternal Grandmother Comments:does not know any h x Status:Active Mother Comments:depression/anxiety Status:Active Paternal Grandfather Comments:Type II diabetes Status:Active Unknown Family Member Name Dates Details Father Comments:heart disease (Rich Sellersg) Status:Active First Degree Relatives Comments:mothers sister Type II diabetes Status:Active Maternal Grandfather Comments: Status:Active Maternal Grandmother Comments:does not know any h x Status:Active Mother Comments:depression/anxiety Status:Active Paternal Grandfather Comments:Type II diabetes Status:Active Unknown Family Member Name Dates Details Father Comments:heart disease (Rich Sellersg) Status:Active First Degree Relatives Comments:mothers sister Type II diabetes Status:Active Maternal Grandfather Comments: Status:Active Maternal Grandmother Comments:does not know any h x Status:Active Mother Comments:depression/anxiety Status:Active Paternal Grandfather Comments:Type II diabetes Status:Active Unknown Family Member Name Dates Details Father Comments:heart disease (Rich Sellersg) Status:Active First Degree Relatives Comments:mothers sister Type II diabetes Status:Active Maternal Grandfather Comments: Status:Active Maternal Grandmother Comments:does not know any h x Status:Active Mother Comments:depression/anxiety Status:Active Paternal Grandfather Comments:Type II diabetes Status:Active Unknown Family Member Name Dates Details Father Comments:heart disease (Rich Sellersg) Status:Active First Degree Relatives Comments:mothers sister Type II diabetes Status:Active Maternal Grandfather Comments: Status:Active Maternal Grandmother Comments:does not know any h x Status:Active Mother Comments:depression/anxiety Status:Active Paternal Grandfather Comments:Type II diabetes Status:Active Unknown Family Member Name Dates Details Father Comments:heart disease (Rich Sellersg) Status:Active First Degree Relatives Comments:mothers sister Type II diabetes Status:Active Maternal Grandfather Comments: Status:Active Maternal Grandmother Comments:does not know any h x Status:Active Mother Comments:depression/anxiety Status:Active Paternal Grandfather Comments:Type II diabetes Status:Active Unknown Family Member Name Dates Details Father Comments:heart disease (Rich Patton) Status:Active First Degree Relatives Comments:mothers sister Type II diabetes Status:Active Maternal Grandfather Comments: Status:Active Maternal Grandmother Comments:does not know any h x Status:Active Mother Comments:depression/anxiety Status:Active Paternal Grandfather Comments:Type II diabetes Status:Active Unknown Family Member Name Dates Details Father Comments:heart disease (Rich Patton) Status:Active First Degree Relatives Comments:mothers sister Type II diabetes Status:Active Maternal Grandfather Comments: Status:Active Maternal Grandmother Comments:does not know any h x Status:Active Mother Comments:depression/anxiety Status:Active Paternal Grandfather Comments:Type II diabetes Status:Active Unknown Family Member Name Dates Details Father Comments:heart disease (Rich Patton) Status:Active First Degree Relatives Comments:mothers sister Type II diabetes Status:Active Maternal Grandfather Comments: Status:Active Maternal Grandmother Comments:does not know any h x Status:Active Mother Comments:depression/anxiety Status:Active Paternal Grandfather Comments:Type II diabetes Status:Active Unknown Family Member Name Dates Details Father Comments:heart disease (Rich Patton) Status:Active First Degree Relatives Comments:mothers sister Type II diabetes Status:Active Maternal Grandfather Comments: Status:Active Maternal Grandmother Comments:does not know any h x Status:Active Mother Comments:depression/anxiety Status:Active Paternal Grandfather Comments:Type II diabetes Status:Active Unknown Family Member Name Dates Details Father Comments:heart disease (Rich Patton) Status:Active First Degree Relatives Comments:mothers sister Type II diabetes Status:Active Maternal Grandfather Comments: Status:Active Maternal Grandmother Comments:does not know any h x Status:Active Mother Comments:depression/anxiety Status:Active Paternal Grandfather Comments:Type II diabetes Status:Active Unknown Family Member Name Dates Details Father Comments:heart disease (Rich Sellersg) Status:Active First Degree Relatives Comments:mothers sister Type II diabetes Status:Active Maternal Grandfather Comments: Status:Active Maternal Grandmother Comments:does not know any h x Status:Active Mother Comments:depression/anxiety Status:Active Paternal Grandfather Comments:Type II diabetes Status:Active Unknown Family Member Name Dates Details Father Comments:heart disease (Rich Sellersg) Status:Active First Degree Relatives Comments:mothers sister Type II diabetes Status:Active Maternal Grandfather Comments: Status:Active Maternal Grandmother Comments:does not know any h x Status:Active Mother Comments:depression/anxiety Status:Active Paternal Grandfather Comments:Type II diabetes Status:Active Unknown Family Member Name Dates Details Father Comments:heart disease (Rich Sellersg) Status:Active First Degree Relatives Comments:mothers sister Type II diabetes Status:Active Maternal Grandfather Comments: Status:Active Maternal Grandmother Comments:does not know any h x Status:Active Mother Comments:depression/anxiety Status:Active Paternal Grandfather Comments:Type II diabetes Status:Active Unknown Family Member Name Dates Details Father Comments:heart disease (Rich Sellersg) Status:Active First Degree Relatives Comments:mothers sister Type II diabetes Status:Active Maternal Grandfather Comments: Status:Active Maternal Grandmother Comments:does not know any h x Status:Active Mother Comments:depression/anxiety Status:Active Paternal Grandfather Comments:Type II diabetes Status:Active Unknown Family Member Name Dates Details Father Comments:heart disease (Rich Sellersg) Status:Active First Degree Relatives Comments:mothers sister Type II diabetes Status:Active Maternal Grandfather Comments: Status:Active Maternal Grandmother Comments:does not know any h x Status:Active Mother Comments:depression/anxiety Status:Active Paternal Grandfather Comments:Type II diabetes Status:Active Advance Directives No Advanced Directives Records Found Name Dates Details Immunization Registry [place] - Effective on 03/29/2021. Expiration date unspecified Effective:29-Mar-2021 Name Dates Details Immunization Registry [place] - Effective on 03/29/2021. Expiration date unspecified Effective:29-Mar-2021 Name Dates Details Immunization Registry [place] - Effective on 03/29/2021. Expiration date unspecified Effective:29-Mar-2021 Name Dates Details Immunization Registry [place] - Effective on 03/29/2021. Expiration date unspecified Effective:29-Mar-2021 Name Dates Details Immunization Registry [place] - Effective on 03/29/2021. Expiration date unspecified Effective:29-Mar-2021 Name Dates Details Immunization Registry [place] - Effective on 03/29/2021. Expiration date unspecified Effective:29-Mar-2021 Name Dates Details Immunization Registry [place] - Effective on 03/29/2021. Expiration date unspecified Effective:29-Mar-2021 Name Dates Details Immunization Registry [place] - Effective on 03/29/2021. Expiration date unspecified Effective:29-Mar-2021 Name Dates Details Immunization Registry [place] - Effective on 03/29/2021. Expiration date unspecified Effective:29-Mar-2021 Name Dates Details Immunization Registry [place] - Effective on 03/29/2021. Expiration date unspecified Effective:29-Mar-2021 Name Dates Details Immunization Registry [place] - Effective on 03/29/2021. Expiration date unspecified Effective:29-Mar-2021 Name Dates Details Immunization Registry [place] - Effective on 03/29/2021. Expiration date unspecified Effective:29-Mar-2021 Name Dates Details Immunization Registry [place] - Effective on 03/29/2021. Expiration date unspecified Effective:29-Mar-2021 Advance Directive Response Recorded Date/ Time Living Will No May 15, 2023 5:19pm Power of Child Study Team Director No May 15 5:19pm Name Dates Details Immunization Registry [place] - Effective on 03/29/2021. Expiration date unspecified Effective:29-Mar-2021 Instructions Name Dates Details Anxiety and depression : How to access health information online Indication:Anxiety and depression Anxiety and depression : How to access health information online - Detail Indication:Anxiety and depression Anxiety and depression : Pat ient Instructions Indication:Anxiety and depression BMI 21.0-21.9, adult : How t o access health information online Indication:BMI 21.0-21.9, adult BMI 21.0-21.9, adult : How t o access health information online - Detail Indication:BMI 21.0-21.9, adult BMI 21.0-21.9, adult : Patie nt Instructions Indication:BMI 21.0-21.9, adult BMI 20.0-20.9, adult : How t o access health information online Indication:BMI 20.0-20.9, adult BMI 20.0-20.9, adult : How t o access health information online - Detail Indication:BMI 20.0-20.9, adult BMI 20.0-20.9, adult : Patie nt Instructions Indication:BMI 20.0-20.9, adult Acne : How to access health information online Indication:Acne Acne : How to access health information online - Detail Indication:Acne Acne : Patient Instructions Indication:Acne Name Dates Details How to access health informa tion online Indication:Anxiety and depression Start:06-Sep-2018 Instruction Type:Patient Education How to access health informa tion online - Detail Indication:Anxiety and depression Start:06-Sep-2018 Instruction Type:Patient Education Patient Instructions Indication:Anxiety and depression Start:06-Sep-2018 Instruction Type:Provider Instructions for Treatment How to access health informa tion online Indication:BMI 21.0-21.9, adult Start:03-Aug-2018 Instruction Type:Patient Education How to access health informa tion online - Detail Indication:BMI 21.0-21.9, adult Start:03-Aug-2018 Instruction Type:Patient Education Patient Instructions Indication:BMI 21.0-21.9, adult Start:03-Aug-2018 Instruction Type:Provider Instructions for Treatment How to access health informa tion online Indication:BMI 20.0-20.9, adult Start:14-Jul-2018 Instruction Type:Patient Education How to access health informa tion online - Detail Indication:BMI 20.0-20.9, adult Start:14-Jul-2018 Instruction Type:Patient Education Patient Instructions Indication:BMI 20.0-20.9, adult Start:14-Jul-2018 Instruction Type:Provider Instructions for Treatment How to access health informa tion online Indication:Acne Start:27-May-2018 Instruction Type:Patient Education How to access health informa tion online - Detail Indication:Acne Start:27-May-2018 Instruction Type:Patient Education Patient Instructions Indication:Acne Start:27-May-2018 Instruction Type:Provider Instructions for Treatment Name Dates Details How to access health informa tion online Indication:Anxiety and depression Start:10-May-2019 Instruction Type:Patient Education How to access health informa tion online - Detail Indication:Anxiety and depression Start:10-May-2019 Instruction Type:Patient Education Patient Instructions Indication:Anxiety and depression Start:10-May-2019 Instruction Type:Provider Instructions for Treatment How to access health informa tion online Indication:Anxiety and depression Start:06-Sep-2018 Instruction Type:Patient Education How to access health informa tion online - Detail Indication:Anxiety and depression Start:06-Sep-2018 Instruction Type:Patient Education Patient Instructions Indication:Anxiety and depression Start:06-Sep-2018 Instruction Type:Provider Instructions for Treatment How to access health informa tion online Indication:BMI 21.0-21.9, adult Start:03-Aug-2018 Instruction Type:Patient Education How to access health informa tion online - Detail Indication:BMI 21.0-21.9, adult Start:03-Aug-2018 Instruction Type:Patient Education Patient Instructions Indication:BMI 21.0-21.9, adult Start:03-Aug-2018 Instruction Type:Provider Instructions for Treatment How to access health informa tion online Indication:BMI 20.0-20.9, adult Start:14-Jul-2018 Instruction Type:Patient Education How to access health informa tion online - Detail Indication:BMI 20.0-20.9, adult Start:14-Jul-2018 Instruction Type:Patient Education Patient Instructions Indication:BMI 20.0-20.9, adult Start:14-Jul-2018 Instruction Type:Provider Instructions for Treatment How to access health informa tion online Indication:Acne Start:27-May-2018 Instruction Type:Patient Education How to access health informa tion online - Detail Indication:Acne Start:27-May-2018 Instruction Type:Patient Education Patient Instructions Indication:Acne Start:27-May-2018 Instruction Type:Provider Instructions for Treatment Name Dates Details How to access health informa tion online Indication:Anxiety and depression Start:10-May-2019 Instruction Type:Patient Education How to access health informa tion online - Detail Indication:Anxiety and depression Start:10-May-2019 Instruction Type:Patient Education Patient Instructions Indication:Anxiety and depression Start:10-May-2019 Instruction Type:Provider Instructions for Treatment How to access health informa tion online Indication:Anxiety and depression Start:06-Sep-2018 Instruction Type:Patient Education How to access health informa tion online - Detail Indication:Anxiety and depression Start:06-Sep-2018 Instruction Type:Patient Education Patient Instructions Indication:Anxiety and depression Start:06-Sep-2018 Instruction Type:Provider Instructions for Treatment How to access health informa tion online Indication:BMI 21.0-21.9, adult Start:03-Aug-2018 Instruction Type:Patient Education How to access health informa tion online - Detail Indication:BMI 21.0-21.9, adult Start:03-Aug-2018 Instruction Type:Patient Education Patient Instructions Indication:BMI 21.0-21.9, adult Start:03-Aug-2018 Instruction Type:Provider Instructions for Treatment How to access health informa tion online Indication:BMI 20.0-20.9, adult Start:14-Jul-2018 Instruction Type:Patient Education How to access health informa tion online - Detail Indication:BMI 20.0-20.9, adult Start:14-Jul-2018 Instruction Type:Patient Education Patient Instructions Indication:BMI 20.0-20.9, adult Start:14-Jul-2018 Instruction Type:Provider Instructions for Treatment How to access health informa tion online Indication:Acne Start:27-May-2018 Instruction Type:Patient Education How to access health informa tion online - Detail Indication:Acne Start:27-May-2018 Instruction Type:Patient Education Patient Instructions Indication:Acne Start:27-May-2018 Instruction Type:Provider Instructions for Treatment Name Dates Details Anxiety and depression : How to access health information online Indication:Anxiety and depression Anxiety and depression : How to access health information online - Detail Indication:Anxiety and depression Anxiety and depression : Pat ient Instructions Indication:Anxiety and depression BMI 21.0-21.9, adult : How t o access health information online Indication:BMI 21.0-21.9, adult BMI 21.0-21.9, adult : How t o access health information online - Detail Indication:BMI 21.0-21.9, adult BMI 21.0-21.9, adult : Patie nt Instructions Indication:BMI 21.0-21.9, adult BMI 20.0-20.9, adult : How t o access health information online Indication:BMI 20.0-20.9, adult BMI 20.0-20.9, adult : How t o access health information online - Detail Indication:BMI 20.0-20.9, adult BMI 20.0-20.9, adult : Patie nt Instructions Indication:BMI 20.0-20.9, adult Acne : How to access health information online Indication:Acne Acne : How to access health information online - Detail Indication:Acne Acne : Patient Instructions Indication:Acne Name Dates Details How to access health informa tion online Indication:Anxiety and depression Start:06-Sep-2018 Instruction Type:Patient Education How to access health informa tion online - Detail Indication:Anxiety and depression Start:06-Sep-2018 Instruction Type:Patient Education Patient Instructions Indication:Anxiety and depression Start:06-Sep-2018 Instruction Type:Provider Instructions for Treatment How to access health informa tion online Indication:BMI 21.0-21.9, adult Start:03-Aug-2018 Instruction Type:Patient Education How to access health informa tion online - Detail Indication:BMI 21.0-21.9, adult Start:03-Aug-2018 Instruction Type:Patient Education Patient Instructions Indication:BMI 21.0-21.9, adult Start:03-Aug-2018 Instruction Type:Provider Instructions for Treatment How to access health informa tion online Indication:BMI 20.0-20.9, adult Start:14-Jul-2018 Instruction Type:Patient Education How to access health informa tion online - Detail Indication:BMI 20.0-20.9, adult Start:14-Jul-2018 Instruction Type:Patient Education Patient Instructions Indication:BMI 20.0-20.9, adult Start:14-Jul-2018 Instruction Type:Provider Instructions for Treatment How to access health informa tion online Indication:Acne Start:27-May-2018 Instruction Type:Patient Education How to access health informa tion online - Detail Indication:Acne Start:27-May-2018 Instruction Type:Patient Education Patient Instructions Indication:Acne Start:27-May-2018 Instruction Type:Provider Instructions for Treatment Name Dates Details Patient Instructions Indication:Ingrown left big toenail Start:08-Jan-2021 Instruction Type:Provider Instructions for Treatment How to Access Health Informa tion Online using Patient Portal and [employer]rd [employer] Apps Indication:Ingrown left big toenail Start:08-Jan-2021 Instruction Type:Patient Education How to access health informa tion online Indication:Allergic rhinitis Start:23-Mar-2020 Instruction Type:Patient Education How to access health informa tion online - Detail Indication:Allergic rhinitis Start:23-Mar-2020 Instruction Type:Patient Education Patient Instructions Indication:Allergic rhinitis Start:23-Mar-2020 Instruction Type:Provider Instructions for Treatment How to access health informa tion online Indication:Non-smoker Start:05-Jan-2020 Instruction Type:Patient Education How to access health informa tion online - Detail Indication:Non-smoker Start:05-Jan-2020 Instruction Type:Patient Education Patient Instructions Indication:Non-smoker Start:05-Jan-2020 Instruction Type:Provider Instructions for Treatment How to access health informa tion online Indication:BMI 20.0-20.9, adult Start:24-Nov-2019 Instruction Type:Patient Education How to access health informa tion online - Detail Indication:BMI 20.0-20.9, adult Start:24-Nov-2019 Instruction Type:Patient Education Patient Instructions Indication:BMI 20.0-20.9, adult Start:24-Nov-2019 Instruction Type:Provider Instructions for Treatment How to access health informa tion online Indication:Acute sinusitis, unspecified (Renamed from Sinusitis, acute) Start:09-Aug-2019 Instruction Type:Patient Education How to access health informa tion online - Detail Indication:Acute sinusitis, unspecified (Renamed from Sinusitis, acute) Start:09-Aug-2019 Instruction Type:Patient Education Patient Instructions Indication:Acute sinusitis, unspecified (Renamed from Sinusitis, acute) Start:09-Aug-2019 Instruction Type:Provider Instructions for Treatment How to access health informa tion online Indication:Anxiety and depression Start:02-Aug-2019 Instruction Type:Patient Education How to access health informa tion online - Detail Indication:Anxiety and depression Start:02-Aug-2019 Instruction Type:Patient Education Patient Instructions Indication:Anxiety and depression Start:02-Aug-2019 Instruction Type:Provider Instructions for Treatment How to access health informa tion online Indication:Anxiety and depression Start:10-May-2019 Instruction Type:Patient Education How to access health informa tion online - Detail Indication:Anxiety and depression Start:10-May-2019 Instruction Type:Patient Education Patient Instructions Indication:Anxiety and depression Start:10-May-2019 Instruction Type:Provider Instructions for Treatment How to access health informa tion online Indication:Anxiety and depression Start:06-Sep-2018 Instruction Type:Patient Education How to access health informa tion online - Detail Indication:Anxiety and depression Start:06-Sep-2018 Instruction Type:Patient Education Patient Instructions Indication:Anxiety and depression Start:06-Sep-2018 Instruction Type:Provider Instructions for Treatment How to access health informa tion online Indication:BMI 21.0-21.9, adult Start:03-Aug-2018 Instruction Type:Patient Education How to access health informa tion online - Detail Indication:BMI 21.0-21.9, adult Start:03-Aug-2018 Instruction Type:Patient Education Patient Instructions Indication:BMI 21.0-21.9, adult Start:03-Aug-2018 Instruction Type:Provider Instructions for Treatment How to access health informa tion online Indication:BMI 20.0-20.9, adult Start:14-Jul-2018 Instruction Type:Patient Education How to access health informa tion online - Detail Indication:BMI 20.0-20.9, adult Start:14-Jul-2018 Instruction Type:Patient Education Patient Instructions Indication:BMI 20.0-20.9, adult Start:14-Jul-2018 Instruction Type:Provider Instructions for Treatment How to access health informa tion online Indication:Acne Start:27-May-2018 Instruction Type:Patient Education How to access health informa tion online - Detail Indication:Acne Start:27-May-2018 Instruction Type:Patient Education Patient Instructions Indication:Acne Start:27-May-2018 Instruction Type:Provider Instructions for Treatment Name Dates Details Patient Instructions Indication:Ingrown left big toenail Start:08-Jan-2021 Instruction Type:Provider Instructions for Treatment How to Access Health Informa tion Online using Patient Portal and [email or web address] Apps Indication:Ingrown left big toenail Start:08-Jan-2021 Instruction Type:Patient Education How to access health informa tion online Indication:Allergic rhinitis Start:23-Mar-2020 Instruction Type:Patient Education How to access health informa tion online - Detail Indication:Allergic rhinitis Start:23-Mar-2020 Instruction Type:Patient Education Patient Instructions Indication:Allergic rhinitis Start:23-Mar-2020 Instruction Type:Provider Instructions for Treatment How to access health informa tion online Indication:Non-smoker Start:05-Jan-2020 Instruction Type:Patient Education How to access health informa tion online - Detail Indication:Non-smoker Start:05-Jan-2020 Instruction Type:Patient Education Patient Instructions Indication:Non-smoker Start:05-Jan-2020 Instruction Type:Provider Instructions for Treatment How to access health informa tion online Indication:BMI 20.0-20.9, adult Start:24-Nov-2019 Instruction Type:Patient Education How to access health informa tion online - Detail Indication:BMI 20.0-20.9, adult Start:24-Nov-2019 Instruction Type:Patient Education Patient Instructions Indication:BMI 20.0-20.9, adult Start:24-Nov-2019 Instruction Type:Provider Instructions for Treatment How to access health informa tion online Indication:Acute sinusitis, unspecified (Renamed from Sinusitis, acute) Start:09-Aug-2019 Instruction Type:Patient Education How to access health informa tion online - Detail Indication:Acute sinusitis, unspecified (Renamed from Sinusitis, acute) Start:09-Aug-2019 Instruction Type:Patient Education Patient Instructions Indication:Acute sinusitis, unspecified (Renamed from Sinusitis, acute) Start:09-Aug-2019 Instruction Type:Provider Instructions for Treatment How to access health informa tion online Indication:Anxiety and depression Start:02-Aug-2019 Instruction Type:Patient Education How to access health informa tion online - Detail Indication:Anxiety and depression Start:02-Aug-2019 Instruction Type:Patient Education Patient Instructions Indication:Anxiety and depression Start:02-Aug-2019 Instruction Type:Provider Instructions for Treatment How to access health informa tion online Indication:Anxiety and depression Start:10-May-2019 Instruction Type:Patient Education How to access health informa tion online - Detail Indication:Anxiety and depression Start:10-May-2019 Instruction Type:Patient Education Patient Instructions Indication:Anxiety and depression Start:10-May-2019 Instruction Type:Provider Instructions for Treatment How to access health informa tion online Indication:Anxiety and depression Start:06-Sep-2018 Instruction Type:Patient Education How to access health informa tion online - Detail Indication:Anxiety and depression Start:06-Sep-2018 Instruction Type:Patient Education Patient Instructions Indication:Anxiety and depression Start:06-Sep-2018 Instruction Type:Provider Instructions for Treatment How to access health informa tion online Indication:BMI 21.0-21.9, adult Start:03-Aug-2018 Instruction Type:Patient Education How to access health informa tion online - Detail Indication:BMI 21.0-21.9, adult Start:03-Aug-2018 Instruction Type:Patient Education Patient Instructions Indication:BMI 21.0-21.9, adult Start:03-Aug-2018 Instruction Type:Provider Instructions for Treatment How to access health informa tion online Indication:BMI 20.0-20.9, adult Start:14-Jul-2018 Instruction Type:Patient Education How to access health informa tion online - Detail Indication:BMI 20.0-20.9, adult Start:14-Jul-2018 Instruction Type:Patient Education Patient Instructions Indication:BMI 20.0-20.9, adult Start:14-Jul-2018 Instruction Type:Provider Instructions for Treatment How to access health informa tion online Indication:Acne Start:27-May-2018 Instruction Type:Patient Education How to access health informa tion online - Detail Indication:Acne Start:27-May-2018 Instruction Type:Patient Education Patient Instructions Indication:Acne Start:27-May-2018 Instruction Type:Provider Instructions for Treatment Name Dates Details How to access health informa tion online Indication:Anxiety and depression Start:02-Aug-2019 Instruction Type:Patient Education How to access health informa tion online - Detail Indication:Anxiety and depression Start:02-Aug-2019 Instruction Type:Patient Education Patient Instructions Indication:Anxiety and depression Start:02-Aug-2019 Instruction Type:Provider Instructions for Treatment How to access health informa tion online Indication:Anxiety and depression Start:10-May-2019 Instruction Type:Patient Education How to access health informa tion online - Detail Indication:Anxiety and depression Start:10-May-2019 Instruction Type:Patient Education Patient Instructions Indication:Anxiety and depression Start:10-May-2019 Instruction Type:Provider Instructions for Treatment How to access health informa tion online Indication:Anxiety and depression Start:06-Sep-2018 Instruction Type:Patient Education How to access health informa tion online - Detail Indication:Anxiety and depression Start:06-Sep-2018 Instruction Type:Patient Education Patient Instructions Indication:Anxiety and depression Start:06-Sep-2018 Instruction Type:Provider Instructions for Treatment How to access health informa tion online Indication:BMI 21.0-21.9, adult Start:03-Aug-2018 Instruction Type:Patient Education How to access health informa tion online - Detail Indication:BMI 21.0-21.9, adult Start:03-Aug-2018 Instruction Type:Patient Education Patient Instructions Indication:BMI 21.0-21.9, adult Start:03-Aug-2018 Instruction Type:Provider Instructions for Treatment How to access health informa tion online Indication:BMI 20.0-20.9, adult Start:14-Jul-2018 Instruction Type:Patient Education How to access health informa tion online - Detail Indication:BMI 20.0-20.9, adult Start:14-Jul-2018 Instruction Type:Patient Education Patient Instructions Indication:BMI 20.0-20.9, adult Start:14-Jul-2018 Instruction Type:Provider Instructions for Treatment How to access health informa tion online Indication:Acne Start:27-May-2018 Instruction Type:Patient Education How to access health informa tion online - Detail Indication:Acne Start:27-May-2018 Instruction Type:Patient Education Patient Instructions Indication:Acne Start:27-May-2018 Instruction Type:Provider Instructions for Treatment Chief Complaint and Reason for Visit Chief Complaint SINUS INFECTION/EAR PAIN scabs in nose and sore throat BILATERAL EAR CONCERN CHRONIC SINUSITIS Reason for Visit COVID-19 Impetigo Acute otitis externa of left ear URI (upper respiratory infection) Chief Complaint BILATERAL EAR CONCER N CHRONIC SINUSITIS LAC Reason for Visit Acute otitis externa of left ear URI (upper respiratory infection) Chief Complaint 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/BUEHL ERS NASAL CONGESTION/HYPERTROPHY OF NASAL TURBINATES Urinary tract infection UTI HEAD CONGESTION/CONCERN FOR UTI Reason for Visit Urinary tract infect ion URI (upper respiratory infection) Additional Source Comments INFORMATION SOURCE (unrecogn ized section and content) DATE CREATED AUTHOR 05/05/2018 [facility] DATE CREATED AUTHOR AUTHOR'S ORGANIZ ATION 10/24/[address] [facility] DATE CREATED AUTHOR AUTHOR'S ORGANIZ ATION 03/24/2023 [facility] DATE CREATED AUTHOR AUTHOR'S ORGANIZ ATION 04/26/2025 [facility] Care Teams (unrecognized sec tion and content) Team Status: Active Member Role Status Dates Dr. Celeste Larose MD Family Provider Active Dr. Dulce Maria Lynch MD Primary Care Provider Active Team Status: Inactive Member Role Status Dates Dr. Dulce Maria Lynch MD Primary Care Provider, Referring Provider Active Jaleel SANTOYO, PA Attending Provider Active Team Status: Inactive Member Role Status Dates Dr. Dulce Maria Lynch MD Primary Care Provider, Referring Provider Active Jesús Greenwood PA, PA Attending Provider Active Team Status: Inactive Member Role Status Dates Dr. Dulce Maria Lynch MD Primary Care Provider Active Dr. Isac Puentes MD Attending Provider, Referring Pr ovider Active Team Status: Inactive Member Role Status Dates Dr. Dulce Maria Lynch MD Primary Care Provider Active Dr. Maxwell Trinh MD Emergency Provider Active Team Status: Inactive Member Role Status Dates Dr. Dulce Maria Lynch MD Primary Care Provider Active Jaleel SANTOYO PA Attending Provider, Referring Provi mandie Active Goals (unrecognized section and content) Goals may be documented in a n alternate sectionGoals may be documented in an alternate sectionGoals may be documented in an alternate section FOR RECORDS PERTAINING TO PATIENTS WHO ARE OR HAVE BEEN ENROLLED IN A CHEMICAL DEPENDENCY/SUBSTANCEABUSE PROGRAM, SOME INFORMATION MAY BE OMITTED. This clinical summary was aggregated from multiple sources. Caution should be exercised in using it in the provision of clinical care. This summary normalizes information from multiple sources, and as a consequence, information in this document may materially change the coding, format and clinical context of patient data. In addition, data may be omitted in some cases. CLINICAL DECISIONS SHOULD BE BASED ON THE PRIMARY CLINICAL RECORDS. [employer] provides no warranty or guarantee of the accuracy or completeness of information in this document.
== END | disposition home or self-care (01) ==
LOC: LABSPEC 07:25
PROVIDERS: PCP Internal Medicine; Visit Provider Physician Assistant
DX: R30.0 Dysuria (principal)
CPT/HCPCS: 87086; 87088

== ENCOUNTER → 2025-05-17 | Outpatient (CLI) | payer OTHER, SELFPAY | END | disposition home or self-care (01) | LOC: US 12:33 | PROVIDERS: PCP Internal Medicine; Referring Provider Internal Medicine; Visit Provider Internal Medicine | DX: R19.00 Intra-abdominal and pelvic swelling, mass and lump, unspecified site (principal) | CPT/HCPCS: 76856 ==

== ENCOUNTER 2025-07-12 08:00 | Outpatient (RCR) | payer OTHER, SELFPAY ==
--- NOTE | 2025-07-12 09:39 | BH.COMM_ITS ---
Communication Note Communication with Client Communication Note: Met with pt to complete initial paperwork and administer the CSSR-S screening and risk assessment. Pt is a mild risk as pt reports having thoughts of wishing she could fall asleep and not wake up, but pt stated ?I only feel that way when I?m not busy, so I work a lot.? Pt denies having wishes of within the past month. Pt denies ever having thoughts of suicide and no history of self-harm or suicide attempts. No access to weapons. Discussed case with Dr. Combs and pt will be admitted to [facility] tx with a diagnosis of F32.9, Major depressive disorder, single episode, unspecified.
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
--- NOTE | 2025-07-12 09:41 | BH.MDN ---
Multi-Disciplinary Note Note 30-min Individual: Time Started:: 09:05 Date: 07/12/25 Purpose of session/treatment goals addressed:: To gather information on pt's current stressors, symptoms, triggers, history, and tx goals. Another goal was to build rapport and provide emotional support. Eye Contact:: Fair Motor Activity:: Appropriate Appearance:: Neat Speech:: Soft Mood:: Anxious Affect:: Congruent Thoughts:: Linear, Logical and No evidence of hallucinations/delusions noted Staff Interventions:: rapport building, strengths perspective, treatment planning (identified goals for IOP ), completed risk assessment / safety planning and other (psychosocial assessment.) Client Response:: Pt responded well to session, open to meeting with therapist. Pt shared group therapy is new for her, so she is a little anxious. Pt stated she has been coping with anxiety and depression for most of my life but things got really bad back in November. Pt was able to get in to see Dr. Combs and pt shared it was helpful to get on medication, but she needs more. Pt identified her biggest triggers and stressors to be related to her mother and living situation. Pt described her mother as a narcissist and shared that her mother never really wanted kids. Pt stated her mother is controlling to pt and makes comments when pt tries to spend time with others. Pt shared she wants to move out and she has the means, but pt is scared of how her mother will react. Pt expressed fear that if she moves out her mother will send friends to drive past my house and just drop by. Pt stated she would not put this past her mother when asked it this would be realistic. Pt reports symptoms of panic attacks, lack of motivation, anhedonia, and feeling stuck. Pt used to enjoy cooking and going outside, but pt has not been doing those things lately. Pt works a lot because pt likes to keep busy so she is not at home and she has less time to think. Pt reported she enjoys her job and her co-workers. Pt wants to work on managing her symptoms and becoming more confident in handling people and my mother. Risks/Concerns:: Pt denies any suicidal ideation, plan, or intent. Pt denies any thoughts of . Progress Toward Goals/Plan:: Pt's first day of IOP tx. Pt reports feeling anxious about group, but pt is open-minded because she acknowledges she needs more than just medication. Pt identified her tx goals as learning how to manage a narcissist, be better around people, and manage anxiety. Pt works second shift, so she is tired today, but she reports she will be able to make it to IOP. Pt will continue IOP tx to prevent decompensation, improve daily functioning, and gain healthy coping skills. Time Stopped:: 09:35
--- NOTE | 2025-07-12 09:41 | BH.MTP ---
Master Treatment Plan Patient Information Program Physician:: Dr. Jesús Combs Primary Therapist:: Mabel HANDY Psychiatric Diagnoses Psychiatric Diagnoses:: Major depressive disorder, single episode, unspecified F32.9; ADHD Diagnosis Code(s):: F 32.9 Estimated LOS Estimated LOS (in weeks):: 6 Problem/Goal #1 Problem/Goal #1 Stated Goal:: Pt will decrease depressive symptoms, hopelessness, isolation, and avoidance. Description of Barriers: Pt lives with her mother who pt identifies as a narcissist and this is pt's primary trigger for mental health decompensation. Pt does not currently have an outpatient therapist. Pt has limited social support and she has not been interested in any of her hobbies lately. Functional Impact: Pt is a 25-year-old female with a history of MDD and ADHD. Pt was referred to IOP due to her symptoms worsening over the past few weeks. Pt currently endorses increased irritability, a depressed mood, lashing out, lack of energy, anhedonia, and sleeping to avoid. Pt reports she has anxiety most days and she dreads each day. Pt reports her symptoms are impacting her ability to function at home and pt is not engaging in things she once found mike in. Goal Relevant Strengths/Supports: Pt is established with outpatient psychiatry and she has a job she enjoys. Objectives Objective #1: Stated Objective: Pt will increase structure, routine, and sense of motivation by accomplishing 2-3 small self-care goals a week. Interventions: Through group and individual sessions, pt will learn how to set small SMART goals to promote self-care and stress management. Therapist will teach pt about behavioral activation and the cognitive triangle. Discharge Criteria: Pt will have accomplished this goal when can report accomplishing at least two small goals a week Target Date: 08/23/25 Review Date: 08/02/25 Status: open Objective #2: Stated Objective: Pt will learn and utilize 2-3 healthy coping strategies to better manage depressive symptoms by a decrease of DMS-5 symptoms for depression. Interventions: Through group and individual sessions, therapist will help pt identify triggers and warning signs of depression and guilt including emotional, physical, and behavioral changes. Therapist will teach pt various coping skills to manage symptoms and give pt tangible resources to use to regulate emotions. Therapist will use cognitive restructuring techniques and help pt gain awareness of negative thoughts that reinforce guilt and depression. Therapist will provide psychoeducation on maintenance cycles and help pt learn ways to break unhealthy maintenance cycles. Therapist will help pt incorporate behavioral activation and assist pt in setting SMART goals. Discharge Criteria: Pt will have met this goal when can report learning and using at least 2 coping skills to manage depressive symptoms and reduce isolation. Additionally, pt will have met this goal when pt's DSM-5 scores for depression decrease. Target Date: 08/23/25 Review Date: 08/02/25 Status: open Problem/Goal #2 Problem/Goal #2 Stated Goal:: Pt will decrease anxiety and irritability while increasing distress tolerance skills. Description of Barriers: Pt lives with her mother who pt identifies as a narcissist and this is pt's primary trigger for mental health decompensation. Pt does not currently have an outpatient therapist. Pt has limited social support and she has not been interested in any of her hobbies lately. Functional Impact: Pt is a 25-year-old female with a history of MDD and ADHD. Pt was referred to [facility] due to her symptoms worsening over the past few weeks. Pt currently endorses increased irritability, a depressed mood, lashing out, lack of energy, anhedonia, and sleeping to avoid. Pt reports she has anxiety most days and she dreads each day. Pt reports her symptoms are impacting her ability to function at home and pt is not engaging in things she once found mike in. Goal Relevant Strengths/Supports: Pt is established with outpatient psychiatry and she has a job she enjoys. Objectives Objective #1: Stated Objective: Pt will increase ability to manage stressors and anxiety by gaining 2-3 distress tolerance skills. Interventions: Through group and individual therapy, pt will learn various coping skills to help manage stress and anxiety. Therapist will utilize DBT distress tolerance skills to increase awareness and give pt tools to more effectively manage anxiety. Therapist will provide psychoeducation on emotional regulation and help pt identify unhealthy coping skills she wants to change. Discharge Criteria: Pt will have accomplished this goal when can report improved ability to manage stressors and identify at least 2 distress tolerance skills. Target Date: 08/23/25 Review Date: 08/02/25 Status: open Objective #2: Stated Objective: Pt will identify 2-3 anxiety triggers and 2 coping skills to use when feeling anxious to manage anxiety as shown by reducing DSM-5 scores for anxiety Interventions: Therapist will provide education on anxiety, avoidance behaviors, and maintenance cycles. Therapist will help pt explore personal symptoms and warning signs of anxiety and irritability. Therapist will teach pt coping skills to improve emotional regulation, mindfulness, and distress tolerance to help pt cope with anxiety in the moment. Discharge Criteria: Pt will have accomplished this goal when he can identify at least 2 triggers and report using 2 coping skills to manage anxiety and irritability. Additionally, pt will have accomplished this goal AEB reduction of DSM-5 scores for anxiety. Discharge Criteria: Pt will discharge when pt can report at least 2 skills to use when feeling irritable/anxious and report a reduction of DSM-5 scores for anxiety. Target Date: 08/23/25 Review Date: 08/02/25 Status: open
--- NOTE | 2025-07-12 10:10 | BH.SGPN.GN ---
Behaviors/Verbalizations/Mental Status: [] Pt alert and oriented, casually dressed and groomed. Eye contact good. Motor activity appropriate. Speech within normal limits. Affect congruent. mood depressed. Thoughts linear, logical, no signs of hallucinations or delusions. Client Response/Progress/Benefit: [] Pt was an engaged participant AEB listening attentively to others, taking notes, and providing feedback in group discussions. Attentive during psychoeducation AEB by note taking. Pt worked along with peers in groups to define inappropriate guilt and appropriate guilt. Group worked together to provide examples of both inappropriate and appropriate guilt. Group identified a lashing out and breaking something as appropriate guilt examples. Group identified setting a boundary and needing help as having inappropriate guilt about. Pt able to connect impact inappropriate guilt can have on MH and overall functioning. Noted that it has impeded ability to advocate for her own needs on a consistent basis. Benefited from increased awareness of guilt and the differences between appropriate and inappropriate guilt. Pt to continue IOP tx to prevent decompensation, gain healthy coping skills, and increase communication skills. Narrative Note: []
--- NOTE | 2025-07-12 10:10 | BH.SGPN.GN ---
Behaviors/Verbalizations/Mental Status: [] Pt alert and oriented, casually dressed and groomed. Eye contact good. Motor activity appropriate. Speech within normal limits. Affect congruent, mood anxious and dysthymic. Thoughts linear, logical, no signs of hallucinations or delusions. Client Response/Progress/Benefit: [] Pt participated in group discussions. Attentive during psychoeducation on the CBT [place] (Thoughts, Behaviors, Emotions). Engaged in group discussion on how thoughts and behaviors can contribute to maintaining adverse feelings, such as depression, anxiety, and irritability. Completed worksheet in which pt identified obstacles and/or thoughts that are keeping them stuck. Shared obstacles that included; negative self-talk, poor communication, and distortions. Pt benefited from increased awareness of the basis of CBT therapy as well as specific thoughts that are impacting pt's progress. Will continue in IOP to prevent decompensation, increase healthy coping, and improve functioning. Narrative Note: []
--- NOTE | 2025-07-12 11:10 | BH.SGPN.GN ---
Behaviors/Verbalizations/Mental Status: []Eye contact is good. Motor activity is appropriate. Appearance is casual. Speech is Appropriate. Mood is anxious. Affect is congruent. Thoughts are linear and logical. No evidence of psychosis. Client Response/Progress/Benefit: [] Pt was an engaged participant AEB listening attentively to others and providing input throughout group. Pt along with group members, identified strategies to manage inappropriate guilt. Identified a personal example of inappropriate guilt as ?ruminating on the past.? Pt wants to work on combatting inappropriate guilt by focusing on one thing at a time.? Pt seemed to benefit from learning about strategies to manage appropriate and inappropriate guilt. Pt to continue IOP tx to prevent decompensation, improve self-awareness, and increase social skills. ?? Narrative Note: []
--- NOTE | 2025-07-13 09:00 | BH.SGPN.GN ---
Behaviors/Verbalizations/Mental Status: [] Eye contact is fair. Motor activity is appropriate. Appearance is casual. Speech is Appropriate. Mood is dysthymic. Affect is congruent. Thoughts are linear and logical. No evidence of psychosis. Reviewed daily check in sheet and no reports of suicidal ideations or intent. Client Response/Progress/Benefit: [] Pt was an somewhat active participant in group discussions. Attentive. Did well to identify 2 mental health wins including using opposite action to challenge herself to come to group today. Stated feeling tired this morning. Additional win noted as making plans to attend the fair in a few weeks. Reports this is something she looks forward to every year as she love animals. Current stressor identified as continuing to adjust to the group setting. Responded well to group support. Benefited from group support, encouragement, and feedback. Will continue in IOP to prevent decompensation, promote mood stability, and increase healthy coping application.
--- NOTE | 2025-07-13 10:00 | BH.SGPN.GN ---
Behaviors/Verbalizations/Mental Status: []Pt alert and oriented, neatly dressed and groomed. Eye contact good. Motor activity appropriate. Speech within normal limits. Affect congruent, mood euthymic. Thoughts linear, logical, no signs of hallucinations or delusions. Client Response/Progress/Benefit: [] Pt was an active participant in group discussion and experiential activity. Attentive during psychoeducation on resilience and provided input throughout. Participated in interactive discussion with peers on the definition of resilience and where it comes from. Group identified that resiliency can be impacted by; past experiences, upbringing, and personality traits. Able to relate experiential activity of group juggle to topics of resilience. Worked with peers in small group in which they identified factors that contribute to resilience and did well providing ideas. Benefited from increased awareness of resilience and the factors that contribute to building resilience. Will continue in IOP tx to gain healthy coping skills, reduce negative thinking patterns, and gain social support. ? Narrative Note: []
--- NOTE | 2025-07-13 11:00 | BH.SGPN.GN ---
Behaviors/Verbalizations/Mental Status: [] Eye contact is poor. Motor activity is appropriate. Appearance is casual. Speech is Appropriate. Mood is anxious. Affect is congruent. Thoughts are linear and logical. No evidence of psychosis. Client Response/Progress/Benefit: [] Pt responded well to session AEB completing the resilience worksheet provided. Limited participation in the discussion unless prompted however did work cooperatively with group to identify strategies to enhance each of the components discussed. Pt was able to identify resiliency traits they already possess as well as areas related to resilience to focus on in the future which included more social interaction. Pt seemed to benefit from discussing strategies for improving personal resilience and identifying resilience traits Pt already possesses. Will continue IOP tx to prevent decompensation, provide support, and increase healthy coping. Narrative Note: []
--- NOTE | 2025-07-14 07:59 | PCM.BH.PSYEV ---
Intake Vital Signs 06/19/25 14:37 07/14/25 07:59 07/14/25 10:36 Height 5 ft 1 in 5 ft 1 in 5 ft 1 in Weight: 111 lb 120 lb BMI 20.9 BP 116/60 127/79 H Blood Pressure Location Lt brachial Position Sitting Respiration 16 Pulse 68 55 L Pulse Source Monitor Temp 97.9 F Pulse Oximetry (%) 98 Oxygen Delivery Method room air Intake Visit Reasons: IOP Allergies animal dander Allergy (Verified 07/14/25 10:22) NEEDS FOLLOW-UP Medications ?Medication ?Instructions ?Recorded ?Confirmed ?Type cholecalciferol (vitamin D3) 125 125 mcg PO QDAY 09/23/24 07/14/25 History mcg (5,000 unit) capsule bupropion HCl 150 mg 24 hr tablet, 150 mg PO QAM 90 days #90 tabs 04/25/25 07/14/25 Rx extended release PFSH () Medical History (Updated 07/13/25 @ 10:56 by Yanira Boland) Allergies Aphthous ulcer of mouth Contact with or exposure to other viral diseases ADHD Major depression Insect bite Cellulitis of right middle finger Borderline learning disability Vitamin D deficiency Anxiety and depression ADD (attention deficit disorder) without hyperactivity IBS (irritable bowel syndrome) Ganglion cyst of dorsum of right wrist Acute otitis externa of both ears Acute otitis externa of left ear URI (upper respiratory infection) Impetigo Right lower quadrant abdominal pain Constipation Paronychia of toe of right foot Rhinitis, allergic Surgical History (Updated 09/23/24 @ 15:11 by Tabatha Cortez) History of tonsillectomy History of nasal surgery Family History (Updated 07/13/25 @ 10:57 by Yanira Boland) Mother Anxiety and depression Father Heart disease Grandfather Diabetes Aunt Diabetes Other High cholesterol Hypertension Social History (Updated 09/23/24 @ 15:13 by Tabatha Cortez) household members: other details: Parents current occupational status: employed current occupation: Part-time [employer], Full-time [employer] Smoking Status: Never smoker alcohol intake: never substance use type: does not use caffeine: Yes (Occ) Type: carbonated beverages frequency: 3-4 times per week HPI () History of Present Illness History provided by: patient Chief complaint: depression HPI: Macey Patton is a 25 year old female who presents today for IOP intake eval. Patient reports that she has been feeling really down lately. Has not been doing very well at taking her wellbutrin regularly. Is somewhat apprehensive about taking the medication but is unsure why. Has been getting in to more arguments with her mother, and feels grouchy. Several times in recent past, her mother came to her work and wanted her to come outside and talk with her. Has been working 3 pm to 2 am. Still working 4 days a week but also picks up additional time. 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 Generally working so much to stay out of the house and away from mom. Lives with mom, sister and her sister's boyfriend. Describes her sister as mom's little side kick. Patient does have a bud friend that she has been seeing. Recently went to the [facility] after having a panic attack because her mom was telling her friends that patient has STDs. Despite not being sexually active patient went and got tested to ensure she did not. Appetite has been reduced and has been fluctuating. Describes anxiety being around other people. However, recently went to a [employer] concert and did better than expected. Is working on trying to move out from home. Sleep: has been sleeping but largely because she is exhausted from work Interest: dimished Guilt: feeling down Energy: low Concentration: reports to being ok Appetite: poor Psychomotor: WNL Suicide: denies Anxiety: was having panic attack around when her mom was accusing of having STDs Gely: denies PTSD: describes a narcissistic mother Psychosis: denies history of auditory or visual hallucinations, denies disorganized thoughts, denies disorganized speech Developmental History Developmental History: Siblings - 1 twin brother, 1 sister Born/Raised - [place] - graduated from [employer] Living Situation - mother, younger sister at house in [place] Legal Issues - denies Employment - works at [employer] Psychiatric History Previous psychiatric treatment history: No Previous psychiatric diagnoses: MDD, ADHD Previous psychiatric treatment programs: none Family Psychiatric History: denies Suicidal Ideation Current: No Past: No History of suicide attempt: No Suicide Risk Assessment Suicide risk factors: depression Suicide protective factors: connected to treatment and social support Self Injurious Behavior Current: none Past: none Medication Trials Previous psychiatric medication trials: buspirone fluoxetine - hasn't taken since October Daytrana - made her sick, but helped with focus Current/Previous Provider Psychiatrist: Dr. Combs Therapist: denies any current therapist Other Nicotine- denies Alcohol- denies Marijuana- denies Stimulants- denies Opioids- denies Other- denies Review of systems () Constitutional Denies: fever(s), chills, change in weight or fatigue Eyes Denies: change in vision or blurry vision Ears, Nose, Mouth, Throat Denies: throat pain, neck pain or change in hearing Cardiovascular Denies: chest pain, palpitations or dyspnea Respiratory Denies: dyspnea, cough or wheezing Gastrointestinal Denies: abdominal pain, nausea, vomiting, diarrhea or constipation Genitourinary Denies: dysuria or urinary frequency Musculoskeletal Denies: back pain, neck pain, joint pain or muscle weakness Integumentary/Breast Denies: rash or new lesions Neurological Denies: headache(s), dizziness or confusion Endocrine Denies: fatigue or excessive sweating Hematologic/Lymphatic Denies: easy bruising or easy bleeding Allergic/Immunologic Denies: wheezing Exam () Mental Status Exam- Psych () Appearance casually dressed and no apparent distress Attitude withdrawn Activity/Motor Behavior MSE activity/motor behavior finding no adventitious movements Speech regular rate, regular volume and regular prosody Mood depressed and anxious Affect constricted Thought Process linear, logical and coherent Thought Content no delusions and no hallucinations Suicidal Ideation none Homicidal Ideation none Attention intact Concentration intact Sensorium/Orientation awake, alert and oriented x3 Memory/Cognition other (appropriate for stated age) Insight fair Judgement fair Assessment & Plan () Assessment & Plan (1) Major depression: Plan: - will work on taking wellbutrin with more regularity as she does find medication effective just struggles to take regularly; did not tolerate higher dose in the past - Patient was informed of the risks, benefits and likely side effects of Wellbutrin. These side effects include but are not limited to appetite suppression, headache, diaphoresis, tachycardia, nausea, and insomnia. Wellbutrin can lower the seizure threshold, if you have a history of seizure disorder or have a seizure while taking the medication, please discontinue the medication and inform office immediately. - Take all medications as prescribed.? Please avoid the use of alcohol or drugs.? Attend all outpatient appointments as scheduled.? See your primary care provider if you develop any medical problems.? If you develop thoughts of harming yourself or others please call 911, present to the nearest emergency room, or call the [place] Crisis line at . Resources are also available through the National Suicide Prevention Lifeline at . - - The patient will start the IOP in [facility] at [facility] as the structure, support, education and group therapy with ideally prevent worsening of patient's symptoms which could result in admission to higher level of care such as [facility] or psychiatric admission. I have reasonable expectation that the patient will make timely and significant improvement in the presenting acute symptoms as a result of the program and eventually be discharged to a lower level of care. (2) ADHD: Plan: - ideally getting benefit from wellbutrin Charges/Coding Multi Select Codes Behavior Health Behavior Health EST Pt E/M: [id number] Est Pt Level IV
--- NOTE | 2025-07-14 07:59 | BH.DR.ITP ---
Initial Treatment Plan Patient Information Visit Information: ADMISSION DATE: 07/14/2025 EXPECTED LOS: 4-6 weeks Problems/Symptoms Problem #1:: depression Symptom:: sadness, lack of motivation, fatigue, anhedonia Symptom:: ADHD Problem #2:: lack of focus, poor motivation, difficulty with organization
--- NOTE | 2025-07-14 10:30 | BH.NA ---
Physical Data Vital Signs Pulse Rate: 55 Blood Pressure: 127/79 Height/Weight Height: 1.55 m Weight:: 54.431 kg Weight in Pounds: 120.0 lbs Current Medication Compliance Medication Compliance Do you take your medication as prescribed?: Yes Functional Assessment Sleep Pattern Describe any problems with sleeping: Client states she sleeps about 4 hours per night. Sensory/Communication Assess Communication Problems Do you have difficulty understanding what people are saying?: No Medical Problems/History Family History Family History (Updated 07/13/25 @ 10:57 by Yanira Boland) Mother Anxiety and depression Father Heart disease Grandfather Diabetes Aunt Diabetes Other High cholesterol Hypertension Surgical History Surgical History Have you had any surgeries? If so, list type and date:: Yes (nasal, facial) Substance Abuse Substance Abuse Please describe substance abuse in the last 30 days:: Client denies alcohol, tobacco or substance use. Client states she used to drink 4 cans of pop per day but now has only 1 every other day. Mental Status Summary Mental Status Significant Findings/Observations on Appearance and Mood:: Client is alert and oriented x 4. Client is casually groomed. Client is cooperative with assessment. Client makes fair eye contact. Client's voice has normal rate and volume. Client has a somewhat restricted affect. Client makes logical associations and has normal processing. Client denies delusions/hallucinations. Client denies SI. Suicide Assessment Suicidal Ideation Are you currently or have you been suicidal in the past?: Yes Suicidal Intentional Rating Scale (SIRS): Suicidal thoughts (past) Physician Notification Past Psychiatric History MH Treatment Hx Past Psychiatric Medications:: Prozac, one other she doesn't remember the name of Age of first mental health symptoms: Client states she was first on medication for ADHD around 1st grade and started medication for depression shortly after that. Describe (age, circumstance, etc) any past hospitalizations: None. Current providers for mental health treatment (counselor, psychiatrist, caseworker, etc.): Dr. Combs at [facility] for [facility] Fall Risk Assessment Age Age: Less than 60 Mental Status Mental Status: Willing & able to ask for assistance when needed Physical Status Physical Status: No problems Impairments Impairments: None Elimination Elimination: Continent AND independent Gait or Balance Gait or Balance: Walks independently Hx of Falls History of falls in the past 6 months: No known history Medications/Substances Psychotropics:: Antidepressants RN Summary of Impressions Impressions Recommendations Impressions: Psychiatric Issues: major depressive disorder Level of Care How do the client's current symptoms and functional deficits support need for this level of care?: Client referred self to IOP for anxiety, depression and anger. Client reports some irritability, decreased energy, and feeling anxious in some social situations. Client states I want to learn how to handle people better and socialize better. Client states she has difficulty feeling like people are looking down on her like they are better than her. Client denies SI. IOP will promote gains and prevent further decompensation while providing social support and skills training. Nutritional Screen Height/Weight Height: 1.55 m Weight:: 54.431 kg Weight in Pounds: 120.0 lbs Nutrition Screening Normal Weight: 54.431 kg Normal/Usual Weight in Pounds: 120.0 lbs Have you lost weight without trying: No Have you been eating poorly because of a decreased appetite: No Recently been on tube feeds, TPN, or have any nutritional access device in place: No Have any large open wounds or wounds that are not healing: No Calculated Weight Change: 0 Change in weight Score: 0 MST Screening Tool Score: 0
[2025-07-14 10:36] VITALS: BP 127/79; PULSE 55
--- NOTE | 2025-07-14 11:10 | BH.SGPN.GN ---
Behaviors/Verbalizations/Mental Status: [] Pt alert and oriented, casual in appearance. Eye contact fair. Motor activity appropriate. Speech within normal limits. Affect congruent, mood euthymic. Thoughts linear, logical, no signs of hallucinations or delusions. Client Response/Progress/Benefit: [] Pt did not engage in group discussions however was attentive AEB taking notes, and listening attentively to others. Group discussed the different categories of coping skills which included distraction, emotional release, grounding, self-love, and thought challenging. Pt participated in creating a coping skills ?menu? from the different categories of coping skills. Pt's coping skill menu included: Shopping, getting outdoors, belly breathing, cooking, and talking to a friend. Appeared to benefit from increasing repertoire of healthy coping skills. Will continue IOP to promote healthy coping, challenge negative thoughts, and prevent decompensation.
== END 2025-07-16 23:59 ==
LOC: BHIOP 08:00
PROVIDERS: PCP Internal Medicine; Referring Provider Student in an Organized Health Care Education/Training Program; Visit Provider Student in an Organized Health Care Education/Training Program
DX: F32.9 Major depressive disorder, single episode, unspecified (principal); F90.9 Attention-deficit hyperactivity disorder, unspecified type
CPT/HCPCS: S9480; 90832; 90853

== ENCOUNTER 2025-07-18 07:17 | Outpatient (RCR) | payer OTHER, SELFPAY ==
--- NOTE | 2025-07-18 09:05 | BH.SGPN.GN ---
Behaviors/Verbalizations/Mental Status: [] Eye contact is good. Motor activity is appropriate. Appearance is casual. Speech is Appropriate. Mood is depressed. Affect is congruent. Thoughts are linear and logical. No evidence of psychosis. Reviewed daily check in sheet and no reports of suicidal ideations or intent. Client Response/Progress/Benefit: [] Pt participated at times during the group discussions. Attentive. Shared that she feels very ?tired and sluggish? today. Feels anxious and overworked which has been impacting her energy, focus, and overall mental health. Limited engagement outside of work. Isolation and avoidance. Limited progress noted. Benefited from group support, encouragement, and feedback. Will continue in IOP to prevent decompensation, increase healthy coping, and improve functioning Narrative Note: []
--- NOTE | 2025-07-18 10:10 | BH.SGPN.GN ---
Behaviors/Verbalizations/Mental Status: [] Eye contact is fair. Motor activity is appropriate. Appearance is casual. Speech is Appropriate. Mood is anxious. Affect is constricted. Thoughts are linear and logical. No evidence of psychosis. Client Response/Progress/Benefit: [] Pt was an active participant during interactive group discussions. Attentive during psychoeducation on the six types of boundaries (physical, emotional, intellectual, sexual, time, and material) AEB note-taking and providing input. Along with peers contributed to interactive discussion on defining what a boundary is in mental health. Pt along with peers identified challenges to setting boundaries such as guilt, feeling selfish, negative past experiences, fear of conflict, and limited knowledge on setting boundaries. Pt along with peers identified the benefits to setting boundaries such as better relationships, increased time for self-care, and increased confidence, and feeling more heard. Group discussed the mental health benefits to establishing boundaries at work, school, and home. Pt benefited from increased awareness and insight on the importance/benefit to setting health boundaries. Will continue in IOP to improve healthy coping, challenge negative thoughts, and prevent decompensation.
--- NOTE | 2025-07-18 11:10 | BH.SGPN.GN ---
Behaviors/Verbalizations/Mental Status: []Pt alert and oriented, casually dressed and groomed. Eye contact good. Motor activity appropriate. Speech within normal limits. Affect congruent, mood dysthymic, anxious. Thoughts linear, logical, no signs of hallucinations or delusions. Client Response/Progress/Benefit: [] Client responded well to session AEB listening attentively to peers, providing input, as well as taking notes throughout. Group discussed different styles of boundary setting. Participated in small group discussion brainstorming various strategies for improving healthy boundary setting. Pt took time to complete reflection on which skills would like to implement to improve boundaries. Plans to challenge self by starting with small no responses to low stakes situations/asks. Seemed to benefit from increased awareness of how different boundary styles can impact mental health. Will continue IOP tx prevent decompensation, increase use of healthy coping skills, and reduce negative thinking patterns. Narrative Note: []
--- NOTE | 2025-07-21 09:05 | BH.SGPN.GN ---
Behaviors/Verbalizations/Mental Status: [] Eye contact is poor. Motor activity is appropriate. Appearance is casual. Speech is Appropriate. Mood is anxious. Affect is congruent. Thoughts are linear and logical. No evidence of psychosis. Reviewed daily check in sheet and no reports of suicidal ideations or intent. Client Response/Progress/Benefit: [] Pt participated when prompted. Attentive. Daily symptom tracker notes 2/5 for depression, anxiety, and irritability. Brief check in today stating??I?m tired?. She discussed current situational stressors. Limited progress noted. Benefited from group support, encouragement, and feedback. Will continue in IOP to prevent decompensation, provide support, and increase healthy coping. Narrative Note: []
--- NOTE | 2025-07-21 10:10 | BH.SGPN.GN ---
Behaviors/Verbalizations/Mental Status: [] Eye contact is good. Motor activity is appropriate. Appearance is casual. Speech is Appropriate. Mood is euythmic. Affect is congruent. Thoughts are linear and logical. No evidence of psychosis Client Response/Progress/Benefit: [] Pt receptive of session, actively engaged throughout AEB taking notes, providing input, and contributing in small group discussion. Appeared to connect with group topic of automatic thoughts and cognitive distortions, as well as the impact of thought patterns on mental health, coping behaviors, and relationships. This particular group is very heavy on psychoeducation and pt appeared to connect with distortions and how they can impact functioning. Identified struggling with disqualifying the positive and mental filter distortions. Pt appeared to benefit from gaining insight on distorted thinking patterns and how this impacts overall mental health. Will continue IOP to stabilize mood, improve ability to function, and prevent decompensation. Narrative Note: []
--- NOTE | 2025-07-21 11:10 | BH.SGPN.GN ---
Behaviors/Verbalizations/Mental Status: [] Eye contact is good. Motor activity is appropriate. Appearance is casual. Speech is Appropriate. Mood is euthymic. Affect is congruent. Thoughts are linear and logical. No evidence of psychosis. Client Response/Progress/Benefit: [] Pt was an active participant and responded well to session AEB input and examples during group activity. Group discussed and practiced methods of reframing cognitive distortions. Client participated in identifying cognitive distortions when examples were provided. Client discussed in group the different strategies to overcome the distortions. Client identified cognitive distortion they used most often and made plan to identify and challenge thoughts that contribute to it as homework over the next couple of days. Will continue tx to further promote mood stability, improve distress tolerance skill application, maintain safety, and prevent decompensation. Narrative Note: []
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
--- NOTE | 2025-07-24 10:10 | BH.SGPN.GN ---
Behaviors/Verbalizations/Mental Status: []Pt alert and oriented, casually dressed and groomed. Eye contact good. Motor activity appropriate. Speech within normal limits. Affect congruent, mood tired. Thoughts linear, logical, no signs of hallucinations or delusions. Client Response/Progress/Benefit: [] Pt was an attentive and active participant, AEB taking notes and providing input in group discussion. Attentive during psychoeducation. Pt engaged during interactive discussion in which the group defined self-care and discussed its benefits. Group discussed barriers and benefits to self-care. Identified benefits as being more productive, feeling more grounded, feeling happier, less irritability, and being more capable. Pt participated in small groups where they worked to identify and challenged common self-care ?myths?. Benefited from increased awareness of self-care, its benefits, and the consequences of not utilizing self-care strategies. Pt connected with myths of self-care being too self-indulgent. Will continue IOP tx to increase distress tolerance skills, increase self-confidence, and improve daily functioning. ?? Narrative Note: []
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
--- NOTE | 2025-07-25 10:15 | BH.SGPN.GN ---
Behaviors/Verbalizations/Mental Status: [] Eye contact is good. Motor activity is appropriate. Appearance is casual. Speech is Appropriate. Mood is anxious and depressed. Affect is congruent. Thoughts are linear and logical. No evidence of psychosis. Client Response/Progress/Benefit: [] Pt engaged in session AEB client listening attentively to peers and providing input. Attentive however minimal discussion as group worked on defining?self-confidence?and identifying benefits of?self-confidence which included; increase mike/engagement, improved quality of relationships, improved problem solving, confidence to take risks, and increased sense of self-worth. Attentive during interactive discussion on factors that impact one's self confidence such as trauma, upbringing, economic status, and current/past relationships. Benefited from increased education on?self-confidence?and what effects it. Pt will continue IOP to prevent decompensation, increase healthy coping, and provide support. Narrative Note: []
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
--- NOTE | 2025-07-27 10:05 | BH.SGPN.GN ---
Behaviors/Verbalizations/Mental Status: [] Eye contact is good. Motor activity is appropriate. Appearance is casual. Speech is Appropriate. Mood is content. Affect is congruent. Thoughts are linear and logical. No evidence of psychosis. Client Response/Progress/Benefit: [] Pt engaged participant AEB listening to others, engaging in activity, and providing feedback throughout. Attentive during psychoeducation and provided insight into obstacles that impede mental wellness. Pt shared with group current mental health reality and desired mental health reality. Identified barriers to desired reality which included difficulties with communication and isolating. Benefited from taking look at current mental health state and obstacles for progress. Pt to continue in IOP tx to prevent decompensation, stabilize mood, and improve functioning. Narrative Note: []
--- NOTE | 2025-07-27 11:10 | BH.SGPN.GN ---
Behaviors/Verbalizations/Mental Status: [] Eye contact is good. Motor activity is appropriate. Appearance is casual. Speech is Appropriate. Mood is depressed and anxious. Affect is congruent. Thoughts are linear and logical. No evidence of psychosis. Client Response/Progress/Benefit: [] Pt was an engaged participant in group discussion and activity. Worked with group to identify strategies to help overcome barriers and obstacles to desired reality. Group developed strategies for the common barriers. Identified personal barriers to desired reality which included negative self-talk and communicating with others. Was able to identify a skill to implement immediately to address fears related to communication. Pt seemed to benefit from increased repertoire of healthy coping skills/strategies to overcome common barriers to moving forward. Will continue in IOP to prevent decompensation, increase healthy coping,and improve functioning. Narrative Note: []
--- NOTE | 2025-08-03 10:10 | BH.SGPN.GN ---
Behaviors/Verbalizations/Mental Status: [] Eye contact is fair. Motor activity is appropriate. Appearance is casual. Speech is Appropriate. Mood is euthymic. Affect is congruent. Thoughts are linear and logical. No evidence of psychosis. Client Response/Progress/Benefit: [] Pt was engaged and participating throughout, providing input and taking notes. Attentive during psychoeducation on anxiety and cognitive triangle. Participated in an interactive discussion on defining anxiety and identifying cognitive and physiological symptoms of anxiety. The group discussed helpful vs harmful anxiety. Pt identified their physical/physiological signs of anxiety which includes: skin picking and appetite changes. Benefited from increased awareness and insight on anxiety and its impact. Will continue in IOP to promote healthy coping, manage mood shifts, and prevent decompensation. .
--- NOTE | 2025-08-03 11:15 | BH.SGPN.GN ---
Behaviors/Verbalizations/Mental Status: []Pt alert and oriented, casually dressed and groomed. Eye contact good. Motor activity appropriate. Speech within normal limits. Affect congruent, mood tired. Thoughts linear, logical, no signs of hallucinations or delusions. Client Response/Progress/Benefit: [] Pt was an active participant AEB pt providing input and listening attentively to peers. Attentive during psychoeducation on mindfulness coping skills and their impact on reducing anxiety and improving overall mental health wellness. Group was able to identify self-soothing and mind-based coping skills which included: 5-senses, meditation, deep breathing, TIPP, thought challenging, categories, and progressive muscle relaxation. Pt would like to work on using deep breathing more regularly to reduce anxiety. Appeared to benefit from increasing repertoire of anxiety reduction skills. Pt will continue IOP to increase self-confidence, combat distortions, and improve daily functioning. Narrative Note: []
--- NOTE | 2025-08-03 11:25 | BH.MDN_ITS ---
Multi-Disciplinary Note Note 30-min Individual: Time Started:: 09:20 Date: 08/03/25 Eye Contact:: Fair Motor Activity:: Appropriate Appearance:: Neat Speech:: Rambling Mood:: Anxious and Other (tired) Affect:: Constricted Thoughts:: Linear, Logical and No evidence of hallucinations/delusions noted Staff Interventions:: thought challenging, motivational interviewing, CBT techniques, strengths perspective, taught coping skills (facts vs feelings) and other (rehearsed interpersonal effectiveness skills and rehearsed how to latanya llenge assumptions) Time Stopped:: 09:50
--- NOTE | 2025-08-03 11:25 | BH.MDN ---
Multi-Disciplinary Note Note 30-min Individual: Time Started:: 09:20 Date: 08/03/25 Purpose of session/treatment goals addressed:: To work on goal #2 of pt's tx plan by building distress tolerance skills. Eye Contact:: Fair Motor Activity:: Appropriate Appearance:: Neat Speech:: Rambling Mood:: Anxious and Other (tired) Affect:: Constricted Thoughts:: Linear, Logical and No evidence of hallucinations/delusions noted Staff Interventions:: thought challenging, motivational interviewing, CBT techniques, strengths perspective, taught coping skills (facts vs feelings) and other (rehearsed interpersonal effectiveness skills and rehearsed how to challenge assumptions) Client Response:: Pt responded well to session, open to meeting with therapist. Pt reports she is super tired this week which is likely due to pt working 10 hour second-shift days and coming to [facility]. Pt stated home is still her biggest trigger and pt shared I just want my mom to let me be and not fight with me. Discussed in pt's control vs out of pt's control and the impacts/outcomes of pt waiting for her mother to change versus pt making the change. Pt shared she is not ready to move out due to the what ifs, so pt understands she can benefit from working on acceptance skills and thought challenging. When asked how pt will know she is ready to move out, pt shared I think when I'm more confident handling people. Pt feels that she has a hard time trusting people and she admits to making assumptions which then leads to avoidance. Pt shared she often assumes that people will not be understanding of her mental health, so then pt labels them as judgmental. Pt willing to work on this as pt wants to be able to talk to people without her negative thinking getting in the way. Rehearsed a conversation and pt was asked to identify if her impression is based on fact (a pattern of behavior or statements made by a person) or feeling (pt's assumption based off facial expression or vibes. Risks/Concerns:: Pt denies any suicidal ideation, plan, or intent. Pt denies any thoughts of . Progress Toward Goals/Plan:: Pt is making mild progress as she reports improvements in getting out of the house more and gaining healthy coping skills. However, pt's living situation is unchanged and pt does not plan to move out soon, so this will continue to be a stressor for pt. Pt also notes due to work and coming to IOP, pt has been more fatigued. Pt receptive to working on challenging assumptions and being more social. Pt will continue IOP tx to prevent decompensation, improve daily functioning, and combat distortions. Time Stopped:: 09:50
--- NOTE | 2025-08-03 15:06 | BH.TPR ---
Treatment Plan Review Demographics Date of Admission:: 07/11/25 Date of Treatment Plan Review:: 08/03/25 Admitting Diagnoses:: Major depressive disorder, single episode, unspecified F32.9; ADHD Current Diagnoses:: Major depressive disorder, single episode, unspecified F32.9; ADHD Patient Status Patient's Response to Treatment:: Pt has responded mostly well to IOP treatment. Pt's attendance has been somewhat inconsistent as pt works at night and struggles to wake up in the mornings, but when pt does attend pt is engaged and provides feedback. Pt does well with peers and reports benefitting from the group topics. Pt engages well individually and is open to ideas. Pt's overall symptoms have decreased by 31% since admission. Status of Current Problems and Symptoms: Pt continues to report symptoms of depression more than half the days during a week and pt reports although her irritability is reducing, it still impacts her most days. Pt's biggest stressors are her mom and home life. Pt reports she is not ready to move out on her own, so pt is working on acceptance skills. Progress Problem #1: Problem Name:: depressive symptoms, hopelessness, isolation, and avoidance. Status of Goals:: obj-1 in progress. Pt has been working on getting into a healthier routine and pt shared she has cut out fast food from her daily routine which pt identifies as a positive. Pt is working on being more social. obj-2 in progress. Pt's DSM-5 scores for depression have decreased by 36% since admission. However, pt reports still experiencing little interest in doing things most days. Team Recommendations:: Team recommends continued goals and objectives as pt's scores have decreased, but pt continues to report lack of motivation, increased sleep, and difficulty functioning in the mornings. Team recommends pt continue working on combating distortions, dialectical thinking, and spending time with healthy supports. Problem #2: Problem Name:: Anxiety and irritability. Status of Goals:: obj-1 in progress. Pt and therapist are working on distress tolerance skills such as catching assumptions and challenging them instead of lashing out or shutting down. Pt is also working on acceptance skills for her current situation. obj-2 in progress. Pt's DMS-5 scores for anxiety have decreased by 67% since admission, but her scores for anger have only decreased by 25%. Pt reports using breathing skills, but she still struggles with managing symptoms during triggering events. Team Recommendations:: Team recommends pt to continue working on increasing distress tolerance and improving ability to regulate when experiencing triggers related to her mom or her home environment. Pt is also working on challenging assumptions.
--- NOTE | 2025-08-04 09:00 | BH.SGPN.GN ---
Behaviors/Verbalizations/Mental Status: [] Eye contact is good. Motor activity is appropriate. Appearance is casual. Speech is Appropriate. Mood is euthymic. Affect is full. Thoughts are linear and logical. No evidence of psychosis. Reviewed daily check in sheet and pt denies SI, plan, or intent as of this date 08/04/25. Client Response/Progress/Benefit: [] Pt was an active participant in group discussions. Attentive. Did well to identify 2 mental health wins, which included doing well to continue to get up in time for group despite working odd hours. Additional win noted as making progress with not reacting to frustrations with her mother. Stressor noted as ongoing interpersonal conflict with her relationship with mom. Appeared to benefit from provided support, encouragement, and feedback. Will continue IOP tx to improve mood stability, develop healthy coping repertoire, and prevent decompensation. Narrative Note: []
--- NOTE | 2025-08-04 10:10 | BH.SGPN.GN ---
Behaviors/Verbalizations/Mental Status: [] Pt alert and oriented, casually dressed and groomed. Eye contact good. Motor activity appropriate. Speech within normal limits. Mood: depressed. Affect: congruent. Thoughts linear, logical, no signs of hallucinations or delusions. Client Response/Progress/Benefit: [] Pt participated when prompted during group discussions. Attentive during psychoeducation on self-sabotage and its impact on mental health. Attentive as peers worked to define self-sabotage and identify reasons individuals perform self-sabotage behaviors (easy route at the time, feel as those we don't deserve any better, FOF, comfortable, etc). Attentive as peers identified the forms of self-sabotage that impact their mental health. Attentive during psychoeducation on types of self-sabotage; Procrastination, perfectionism, self-medication, poor communication,and chronic cancelling. Seemed to benefit from gaining awareness about the self-sabotage. Pt to continue IOP tx to prevent decompensation, increase healthy coping, and provide support. Narrative Note: []
--- NOTE | 2025-08-04 11:10 | BH.SGPN.GN ---
Behaviors/Verbalizations/Mental Status: []Pt alert and oriented, casually dressed and groomed. Eye contact fair. Motor activity appropriate. Speech within normal limits. Affect congruent, mood fatigued. Thoughts linear, logical, no signs of hallucinations or delusions. Client Response/Progress/Benefit: []Pt responded well to session, engaged and contributing. Pt discussed with group things that contribute to mental wellness life. With peers, pt discussed things that would sabotage one's mental health wellness. Pt identified things pt personally does to sabotage as people pleasing and perfectionism. Pt attentive during psychoeducation on ways to reduce self-sabotage and pt selected asking self ?is this fact or feeling? as the skill that could help pt reduce self-sabotaging behaviors. Pt appeared to benefit from learning skills and gaining awareness of self-sabotaging behaviors. Pt will continue IOP tx to promote mood stability, increase independence, and reduce assumptions. Narrative Note: []
--- NOTE | 2025-08-08 10:10 | BH.SGPN.GN ---
Behaviors/Verbalizations/Mental Status: []Pt alert and oriented, casually dressed and groomed. Eye contact good. Motor activity appropriate. Speech within normal limits. Affect congruent, mood tired. Thoughts linear, logical, no signs of hallucinations or delusions. Client Response/Progress/Benefit: [] Pt participated during the group discussion, providing input and remaining attentive during psychoeducation. Participated in experiential activity. Pt contributed during interactive discussion on the consequences of unhealthy expression of emotions. Worked with group to identify several consequences which included hurting relationships and isolating oneself. Contributing during interactive discussion on common potholes to effectively communicating. Pt was able to relate and make connections between the experiential activity and the overall topic, managing emotions through activity by ?just trying my best.? Benefited from increased awareness of how stress and emotions can impact one's ability to communicate. Will continue in IOP to promote use of healthy coping skills and further improve daily functioning. Narrative Note: []
--- NOTE | 2025-08-08 14:52 | BH.MDN ---
Multi-Disciplinary Note Note 30-min Individual: Time Started:: 09:20 Date: 08/08/25 Purpose of session/treatment goals addressed:: To discuss discharge and review thought challenging strategies. Eye Contact:: Fair Motor Activity:: Appropriate Appearance:: Casual Speech:: Rambling Mood:: Other (tired and engaged) Affect:: Congruent Thoughts:: Linear and No evidence of hallucinations/delusions noted Staff Interventions:: thought challenging, CBT techniques, discharge planning, strengths perspective, taught coping skills (interpersonal effectiveness skills.) and other (reviewed coping skill from last session-fact or feeling.) Client Response:: Pt responded well to session, open to meeting with therapist. Pt shared she lost the alberto to her car so she had to have her car towed again. This was a stressor, but pt was able to laugh about it sharing I'm getting the most out of [employer]. Pt reports she worked on her goal from last session which was to ask herself, is this fact or feeling. Pt noted that she did well with this at times with her mother, but pt still struggles with assuming that people are just being nosy. Pt asked if it was normal to be asked what are you doing this weekend by a family member. Pt and therapist discussed this and pt gained insight that this could be a way for people to try and connect with pt. Pt has reported previously that she does not have a lot of inherit trust for people and she assumes that people are trying to be judgmental or nosy. Pt is receptive to working on this and did well with gentle thought challenging. Pt shared she has been doing better with not escalating conflict with mom. Pt will continue to practice fact or feeling for homework. Risks/Concerns:: Pt denies any suicidal ideation, plan, or intent. Pt denies any thoughts of . Progress Toward Goals/Plan:: Pt is responding well to IOP and pt reports she continues to find benefit from the group sessions. Pt reports she is getting a little better at not fighting with her mother and challenging her own perspective. Pt is not looking to move out at this time. Pt reports her sleep continues to be poor due to her work schedule and coming to IOP. Pt receptive to discharge planning and pt plans to reach out to her previous therapist, Lexi Aparicio, to see if she can follow up after IOP. Pt will continue IOP tx to promote mood stability, increase distress tolerance, and improve interpersonal effectiveness skills. Time Stopped:: 09:50
--- NOTE | 2025-08-11 07:48 | PCM.BH.PN_ITS ---
Intake Vital Signs 07/14/25 10:36 08/11/25 07:48 Height 5 ft 1 in 5 ft 1 in Weight: 120 lb BP 127/79 H Pulse 55 L Intake Visit Reasons: Follow-up Allergies animal dander Allergy (Verified 07/28/25 09:14) NEEDS FOLLOW-UP Medications ?Medication ?Instructions ?Recorded ?Confirmed ?Type cholecalciferol (vitamin D3) 125 125 mcg PO QDAY 09/2307/28/25 History mcg (5,000 unit) capsule bupropion HCl 150 mg 24 hr tablet, 150 mg PO QAM 90 da ys #90 tabs 04/25/25 07/28/25 Rx extended release HPI () History of Present Illness History provided by: patient Chief complaint: Depression HPI: Macey Patton is a 25 year old female who presents today for follow up evaluation. Patient reports that she has been tired and cranky. Attributes this to saying no more often and working on setting a boundary with her mother. Finds that she is both physically and emotionally tired secondary to the increased effort she is putting in to establishing these boundaries. 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 Relationship with mom has been bad. Recently patients car broke down and states that her mom found it funny which was frustrating for patient. Has gotten better at taking medication, but still only taking every other day. Does feel like it helps, and feels like irritable when she takes. Appetite is reduced. Still trying to save to get out of house. Review of systems () Constitutional Reports: fatigue; Denies: fever(s), chills or change in weight Eyes Denies: change in vision or blurry vision Ears, Nose, Mouth, Throat Denies: throat pain, neck pain or change in hearing Cardiovascular Denies: chest pain, palpitations or dyspnea Respiratory Denies: dyspnea, cough or wheezing Gastrointestinal Denies: abdominal pain, nausea, vomiting, diarrhea or constipation Genitourinary Denies: dysuria or urinary frequency Musculoskeletal Denies: back pain, neck pain, joint pain or muscle weakness Integumentary/Breast Denies: rash or new lesions Neurological Denies: headache(s), dizziness or confusion Endocrine Reports: fatigue; Denies: excessive sweating Hematologic/Lymphatic Denies: easy bruising or easy bleeding Allergic/Immunologic Denies: wheezing Exam Mental Status Exam- Psych () Appearance casually dressed and no apparent distress Attitude withdrawn Activity/Motor Behavior MSE activity/motor behavior finding no adventitious movements Speech regular rate, regular volume and regular prosody Mood other (Tired and cranky) Affect constricted Thought Process linear, logical and coherent Thought Content no delusions and no hallucinations Suicidal Ideation none Homicidal Ideation none Attention intact Concentration intact Sensorium/Orientation awake, alert and oriented x3 Memory/Cognition other (appropriate for stated age) Insight fair Judgement fair Assessment & Plan () Assessment & Plan (1) Major depression: Plan: - Again believes that she does better with Wellbutrin however has significant problem taking consistently. Has been working on her behavioral skills including setting a boundary with her mother which has exacerbated some mood symptoms however she recognizes this as a situational stress and is agreeable to continue medication as previously prescribed (2) ADHD: Plan: - Should improve with consistency in taking Wellbutrin Charges/Coding Multi Select Codes Behavior Health Behavior Health EST Pt E/M: [id number] Est Pt Level IV
--- NOTE | 2025-08-11 09:05 | BH.SGPN.GN ---
Behaviors/Verbalizations/Mental Status: [] Eye contact is good. Motor activity is appropriate. Appearance is casual. Speech is Appropriate. Mood is anxious and irritable. Affect is congruent. Thoughts are linear and logical. No evidence of psychosis. Reviewed daily check in sheet and no reports of suicidal ideations or intent. Client Response/Progress/Benefit: [] Pt participated when prompted. Daily symptom tracker notes 4/5 for depression and anxiety as well as 3/5 for agitation. She reports being irritable this AM and discusses conflict with her mother. She lives with her mother however describes their relationship as very poor. Distracted this AM regarding situational stressors related to her mother. No progress noted. Benefited from group support, encouragement, and feedback. Will continue in IOP to prevent decompensation, increase healthy coping, and improve communication skills. Narrative Note: []
--- NOTE | 2025-08-11 10:10 | BH.SGPN.GN ---
Behaviors/Verbalizations/Mental Status: [] Client alert and oriented, casual appearance. Eye contact fair. Motor activity appropriate. Speech within normal limits. Affect congruent, mood euthymic. Thoughts linear, logical, no signs of hallucinations or delusions. Client Response/Progress/Benefit: [] Pt receptive to session AEB contributing to small group discussion, as well as listening attentively to others, and taking notes. Worked with group to brainstorm the positive and negative aspects of stress on physical and mental health. Group did well to identify the benefits of stress as well as the impact of distress on performance, relationships, and mental health. Pt identified their personal top stressors as: people and life responsibilities. Patient stated when stress is overwhelming they tend to avoid. Pt seemed to benefit from increased awareness of current stressors and impact stress has on mental health. Pt will continue IOP tx to improve distress tolerance, promote healthy coping, and prevent decompensation.
--- NOTE | 2025-08-11 11:05 | BH.SGPN.GN ---
Behaviors/Verbalizations/Mental Status: [] Eye contact is good. Motor activity is appropriate. Appearance is casual. Speech is Appropriate. Mood is anxious. Affect is congruent. Thoughts are linear and logical. No evidence of psychosis. Client Response/Progress/Benefit: [] Pt was an attentive participant in group discussions and actively engaged during experiential activity. Attentive during psychoeducation on the 4 A's (Avoid, adapt, alter, accept) of coping with stress. Identified one of the 4 A's (avoidance) to address one their top stressors (unhealthy people). Participated with peers on identifying the connection between the experiential activity and utilization of stress management skills. According to group both the activity and stress management require; adjusting strategies, reliance on larger support group, and oftentimes can't be done alone. Benefited from increased awareness of stress management strategies. Pt will continue IOP to improve mood stability, challenge distorted thoughts, and prevent decompensation. Narrative Note: []
--- NOTE | 2025-08-14 09:00 | BH.SGPN.GN ---
Behaviors/Verbalizations/Mental Status: [] Pt alert and oriented, casually dressed and groomed. Eye contact avoidant. Motor activity appropriate. Speech within normal limits. Affect congruent, mood anxious. Thoughts linear, logical, no signs of hallucinations or delusions. Reviewed pt?s symptom tracker, low risk for suicidal ideation, plan, and intent 08/14/25. Client Response/Progress/Benefit: []Pt was an active participant in group discussions. Attentive. Per patients daily symptom tracker, pt indicates a 3/5 for depression and a 4/5 for anxiety, with 5 being severe. Pt was hesitant to share during group, but reported her win as showing up for group today despite not sleeping well, and having to take her mother to a doctors appointment before group. She shared her stressor as having to take care of her mother who she describes as a hypochondriac. Pt expressed frustration about living with her mother, stating that she is difficult to take care of. She also reported her toilet breaking as another stressor. Pt seemed to benefit from support from peers. Will continue IOP tx to promote healthy coping mechanisms, reduce negative thinking patterns, and gain self-confidence.
--- NOTE | 2025-08-14 10:15 | BH.SGPN.GN ---
Behaviors/Verbalizations/Mental Status: []Pt alert and oriented, casually dressed and groomed. Eye contact good. Motor activity appropriate. Speech within normal limits. Mood is present/engaged. Affect is congruent. Thoughts linear, logical, no signs of hallucinations or delusions. Client Response/Progress/Benefit: [] Pt was an active?participant in group discussions and experiential activity. Worked with peers to identify benefits of healthy relationships which included; support, shared experiences, laughter, understanding, and perspective challenge. Group identified factors that lead to unhealthy relationships which included; low self-esteem, trauma-bonding, poor communication, and manipulation/toxic behaviors. Pt reported stated a toxic relationship led to extreme depression and low self-esteem. Benefited from increased insight and awareness of benefits of healthy relationships and factors that contribute to unhealthy relationships. Will continue IOP to improve confidence, challenge distortions, and prevent decompensation.
--- NOTE | 2025-08-15 09:05 | BH.SGPN.GN ---
Behaviors/Verbalizations/Mental Status: [] Pt alert and oriented, neatly dressed and groomed. Eye contact good. Motor activity appropriate. Speech within normal limits. Affect constricted, mood euthymic. Thoughts linear, logical, no signs of hallucinations or delusions. Reviewed pt?s symptom tracker, no risk for suicidal ideation, plan, or intent 08/15/25. Client Response/Progress/Benefit: []Pt was an active participant in group discussions. Attentive. Able to identify mental health wins including ?I got here today and I?ve been leaving the house.? Pt's stressor today is ?we keep having plumbing issues in our house.? The group offered pt suggests managing this stressor and emotional support which pt reported was helpful. Pt is feeling ?bubbly? this morning. Pt receptive to feedback from peers. Benefited from group support, encouragement, and feedback. Progress noted. Will continue IOP tx to promote mood stability, increase social supports, and improve daily functioning. ? Narrative Note: []
--- NOTE | 2025-08-15 10:10 | BH.SGPN.GN ---
Behaviors/Verbalizations/Mental Status: [] Client alert and oriented, casually dressed and groomed. Eye contact good. Motor activity appropriate. Speech within normal limits. Affect congruent, mood anxious. Thoughts linear, logical, no signs of hallucinations or delusions. Client Response/Progress/Benefit: [] Client responded well to session, contributing to discussion and engaged during the activity. Group identified the benefits of change which included: increased confidence, progressing towards goals, and improving mental and physical health. Worked with the group to identify barriers to change, which included: uncomfortable emotions such as anxiety, lack of energy, lack of supports, and negative influences. Client participated along with group in activity where they identified and discussed the emotions related to change. Benefited from increased awareness and understanding of emotions, benefits, and barriers related to change. Will continue IOP tx to improve perspective, increase consistent use of healthy coping skills and prevent decompensation.
--- NOTE | 2025-08-15 11:10 | BH.SGPN.GN ---
Behaviors/Verbalizations/Mental Status: []Client alert and oriented, casually dressed and groomed. Eye contact good. Motor activity appropriate. Speech within normal limits. Affect congruent, mood anxious. Thoughts linear, logical, no signs of hallucinations or delusions Client Response/Progress/Benefit: [] Pt responded well to session, attentive. Did well to process activity and work with group to relate the strategies used to overcome barriers in the activity to managing change in own life. Pt identified a change they would like to make is communicate better with mom. Pt identified currently being in contemplation stage for this change. Pt stated goal is to work on thought challenging. Appeared to benefit from identifying a small goal to work towards. Pt will continue IOP tx to prevent decompensation, improve daily functioning, and gain healthy coping skills. Narrative Note: []
--- NOTE | 2025-08-18 09:00 | BH.SGPN.GN ---
Behaviors/Verbalizations/Mental Status: [] Pt alert and oriented, casually dressed and groomed. Eye contact poor. Motor activity appropriate. Speech within normal limits. Affect avoidant, mood anxious. Thoughts linear, logical, no signs of hallucinations or delusions. Reviewed pt?s symptom tracker, 0/5 with 5 being severe for risk for suicidal ideation, indicates a 0/5 for plan, and intent to kill self. Pt does not appear to be imminent risk to harm self.08/18/25. Client Response/Progress/Benefit: []Pt was an active participant in group discussions. Attentive. Per patients daily symptom tracker, pt indicates a 0/5 for depression and a 0/5 for anxiety, with 5 being severe. Pt was quiet and hesitant to share during group. She shared her mental health positive as showing up for group today. Pt did not share her second mental health positive, stressor, or mood. Pt was supportive and attentive to others in the group. Pt seemed to benefit from support from peers. Will continue IOP tx to promote healthy coping mechanisms, reduce negative thinking patterns, and prevent decompensation.
== END 2025-08-15 23:59 ==
LOC: BHIOP 07:17
PROVIDERS: PCP Internal Medicine; Referring Provider Student in an Organized Health Care Education/Training Program; Visit Provider Student in an Organized Health Care Education/Training Program
DX: F32.9 Major depressive disorder, single episode, unspecified (principal); F90.9 Attention-deficit hyperactivity disorder, unspecified type
CPT/HCPCS: S9480; 90832; 90853

== ENCOUNTER → 2025-07-18 | Outpatient (CLI) | payer OTHER, SELFPAY ==
[2025-07-18 12:43] LABS: Color, Urine Yellow (Yellow); Glucose, Dipstick Normal (Normal); Ketone-Dipstick Negative (Negative); Leukocyte Esterase-Dipstick Negative /ul (Negative); Nitrite-Dipstick Negative (Negative); Occult Blood-Urine 25 /ul (Negative); Protein-Dipstick 15 mg/dl (Negative); Specific Gravity, Urine 1.030 (1.002-1.030); Urine Bilirubin Dipstick Negative (Negative)
== END | disposition home or self-care (01) ==
LOC: LABSPEC 12:16
PROVIDERS: PCP Internal Medicine; Referring Provider Internal Medicine; Visit Provider Internal Medicine
DX: R31.9 Hematuria, unspecified (principal)
CPT/HCPCS: 81002; 87086; 87088

== ENCOUNTER 2025-08-16 08:04 | Outpatient (RCR) | payer OTHER, SELFPAY ==
--- NOTE | 2025-08-18 11:10 | BH.SGPN.GN ---
Behaviors/Verbalizations/Mental Status: [] Eye contact is good. Motor activity is appropriate. Appearance is casual. Speech is Appropriate. Mood is euthymic. Affect is constricted Thoughts are linear and logical. No evidence of psychosis. Client Response/Progress/Benefit: [] Pt was an semi engaged participant in group discussion and activity. Worked with group to identify strategies to help overcome barriers and obstacles to desired reality. Group developed strategies for the common barriers. Identified personal barriers to desired reality and choose one obstacle to work. Pt stated they want to utilize strategy of taking a break to combat barriers. Pt seemed to benefit from increased repertoire of healthy coping skills/strategies to overcome common barriers to moving forward. Pt is to continue IOP to increase healthy coping skills, challenge distortions, and increase overall functioning. Narrative Note: []
--- NOTE | 2025-08-18 13:12 | BH.MDN ---
Multi-Disciplinary Note Note 45-min Individual: Time Started:: 10:20 Date: 08/18/25 Purpose of session/treatment goals addressed:: To discuss plan for discharge and to review progress. Another goal was to process current stressor. Eye Contact:: Fair Motor Activity:: Appropriate Appearance:: Casual Speech:: Appropriate Mood:: Euthymic Affect:: Congruent Thoughts:: Linear, Logical and No evidence of hallucinations/delusions noted Staff Interventions:: motivational interviewing, CBT techniques, mindfulness skills, discharge planning, strengths perspective and goal setting Client Response:: Pt responded well to session, open to meeting with therapist. Pt reports she has been doing well, she recently got connected with a provider at [facility] where pt will be going for individual therapy post IOP. Pt reports she feels that she has made progress in setting boundaries and being social. Pt has been spending time with two of her friends on a consistent basis which has helped pt get out of the house more. 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 Pt shared that at work last night she was becoming highly anxious and so she used coping skills to take a break and this helped pt manage her symptoms. Pt shared this helped her return to work. Pt also noted that she is very anxious about her one friend currently as he is currently going through some significant stressors right now. Pt feels that she is helping him to the best of her abilities while also maintaining self-care. Pt receptive to continuing to work on her social anxiety exposure goals of talking in group for the next week of the program. Risks/Concerns:: Pt denies any suicidal ideation, plan, or intent. Pt denies any thoughts of . Progress Toward Goals/Plan:: Pt continues to make progress towards tx goals AEB pt's report of using coping skills outside of IOP and pt's belief that she has been more social but also setting more boundaries. Pt shared she continues to have anxiety, especially in social situations, but pt feels she is doing much better than she was. Pt is now established with [facility] and pt will begin individual therapy there after IOP ends next week. Pt will continue IOP tx for one more week to reinforce healthy coping skills and further improve mood stability. Time Stopped:: 10:58
--- NOTE | 2025-08-28 09:00 | BH.SGPN.GN ---
Behaviors/Verbalizations/Mental Status: [] Pt alert and oriented, Casually dressed and groomed. Eye contact fair. Motor activity appropriate. Speech within normal limits. Affect congruent, mood anxious. Thoughts linear, logical, no signs of hallucinations or delusions. Reviewed pt?s symptom tracker, 0/5 with 5 being severe for risk for suicidal ideation, indicates a 0/5 for plan, and intent to kill self. Pt does not appear to be imminent risk to harm self.08/28/25. Client Response/Progress/Benefit: []Pt was not an active participant in group discussions. Attentive. Per patients daily symptom tracker, pt indicates a 3/5 for depression and a 3/5 for anxiety, with 5 being severe. Pt did not share their mental health positives or stressor this week. Pt engaged in some conversation with peers but chose not to participate in the process group sharing. Pt was supportive to others in the group. Pt seemed to benefit from support from peers. Will continue IOP tx to promote healthy coping mechanisms, reduce negative thinking patterns, and prevent decompensation.
--- NOTE | 2025-08-28 10:15 | BH.SGPN.GN ---
Behaviors/Verbalizations/Mental Status: [] Eye contact is good. Motor activity is appropriate. Appearance is casual. Speech is Appropriate. Mood is content. Affect is congruent. Thoughts are linear and logical. No evidence of psychosis. Client Response/Progress/Benefit: [] Pt engaged in session AEB listening attentively to others and providing input throughout. Pt engaged in activity, able to connect how it can be uncomfortable and difficult to practice acceptance when situations are out of one?s own control. Identified what they are struggling to accept in personal life. Worked with peer group to define acceptance and identify the benefits that acceptance can bring. Benefits included; reduce anxiety, reduced stress, helps one to focus on situations we can change, and decreased negative self-talk. Seemed to benefit from increased awareness of the meaning as well as the importance of acceptance. Will continue in IOP to improve emotion regulation, challenge distortions, and prevent decompensation. Narrative Note: []
--- NOTE | 2025-08-28 11:15 | BH.SGPN.GN ---
Behaviors/Verbalizations/Mental Status: []Pt alert and oriented, casually dressed and groomed. Eye contact good. Motor activity appropriate. Speech within normal limits. Affect congruent, mood content and tired. Thoughts linear, logical, no signs of hallucinations or delusions. Client Response/Progress/Benefit: [] Pt responded well to session AEB taking notes and contributing to discussion throughout. Pt engaged as group continued discussion on acceptance and the mental health benefits of practicing acceptance. Pt and peers identified what makes acceptance challenging and pt completed a self-reflection exercise on what is hard to accept in pt's life. Pt identified something that is currently hard to accept as ?my living situation.? Pt stated by not accepting this, it leads to ?being angry and isolating in my room?. Group identified strategies to increase acceptance. Pt noted wanting to work on ?not assuming? as a strategy for improving acceptance. Pt appeared to benefit from gaining insight and learning strategies to increase acceptance. Pt will continue IOP tx to promote mood stability, reinforce healthy coping skills, and improve daily functioning. Narrative Note: []
--- NOTE | 2025-08-30 08:43 | BH.AFTERPLAN ---
Aftercare Plan Demographics Treatment End Date:: 08/30/25 Psychiatrist:: Jesús Combs Psychiatrist Office #:: [phone] [facility]/IOP Therapist:: Mabel Lynch Therapist Phone #:: [phone] Medications Home Medications cholecalciferol (vitamin D3) 125 mcg (5,000 unit) capsule 125 mcg PO QDAY 09/23/24 bupropion HCl 150 mg 24 hr tablet, extended release 150 mg PO QAM 90 days #90 tabs 04/25/25 Plan Details Progress/Aftercare Plan Details:: Pt has responded well to treatment as evidenced by Pt?s mostly consistently attendance and her report of improved mood stability. Pt was always attentive and receptive to learning during group and individual sessions. Pt actively applied coping skills outside of IOP and reports overall her mood is improved and she is functioning better than she was several months ago. Pt?s depression has decreased by 25% since admission and anxiety has decreased by 50% since admission. Pt will follow up with Dr. Combs for medication management and Maria E Villaseñor for individual therapy. Strategies for Success:: 1. Opposite action! Continue to break that cycle of anxiety, guilt, and depression by not letting emotions be the only drivers of your bus. 2. Remember that thoughts are thoughts NOT facts! You have power in if you give thoughts the time of day or not. 3. self-care! You deserve to take time for you and you also deserve to face the not so fun self-care like setting boundaries 4. Self-compassion! You are human and you will make a mistake?BUT that doesn?t mean you are a failure or not good enough. Remember there are no bad parts! 5. Continue to practice acceptance 6. Practice positive self-talk and keep track of your wins. 7. Remember progress isn?t linear! You may have a setback or bump in the road, but that doesn?t mean you?ve lost all progress. 8. self-reflection and self-awareness. 9. Be understanding with yourself and try to see the whole picture, not just the snapshot. 10. Live in the butts!! Appointments Appointments/Referrals to Other Services:: 1. Apt with Dr. Combs on 09/26/25 for medication management. 2. First appointment with Maria E at [facility] on 08/31/25.
--- NOTE | 2025-08-30 08:49 | BH.DS ---
Discharge Summary Demographics Date of Admission:: 07/11/25 Discharge Date: 08/30/25 Presenting Problems at Admission:: Pt is a 25-year-old female with a history of MDD and ADHD. Pt was referred to [facility] due to her symptoms worsening over the past few weeks. Pt currently endorses increased irritability, a depressed mood, lashing out, lack of energy, anhedonia, and sleeping to avoid. Pt reports she has anxiety most days and she dreads each day. Pt reports her symptoms are impacting her ability to function at home and pt is not engaging in things she once found mike in. Discharge Diagnoses:: Major depressive disorder, single episode, unspecified F32.9; ADHD Reason for Discharge:: Pt has accomplished her tx goals AEB her reduction of depression and anxiety as well as her self-report of reduced physical symptoms caused by anxiety. Pt no longer meets IOP level of care and pt will transition to outpatient counseling. Treatment Progress During Treatment & Response: Pt has responded well to treatment as evidenced by Pt?s mostly consistently attendance and her report of improved mood stability. Pt was always attentive and receptive to learning during group and individual sessions. Pt actively applied coping skills outside of [facility] and reports overall her mood is improved and she is functioning better than she was several months ago. Pt?s depression has decreased by 25% since admission and anxiety has decreased by 50% since admission. Pt will follow up with Dr. Combs for medication management and Maria E Villaseñor for individual therapy. Issues Still to be Addressed:: Conflict resolution, building independence, social support and social skills, and combating negative thinking. Discharge Recommendations/Instructions:: Pt is encouraged to follow up with Dr. Combs on 09/26/25 for medication management and pt will be starting counseling at [facility]. Pt's first appointment with Maria E at [facility] is on 08/31/25. Pt is unable to do [facility] aftercare group due to her work schedule. Discharge Handout
--- NOTE | 2025-08-30 09:00 | BH.SGPN.GN ---
Behaviors/Verbalizations/Mental Status: [] Pt alert and oriented, neatly dressed and groomed. Eye contact good. Motor activity appropriate. Speech within normal limits. Affect constricted, mood euthymic. Thoughts linear, logical, no signs of hallucinations or delusions. Reviewed pt?s symptom tracker, no risk for suicidal ideation, plan, or intent 08/30/25. Client Response/Progress/Benefit: []Pt was an active participant in group discussions. Attentive. Able to identify mental health wins including ?it?s my last day and I?m ready to get my schedule back.? Pt also noted that she has seen progress in boundary setting and not lashing out. Pt's stressor today is ?nothing.? The group offered pt suggests managing this stressor and emotional support which pt reported was helpful. Pt is feeling ?sleepy and excited? this morning. Pt receptive to feedback from peers. Benefited from group support, encouragement, and feedback. Progress noted. Will discharge from IOP tx as pt has accomplished her tx goals and no longer meets criteria for IOP level of care. Narrative Note: []
--- NOTE | 2025-08-30 10:10 | BH.SGPN.GN ---
Behaviors/Verbalizations/Mental Status: [] Pt alert and oriented, casual appearance, eye contact fair. Motor activity appropriate. Speech within normal limits. Affect congruent. Mood anxious. Thoughts linear, logical, no signs of hallucinations or delusions. Client Response/Progress/Benefit: [] Pt did not participate much in group discussions on defining conflict (internal/external) and possible benefits to conflict. Appeared distracted during psychoeducation on conflict styles (avoidant, accommodating, competing, cooperative) and disengaged during group discussion in which the group identified when it is beneficial to use conflict styles and pitfalls of each conflict style. Pt was apart of but did not contribute to the small group exercise in which each group was given a scenario and a conflict resolution technique had to be utilized. Benefited from increased awareness of the impact of conflict styles on mental health. Discharged from [facility] on 08/30/25.
--- NOTE | 2025-08-30 11:00 | BH.MDN ---
Multi-Disciplinary Note Note 30-min Individual: Time Started:: 10:20 Date: 08/30/25 Purpose of session/treatment goals addressed:: To address current stressors and discuss strategies to help cope with these stressors. Another goal was discussing discharge. Eye Contact:: Good Motor Activity:: Appropriate Appearance:: Neat Speech:: Soft Mood:: Euthymic Affect:: Congruent Thoughts:: Linear, Logical and No evidence of hallucinations/delusions noted Staff Interventions:: discharge planning, strengths perspective and reviewed DSM-5 Client Response:: Pt responded well to session, open to meeting with therapist. Pt reports she feels ready to discharge and return to her old routine with work and sleep schedule. Pt noted that she has made progress with saying no and not giving in and I'm not having the physical anxiety stuff. Pt shared her menstrual cycle is back to normal now that she is less stressed and she feels that she has been having less stomach issues. Pt noted that she has been consistent with her medications probably the most I've been in my life. Pt stated she will continue therapy as pt wants to keep working on her goal of being social, handling conflict with mom, and eventually moving out. Pt will discharge today and pt feels ready to move forward. Risks/Concerns:: Pt denies any suicidal ideation, plan, or intent. Pt denies any thoughts of . Progress Toward Goals/Plan:: Pt has responded well to treatment as evidenced by Pt?s mostly consistently attendance and her report of improved mood stability. Pt was always attentive and receptive to learning during group and individual sessions. Pt actively applied coping skills outside of IOP and reports overall her mood is improved and she is functioning better than she was several months ago. Pt?s depression has decreased by 25% since admission and anxiety has decreased by 50% since admission. Pt will discharge today and follow up with Dr. Combs for medication management and Maria E Villaseñor for individual therapy. Time Stopped:: 10:40
--- NOTE | 2025-08-30 11:10 | BH.SGPN.GN ---
Behaviors/Verbalizations/Mental Status: []Client alert and oriented, casually dressed and groomed. Eye contact good. Motor activity appropriate. Speech within normal limits. Affect congruent, mood euthymic. Thoughts linear, logical, no signs of hallucinations or delusions. Client Response/Progress/Benefit: [] Pt engaged in session AEB contributing to discussion and engaging in small group. Attentive during discussion on strategies for more effectively managing conflict in personal life. Pt noted current conflict resolution style uses the most is avoidant and passive aggressive because doesn't want to cause any issues. Pt participated in small group for activity and did well practicing how to manage conflict scenarios. Pt given handout on fair fighting rules and how to identify common conflict barriers. Pt indicated what needs improvement in conflict for them. Appeared to benefit from gaining strategies to help pt better manage conflict. Will continue IOP tx improve confidence, challenge negative thoughts, and prevent decompensation.
== END 2025-08-30 12:08 | disposition home or self-care (01) ==
LOC: BHIOP 08:04
PROVIDERS: PCP Internal Medicine; Referring Provider Student in an Organized Health Care Education/Training Program; Visit Provider Student in an Organized Health Care Education/Training Program
DX: F32.9 Major depressive disorder, single episode, unspecified (principal); F90.9 Attention-deficit hyperactivity disorder, unspecified type
CPT/HCPCS: S9480; 90834; 90853

== ENCOUNTER → 2025-11-13 | Outpatient (CLI) | payer OTHER, SELFPAY ==
[2025-11-13 10:39] LABS: Hematocrit 39.7 % (37-47); Hemoglobin 13.3 g/dL (12.0-15.0); Mean Corp Hgb Conc 33.5 g/dL (32-36); Mean Corpuscular Volume 88.0 fL (81-99); Mean Platelet Vol. 10.8 fl (6.2-12.0); Platelet Count 265 K/mm3 (150-450); RBC Distribution Width CV 11.9 % (11.6-14.6); RBC Distribution Width SD 38.2 fl (35.1-43.9); Red Blood Count 4.51 M/mm3 (4.2-5.4); White Blood Count 5.5 K/mm3 (4.4-11.0)
[2025-11-13 11:52] LABS: AST(SGOT) 30 U/L (<=31); Alanine Aminotransfer ALT/SGPT 30 U/L (<=34); Albumin, Serum 4.6 g/dL (3.5-5.0); Alkaline Phosphatase 43 U/L (35-104); Anion Gap 10 (7-18); BUN 12 mg/dL (4-19); BUN/Creat Ratio 18.0 RATIO (10-20); Calcium,Total 9.5 mg/dL (7.6-11.0); Carbon Dioxide 25.3 mmol/L (20.0-29.0); Chloride 102 mmol/L (96-106); Globulin 2.3 g/dL (2.2-4.2); Glucose 95 mg/dL (70-99); Potassium 4.7 mmol/L (3.5-5.1)
== END | disposition home or self-care (01) ==
LOC: CIMLAB 08:39
PROVIDERS: PCP Internal Medicine; Referring Provider Internal Medicine; Visit Provider Internal Medicine
DX: N92.6 Irregular menstruation, unspecified (principal)
CPT/HCPCS: 36415; 80053; 84443; 85027